=== PATIENT | female | born 1960 | race Caucasian/White ===

== ENCOUNTER 2025-05-21 13:05 | Inpatient (IN) ==
--- NOTE | 2025-05-21 13:15 | ED Physician Documentation ---
History of Present Illness Stated complaint Stated Complaint: N/V/ABDO PX Chief complaint Chief Complaint: Abd Pain History obtained from History obtained from: Patient and EMS Additonal information Additional information: 64-year-old woman with history of atrial fibrillation on Xarelto, Remote open cholecystectomy and hysterectomy without oophorectomy, lupus, CHF has been sick for about 5 days with vomiting and abdominal pain. She was seen here [address] Patrick. At the time she had a hemoglobin of 16.4 with normal white count she had kidney disease with BUN of 38 and creatinine of 1.8. We did not have prior labs on her so it was unclear if this was acute or chronic. She was administered IV fluids and Zofran and then subsequently droperidol with improvement. She still feels ill with vomiting and abdominal pain and states that her vomit is black. She is not taking Pepto-Bismol. She is actually not taking any of her routine meds because of the illness. She is feeling somewhat better after 4 mg of IV Zofran en route here. She did not fill her prescription for Zofran the other day but sounds like a family member had some and she tried that without relief. Meds/Allgy Home Medications Ambulatory Orders Medication Instructions Recorded Confirmed ondansetron HCl 4 mg tablet 4 mg PO Q8H PRN nausea and 05/19/25 vomiting #20 tabs Allergies Allergies Allergy/AdvReac Type Severity Reaction Status Date / Time Penicillins Allergy Mild Anaphylaxis Verified 05/19/25 00:00 [id number]-[id number] Reductase Allergy Mild Anaphylaxis Verified 05/19/25 00:00 Inhibitor codeine Allergy Unknown rash Verified 05/21/25 13:46 PFSH Active Problems All Active Problems (Updated 05/21/25 @ 15:44 by Tomasz Douglass MD) Atrial fibrillation (Chronic) Small bowel obstruction (Acute) Gastroenteritis (Acute) Vomiting (Acute) Dehydration (Acute) Social History Social History Do you feel safe in your home environment?: Yes History of physical, verbal, emotional, or financial abuse?: No Exam Exam Vital Signs: Vital Signs x48h Temp Pulse Resp BP Pulse Ox 05/21/25 15:23 94 115/84 96 05/21/25 14:53 106 H 16 113/83 93 05/21/25 14:48 98 115/91 H 96 05/21/25 14:43 105 H 127/86 96 05/21/25 14:38 142 H 16 120/95 H 93 05/21/25 14:07 144 H 12 146/85 H 93 05/21/25 14:01 150 H 14 117/81 94 05/21/25 13:43 135 H 10 L 135/95 H 94 05/21/25 13:14 36.3 C L 142 H 18 129/96 H 97 Constitutional normal general appearance and no apparent distress Respiratory breath sounds equal bilaterally, normal respiratory effort and clear to auscultation bilaterally Cardiovascular Rapid and irregular Gastrointestinal abdomen soft to palpation and nontender to palpation Results Vitals Vitals: Vital Signs - 24 hr 05/21/25 13:14 05/21/25 13:43 05/21/25 14:01 Temperature 36.3 C L Temperature Source Temporal Artery Scan Pulse Rate 142 H 135 H 150 H Respiratory Rate 18 10 L 14 Blood Pressure 129/96 H 135/95 H 117/81 O2 Saturation 97 94 94 O2 Source Room air Room air Pain Intensity 7 05/21/25 14:07 05/21/25 14:38 05/21/25 14:43 Temperature Temperature Source Pulse Rate 144 H 142 H 105 H Respiratory Rate 12 16 Blood Pressure 146/85 H 120/95 H 127/86 O2 Saturation 93 93 96 O2 Source Room air Room air Pain Intensity 05/21/25 14:48 05/21/25 14:53 05/21/25 15:23 Temperature Temperature Source Pulse Rate 98 106 H 94 Respiratory Rate 16 Blood Pressure 115/91 H 113/83 115/84 O2 Saturation 96 93 96 O2 Source Room air Room air Pain Intensity Oxygen O2 Source Room air Labs Labs: Laboratory Tests 05/21/25 13:22 WBC 12.4 H RBC 6.15 H Hgb 18.1 H Hct 54.3 H MCV 88.3 MCH 29.4 MCHC 33.3 RDW 13.2 Plt Count 511 H MPV 10.8 Neut # (Auto) 8.2 H Lymph # (Auto) 2.6 [place] # (Auto) 1.1 H Eos # (Auto) 0.0 Baso # (Auto) 0.1 Absolute Nucleated RBC 0.00 Nucleated RBC % 0.0 Sodium 129 L Potassium 4.0 Chloride 89 L Carbon Dioxide 26 Anion Gap 14.0 H BUN 24 H Creatinine 1.7 H Estimated GFR (MDRD) 30 L Glucose 162 H Calcium 9.7 Magnesium 2.0 Total Bilirubin 1.2 H AST 19 ALT 27 Alkaline Phosphatase 119 Troponin I High Sens 37.2 H* B-Natriuretic Peptide 71 Total Protein 6.4 Albumin 3.9 Globulin 2.5 Albumin/Globulin Ratio 1.6 Lipase 34 Rads (name of study) CT A/P: Relevant Findings:: Final report received and EMP independent interpretation of test Interpretation: IMPRESSION: High-grade small bowel obstruction. Left nephrolithiasis. Remote cholecystectomy and hysterectomy PD Medical Decision Making ED course ED course: She presents with abdominal symptoms predominantly but is noted to be in A-fib with RVR. She takes metoprolol at home, but has not been taking any of her meds in the last few days. She was given 2 doses of diltiazem which improved her heart rate from about 150 down to about 120, followed by metoprolol getting her heart rate down to about 100 or so. Workup demonstrates hemoconcentration with hemoglobin of 18, so despite the black vomitus, doubt this represents GI bleed. She does have a leukocytosis and mild thrombocytosis. CMP shows about the same renal function as the other day. She does have an elevated troponin which I suspect is likely due to to her tachycardia as opposed to a primary cardiac insult. On my independent review of her CT looks like she has a bowel obstruction and spoke with Dr. Fishman for admission at 3:45 PM and also left a voicemail for the on-call surgeon, Dr. Alcocer. Spoke with Dr. Alcocer as well at approximately 3:50 PM. She request NG tube decompression. Discharge Plan Discharge Patient Disposition: 65 [facility] DC/Xfer Condition: Serious Clinical Impression: Small bowel obstruction, Atrial fibrillation Prescriptions: No Action ondansetron HCl 4 mg tablet 4 mg PO Q8H PRN (Reason: nausea and vomiting) Qty: 20 0RF Print Language: Irish
[2025-05-21] MEDS: diltiaZEM INJ 5 MG/ML VIAL IVP STA ×2 (13:25→13:58)
[2025-05-21 13:36] LABS: HCT - HEMATOCRIT 54.3 % (37.0-47.0); HGB - HEMOGLOBIN 18.1 g/dL (12.0-16.0); MEAN PLATELET VOLUME 10.8 fL (7.9-10.8); NRBC ABSOLUTE COUNT (AUTO) 0.00 x10^3/uL; NUCLEATED RED BLOOD CELLS AUTO 0.0 /100WBC; PLT - PLATELET COUNT 511 10^3/uL (130-450); RED CELL DISTRIBUTION WIDTH 13.2 % (12.0-15.0)
[2025-05-21 13:49] LABS: ALT ALANINE AMINOTRANSFERASE 27.0 IU/L (10-60); AST ASPARTATE AMINOTRANSFERASE 19.0 IU/L (10-42); BUN - BLOOD UREA NITROGEN 24.0 mg/dL (6-20); CARBON DIOXIDE - CO2 26.0 mmol/L (21-32); CREATININE 1.7 mg/dL (0.6-1.3); GFR - MDRD 30.0 (>89)
[2025-05-21] MEDS: SODIUM CHLORIDE 0.9% 1,000 ML IV STA ×2 (14:41→14:54)
[2025-05-21] MEDS: METOPROLOL 5 MG/5 ML VIAL IVP STA (14:42)
--- NOTE | 2025-05-21 15:58 | CT Report ---
PROCEDURE: CT Abdomen/Pelvis WO INDICATIONS: IV only, abd pain, vomit TECHNIQUE: A CT scan of the abdomen and pelvis was performed without the use of intravenous contrast. Images were recorded and evaluated at appropriate window settings. Reformats: coronal and sagittal. For radiation dose reduction, the following was used: automated exposure control, adjustment of mA and/or kV according to patient size. COMPARISON: None. FINDINGS: Image quality: Diagnostic. Lower chest: Unremarkable. Liver: No contour-deforming mass. Gallbladder: Absent Biliary tree: No intrahepatic or extrahepatic dilation, accounting for age. Spleen: No splenomegaly. Pancreas: No pancreatic ductal dilation. Adrenals: No adrenal nodule. Kidneys and ureters: No hydronephrosis. No contour-deforming mass. Nonobstructing large left renal stone measuring 1.5 cm. Focal left renal cortical volume loss consistent with remote insult. Stomach, bowel and peritoneum: High-grade small bowel obstruction. No free air or free fluid. Lymph nodes: No central or retroperitoneal adenopathy. Vessels: No infrarenal aortic aneurysm. Reproductive organs: Uterus is surgically absent. No adnexal masses. Bladder: No abnormal bladder wall thickening. No calcified bladder stones. Pelvic lymph nodes: No adenopathy by size criteria. Bones: No aggressive osseous abnormality. Remote lower lumbar posterior decompression and posterior lateral fusion.. Other: No significant ventral or inguinal hernia. IMPRESSION: High-grade small bowel obstruction. Left nephrolithiasis. Remote cholecystectomy and hysterectomy Reviewed by: Wayne Anton MD on 05/21/2025 3:54 PM PDT Approved by: Wayne Anton MD on 05/21/2025 3:54 PM PDT Station ID: [id number]
--- NOTE | 2025-05-21 16:15 | HISTORY & PHYSICAL EXAMINATION ---
Chief Complaint Chief Complaint Chief Complaint: N/V History of Present Illness Admitted From Admitted From:: home History Obtained From Records Reviewed: none available History obtained from: patient History of Present Illness HPI Comment/Other: 64-year-old female who presents to the emergency department with nausea and vomiting inability to tolerate any p.o. since 05/16/2025. She was seen in the ED on May 16 diagnosed with a gastroenteritis and sent home. She has not had a bowel movement nor passed flatus since 05/16. She has been having mild abdominal pain and abdominal distention. She says she just generally fears feels terrible. Is difficult for her to get out of bed such as she has been keeping a bucket by her bed vomiting. She has not been running any fevers she has not had any extremity swelling she is not having any difficulty passing her urine she states that she still is urinating several times a day. Recently moved here from [place] to live with her daughter and son-in-law. She was in [place] caring for her aging parents and they have since . She has a history of CHF and diabetes her diabetes diagnosis is rather recent. She has been waiting for months for a primary care appointment and unfortunately is scheduled for tomorrow and thus she will miss it. She is worried about running out of medications. Her daughter Dea is her surrogate medical decision maker. She does not have a POLST, but wants full code status. She says that maybe she will think about changing her code status in 10 years. Meds/Allgy Home Medications Ambulatory Orders Medication Instructions Recorded Confirmed ondansetron HCl 4 mg tablet 4 mg PO Q8H PRN nausea and 05/19/25 vomiting #20 tabs Allergies Allergies Allergy/AdvReac Type Severity Reaction Status Date / Time Penicillins Allergy Mild Anaphylaxis Verified 05/19/25 00:00 [id number] Reductase Allergy Mild Anaphylaxis Verified 05/19/25 00:00 Inhibitor codeine Allergy Unknown rash Verified 05/21/25 13:46 PFSH Active Problems All Active Problems (Updated 05/21/25 @ 16:27 by RACHELE Rivera) CHF (congestive heart failure) (Acute) Diabetes (Chronic) Atrial fibrillation with RVR (Chronic) Acute kidney injury (Acute) Hyponatremia (Acute) Atrial fibrillation (Chronic) Small bowel obstruction (Acute) Gastroenteritis (Acute) Vomiting (Acute) Dehydration (Acute) Surgical History Surgical History (Updated 05/21/25 @ 17:35 by Parul Alcocer DO) History of abdominal hysterectomy History of cholecystectomy open Social History Social History (Updated 05/21/25 @ 17:42 by Parul Alcocer DO) Smoking Status: Unknown if ever smoked Do you feel safe in your home environment?: Yes History of physical, verbal, emotional, or financial abuse?: No POLST Patient has POLST: No POLST on file?: No Review of Systems Status of ROS: 10 or more systems reviewed and unremarkable except as noted in history and below Prior Level of Functionality: Independent Exam Exam Vital Signs: Vital Signs x48h Temp Pulse Pulse Resp BP BP Pulse Ox 05/21/25 18:00 36.5 C 131 H 18 119/83 95 05/21/25 17:20 118 H 123/86 93 05/21/25 17:05 110 H 115/82 92 05/21/25 16:46 117 H 135/84 H 92 05/21/25 16:40 127 H 105/79 96 05/21/25 15:23 94 115/84 96 05/21/25 14:53 106 H 16 113/83 93 05/21/25 14:48 98 115/91 H 96 05/21/25 14:43 105 H 127/86 96 05/21/25 14:38 142 H 16 120/95 H 93 05/21/25 14:07 144 H 12 146/85 H 93 05/21/25 14:01 150 H 14 117/81 94 05/21/25 13:43 135 H 10 L 135/95 H 94 05/21/25 13:14 36.3 C L 142 H 18 129/96 H 97 Constitutional normal general appearance and no apparent distress Obese edentulous female [facility] normocephalic Eyes PERRL and conjunctivae normal Neck/C-Spine visual inspection normal Chest inspection of chest normal Respiratory breath sounds equal bilaterally, normal respiratory effort, clear to auscultation bilaterally and no use of accessory muscles Cardiovascular normal heart rate noted HR normal in the ED, becoming tachycardic on the floor. Gastrointestinal nontender to palpation no bowel sounds. distended, mild ttp. improved post NG insertion. subcostal incision on the right. Extremities normal to inspection and normal to palpation no edema Neurology no focal motor deficit noted and GCS 15 Psychiatry mental status grossly normal, oriented x3 and thought process normal Skin skin is dry Conclusion/Plan Problem List (1) Small bowel obstruction: Plan: 64F who presents with inability to tolerate po for 5 days. No flatus or BM for 5 days. She appears dehydrated. She is tachycardic, she states she is still making urine, she has been vomting at home for 5 days and feeling more weak today. Description of her vomitus is black. She denies hx of GIB. has not been taking NSAIDS. her hgb is not low, appears hemoconcentrated. I have ordered repeat CBC for the AM. remote surgical hx of open cholecystectomy and hysterectomy. She denies hx of SBO. discussed w Dr Douglass, will admit to inpatient status for observation and supportive care. Discussed with Dr Alcocer of Gen surgery. I will place NG for decompression overnight and consider gastrografin challenge in the AM. Pt was educated on NGT, GGC and possible operative treatment if these 2 measures were to fail. I will order zofran and compazine IV PRN N/V, but expect that she will feel better with NG placement. LR at 100cc/hr. May give another bolus dependent on heart rate. Elevated WBC may be due to vomiting, may also be due to hemoconcentration. This patient meets sepsis criteria with leukocystosis,tachycardia- however I think it more likely that she has dehydration. (2) Atrial fibrillation with RVR: Plan: heart rate as high as 150 in the ED. She has been given 2 doses of diltiazem in the ED and heart rate down under 100, also received metoprolol 5mg IV. She tells me that she is on Paradaxa at home, but has not taken it since 05/16. She is almost out of [facility], due to lack of primary care. I think that her tachycardia may be related to her dehydration. She has been given 2L NS in the ED. I will monitor on telemetry and give metoprolol 5mg IV q6h PRN sustained HR >120. (3) Acute kidney injury: Plan: Unclear what baseline Cr is. She denies a hx of renal insuffiency. She has DM and heart failure as well. so possible that she has CRI. Will hydrate patient and recheck Cr in the AM with BMP. (4) Hyponatremia: Plan: NA 129, likely due to GI losses, this is most likely hypovolemic hyponatremia. I will hydrate the patient and recheck Na in the AM. Her sodium was 135 two days ago, on the day she started to vomit. likely will correct with correction of her hypovolemia and resumption of oral intake. (5) Diabetes: Plan: unknown meds. Glucose is 163 on BMP at admit. I will order A1C with AM labs, and place on low dose SSI overnight with POC glucose checks every 6 hours. (6) CHF (congestive heart failure): Plan: Patient does not know her meds or her EF. She has not been having any PND, lower extremity swelling or CHISHOLM. Will continue to follow and pursue accurate med rec. I will use fluids judiciously. Trop is 37.2 at the time of initial labs. This is likely strain. I will recheck Trop again this evening. Plan I have spent 85 minutes in the care of this patient today. This includes time [id number], review and ordering of diagnostic imaging and laboratory studies and consultation with other providers. Monitoring the patient's signs symptoms, evaluation of medication effectiveness and patient's response to treatment. Lab Results Lab results reviewed: Yes 05/21/25 13:22 05/21/25 13:22 EKG Results EKG Interpreted Independently: Yes EKG Findings: Atrial fibrillation with a rate of 153.
[2025-05-21] MEDS: PROCHLORPERAZINE 10 MG/2 ML VIAL IVP STA (16:35)
--- NOTE | 2025-05-21 16:48 | CONSULTATION NOTE ---
History of Present Illness History of Present Illness HPI Comment/Other: 64-year-old female presents to the ER with a week of vomiting. She began vomiting on Wednesday 05/16. She reports her last bowel movement or flatus was the day prior on . She was seen in the ER 2 days ago and diagnosed with gastroenteritis. She returns today and evaluation including CT imaging is more consistent with small bowel obstruction. She has a history of open cholecystectomy as well as hysterectomy. She has no history of prior small bowel obstructions. She was also found to be in A-fib with RVR in the emergency room, which has now been corrected. In association with that she has an elevated troponin and elevated creatinine, her baseline labs are unknown as she recently relocated to [facility]. An NG tube was placed in the emergency room with immediate output of 700 cc of feculent fluid. She reports improvement in her abdominal pain since NG tube placement. Lives at home with daughter and son-in-law. PFSH Active Problems All Active Problems (Updated 05/21/25 @ 16:27 by RACHELE Rivera) CHF (congestive heart failure) (Acute) Diabetes (Chronic) Atrial fibrillation with RVR (Chronic) Acute kidney injury (Acute) Hyponatremia (Acute) Atrial fibrillation (Chronic) Small bowel obstruction (Acute) Gastroenteritis (Acute) Vomiting (Acute) Dehydration (Acute) Surgical History Surgical History (Updated 05/21/25 @ 17:35 by Parul Alcocer DO) History of abdominal hysterectomy History of cholecystectomy open Social History Social History Smoking Status: Unknown if ever smoked Do you feel safe in your home environment?: Yes History of physical, verbal, emotional, or financial abuse?: No POLST Patient has POLST: No POLST on file?: No Meds/Allgy Home Medications Ambulatory Orders Medication Instructions Recorded Confirmed ondansetron HCl 4 mg tablet 4 mg PO Q8H PRN nausea and 05/19/25 vomiting #20 tabs Allergies Allergies Allergy/AdvReac Type Severity Reaction Status Date / Time Penicillins Allergy Mild Anaphylaxis Verified 05/19/25 00:00 Iigdlag-[id number] Reductase Allergy Mild Anaphylaxis Verified 05/19/25 00:00 Inhibitor codeine Allergy Unknown rash Verified 05/21/25 13:46 Results Lab Results 05/21/25 13:22 05/21/25 13:22 Other Lab Results: Lab Results x24hrs 05/21/25 Range/Units 13:22 WBC 12.4 H (4.8-10.8) x10^3/uL RBC 6.15 H (4.20-5.40) 10^6/uL Hgb 18.1 H (12.0-16.0) g/dL Hct 54.3 H (37.0-47.0) % MCV 88.3 (81.0-99.0) fL MCH 29.4 (27.0-31.0) pg MCHC 33.3 (32.0-36.0) g/dL RDW 13.2 (12.0-15.0) % Plt Count 511 H (130-450) 10^3/uL MPV 10.8 (7.9-10.8) fL Neut # (Auto) 8.2 H (1.5-6.6) 10^3/uL Lymph # (Auto) 2.6 (1.5-3.5) 10^3/uL [place] # (Auto) 1.1 H (0.0-1.0) 10^3/uL Eos # (Auto) 0.0 (0.0-0.7) 10^3/uL Baso # (Auto) 0.1 (0.0-0.1) 10^3/uL Absolute Nucleated RBC 0.00 x10^3/uL Nucleated RBC % 0.0 /100WBC Sodium 129 L (135-145) mmol/L Potassium 4.0 (3.5-4.5) mmol/L Chloride 89 L (101-111) mmol/L Carbon Dioxide 26 (21-32) mmol/L Anion Gap 14.0 H (6-13) BUN 24 H (6-20) mg/dL Creatinine 1.7 H (0.6-1.3) mg/dL Estimated GFR (MDRD) 30 L (>89) Glucose 162 H (74-104) mg/dL Calcium 9.7 (8.5-10.3) mg/dL Magnesium 2.0 (1.7-2.3) mg/dL Total Bilirubin 1.2 H (0.2-1.0) mg/dL AST 19 (10-42) IU/L ALT 27 (10-60) IU/L Alkaline Phosphatase 119 (42-121) IU/L Troponin I High Sens 37.2 H* (2.3-14.8) ng/L B-Natriuretic Peptide 71 (5-100) pg/mL Total Protein 6.4 (6.4-8.9) g/dL Albumin 3.9 (3.2-5.5) g/dL Globulin 2.5 (2.1-4.2) g/dL Albumin/Globulin Ratio 1.6 (1.0-2.2) Lipase 34 (11-82) U/L Diagnostic Imaging Results Diagnostic Imaging Results: positive Read contemporaneously Diagnostic Imaging Results Comments: EXAM: [id number] CT/ABPEWO ([id number]) PROCEDURE: CT Abdomen/Pelvis WO INDICATIONS: IV only, abd pain, vomit TECHNIQUE: A CT scan of the abdomen and pelvis was performed without the use of intravenous contrast. Images were recorded and evaluated at appropriate window settings. Reformats: coronal and sagittal. For radiation dose reduction, the following was used: automated exposure control, adjustment of mA and/or kV according to patient size. COMPARISON: None. FINDINGS: Image quality: Diagnostic. Lower chest: Unremarkable. Liver: No contour-deforming mass. Gallbladder: Absent Biliary tree: No intrahepatic or extrahepatic dilation, accounting for age. Spleen: No splenomegaly. Pancreas: No pancreatic ductal dilation. Adrenals: No adrenal nodule. Kidneys and ureters: No hydronephrosis. No contour-deforming mass. Nonobstructing large left renal stone measuring 1.5 cm. Focal left renal cortical volume loss consistent with remote insult. Stomach, bowel and peritoneum: High-grade small bowel obstruction. No free air or free fluid. Lymph nodes: No central or retroperitoneal adenopathy. Vessels: No infrarenal aortic aneurysm. Reproductive organs: Uterus is surgically absent. No adnexal masses. Bladder: No abnormal bladder wall thickening. No calcified bladder stones. Pelvic lymph nodes: No adenopathy by size criteria. Bones: No aggressive osseous abnormality. Remote lower lumbar posterior decompression and posterior lateral fusion.. Other: No significant ventral or inguinal hernia. IMPRESSION: High-grade small bowel obstruction. Left nephrolithiasis. Remote cholecystectomy and hysterectomy Reviewed by: Wayne Anton MD on 05/21/2025 3:54 PM PDT Approved by: Wayne Anton MD on 05/21/2025 3:54 PM PDT Review of Systems Status of ROS: 10 or more systems reviewed and unremarkable except as noted in history and below Exam Exam Vital Signs: Vital Signs x48h Temp Pulse Resp BP Pulse Ox 05/21/25 15:23 94 115/84 96 05/21/25 14:53 106 H 16 113/83 93 05/21/25 14:48 98 115/91 H 96 05/21/25 14:43 105 H 127/86 96 05/21/25 14:38 142 H 16 120/95 H 93 05/21/25 14:07 144 H 12 146/85 H 93 05/21/25 14:01 150 H 14 117/81 94 05/21/25 13:43 135 H 10 L 135/95 H 94 05/21/25 13:14 36.3 C L 142 H 18 129/96 H 97 Constitutional normal general appearance, no apparent distress and abnormal body habitus (obese) HENID normocephalic Neck/C-Spine visual inspection normal Respiratory breath sounds equal bilaterally and normal respiratory effort Cardiovascular normal heart rate noted Gastrointestinal distended, mild ttp (after NGT placement), soft/no guarding. RUQ subcostal and pfannenstiel scars. Extremities no deformity Neurology no movement abnormality noted and GCS 15 Psychiatry mental status grossly normal and oriented x3 Skin skin color normal Conclusion/Plan Problem List (1) Small bowel obstruction: Plan: 64-year-old female presenting with first small bowel obstruction; Presumed adhesive etiology given prior open cholecystectomy and hysterectomy. 5 days of p.o. intolerance and no bowel function. Labs consistent with mild leukocytosis to [address] shows transition point in the distal ileum. Admitted to hospitalist service. - NG tube placed in the emergency room. - Recommend advancing 5 to 10 cm. - N.p.o. with IV fluids. - NG to LIWS - Plan for Gastrografin trial after a period of decompression. Surgery will .follow Parul Alcocer DO, FACS General Surgeon, [place] (2) Atrial fibrillation with RVR: (3) Acute kidney injury: (4) Hyponatremia: (5) Diabetes: (6) CHF (congestive heart failure): Lab Results 05/21/25 13:22 05/21/25 13:22 Diagnostic Imaging Results Diagnostic Imaging Results: positive Read contemporaneously
--- NOTE | 2025-05-21 17:25 | XRAY Report ---
PROCEDURE: XR Chest for Line Placement INDICATIONS: NGT TECHNIQUE: One view of the chest was acquired. COMPARISON: None FINDINGS: Surgical changes and devices: NG tube is present. The tip terminates below the level of the diaphragm. The end of the NG tube is not well seen due to technique. There are surgical clips in the right upper quadrant of the abdomen and a calcification projects over the left upper quadrant. Lungs and pleura: Visible lung bernard are clear. No significant effusion Mediastinum: Mediastinal contours appear normal. Heart size is normal. Bones and chest wall: No suspicious bony lesions. Overlying soft tissues appear unremarkable. IMPRESSION: NG tube in place as described. The distal end is not well seen due to technique, but terminates below the level of the diaphragm. Consider KUB if there is continued concern for placement.. Reviewed by: Judy Witt MD on 05/21/2025 5:22 PM PDT Approved by: Judy Witt MD on 05/21/2025 5:22 PM PDT Station ID: [id number]
[2025-05-21] MEDS: HYDROmorphone 0.5 MG/0.5 ML SYRINGE IVP PRN (18:20)
[2025-05-21] MEDS: LACTATED RINGERS 1,000 ML IV SCH (18:21)
[2025-05-21] MEDS: SODIUM CHLORIDE FLUSH 0.9% 10 ML SYRINGE IVP SCH (19:13)
[2025-05-21] MEDS: PHENOL THROAT SPRAY 177 ML MM PRN (19:32)
[2025-05-22] MEDS: INSULIN REGULAR, HUMAN 300 UNIT/3 ML PEN SUBQ SCH
[2025-05-22] MEDS ORDERED: INSULIN REGULAR, HUMAN 300 UNIT/3 ML PEN SUBQ SCH
[2025-05-22 06:09] LABS: HCT - HEMATOCRIT 48.5 % (37.0-47.0); HGB - HEMOGLOBIN 16.3 g/dL (12.0-16.0); MEAN PLATELET VOLUME 10.7 fL (7.9-10.8); NRBC ABSOLUTE COUNT (AUTO) 0.00 x10^3/uL; NUCLEATED RED BLOOD CELLS AUTO 0.0 /100WBC; PLT - PLATELET COUNT 368 10^3/uL (130-450); RED CELL DISTRIBUTION WIDTH 13.5 % (12.0-15.0)
[2025-05-22 06:26] LABS: BUN - BLOOD UREA NITROGEN 23.0 mg/dL (6-20); CARBON DIOXIDE - CO2 26.0 mmol/L (21-32); CREATININE 1.4 mg/dL (0.6-1.3); GFR - MDRD 38.0 (>89)
[2025-05-22] MEDS: ENOXAPARIN 40 MG/0.4 ML SYRINGE SUBQ SCH (09:55)
[2025-05-22 10:20] LABS: ESTIMATED AVERAGE GLUCOSE 114 mg/dL (70-100); HEMOGLOBIN A1c% 5.6 % (4.27-6.07)
[2025-05-22] MEDS ORDERED: DIATR MEGLU/DIATRIZOATE SODIUM 120 ML BOTTLE ONE (10:29)
--- NOTE | 2025-05-22 12:18 | XRAY Report ---
PROCEDURE: XR No-Charge 1V Abdomen INDICATIONS: NG advancement TECHNIQUE: 1 view of the abdomen were acquired. COMPARISON: None. FINDINGS: Nasogastric tube extends into the left upper abdomen, crosses the midline towards the right with the distal tip at the expected location of the gastric antrum or pylorus. Surgical clips right upper quadrant cholecystectomy. 1.6 cm calcification in the left upper abdomen corresponds to a nonobstructing renal calcification. Mild to moderately distended gas-filled bowel in the upper abdomen measuring up to 4 cm suggestive of bowel obstruction versus ileus. No gross free intraperitoneal gas. IMPRESSION: Nasogastric tube as discussed above. Distended bowel as discussed above. If symptoms persist or worsen, CT could be performed. Reviewed by: Faraz Ventura MD on 05/22/2025 12:15 PM PDT Approved by: Faraz Ventura MD on 05/22/2025 12:15 PM PDT Station ID: [id number]
[2025-05-22] MEDS: POTASSIUM CHLOR 10 MEQ/100 ML 10 MEQ/100 ML BAG IV SCH (12:24)
[2025-05-22] MEDS: PROCHLORPERAZINE 10 MG/2 ML VIAL IVP PRN (14:19)
[2025-05-22] MEDS: ONDANSETRON 4 MG/2 ML VIAL IVP PRN (16:19)
--- NOTE | 2025-05-22 16:47 | PHARMACY PROGRESS NOTE ---
Best Possible Medication History Admit Date and Time: 05/21/25 1605 Home Medications Medication Instructions Recorded Confirmed Type amiodarone 200 mg tablet 200 mg PO DAILY 05/22/25 History cariprazine 4.5 mg capsule 4.5 mg PO DAILY 05/22/25 History (Vraylar) docusate sodium 100 mg capsule 100 mg PO DAILY PRN con stipation 05/22/25 05/22/25 History (Col-Rite) duloxetine 60 mg capsule,delayed 60 mg PO DAILY 05/22/25 History release (Cymbalta) empagliflozin 10 mg tablet 10 mg PO DAILY 05/22/25 History (Jardiance) famotidine 40 mg tablet (Pepcid) 40 mg PO DAILY 05/22/25 History fluticasone fur. 200 mcg-umeclid 1 inh inhalation KERA Y 05/22/25 05/22/25 History 62.5 mcg-vilant 25 mcg inhalat.powder (Trelegy Ellipta) levothyroxine 137 mcg tablet 137 mcg PO DAILY 05/22/25 05/22/25 History (Euthyrox) metoprolol succinate 100 mg 100 mg PO DAILY 05/22/25 1 History tablet,extended release 24 hr montelukast 10 mg tablet 10 mg PO DAILY 05/22/2505/07 History (Singulair) rivaroxaban 20 mg tablet (Xarelto) 20 mg PO DAILY 05/0705/22/25 History semaglutide 1 mg/dose (4 mg/3 mL) 1 mg subcut QWEEK 05/22/25 History subcutaneous pen injector (Ozempic) spironolactone 25 mg tablet 25 mg PO DAILY 05/22/25 History (Aldactone) tolterodine 4 mg capsule,extended 4 mg PO DAILY 05/22/25 History release 24 hr (Detrol LA) Processed by: Pharmacy Medications reviewed in ED?: Yes Medication History completed: Yes Patient Interview: Completed Secondary Source(s): Written medication list [facility] Statement: As the person ultimately responsible for medication therapy, providers are able to order a medication from an existing home medication list in [facility] via the "Reconcile Routine" prior to Confirmation of that medication by application support administrator. Such practice is discouraged except when the physician, in their clinical judgment, deems that a medical need exists for a medication without regard to previous use.
--- NOTE | 2025-05-22 16:59 | PROVIDER PROGRESS NOTE ---
Subjective General Admit Date: 05/21/25 Other Other Information/Narrative: HD2 SBO. 1.4L feculant fluid out from NGT. No flatus or BM this AM, but abdominal pain dramatically improved. Denies nausea. HDN/AF. Review of Systems Status of ROS: 10 or more systems reviewed and unremarkable except as noted in history and below Exam Exam Vital Signs: Vital Signs x48h Temp Pulse Pulse Resp BP Pulse Ox 05/22/25 16:16 36.4 C L 50 L 16 135/78 H 93 05/22/25 13:00 36.5 C 60 16 111/81 94 05/22/25 09:00 36.5 C 96 16 117/60 92 Constitutional normal general appearance, no apparent distress and abnormal body habitus (obese) [facility] normocephalic Neck/C-Spine visual inspection normal Respiratory breath sounds equal bilaterally and normal respiratory effort Cardiovascular normal heart rate noted Gastrointestinal distended but softer, non ttp, NGT in place. RUQ subcostal and pfannenstiel scars. Extremities no deformity Neurology no movement abnormality noted and GCS 15 Psychiatry mental status grossly normal and oriented x3 Skin skin color normal Impression/Plan Problem List (1) Small bowel obstruction: Plan: 64-year-old female admitted 05/21 with first small bowel obstruction; presumed adhesive etiology given prior open cholecystectomy and hysterectomy. 5 days of p.o. intolerance and no bowel function at time of admission. CT shows transition point in the distal ileum. Leukocytosis normalized. - Gastrograffin study started this AM - follow up results this afternoon. - N.p.o. with IV fluids. - NG to [facility] Surgery will .follow Parul Alcocer DO, FACS General Surgeon, [facility] (2) Atrial fibrillation with RVR: (3) Acute kidney injury: (4) Hyponatremia: (5) Diabetes: (6) CHF (congestive heart failure):
--- NOTE | 2025-05-22 18:57 | PROVIDER PROGRESS NOTE ---
Subjective Prog Note Date Prog Note Date: 05/22/25 Subjective Subjective: NG helpful for her overnight. She has had ice chips while NG to suction. gastrografin given this AM. Patient denies the need to pass flatus, nor has she had a BM. 4 hours after gastrografin she is nauseated. Current Medications Current Medications Current Medications: Current Medications Generic Name Dose Route Start Last Admin Trade Name Freq PRN Reason Stop Dose Admin Enoxaparin Sodium 40 mg 05/22/25 09:00 05/22/25 09:55 Enoxaparin 40 Mg/0.4 Ml Syringe SUBQ 40 mg DAILY MARCO Administration Hydromorphone HCl 0.5 mg 05/21/25 17:57 05/22/25 14:19 Hydromorphone 0.5 Mg/0.5 Ml Syringe IVP 0.5 mg Q2H PRN Administration Pain 8 to 10 Lactated Ringer's 1,000 mls @ 100 mls/hr 05/21/25 17:57 05/22/25 14:19 Lr IV 100 mls/hr .Q10H MARCO Administration Insulin Human Regular 1 - 5 unit 05/22/25 00:00 05/22/25 18:43 Insulin Regular, Human 300 Unit/3 Ml Pen SUBQ Not Given Q6HR MARCO Protocol Metoprolol Tartrate 5 mg 05/21/25 17:57 Metoprolol 5 Mg/5 Ml Vial IVP Q6H PRN Tachycardia Ondansetron HCl 4 mg 05/21/25 17:57 05/22/25 16:19 Ondansetron 4 Mg/2 Ml Vial IVP 4 mg Q6HR PRN Administration Nausea / Vomiting Phenol/Menthol 2 sprays 05/21/25 18:57 05/21/25 19:32 Phenol Throat [place] 177 Ml MM 2 sprays Q2HR PRN Administration Throat Pain Prochlorperazine Edisylate 10 mg 05/21/25 17:57 05/22/25 14:19 Prochlorperazine 10 Mg/2 Ml Vial IVP 10 mg Q6HR PRN Administration Nausea / Vomiting Sodium Chloride 10 ml 05/21/25 17:57 Sodium Chloride Flush 0.9% 10 Ml Syringe IVP PRN PRN NEEDED PER PROVIDER ORDERS Sodium Chloride 10 ml 05/21/25 17:57 05/22/25 16:14 Sodium Chloride Flush 0.9% 10 Ml Syringe IVP 10 ml 0100,0900,1700 MARCO Administration Objective Vital Signs/Intake & Output Vital Signs: Vital Signs x48h Temp Pulse Resp BP Pulse Ox 05/22/25 16:16 36.4 C L 50 L 16 135/78 H 93 05/22/25 13:00 36.5 C 60 16 111/81 94 Intake & Output: Intake & Output 05/19/25 05/20/25 05/21/25 05/22/25 23:59 23:59 23:59 23:59 Intake Total 2009 2440 / 2440 Output Total 600 / 600 575 / 575 Balance 1410 / 1410 1865 / 1865 Weight (kg) 102.5 kg Objective General Appearance: positive No acute distress and Alert Eyes Bilateral: positive Normal inspection ENT: positive ENT inspection nml Neck: positive Nml inspection Respiratory: positive No respiratory distress and Breath sounds nml Cardiovascular: positive Regular rate & rhythm Abdomen: positive Other (obese abdomen. there are bowel tones present. ) Skin: positive Color nml Extremities: positive Non-tender and No pedal edema Neurologic/Psychiatric: positive Oriented x3 Lab Results 05/22/25 05:51 05/22/25 05:51 Other Labs: Lab Results x24hrs 05/22/25 05/22/25 05/22/25 Range/Units 18:17 11:58 06:33 WBC (4.8-10.8) x10^3/uL RBC (4.20-5.40) 10^6/uL Hgb (12.0-16.0) g/dL Hct (37.0-47.0) % MCV (81.0-99.0) fL MCH (27.0-31.0) pg MCHC (32.0-36.0) g/dL RDW (12.0-15.0) % Plt Count (130-450) 10^3/uL MPV (7.9-10.8) fL Neut # (Auto) (1.5-6.6) 10^3/uL Lymph # (Auto) (1.5-3.5) 10^3/uL Nye # (Auto) (0.0-1.0) 10^3/uL Eos # (Auto) (0.0-0.7) 10^3/uL Baso # (Auto) (0.0-0.1) 10^3/uL Absolute Nucleated RBC x10^3/uL Nucleated RBC % /100WBC Sodium (135-145) mmol/L Potassium (3.5-4.5) mmol/L Chloride (101-111) mmol/L Carbon Dioxide (21-32) mmol/L Anion Gap (6-13) BUN (6-20) mg/dL Creatinine (0.6-1.3) mg/dL Estimated GFR (MDRD) (>89) Glucose (74-104) mg/dL POC Whole Bld Glucose 98 104 100 (70-100) mg/dL Estimat Average Glucose (70-100) mg/dL Hemoglobin A1c % (4.27-6.07) % Calcium (8.5-10.3) mg/dL 05/22/25 05/22/25 Range/Units 05:51 00:17 WBC 10.8 (4.8-10.8) x10^3/uL RBC 5.43 H (4.20-5.40) 10^6/uL Hgb 16.3 H (12.0-16.0) g/dL Hct 48.5 H (37.0-47.0) % MCV 89.3 (81.0-99.0) fL MCH 30.0 (27.0-31.0) pg MCHC 33.6 (32.0-36.0) g/dL RDW 13.5 (12.0-15.0) % Plt Count 368 (130-450) 10^3/uL MPV 10.7 (7.9-10.8) fL Neut # (Auto) 6.7 H (1.5-6.6) 10^3/uL Lymph # (Auto) 2.7 (1.5-3.5) 10^3/uL Nye # (Auto) 1.0 (0.0-1.0) 10^3/uL Eos # (Auto) 0.1 (0.0-0.7) 10^3/uL Baso # (Auto) 0.1 (0.0-0.1) 10^3/uL Absolute Nucleated RBC 0.00 x10^3/uL Nucleated RBC % 0.0 /100WBC Sodium 133 L (135-145) mmol/L Potassium 3.4 L (3.5-4.5) mmol/L Chloride 94 L (101-111) mmol/L Carbon Dioxide 26 (21-32) mmol/L Anion Gap 13.0 (6-13) BUN 23 H (6-20) mg/dL Creatinine 1.4 H (0.6-1.3) mg/dL Estimated GFR (MDRD) 38 L (>89) Glucose 92 (74-104) mg/dL POC Whole Bld Glucose 95 (70-100) mg/dL Estimat Average Glucose 114 H (70-100) mg/dL Hemoglobin A1c % 5.6 (4.27-6.07) % Calcium 8.8 (8.5-10.3) mg/dL Assessment/Plan Problem List (1) Small bowel obstruction: Impression: 64F who presents with inability to tolerate po for 5 days. No flatus or BM for 5 days. remote surgical hx of open cholecystectomy and hysterectomy. She denies hx of SBO. Discussed with Dr Alcocer of Gen surgery. LR at 100cc/hr. She remains with minimal po intake so will continue this. WBC and hemoglobin normalized today, indicating dehydration on admission. GGC today without flatus or BM. by my read, the XR shows contrast in the small bowel at 6 hours, but not in the colon. She does have bowel tones present. I will check KUB XR in the AM. . (2) Atrial fibrillation with RVR: Impression: I think her elevated HR was more related to dehydration. She now has a HR which is bradycardic at times. she feels weak generally, with no nutrition for about 5 days, but not dizzy. She is able to ambulate short distances in the hallway. Given that she is now having some bradycardia, I will continue telemetry. (3) Acute kidney injury: Impression: I do not have a baseline renal function on this patient. I see improvement in her Cr with hydration, will continue. Laboratory Tests 05/19/25 05/21/25 05/22/25 00:55 13:22 05:51 Creatinine 1.8 H 1.7 H 1.4 H (4) Hyponatremia: Impression: She is improving w IV hydration and I expect her to continue to improve as we are able to resume po intake in the near future, if her SBO resolves. Laboratory Tests 05/21/25 05/22/25 13:22 05:51 Sodium 129 L 133 L (5) Diabetes: Impression: Home meds for DM look like only ozempic, last taken on 05/18. We will hold this and continue SSI. her A1C is 5.6% indicating good control. Laboratory Tests 05/22/25 05/22/25 05/22/25 00:17 06:33 11:58 POC Whole Bld Glucose 95 100 104 05/22/25 18:17 POC Whole Bld Glucose 98 (6) CHF (congestive heart failure): Impression: Echocardiogram updated today, done but not read. Patient on GDMT, but I am unsure of the status of her heart failure. Lungs are CTA, no increasing edema or PND. Home meds can be resumed when she is able to take po. These are metoprolol, xarelto, jardiance, amiodarone. I will maintain her on telemetry. (7) Hypokalemia: Impression: I expect more GI losses, therefore am being slightly aggressive in my IV repletion today with 40mEq today. K 3.4 this AM. This patient's diagnosis and treatment plan was discussed this AM with attending physician as a part of multi disciplinary rounding meeting. I have spent 51 minutes in the care of this patient today. This includes time [id number], review and ordering of diagnostic imaging and laboratory studies and consultation with other providers. Monitoring the patient's signs symptoms, evaluation of medication effectiveness and patient's response to treatment.
--- NOTE | 2025-05-22 21:07 | XRAY Report ---
PROCEDURE: XR SBFT Challenge Panel INDICATIONS: SBO TECHNIQUE: Gastrografin challenge. After administration of iodinated contrast via the gastrostomy tube serial images were obtained of the abdomen. COMPARISON: None FINDINGS: Multiple abnormally dilated loops of small bowel throughout the abdomen. Contrast opacifies the small bowel and stomach, but never reaches the colon at 8 hours. Enteric tube tip projects over the gastric body. Lumbar spinal fusion hardware and cholecystectomy clips. IMPRESSION: Failed Gastrografin challenge. Small bowel obstruction. Reviewed by: Kenan Koch MD on 05/22/2025 9:04 PM PDT Approved by: Kenan Koch MD on 05/22/2025 9:04 PM PDT Station ID: [id number]
[2025-05-23 06:05] LABS: HCT - HEMATOCRIT 49.8 % (37.0-47.0); HGB - HEMOGLOBIN 15.9 g/dL (12.0-16.0); MEAN PLATELET VOLUME 10.5 fL (7.9-10.8); NRBC ABSOLUTE COUNT (AUTO) 0.00 x10^3/uL; NUCLEATED RED BLOOD CELLS AUTO 0.0 /100WBC; PLT - PLATELET COUNT 334 10^3/uL (130-450); RED CELL DISTRIBUTION WIDTH 13.4 % (12.0-15.0)
[2025-05-23 06:31] LABS: BUN - BLOOD UREA NITROGEN 20.0 mg/dL (6-20); CARBON DIOXIDE - CO2 30.0 mmol/L (21-32); CREATININE 1.3 mg/dL (0.6-1.3); GFR - MDRD 41.0 (>89)
--- NOTE | 2025-05-23 07:22 | PROVIDER PROGRESS NOTE ---
Subjective General Admit Date: 05/21/25 Other Other Information/Narrative: Gastrograffin trial yesterday. This AM AXR with small bowel loops still dilated with gastrograffin, no definitive contrast within the colon. 24hr NGT output 1600. Not passing gas, feeling nauseus. HG flushed and dark thick bilious contents still returning. Review of Systems Status of ROS: 10 or more systems reviewed and unremarkable except as noted in history and below Exam Exam Vital Signs: Vital Signs x48h Temp Pulse Resp BP Pulse Ox 05/23/25 05:00 36.3 C L 73 18 125/72 93 Constitutional normal general appearance, no apparent distress and abnormal body habitus (obese) HENMT normocephalic Neck/C-Spine visual inspection normal Respiratory breath sounds equal bilaterally and normal respiratory effort Cardiovascular normal heart rate noted Gastrointestinal distended, softer, non ttp, NGT in place. RUQ subcostal and pfannenstiel scars. Extremities no deformity Neurology no movement abnormality noted and GCS 15 Psychiatry mental status grossly normal and oriented x3 Skin skin color normal Impression/Plan Problem List (1) Small bowel obstruction: Plan: 64-year-old female admitted 05/21 with first small bowel obstruction; presumed adhesive etiology given prior open cholecystectomy and hysterectomy. 5 days of p.o. intolerance and no bowel function at time of admission. CT shows transition point in the distal ileum. Leukocytosis normalized. Thus far not passing gastrograffin challenge. - Repeat AXR this afternoon, if not progressing, likely surgery. - N.p.o. with IV fluids. - NG to [facility] Surgery will .follow, discussed with Dr. Plunkett this AM. Parul Alcocer DO, FACS General Surgeon, [facility] (2) Atrial fibrillation with RVR: (3) Acute kidney injury: (4) Hyponatremia: (5) Diabetes: (6) CHF (congestive heart failure): (7) Hypokalemia:
--- NOTE | 2025-05-23 08:27 | ECHO Report ---
Version: 1 Study ID: [id number] [address] Adult Echocardiogram Report Name: EDE VILLAREAL Study Date: 05/22/2025, 10: 12 AM BP: 117 / 60 mmHg Patient Location: ^2308^01 HR: 110 bpm : 1960 (MM/DD/YYYY) Gender: Female Height: 67 in Age: 64 Years Weight: 225.974 lb BSA: 2.13 m² Reason For Study: h/o CHF, no current echo History: h/o CHF - small bowel obstruction, a fib with RVR on arrival Interpretation Summary Hyperdynamic left ventricular systolic function is present. The visual left ventricular ejection fraction is estimated at 65 to 70%. No concerning cardiac valve disease is noted. Left Ventricle: The left ventricular cavity is small. Hyperdynamic left ventricular systolic function is present. The visual left ventricular ejection fraction is estimated at 65 to 70%. No regional wall motion abnormalities are present. Diastolic function could not be accurately assessed due to atrial fibrillation. Right Ventricle: The right ventricle is grossly normal size. The right ventricle systolic function is borderline normal. Aortic Valve: The aortic valve was not evaluated on this study. No hemodynamically significant valvular aortic stenosis. No aortic regurgitation is present. Mitral Valve: The mitral valve leaflets appear thickened, but with normal motion. Mild mitral annular calcification is present. No evidence of mitral stenosis is seen. There is trace mitral regurgitation. Tricuspid Valve: The tricuspid valve is normal in structure and function. Trace tricuspid regurgitation present. Pulmonic Valve: The pulmonic valve is not well seen. Left Atrium: The left atrium is mildly dilated. The left atrial volume indexed to body surface area is 37 ml/m2. This refers to the maximal volume measured prior to mitral valve opening. Right Atrium: Right atrium not well visualized. The inferior vena cava is normal in diameter (<2.1cm) and there is complete collapse with inspiration (estimated right atrial pressure 0-5mmHg). Atrial Septum: The interatrial septum is not well seen. Interatrial shunt cannot be excluded. Aorta: The ascending aorta is not well seen. The aortic root is not well visualized. Pulmonary Artery: Pulmonary artery systolic pressure could not be estimated due to an insufficient tricuspid regurgitant jet. Pericardium/Pleural Space: There is no pericardial effusion. Left Ventricle ESV(sp4-el): 76.8 ml Atria LA dimension: 5.2 cm LAV(MOD-sp4): 75.0 ml LAV(MOD-sp2): 72.3 ml Aortic Valve LV V1 max: 91.9 cm/sec LV V1 max P.5 mmHg Ao max P.0 mmHg Ao V2 max: 110.5 cm/sec MMode/2D Measurements & Calculations BMI: 35.4 kilograms/m² BSA([facility]): 2.24 m² ESV(sp4-el): 76.8 ml LA A4C-A/L: 21.4 cm² LA dimension: 5.2 cm LA ESV-A/L: 73.5 ml LAV(MOD-sp2): 72.3 ml LAV(MOD-sp4): 75.0 ml Doppler Measurements & Calculations Ao max P.0 mmHg Ao V2 max: 110.5 cm/sec LV V1 max: 91.9 cm/sec LV V1 max P.5 mmHg Procedure Notes: A complete two-dimensional transthoracic echocardiogram was performed (2D, M- mode, Doppler and color flow Doppler). Indication: Evaluate cardiac and valve function. This study was focused secondary to limited cardiac windows. Very technically difficult and limited due to poor acoustic windows - body habitus and lung interference. The study was done with the patient in the supine position, due to inability to lie on the left side. The underlying rhythm was atrial fibrillation. The underlying rhythm was atrial flutter. CPT Codes: 63535/[id number]: Transthoracic Echo with Spectral and Color Doppler. MD Amna Osorio 05/23/2025, 8: 27 AM Ordering Physician: Clotilde Thakkar Referring Physician: TAIWO, EMS M Performed By: Pratima Cam RDCS
[2025-05-23] MEDS: POTASSIUM CHLOR 10 MEQ/100 ML 10 MEQ/100 ML BAG IV SCH (10:35)
--- NOTE | 2025-05-23 11:27 | PROVIDER PROGRESS NOTE ---
Subjective Prog Note Date Prog Note Date: 05/23/25 Subjective Subjective: no change. NG has been to suction overnight, and she vomited last night despite this. Denies flatus or BM. Daughter at bedside today, she was updated on plan of care. Current Medications Current Medications Current Medications: Current Medications Generic Name Dose Route Start Last Admin Trade Name Freq PRN Reason Stop Dose Admin Enoxaparin Sodium 40 mg 05/22/25 09:00 05/23/25 10:04 Enoxaparin 40 Mg/0.4 Ml Syringe SUBQ 40 mg DAILY MARCO Administration Hydromorphone HCl 0.5 mg 05/21/25 17:57 05/22/25 14:19 Hydromorphone 0.5 Mg/0.5 Ml Syringe IVP 0.5 mg Q2H PRN Administration Pain 8 to 10 Lactated Ringer's 1,000 mls @ 100 mls/hr 05/21/25 17:57 05/23/25 10:04 Lr IV 100 mls/hr .Q10H MARCO Administration Potassium Chloride 10 meq in 100 mls @ 100 mls/hr 05/23/25 11:00 05/23/25 10:35 Potassium Chloride IV 05/23/25 14:59 100 mls/hr Q1H MARCO Administration Insulin Human Regular 1 - 5 unit 05/22/25 00:00 05/23/25 06:45 Insulin Regular, Human 300 Unit/3 Ml Pen SUBQ Not Given Q6HR MARCO Protocol Metoprolol Tartrate 5 mg 05/21/25 17:57 Metoprolol 5 Mg/5 Ml Vial IVP Q6H PRN Tachycardia Ondansetron HCl 4 mg 05/21/25 17:57 05/23/25 04:33 Ondansetron 4 Mg/2 Ml Vial IVP 4 mg Q6HR PRN Administration Nausea / Vomiting Phenol/Menthol 2 sprays 05/21/25 18:57 05/21/25 19:32 Phenol Throat [place] 177 Ml MM 2 sprays Q2HR PRN Administration Throat Pain Prochlorperazine Edisylate 10 mg 05/21/25 17:57 05/23/25 02:04 Prochlorperazine 10 Mg/2 Ml Vial IVP 10 mg Q6HR PRN Administration Nausea / Vomiting Sodium Chloride 10 ml 05/21/25 17:57 Sodium Chloride Flush 0.9% 10 Ml Syringe IVP PRN PRN NEEDED PER PROVIDER ORDERS Sodium Chloride 10 ml 05/21/25 17:57 05/23/25 10:04 Sodium Chloride Flush 0.9% 10 Ml Syringe IVP 10 ml 0100,0900,1700 [facility] Administration Objective Vital Signs/Intake & Output Vital Signs: Vital Signs x48h Temp Pulse Resp BP Pulse Ox 05/23/25 09:00 36.5 C 66 18 142/82 H 92 05/23/25 05:00 36.3 C L 73 18 125/72 93 Intake & Output: Intake & Output 05/20/25 05/21/25 05/22/25 05/23/25 23:59 23:59 23:59 23:59 Intake Total 2009 2460 / 2460 2014 Output Total 600 / 600 2475 / 2475 1949 / 1950 Balance 1410 / 1410 - 65 / 65 Weight (kg) 102.5 kg Objective General Appearance: positive No acute distress and Alert Eyes Bilateral: positive Normal inspection ENT: positive ENT inspection nml Neck: positive Nml inspection Respiratory: positive No respiratory distress and Breath sounds nml Cardiovascular: positive Regular rate & rhythm Abdomen: positive Other (NG to suction. mild tenderness, diffuse) Skin: positive Color nml Extremities: positive Non-tender and No pedal edema Neurologic/Psychiatric: positive Oriented x3 Lab Results 05/23/25 05:58 05/23/25 05:58 Other Labs: Lab Results x24hrs 05/23/25 05/23/25 05/23/25 Range/Units 06:17 05:58 00:01 WBC 11.5 H (4.8-10.8) x10^3/uL RBC 5.50 H (4.20-5.40) 10^6/uL Hgb 15.9 (12.0-16.0) g/dL Hct 49.8 H (37.0-47.0) % MCV 90.5 (81.0-99.0) fL MCH 28.9 (27.0-31.0) pg MCHC 31.9 L (32.0-36.0) g/dL RDW 13.4 (12.0-15.0) % Plt Count 334 (130-450) 10^3/uL MPV 10.5 (7.9-10.8) fL Neut # (Auto) 8.6 H (1.5-6.6) 10^3/uL Lymph # (Auto) 1.5 (1.5-3.5) 10^3/uL [place] # (Auto) 0.9 (0.0-1.0) 10^3/uL Eos # (Auto) 0.0 (0.0-0.7) 10^3/uL Baso # (Auto) 0.1 (0.0-0.1) 10^3/uL Absolute Nucleated RBC 0.00 x10^3/uL Nucleated RBC % 0.0 /100WBC Sodium 134 L (135-145) mmol/L Potassium 3.4 L (3.5-4.5) mmol/L Chloride 88 L (101-111) mmol/L Carbon Dioxide 30 (21-32) mmol/L Anion Gap 16.0 H (6-13) BUN 20 (6-20) mg/dL Creatinine 1.3 (0.6-1.3) mg/dL Estimated GFR (MDRD) 41 L (>89) Glucose 96 (74-104) mg/dL POC Whole Bld Glucose 86 87 (70-100) mg/dL Calcium 9.4 (8.5-10.3) mg/dL 05/22/25 05/22/25 Range/Units 18:17 11:58 WBC (4.8-10.8) x10^3/uL RBC (4.20-5.40) 10^6/uL Hgb (12.0-16.0) g/dL Hct (37.0-47.0) % MCV (81.0-99.0) fL MCH (27.0-31.0) pg MCHC (32.0-36.0) g/dL RDW (12.0-15.0) % Plt Count (130-450) 10^3/uL MPV (7.9-10.8) fL Neut # (Auto) (1.5-6.6) 10^3/uL Lymph # (Auto) (1.5-3.5) 10^3/uL [place] # (Auto) (0.0-1.0) 10^3/uL Eos # (Auto) (0.0-0.7) 10^3/uL Baso # (Auto) (0.0-0.1) 10^3/uL Absolute Nucleated RBC x10^3/uL Nucleated RBC % /100WBC Sodium (135-145) mmol/L Potassium (3.5-4.5) mmol/L Chloride (101-111) mmol/L Carbon Dioxide (21-32) mmol/L Anion Gap (6-13) BUN (6-20) mg/dL Creatinine (0.6-1.3) mg/dL Estimated GFR (MDRD) (>89) Glucose (74-104) mg/dL POC Whole Bld Glucose 98 104 (70-100) mg/dL Calcium (8.5-10.3) mg/dL Assessment/Plan Problem List (1) Small bowel obstruction: Impression: 64F who presents with inability to tolerate po for 5 days. No flatus or BM for 5 days. remote surgical hx of open cholecystectomy and hysterectomy. She denies hx of SBO. Discussed with Dr Alcocer of Gen surgery. She is following along with imaging and likely will take the patient for exploratory laparoscopy, possible laparotomy. Patient's daughter Dea at the bedside today. We discussed the likely clinical course. Patient and her daughter are aware that she may require fci for rehab dependent on her postoperative course. LR at 100cc/hr. She remains with minimal po intake so will continue this. WBC slightly up today @ 11.5. GGC without flatus or BM, passing 24 hours post contrast, no contrast in the colon, repeat XR this afternoon at 1600, appears the same. (2) Atrial fibrillation with RVR: Impression: I think her elevated HR was more related to dehydration. HR normal. she feels weak generally, with no nutrition for about 5 days, but not dizzy. She is able to ambulate short distances in the hallway yesterday. continue telemetry (3) Acute kidney injury: Impression: I do not have a baseline renal function on this patient. I see improvement in her Cr with hydration, will continue. 05/23/25 05:58 Creatinine 1.3 05/19/25 05/21/25 05/22/25 00:55 13:22 05:51 Creatinine 1.8 H 1.7 H 1.4 H (4) Hyponatremia: Impression: She is improving w IV hydration and I expect her to continue to improve as we are able to resume po intake in the near future, if her SBO resolves. Na 134 today 05/21/25 05/22/25 13:22 05:51 Sodium 129 L 133 L (5) Diabetes: Impression: Home meds for DM look like only ozempic, last taken on 05/18. her A1C is 5.6% indicating good control. I have stopped insulin and glucose monitoring (6) CHF (congestive heart failure): Impression: Echo complete. LVEF 65 to 70% no concerning valvular disease. This study shows a hyperdynamic left ventricle. I believe this is likely due to patient state of hydration.. Lungs are CTA, no increasing edema or PND. Home meds can be resumed when she is able to take po. These are metoprolol, xarelto, jardiance, amiodarone. I will maintain her on telemetry. (7) Hypokalemia: Impression: Potassium was repleted yesterday with 40 mill equivalents IV. Her potassium on recheck this morning remains at 3.4. Will replete with an additional 40 mill equivalents today if she remains n.p.o. with NG to suction. This patient's diagnosis and treatment plan was discussed this AM with attending physician as a part of multi disciplinary rounding meeting. I have spent 55 minutes in the care of this patient today. This includes time [id number], review and ordering of diagnostic imaging and laboratory studies and consultation with other providers. Monitoring the patient's signs symptoms, evaluation of medication effectiveness and patient's response to treatment.
--- NOTE | 2025-05-23 16:22 | XRAY Report ---
PROCEDURE: XR Abdomen 1 V INDICATIONS: SBO, followup gastrografin TECHNIQUE: 3 view of the abdomen were acquired. COMPARISON: May 22, 2025 FINDINGS: Surgical changes and devices: Enteric catheter terminates within the gastric lumen. Right upper quadrant surgical clips. Bowel: Residual oral contrast within multiple segments of bowel within the abdomen and pelvis. Moderately dilated gas-filled small bowel segments measure up to approximately 5.3 cm in diameter. Soft tissues: No masses; visualized solid organ contours appear normal in size. No suspicious abdominal calcifications. Bones: No suspicious bony abnormalities. IMPRESSION: Dilated gas-filled small bowel segments measuring up to 5.3 cm consistent with small bowel obstruction. Reviewed by: Milan Serrano MD on 05/23/2025 4:18 PM PDT Approved by: Milan Serrano MD on 05/23/2025 4:18 PM PDT Station ID: [id number]
[2025-05-23] MEDS ORDERED: PROPOFOL 200 MG/20 ML VIAL IVP ONE (19:18)
[2025-05-23] MEDS ORDERED: ONDANSETRON 4 MG/2 ML VIAL ONE (19:19)
[2025-05-23] MEDS ORDERED: ROCURONIUM 50 MG/5 ML VIAL ONE (19:19)
[2025-05-23] MEDS ORDERED: LIDOCAINE-PF 2% 10 ML AMP SUBQ ONE (19:19)
[2025-05-23] MEDS ORDERED: KETOROLAC 30 MG/ML VIAL ONE (19:19)
[2025-05-23] MEDS ORDERED: MIDAZOLAM 2 MG/2 ML VIAL ONE (19:20)
[2025-05-23] MEDS ORDERED: fentaNYL 100 MCG/2 ML VIAL ONE ×3 (19:20→23:28)
[2025-05-23] MEDS ORDERED: BUPIVACAINE 0.25% PF 10 ML VIAL ONE (19:30)
[2025-05-23] MEDS ORDERED: LIDOCAINE 1%-EPI 1:100000 20 ML MDV ONE (19:30)
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
[2025-05-23] MEDS ORDERED: NALOXONE 0.4 MG/ML VIAL IVP PRN (19:49)
[2025-05-23] MEDS ORDERED: ATROPINE ABBOJECT 1 MG/10 ML SYRINGE IVP PRN (19:49)
[2025-05-23] MEDS ORDERED: ePHEDrine 50 MG/ML VIAL IVP PRN (19:49)
[2025-05-23] MEDS ORDERED: ONDANSETRON 4 MG/2 ML VIAL IVP PRN (19:49)
[2025-05-23] MEDS ORDERED: fentaNYL 100 MCG/2 ML VIAL IVP PRN (19:49)
[2025-05-23] MEDS ORDERED: LACTATED RINGERS 1,000 ML IV PRN (19:55)
[2025-05-23] MEDS ORDERED: CLINDAMYCIN 900 MG/50 ML 900 MG/50 ML BAG IV ONE (19:57)
[2025-05-23] MEDS ORDERED: LACTATED RINGERS 1,000 ML IV SCH (20:00)
[2025-05-23] MEDS ORDERED: CLINDAMYCIN 900 MG/50 ML 900 MG/50 ML BAG IV SCH ×2 (20:00→21:00)
[2025-05-23] MEDS ORDERED: VASOPRESSIN 20 UNIT/ML VIAL ONE (20:24)
--- NOTE | 2025-05-23 20:30 | XRAY Report ---
PROCEDURE: XR Abdomen 1 V INDICATIONS: SBO TECHNIQUE: 1 view of the abdomen were acquired. COMPARISON: Same day radiograph FINDINGS AND IMPRESSION: Enteric tube terminates in the proximal stomach. Similar moderate overall dilation of the visualized small bowel loops. The ingested contrast is seen mostly in the right lower quadrant. Cholecystectomy clips. Lumbosacral posterior fusion hardware. Degenerative osseous changes. Reviewed by: Alpesh Zuñiga MD on 05/23/2025 8:26 PM PDT Approved by: Alpesh Zuñiga MD on 05/23/2025 8:26 PM PDT Station ID: [id number]
[2025-05-23] MEDS ORDERED: DEXTROSE 50% ABBOJECT 25 GM/50 ML SYRINGE ONE (20:40)
[2025-05-23] MEDS ORDERED: PHENYLEPHRINE HCL 0.5 MG/5 ML AMPULE ONE (23:01)
[2025-05-23] MEDS ORDERED: SUGAMMADEX 200 MG/2 ML VIAL IVP ONE (23:12)
--- NOTE | 2025-05-23 23:42 | OPERATIVE REPORT ---
Operative Report General Admit Date: 05/21/25 Procedure Data: Operation Date: 05/23/25 19:45 Proposed Procedures p Diagnostic Laparoscopy(Not Applicable) - Parul Alcocer DO Actual Procedures s Diagnostic Laparoscopy(Not Applicable) - Parul Alcocer DO p Exploratory Laparotomy, Lysis of Adhesions, Small Bowel Resection(Not Applicable) - Parul Alcocer DO Anesthesia Type General Case Staff Anesthesia Provider: Elise Holguin Case Times Into Recovery: 05/23/25 23:32 Procedure Start: 05/23/25 20:42 Procedure End: 05/23/25 23:16 Time out: 05/23/25 20:40 wound class IV Pre-Op Diagnosis: small bowel obstruction Post Op Diagnosis: adhesive small bowel obstruction, meckels diverticulum Procedure Note Intake, IV Amount (ml): 3,000 Estimated Blood Loss (ml): 75 Output, Urine Amount (ml): 45 Drain/Tube Type: Junior Mccann round drain Pathology: 1) peritoneal nodules 2) 75cm small bowel (including meckels and perforations x2) Indications: 64F with SBO that failed NGT decompression and gastrograffin challenge x48hrs Findings: Meckel's diverticulum 20cm proximal to IC valve, adhesed to the root of the mesentery creating the point around which the small bowel was twisted and thus the transition point. As bowel run distal to proximal laparoscopically, and obstruction was relieved, two small bowel perforations proximal to the meckels were exposed and >1L of succus was spilled into the abdomen. Proximal jejunum also had adhesions to the root of the mesentery that could not be safely visualized and lysed laparoscopically in the midst of ongoing spillage of succus. Transitioned to open midline incision with wound protector, cleared remainder of proximal adhesions. Removed 75cm of small bowel, from meckels distally and proximally extent to include both perforations. S-S funtional E-E stapled enteroenterostomy made with 75mm blue DUSTY and stapled TA common channel closure. Irrigated abdomen with 12L NS. 19F MIRNA placed in pelvis. Fascia closed with 0 looped PDS. SubQ irrigated with 2L NS (abdominal wall ~14cm thick). Skin loosely stapled over juan a drain. Do left in place. NGT advanced and manually confirmed position. No RVR during case. Transient hypotension during open portion with succus spillage. Extubated at end of case. Complications: none Other Other Information/Narrative: pending .
[2025-05-24] MEDS ORDERED: HYDROmorphone 0.5 MG/0.5 ML SYRINGE ONE (00:03)
--- NOTE | 2025-05-24 01:12 | ANESTHESIA POST OP EVALUATION ---
Anesthesia Post Eval Post Anesthesia Eval Vitals: Last Vital Signs Temp 36.5 C 05/24/25 00:10 Pulse 79 05/24/25 00:15 Resp 12 05/24/25 00:15 BP 118/64 05/24/25 00:15 Pulse Ox 93 05/24/25 00:15 CV Function Including HR & BP: Stable Pain Control: Satisfactory Nausea & Vomiting: Negative Mental Status: Baseline Respiratory Status: Airway Patent Hydration Status: Satisfactory Anesthesia Complications: None
--- NOTE | 2025-05-24 02:02 | XRAY Report ---
PROCEDURE: XR No-Charge 1V Abdomen INDICATIONS: NGT Placement TECHNIQUE: 1 view of the abdomen were acquired. COMPARISON: 05/23/2025 FINDINGS: Surgical changes and devices: Surgical close reduction of the pelvis. Possible pelvic drain. Lumbar spine fixation hardware. Bowel: The bowel gas pattern is normal. Stool load within normal limits. Soft tissues: No masses; visualized solid organ contours appear normal in size. No suspicious abdominal calcifications. Bones: No suspicious bony abnormalities. IMPRESSION: Provided history of NG tube placement. No NG tube is seen. Reviewed by: Paul Castellanos MD on 05/24/2025 1:59 AM PDT Approved by: Paul Castellanos MD on 05/24/2025 1:59 AM PDT Station ID: [id number]
[2025-05-24] MEDS: CIPROFLOXACIN 400 MG/200 ML 400 MG/200 ML BAG IV SCH (02:27)
[2025-05-24 04:48] LABS: HCT - HEMATOCRIT 48.1 % (37.0-47.0); HGB - HEMOGLOBIN 15.2 g/dL (12.0-16.0); MEAN PLATELET VOLUME 10.6 fL (7.9-10.8); NRBC ABSOLUTE COUNT (AUTO) 0.00 x10^3/uL; NUCLEATED RED BLOOD CELLS AUTO 0.0 /100WBC; PLT - PLATELET COUNT 265 10^3/uL (130-450); RED CELL DISTRIBUTION WIDTH 13.6 % (12.0-15.0)
[2025-05-24 05:02] LABS: BUN - BLOOD UREA NITROGEN 18.0 mg/dL (6-20); CARBON DIOXIDE - CO2 31.0 mmol/L (21-32); CREATININE 1.6 mg/dL (0.6-1.3); GFR - MDRD 32.0 (>89)
[2025-05-24] MEDS: POTASSIUM CHLOR 10 MEQ/100 ML 10 MEQ/100 ML BAG IV SCH (08:08)
--- NOTE | 2025-05-24 10:37 | XRAY Report ---
PROCEDURE: XR No-Charge 1V Abdomen INDICATIONS: NGT Placement confirmation TECHNIQUE: 1 view of the abdomen was acquired. COMPARISON: None. FINDINGS: Surgical changes and devices: Nasogastric tube tip in the gastric fundus and sideport above the GE junction. Lower lumbar spine instrumentation and skin amrit. Surgical clips right upper quadrant. Incidental note is made of possible left lower lobe infiltrate or atelectasis Bowel: No pneumoperitoneum. The bowel gas pattern is normal. Stool load within normal limits. Soft tissues: No masses; visualized solid organ contours appear normal in size. No suspicious abdominal calcifications. Bones: No suspicious bony abnormalities. IMPRESSION: Nasogastric tube sideport at the GE junction. Consider 3 to 5 cm advancement. Left basilar atelectasis and or infiltrate Note: This final report is concordant with the preliminary after-hours interpretation provided by Bills Khakis Reviewed by: Lamont Gonsalez MD on 05/24/2025 9:33 AM YIFAN Approved by: Lamont Gonsalez MD on 05/24/2025 9:33 AM AKDT Station ID: [id number]
--- NOTE | 2025-05-24 11:49 | XRAY Report ---
PROCEDURE: XR Chest for Line Placement INDICATIONS: Check [place] tube placement TECHNIQUE: Single frontal view of the chest was obtained COMPARISON: None FINDINGS: Nasogastric tube in the stomach IMPRESSION: Nasogastric tube and sideport in the stomach. Reviewed by: Lamont Gonsalez MD on 05/24/2025 10:46 AM YIFAN Approved by: Lamont Gonsalez MD on 05/24/2025 10:46 AM YIFAN Station ID: [id number]
--- NOTE | 2025-05-24 14:05 | PROVIDER PROGRESS NOTE ---
Subjective General Admit Date: 05/21/25 Procedure Date: 05/23/25 Post Op Days: 1 Procedure Performed: ExLap, small bowel resection Other Other Information/Narrative: POD1. No acute HD events overnight following surgery. Feels overall tired/weak this AM after surgery last night. Generalized abdominal discomfort, denies nausea. NGT with low volume light gastric fluid out since surgery. Did get partially pulled and readvanced - seems to be in OK position now on f/u XR. Labored breathing on O2. Do removed this AM by Hospitalist service. Review of Systems Status of ROS: 10 or more systems reviewed and unremarkable except as noted in history and below Exam Exam Vital Signs: Vital Signs x48h Temp Pulse Resp BP Pulse Ox O2 Flow Rate 05/24/25 13:00 76 17 114/87 97 4 05/24/25 12:00 36.8 C 70 10 L 125/80 93 4 05/24/25 11:00 71 18 127/75 96 4 05/24/25 10:00 73 16 116/75 95 4 05/24/25 09:00 76 11 L 104/60 91 L 4 05/24/25 08:00 36.4 C L 82 16 157/108 H 94 05/24/25 07:00 77 19 121/82 92 4 Constitutional normal general appearance, no apparent distress and abnormal body habitus (obese) [facility] normocephalic Neck/C-Spine visual inspection normal Respiratory breath sounds equal bilaterally and abnormal respiratory effort (labored) Cardiovascular normal heart rate noted Gastrointestinal NGT with light gastric fluid out, patent on flushing MIRNA drain with few hundred ssf - appropriate Midline wound (stapled over juan a) with small vol ssf on ABD. Distended/soft/diffuse mild ttp. Extremities no deformity Neurology GCS 15 Psychiatry mental status grossly normal and oriented x3 Skin skin color normal Impression/Plan Problem List (1) Small bowel obstruction: Plan: 64-year-old female admitted 05/21 with first small bowel obstruction; failed NGT decompression and gastrograffin trial, thus underwent operative management. 05/23: DxLap --> Ex Lap, lysis of adhesions, 75cm small bowel resection. Etiology of SBO Adhesions + Meckels'diverticulum. Intraoperative findings of small bowel twisted around adhesion between meckels diverticulum and root of mesentery, two small bowel perforations upon release of obstruction. Large volume small bowel content contamination of peritoneal cavity. POD1. Pain: scheduled IV tylenol, prn narcotic Card/Pulm: H/o CHF, Afib with RVR, COPD - mgmt per IM. GI/Fen: NGT decompression until resolution of ileus - NGT to LIWS - N.p.o. with IV fluids. - Start PPN tonight as already was 5d without PO intake upon admission, and now HD3 - TAPAN now in postop setting - Do removed, f/u DTV - MIRNA drain to bulb suction ( in pelvis) - Midline wound closed over [place] drain in subQ, change ABD/cover dressing PRN. Hem/ID: - 4d Cipro/Flagyl given intraoperative contamination - no bleeding, start heparin dvt ppx Discharge planning: - PT consult Appreciate Hospitalist service assistance with comorbidities during acute hospitalization Surgery following, discussed with Dr. Plunkett this AM. Parul Alcocer DO, FACS [facility] Sur[facility] (2) Acute kidney injury: (3) Diabetes: (4) CHF (congestive heart failure): (5) Atrial fibrillation: (6) COPD (chronic obstructive pulmonary disease):
--- NOTE | 2025-05-24 14:29 | PROVIDER PROGRESS NOTE ---
Subjective Prog Note Date Prog Note Date: 05/24/25 Subjective Subjective: She is awake and alert. She is insistent on having ice chips. She is not nauseated and her pain is fairly well controlled. Do in overnight, patient wanted it out this AM. Discussion with her daughter this AM. Alcides states that since her mom came from [place] about 4 months ago, she has been depressed. spends most of every day in bed. Then had been very sick for about a week. She had not taken her ozempic for several weeks due to feeling poorly. She has gotten up to the commode today. She is determined to get up and move. Current Medications Current Medications Current Medications: Current Medications Generic Name Dose Route Start Last Admin Trade Name Freq PRN Reason Stop Dose Admin Hydromorphone HCl 0.5 mg 05/21/25 17:57 05/24/25 13:46 Hydromorphone 0.5 Mg/0.5 Ml Syringe IVP 0.5 mg Q2H PRN Administration Pain 8 to 10 Lactated Ringer's 1,000 mls @ 100 mls/hr 05/21/25 17:57 05/24/25 13:46 Lr IV Infused .Q10H [facility] Infusion Ciprofloxacin 400 mg in 200 mls @ 200 mls/hr 05/23/25 23:45 05/24/25 13:10 Cipro 400 Mg/200 Ml IV 05/27/25 23:44 Infused Q12H [facility] Infusion Metronidazole 500 mg in 100 mls @ 100 mls/hr 05/23/25 23:45 05/24/25 09:38 Flagyl 500 Mg/100 Ml IV 05/27/25 23:44 Infused Q8H [facility] Infusion Multivitamins 10 ml/ Zinc/ 2,011 mls @ 83 mls/hr 05/24/25 19:00 Copper/Manganese/Selenium 1 ml IV / Amino Acids/Electrolytes/ 1900 [facility]CO Dextrose Protocol Fat Emulsion Intravenous 250 mls @ 21 mls/hr 05/24/25 19:00 Intralipid 20% IV 1900 [facility]CO Acetaminophen 1,000 mg in 100 mls @ 400 mls/hr 05/24/25 15:00 Acetaminophen IV Q8HR MARCO Metoprolol Tartrate 5 mg 05/21/25 17:57 Metoprolol 5 Mg/5 Ml Vial IVP Q6H PRN Tachycardia Ondansetron HCl 4 mg 05/21/25 17:57 05/23/25 04:33 Ondansetron 4 Mg/2 Ml Vial IVP 4 mg Q6HR PRN Administration Nausea / Vomiting Phenol/Menthol 2 sprays 05/21/25 18:57 05/21/25 19:32 Phenol Throat [place] 177 Ml MM 2 sprays Q2HR PRN Administration Throat Pain Prochlorperazine Edisylate 10 mg 05/21/25 17:57 05/23/25 02:04 Prochlorperazine 10 Mg/2 Ml Vial IVP 10 mg Q6HR PRN Administration Nausea / Vomiting Sodium Chloride 10 ml 05/21/25 17:57 Sodium Chloride Flush 0.9% 10 Ml Syringe IVP PRN PRN NEEDED PER PROVIDER ORDERS Sodium Chloride 10 ml 05/21/25 17:57 05/24/25 08:08 Sodium Chloride Flush 0.9% 10 Ml Syringe IVP 10 ml 0100,0900,1700 MARCO Administration Objective Vital Signs/Intake & Output Reviewed Vital Signs: Yes Vital Signs: Vital Signs x48h Temp Pulse Resp BP Pulse Ox O2 Flow Rate 05/24/25 13:00 76 17 114/87 97 4 05/24/25 12:00 36.8 C 70 10 L 125/80 93 4 05/24/25 11:00 71 18 127/75 96 4 05/24/25 10:00 73 16 116/75 95 4 05/24/25 09:00 76 11 L 104/60 91 L 4 05/24/25 08:00 36.4 C L 82 16 157/108 H 94 05/24/25 07:00 77 19 121/82 92 4 Intake & Output: Intake & Output 05/21/25 05/22/25 05/23/25 05/24/25 23:59 23:59 23:59 23:59 Intake Total 2009 2460 / 2460 9445 / 9445 1962 Output Total 600 / 600 2475 / 2475 4190 / 4190 224 / 224 Balance 1410 / 1410 -15 / 15 0455 / 2092 1739 / 1739 Weight (kg) 102.5 kg Objective General Appearance: positive No acute distress and Alert Eyes Bilateral: positive Conjunctivae nml ENT: positive ENT inspection nml Neck: positive Nml inspection Respiratory: positive No respiratory distress and Breath sounds nml Cardiovascular: positive Regular rate & rhythm Abdomen: positive Other (incisional dressing intact. approp tender. MIRNA drain with sero sang output. ) Skin: positive Color nml Extremities: positive Non-tender Neurologic/Psychiatric: positive Oriented x3 Lab Results 05/24/25 04:36 05/24/25 04:36 Other Labs: Lab Results x24hrs 05/24/25 05/24/25 05/24/25 Range/Units 12:03 04:36 00:55 WBC 5.2 (4.8-10.8) x10^3/uL RBC 5.24 (4.20-5.40) 10^6/uL Hgb 15.2 (12.0-16.0) g/dL Hct 48.1 H (37.0-47.0) % MCV 91.8 (81.0-99.0) fL MCH 29.0 (27.0-31.0) pg MCHC 31.6 L (32.0-36.0) g/dL RDW 13.6 (12.0-15.0) % Plt Count 265 (130-450) 10^3/uL MPV 10.6 (7.9-10.8) fL Neut # (Auto) 4.4 (1.5-6.6) 10^3/uL Lymph # (Auto) 0.3 L (1.5-3.5) 10^3/uL [place] # (Auto) 0.4 (0.0-1.0) 10^3/uL Eos # (Auto) 0.0 (0.0-0.7) 10^3/uL Baso # (Auto) 0.0 (0.0-0.1) 10^3/uL Absolute Nucleated RBC 0.00 x10^3/uL Nucleated RBC % 0.0 /100WBC Sodium 135 (135-145) mmol/L Potassium 3.2 L (3.5-4.5) mmol/L Chloride 94 L (101-111) mmol/L Carbon Dioxide 31 (21-32) mmol/L Anion Gap 10.0 (6-13) BUN 18 (6-20) mg/dL Creatinine 1.6 H (0.6-1.3) mg/dL Estimated GFR (MDRD) 32 L (>89) Glucose 136 H (74-104) mg/dL POC Whole Bld Glucose 149 (70-100) mg/dL Calcium 8.0 L (8.5-10.3) mg/dL Nasal Screen MRSA (PCR) NEGATIVE (NEGATIVE) 05/23/25 05/23/25 05/23/25 Range/Units 23:41 23:06 21:28 WBC (4.8-10.8) x10^3/uL RBC (4.20-5.40) 10^6/uL Hgb (12.0-16.0) g/dL Hct (37.0-47.0) % MCV (81.0-99.0) fL MCH (27.0-31.0) pg MCHC (32.0-36.0) g/dL RDW (12.0-15.0) % Plt Count (130-450) 10^3/uL MPV (7.9-10.8) fL Neut # (Auto) (1.5-6.6) 10^3/uL Lymph # (Auto) (1.5-3.5) 10^3/uL [place] # (Auto) (0.0-1.0) 10^3/uL Eos # (Auto) (0.0-0.7) 10^3/uL Baso # (Auto) (0.0-0.1) 10^3/uL Absolute Nucleated RBC x10^3/uL Nucleated RBC % /100WBC Sodium (135-145) mmol/L Potassium (3.5-4.5) mmol/L Chloride (101-111) mmol/L Carbon Dioxide (21-32) mmol/L Anion Gap (6-13) BUN (6-20) mg/dL Creatinine (0.6-1.3) mg/dL Estimated GFR (MDRD) (>89) Glucose (74-104) mg/dL POC Whole Bld Glucose 141 154 161 (70-100) mg/dL Calcium (8.5-10.3) mg/dL Nasal Screen MRSA (PCR) (NEGATIVE) 05/23/25 05/23/25 Range/Units 20:38 17:59 WBC (4.8-10.8) x10^3/uL RBC (4.20-5.40) 10^6/uL Hgb (12.0-16.0) g/dL Hct (37.0-47.0) % MCV (81.0-99.0) fL MCH (27.0-31.0) pg MCHC (32.0-36.0) g/dL RDW (12.0-15.0) % Plt Count (130-450) 10^3/uL MPV (7.9-10.8) fL Neut # (Auto) (1.5-6.6) 10^3/uL Lymph # (Auto) (1.5-3.5) 10^3/uL [place] # (Auto) (0.0-1.0) 10^3/uL Eos # (Auto) (0.0-0.7) 10^3/uL Baso # (Auto) (0.0-0.1) 10^3/uL Absolute Nucleated RBC x10^3/uL Nucleated RBC % /100WBC Sodium (135-145) mmol/L Potassium (3.5-4.5) mmol/L Chloride (101-111) mmol/L Carbon Dioxide (21-32) mmol/L Anion Gap (6-13) BUN (6-20) mg/dL Creatinine (0.6-1.3) mg/dL Estimated GFR (MDRD) (>89) Glucose (74-104) mg/dL POC Whole Bld Glucose 68 67 (70-100) mg/dL Calcium (8.5-10.3) mg/dL Nasal Screen MRSA (PCR) (NEGATIVE) Assessment/Plan Problem List (1) Small bowel obstruction: Impression: 64F who presents with inability to tolerate po for 5 days. No flatus or BM for 5 days. remote surgical hx of open cholecystectomy and hysterectomy. She denies hx of SBO. Taken to the OR last night for dx laparoscopy. Ulitmately required laparotomy with small bowel resection for Mekels/small bowel torsion/perforation. NG in place. MIRNA drain in the pelvis draining serosang fluid. Abdominal closure dressed, not taken down today. She has been about a week without nutrition today. I am starting PPN this evening. I am anticipating short duration of this, as I am hopeful bowel function will return in next 2-3 days. Patient's daughter Dea at the bedside today. Reviewed operative findings with her daughter, and likely clinical course. Patient and her daughter are aware that she may require correction for rehab dependent on her progress. Will consider PT eval tomorrow if she is stable. LR at 100cc/hr. I will stop this when we start TPN Leukocytosis resolved today. repeat CBC in the AM. Planning 4 days of abx in the post operative period. Starting Lovenox for DVT prophylaxis tomorrow AM. (2) Atrial fibrillation with RVR: Impression: I think her elevated HR was more related to dehydration. HR normal. Sinus rhythm. She is not hypotensive. Intraoperatively, she did require several pushes of neosynephrine, but post op has been off pressors. At home, she is on Amiodarone, and metoprolol, Xarelto. (3) Acute kidney injury: Impression: I do not have a baseline renal function on this patient. not surprised to see slight worsening of her TAPAN post operatively. Her UOP is minimal, but I believe that she is experiencing some systemic inflammatory response. I will expect that with time, this will improve. I have ordered repeat BMP for the AM 05/19/25 05/21/25 05/22/25 00:55 13:22 05:51 Creatinine 1.8 H 1.7 H 1.4 H 05/23/25 05/24/25 05:58 04:36 Creatinine 1.3 1.6 H (4) Hyponatremia: Impression: resolved. due to acute illness. continue supportive care. check BMP in the AM. Laboratory Tests 05/21/25 05/22/25 05/23/25 13:22 05:51 05:58 Sodium 129 L 133 L 134 L 05/24/25 04:36 Sodium 135 (5) Diabetes: Impression: Home meds for DM look like only ozempic, last taken several weeks ago. her A1C is 5.6% indicating good control. I had stopped insulin and glucose monitoring. I will start again given starting patient on PPN. I will continue to monitor blood glucose and start insulin as needed with a goal towards blood sugar less than 180 for optimal surgical outcome. (6) CHF (congestive heart failure): Impression: Echo complete. LVEF 65 to 70% no concerning valvular disease. This study shows a hyperdynamic left ventricle. I believe this is likely due to patient state of hydration.. Lungs are CTA, no increasing edema or PND. Home meds can be resumed when she is able to take po. These are metoprolol, xarelto, jardiance, amiodarone. I will maintain her on telemetry. (7) Hypokalemia: Impression: Potassium was repleted yesterday with 40 mill equivalents IV. Her potassium on recheck this morning remains at 3.4. Will replete with an additional 40 mill equivalents today if she remains n.p.o. with NG to suction. . (8) Depression: Impression: in speaking with her daughter Dea this AM, it has been poorly controlled. As soon as she can take PO, will restart her meds, but will need primary care followup. (9) Hypothyroid: Impression: I will restart synthroid in the AM with a sip of water and clamp NGT for 30 minutes. This patient's diagnosis and treatment plan was discussed this AM with attending physician as a part of multi disciplinary rounding meeting. I have spent 58 minutes in the care of this patient today. This includes time [id number], review and ordering of diagnostic imaging and laboratory studies and consultation with other providers. Monitoring the patient's signs symptoms, evaluation of medication effectiveness and patient's response to treatment.
[2025-05-24] MEDS: ACETAMINOPHEN 1,000 MG/100 ML 1,000 MG/100 ML BAG IV SCH (15:30)
[2025-05-24] MEDS: FUROSEMIDE 40 MG/4 ML VIAL IVP ONE (17:36)
[2025-05-24] MEDS: ALBUMIN 25% 12.5 GM/50 ML VIAL IV STA (17:36)
[2025-05-24] MEDS: PPN (CLINIMIX E 4.25/5) 2,000 ML with MULTIVITAMIN 10 ML, TRACE ELEMENTS 1 ML IV SCH (18:17)
[2025-05-24] MEDS: FAT EMULSION 20% 250 ML IV SCH (18:17)
--- NOTE | 2025-05-24 21:13 | XRAY Report ---
PROCEDURE: XR Chest for Line Placement INDICATIONS: advanced NJ tube; check placement TECHNIQUE: One view of the chest was acquired. COMPARISON: Same-day radiograph FINDINGS AND IMPRESSION: The enteric tube terminates in the gastric fundus. Moderate gastric distention. Unremarkable partially visualized lower lungs. Cholecystectomy clips. Reviewed by: Alpesh Zuñiga MD on 05/24/2025 9:10 PM PDT Approved by: Alpesh Zuñiga MD on 05/24/2025 9:10 PM PDT Station ID: [id number]
[2025-05-24] MEDS: METOPROLOL 5 MG/5 ML VIAL IVP PRN (23:13)
[2025-05-25] MEDS: SODIUM CHLORIDE 0.9% 1,000 ML IV ONE ×2 (02:41→05:25)
[2025-05-25 03:41] LABS: HCT - HEMATOCRIT 38.5 % (37.0-47.0); HGB - HEMOGLOBIN 12.4 g/dL (12.0-16.0); MEAN PLATELET VOLUME 11.3 fL (7.9-10.8); PLT - PLATELET COUNT 204 10^3/uL (130-450); RED CELL DISTRIBUTION WIDTH 14.0 % (12.0-15.0)
[2025-05-25 03:49] LABS: ABNORMAL LYMPHS % (MANUAL) 0 %; BASOPHILS # (MANUAL) 0.0 10^3/uL (0-0.1); MONOCYTES # (MANUAL) 0.0 10^3/uL (0.0-1.0)
[2025-05-25 03:59] LABS: ALT ALANINE AMINOTRANSFERASE 21.0 IU/L (10-60); AST ASPARTATE AMINOTRANSFERASE 25.0 IU/L (10-42); BUN - BLOOD UREA NITROGEN 30.0 mg/dL (6-20); CARBON DIOXIDE - CO2 27.0 mmol/L (21-32); CREATININE 2.6 mg/dL (0.6-1.3); GFR - MDRD 18.0 (>89); PHOSPHORUS 4.1 mg/dL (2.5-5.0)
[2025-05-25 04:08] LABS: BAND NEUTROPHILS % (MANUAL) 68 %; EOSINOPHILS # (MANUAL) 0.2 10^3/uL (0-0.7); LYMPHOCYTES # (MANUAL) 1.0 10^3/uL (1.5-3.5); LYMPHOCYTES % (MANUAL) 6 %; METAMYELOCYTES % (MANUAL) 2 %; NEUTROPHILS # (MANUAL) 15.0 10^3/uL (1.5-6.6)
[2025-05-25 04:09] LABS: CRP - C-REACTIVE PROTEIN 33.1 mg/dL (<0.5)
[2025-05-25 05:44] LABS: GLUCOSE, URINE (UA) NEGATIVE (NEGATIVE); KETONES,URINE (UA) NEGATIVE (NEGATIVE); OCCULT BLOOD,URINE MODERATE (NEGATIVE)
[2025-05-25 05:45] LABS: SQUAMOUS EPITHELIAL CELL,UR MANY Squamous (<= Few)
[2025-05-25 05:46] LABS: CRYSTALS,URINE 0-2 Calcium Oxalate /LPF
[2025-05-25 06:17] LABS: TOTAL PROTEIN,URINE RANDOM 81.0 mg/dL
[2025-05-25] MEDS: NOREPINEPHRINE/0.9 % NS 8 MG/250 ML BAG IV SCH (06:35)
[2025-05-25] MEDS: ENOXAPARIN 40 MG/0.4 ML SYRINGE SUBQ SCH (08:13)
[2025-05-25] MEDS ORDERED: PIPERACILLIN/TAZOBACTAM 3.375 GM in SODIUM CHLORIDE 0.9% MINIBAG 100 ML IV SCH (10:00)
[2025-05-25 10:13] LABS: BUN - BLOOD UREA NITROGEN 34.0 mg/dL (6-20); CARBON DIOXIDE - CO2 32.0 mmol/L (21-32); CREATININE 2.6 mg/dL (0.6-1.3); GFR - MDRD 18.0 (>89)
[2025-05-25] MEDS: ALBUMIN 25% 12.5 GM/50 ML VIAL IV STA (10:44)
[2025-05-25] MEDS: CEFEPIME 1 GM in SODIUM CHLORIDE 0.9% MINIBAG 100 ML IV SCH (11:15)
[2025-05-25] MEDS: VANCOMYCIN INJ 2 GM in SODIUM CHLORIDE 0.9% 500 ML IV ONE (11:23)
--- NOTE | 2025-05-25 12:05 | PROVIDER PROGRESS NOTE ---
<Statement entered by Trino Fishman, DO - 05/25/25 17:03> I saw and examined the patient along with Clotilde Thakkar today. I had multiple conversations with her family. Patient very sick this morning. On multiple pressors. Her clinical picture is overall consistent with hypovolemia - Including her urine studies suggestive of prerenal injury - though discordant with the fact that she has gotten lots of fluid pushes over the last 24 hours including 2 L overnight yet still had to start on pressors. Given her elevated leukocytosis this morning, I am treating her for septic shock as well. Can consider early discontinuation of antibiotics if blood cultures remain negative at 48 hours and her condition otherwise improves. Continue Do for strict monitoring of I/O Long conversation with the family today about her need for possible eminent dialysis. Her renal function has picked up after her third liter of fluids and starting on vasopressin and Levophed. At this time it is not imminent to transfer for dialysis, but if she were to become anuric or have worsened renal failure, she may still require that even for a temporary period. Discussed her case with surgery today. No urgent needs for operative intervention. Intra-abdominal drain is nonconcerning at this time. - Started broad-spectrum IV antibiotics, accounting for patient's penicillin allergy - Pressor support with Levophed and vasopressin, wean Levophed first - Continue maintenance fluids - No enteral feeding well on pressors, - Still with ileus following surgery, on PPN - Central line placed today, appreciate anesthesia - Consideration for transition to TPN - Ongoing goals of care conversations with family, patient has had poor quality of life for several months. Subjective Prog Note Date Prog Note Date: 05/25/25 Subjective Subjective: Did not have a restful night, but the patient remains optimistic. She is oriented and her pain is controlled at this time. Current Medications Current Medications Current Medications: Current Medications Generic Name Dose Route Start Last Admin Trade Name Freq PRN Reason Stop Dose Admin Diphenhydramine HCl 25 mg 05/25/25 09:45 Diphenhydramine Inj 50 Mg/Ml Vial IVP Q6H PRN Anaphylaxis Enoxaparin Sodium 40 mg 05/25/25 09:00 05/25/25 08:13 Enoxaparin 40 Mg/0.4 Ml Syringe SUBQ 40 mg DAILY MARCO Administration Hydromorphone HCl 0.5 mg 05/21/25 17:57 05/25/25 11:12 Hydromorphone 0.5 Mg/0.5 Ml Syringe IVP 0.5 mg Q2H PRN Administration Pain 8 to 10 Multivitamins 10 ml/ Zinc/ 2,011 mls @ 83 mls/hr 05/24/25 19:00 05/24/25 18:17 Copper/Manganese/Selenium 1 ml IV 83 mls/hr / Amino Acids/Electrolytes/ 1900 MARCO Administration Dextrose Protocol Fat Emulsion Intravenous 250 mls @ 21 mls/hr 05/24/25 19:00 05/25/25 06:10 Intralipid 20% IV Infused 1900 MARCO Infusion Acetaminophen 1,000 mg in 100 mls @ 400 mls/hr 05/24/25 15:00 05/25/25 05:45 Acetaminophen IV Infused Q8HR MARCO Infusion Norepinephrine/Sodium Chloride 8 mg in 250 mls @ 15 mls/hr 05/25/25 07:00 05/25/25 10:30 Levophed 8 Mg/250-0.9% Nacl IV 8 mcg/min .[id number] MARCO 15 mls/hr Protocol Titration 8 MCG/MIN Vasopressin 20 unit/ Dextrose 100 mls @ 9 mls/hr 05/25/25 10:00 IV .[id number] MARCO 0.03 UNIT/MIN Cefepime HCl 1 gm/ Sodium 100 mls @ 200 mls/hr 05/25/25 11:00 05/25/25 11:51 Chloride IV Infused Q24H MARCO Infusion Metronidazole 500 mg in 100 mls @ 100 mls/hr 05/25/25 10:00 05/25/25 11:52 Flagyl 500 Mg/100 Ml IV Infused Q8H MARCO Infusion Vancomycin HCl 2 gm/ Sodium 500 mls @ 250 mls/hr 05/25/25 11:00 05/25/25 11:53 Chloride IV 05/25/25 12:59 250 mls/hr ONCE ONE Infusion Metoprolol Tartrate 5 mg 05/21/25 17:57 05/24/25 23:13 Metoprolol 5 Mg/5 Ml Vial IVP 5 mg Q6H PRN Administration Tachycardia Ondansetron HCl 4 mg 05/21/25 17:57 05/23/25 04:33 Ondansetron 4 Mg/2 Ml Vial IVP 4 mg Q6HR PRN Administration Nausea / Vomiting Phenol/Menthol 2 sprays 05/21/25 18:57 05/21/25 19:32 Phenol Throat [place] 177 Ml MM 2 sprays Q2HR PRN Administration Throat Pain Prochlorperazine Edisylate 10 mg 05/21/25 17:57 05/23/25 02:04 Prochlorperazine 10 Mg/2 Ml Vial IVP 10 mg Q6HR PRN Administration Nausea / Vomiting Sodium Chloride 10 ml 05/21/25 17:57 Sodium Chloride Flush 0.9% 10 Ml Syringe IVP PRN PRN NEEDED PER PROVIDER ORDERS Sodium Chloride 10 ml 05/21/25 17:57 05/25/25 08:13 Sodium Chloride Flush 0.9% 10 Ml Syringe IVP 10 ml 0100,0900,1700 MARCO Administration Vancomycin HCl 1 each 05/25/25 09:43 Vancomycin: Pharmacy To Dose [facility] .ONCE PRN PER PHARMACY Objective Vital Signs/Intake & Output Reviewed Vital Signs: Yes Vital Signs: Vital Signs x48h Temp Pulse Pulse Resp BP BP BP 05/25/25 11:30 36.9 C 110 H 17 81/59 L 05/25/25 11:15 37.1 C 117 H 16 82/59 L 05/25/25 11:02 37.1 C 103 H 12 106/76 05/25/25 11:00 37 C 117 H 14 106/76 05/25/25 10:49 37.0 C 122 H 12 93/66 05/25/25 10:33 115 H 15 98/75 05/25/25 10:33 36.2 C L 129 H 13 98/75 05/25/25 10:33 35.9 C L 111 H 12 05/25/25 10:32 36.0 C L 126 H 18 05/25/25 10:17 36.0 C L 126 H 17 102/71 05/25/25 10:00 120 H 18 93/59 L 05/25/25 10:00 36.5 C 124 H 22 93/59 L 05/25/25 09:45 103 H 8 L 79/63 L 05/25/25 09:45 109 H 15 79/63 L 05/25/25 09:30 125 H 15 99/64 05/25/25 09:16 112 H 10 L 114/50 L 05/25/25 09:09 114 H 20 89/72 L 05/25/25 09:05 123 H 13 05/25/25 09:02 116 H 26 H 76/54 L 05/25/25 09:00 123 H 12 50/41 L 05/25/25 09:00 36.6 C 122 H 15 76/54 L 05/25/25 08:50 114 H 12 105/72 05/25/25 08:40 112 H 12 102/69 05/25/25 08:30 117 H 106/75 05/25/25 08:20 107 H 102/72 05/25/25 08:10 108 H 87/52 L 05/25/25 08:02 113 H 140/102 H 05/25/25 08:00 98 130/96 H 05/25/25 08:00 36.6 C 94 14 130/96 H 05/25/25 07:50 104 H 13 106/76 05/25/25 07:40 117 H 14 107/86 05/25/25 07:30 110 H 14 117/69 05/25/25 07:00 116 H 18 101/58 L 05/25/25 06:50 94/56 L 05/25/25 06:35 80/50 L 05/25/25 06:14 111 H 74/53 L 05/25/25 06:00 112 H 14 76/44 L 05/25/25 05:00 111 H 14 90/75 05/25/25 04:00 36.3 C L 118 H 12 80/62 L Pulse Ox O2 Flow Rate 05/25/25 11:30 95 2 05/25/25 11:15 97 2 05/25/25 11:02 97 2 05/25/25 11:00 96 2 05/25/25 10:49 97 2 05/25/25 10:33 96 2 05/25/25 10:33 96 2 05/25/25 10:33 95 2 05/25/25 10:32 95 2 05/25/25 10:17 96 2 05/25/25 10:00 95 2 05/25/25 10:00 97 2 05/25/25 09:45 96 2 05/25/25 09:45 96 05/25/25 09:30 94 05/25/25 09:16 95 05/25/25 09:09 94 05/25/25 09:05 96 05/25/25 09:02 95 05/25/25 09:00 95 05/25/25 09:00 95 2 05/25/25 08:50 95 05/25/25 08:40 97 05/25/25 08:30 96 05/25/25 08:20 96 05/25/25 08:10 96 05/25/25 08:02 95 05/25/25 08:00 97 05/25/25 08:00 96 4 05/25/25 07:50 96 05/25/25 07:40 97 05/25/25 07:30 99 05/25/25 07:00 98 4 05/25/25 06:50 05/25/25 06:35 05/25/25 06:14 05/25/25 06:00 97 4 05/25/25 05:00 97 4 05/25/25 04:00 97 4 Intake & Output: Intake & Output 05/22/25 05/23/25 05/24/25 05/25/25 23:59 23:59 23:59 23:59 Intake Total 2460 / 2460 9445 / 9445 3216 / 3216 2993 / 2993 Output Total 2475 / 2475 4190 / 4190 1314 / 1314 1160 / 1160 Balance -15 / -15 5255 / 5255 1902 / 1902 1833 / 1833 Objective General Appearance: positive No acute distress and Alert Eyes Bilateral: positive Conjunctivae nml ENT: positive ENT inspection nml Neck: positive Nml inspection Respiratory: positive No respiratory distress and Breath sounds nml Cardiovascular: positive Regular rate & rhythm Abdomen: positive Other (incisional dressing intact. approp tender. MIRNA drain with sero sang output. ) Skin: positive Color nml Extremities: positive Non-tender Neurologic/Psychiatric: positive Oriented x3 Lab Results 05/25/25 17:00 05/25/25 17:00 Other Labs: Lab Results x24hrs 05/25/25 05/25/25 05/25/25 Range/Units 11:46 09:48 05:53 WBC (4.8-10.8) x10^3/uL RBC (4.20-5.40) 10^6/uL Hgb (12.0-16.0) g/dL Hct (37.0-47.0) % MCV (81.0-99.0) fL MCH (27.0-31.0) pg MCHC (32.0-36.0) g/dL RDW (12.0-15.0) % Plt Count (130-450) 10^3/uL MPV (7.9-10.8) fL Neut # (Auto) Lymph # (Auto) [place] # (Auto) Eos # (Auto) Baso # (Auto) Absolute Nucleated RBC Total Counted Band Neuts % (Manual) (0 - 10) % Abnorm Lymph % (Manual) % Metamyelocytes % ( - 0) % Nucleated RBC % Neutrophils # (Manual) (1.5-6.6) 10^3/uL Lymphocytes # (Manual) (1.5-3.5) 10^3/uL Monocytes # (Manual) (0.0-1.0) 10^3/uL Eosinophils # (Manual) (0-0.7) 10^3/uL Basophils # (Manual) (0-0.1) 10^3/uL Differential Comment WBC Morphology (NORMAL) Sodium 129 L (135-145) mmol/L Potassium 4.2 (3.5-4.5) mmol/L Chloride 91 L (101-111) mmol/L Carbon Dioxide 32 (21-32) mmol/L Anion Gap 6.0 (6-13) BUN 34 H (6-20) mg/dL Creatinine 2.6 H (0.6-1.3) mg/dL Estimated GFR (MDRD) 18 L (>89) Glucose 104 (74-104) mg/dL POC Whole Bld Glucose 84 94 (70-100) mg/dL Lactic Acid 1.7 (0.5-2.2) mmol/L Calcium 7.5 L (8.5-10.3) mg/dL Phosphorus (2.5-5.0) mg/dL Magnesium (1.7-2.3) mg/dL Total Bilirubin (0.2-1.0) mg/dL AST (10-42) IU/L ALT (10-60) IU/L Alkaline Phosphatase (42-121) IU/L C-Reactive Protein (<0.5) mg/dL Total Protein (6.4-8.9) g/dL Albumin (3.2-5.5) g/dL Globulin (2.1-4.2) g/dL Albumin/Globulin Ratio (1.0-2.2) Prealbumin (17-34) mg/dL Urine Color Urine Clarity (CLEAR) Urine pH (5.0-7.5) PH Ur Specific [place] (1.002-1.030) Urine Protein (NEGATIVE) mg/dL Urine Glucose (UA) (NEGATIVE) mg/dL Urine Ketones (NEGATIVE) mg/dL Urine Occult Blood (NEGATIVE) Urine Nitrite (NEGATIVE) Urine Bilirubin (NEGATIVE) Urine Urobilinogen (NORMAL) E.U./dL Ur Leukocyte Esterase (NEGATIVE) Urine RBC (0-5) /HPF Urine WBC (0-5) /HPF Ur Squamous Epith Cells (<= Few) Urine Crystals /LPF Urine Bacteria (None Seen) /HPF Urine Casts /LPF U Random Total Protein mg/dL Urine Creatinine mg/dL Urine Sodium mmol/L 05/25/25 05/25/25 05/25/25 Range/Units 05:05 05:05 03:35 WBC (4.8-10.8) x10^3/uL RBC (4.20-5.40) 10^6/uL Hgb (12.0-16.0) g/dL Hct (37.0-47.0) % MCV (81.0-99.0) fL MCH (27.0-31.0) pg MCHC (32.0-36.0) g/dL RDW (12.0-15.0) % Plt Count (130-450) 10^3/uL MPV (7.9-10.8) fL Neut # (Auto) Lymph # (Auto) [place] # (Auto) Eos # (Auto) Baso # (Auto) Absolute Nucleated RBC Total Counted Band Neuts % (Manual) (0 - 10) % Abnorm Lymph % (Manual) % Metamyelocytes % ( - 0) % Nucleated RBC % Neutrophils # (Manual) (1.5-6.6) 10^3/uL Lymphocytes # (Manual) (1.5-3.5) 10^3/uL Monocytes # (Manual) (0.0-1.0) 10^3/uL Eosinophils # (Manual) (0-0.7) 10^3/uL Basophils # (Manual) (0-0.1) 10^3/uL Differential Comment WBC Morphology 3+ VACUOLATION (NORMAL) Sodium 128 L (135-145) mmol/L Potassium 4.4 (3.5-4.5) mmol/L Chloride 93 L (101-111) mmol/L Carbon Dioxide 27 (21-32) mmol/L Anion Gap 8.0 (6-13) BUN 30 H (6-20) mg/dL Creatinine 2.6 H (0.6-1.3) mg/dL Estimated GFR (MDRD) 18 L (>89) Glucose 105 H (74-104) mg/dL POC Whole Bld Glucose (70-100) mg/dL Lactic Acid (0.5-2.2) mmol/L Calcium 7.1 L (8.5-10.3) mg/dL Phosphorus 4.1 (2.5-5.0) mg/dL Magnesium 1.2 L (1.7-2.3) mg/dL Total Bilirubin 0.7 (0.2-1.0) mg/dL AST 25 (10-42) IU/L ALT 21 (10-60) IU/L Alkaline Phosphatase 55 (42-121) IU/L C-Reactive Protein 33.1 H (<0.5) mg/dL Total Protein 4.1 L (6.4-8.9) g/dL Albumin 2.4 L (3.2-5.5) g/dL Globulin 1.7 L (2.1-4.2) g/dL Albumin/Globulin Ratio 1.4 (1.0-2.2) Prealbumin 9 L (17-34) mg/dL Urine Color DARK YELLOW Urine Clarity CLEAR (CLEAR) Urine pH 6.0 (5.0-7.5) PH Ur Specific [place] 1.025 (1.002-1.030) Urine Protein 30 H (NEGATIVE) mg/dL Urine Glucose (UA) NEGATIVE (NEGATIVE) mg/dL Urine Ketones NEGATIVE (NEGATIVE) mg/dL Urine Occult Blood MODERATE H (NEGATIVE) Urine Nitrite NEGATIVE (NEGATIVE) Urine Bilirubin NEGATIVE (NEGATIVE) Urine Urobilinogen 0.2 (NORMAL) (NORMAL) E.U./dL Ur Leukocyte Esterase TRACE H (NEGATIVE) Urine RBC 6-10 H (0-5) /HPF Urine WBC 6-10 H (0-5) /HPF Ur Squamous Epith Cells MANY Squamous H (<= Few) Urine Crystals 0-2 Calcium Oxalate /LPF Urine Bacteria Many H (None Seen) /HPF Urine Casts 0-2 Granular Casts 3-5 Hyaline Casts /LPF U Random Total Protein 81 mg/dL Urine Creatinine 91.5 mg/dL Urine Sodium 19.3 mmol/L 05/25/25 05/24/25 05/24/25 Range/Units 03:35 23:57 17:49 WBC 16.5 H (4.8-10.8) x10^3/uL RBC 4.18 L (4.20-5.40) 10^6/uL Hgb 12.4 (12.0-16.0) g/dL Hct 38.5 (37.0-47.0) % MCV 92.1 (81.0-99.0) fL MCH 29.7 (27.0-31.0) pg MCHC 32.2 (32.0-36.0) g/dL RDW 14.0 (12.0-15.0) % Plt Count 204 (130-450) 10^3/uL MPV 11.3 H (7.9-10.8) fL Neut # (Auto) Not Reportable Lymph # (Auto) Not Reportable [place] # (Auto) Not Reportable Eos # (Auto) Not Reportable Baso # (Auto) Not Reportable Absolute Nucleated RBC Not Reportable Total Counted 100 Band Neuts % (Manual) 68 H (0 - 10) % Abnorm Lymph % (Manual) 0 % Metamyelocytes % 2 H ( - 0) % Nucleated RBC % Not Reportable Neutrophils # (Manual) 15.0 H (1.5-6.6) 10^3/uL Lymphocytes # (Manual) 1.0 L (1.5-3.5) 10^3/uL Monocytes # (Manual) 0.0 (0.0-1.0) 10^3/uL Eosinophils # (Manual) 0.2 (0-0.7) 10^3/uL Basophils # (Manual) 0.0 (0-0.1) 10^3/uL Differential Comment MANUAL DIFFERENTIAL WBC Morphology 1+ TOXIC GRANULATION (NORMAL) Sodium (135-145) mmol/L Potassium (3.5-4.5) mmol/L Chloride (101-111) mmol/L Carbon Dioxide (21-32) mmol/L Anion Gap (6-13) BUN (6-20) mg/dL Creatinine (0.6-1.3) mg/dL Estimated GFR (MDRD) (>89) Glucose (74-104) mg/dL POC Whole Bld Glucose 131 119 (70-100) mg/dL Lactic Acid (0.5-2.2) mmol/L Calcium (8.5-10.3) mg/dL Phosphorus (2.5-5.0) mg/dL Magnesium (1.7-2.3) mg/dL Total Bilirubin (0.2-1.0) mg/dL AST (10-42) IU/L ALT (10-60) IU/L Alkaline Phosphatase (42-121) IU/L C-Reactive Protein (<0.5) mg/dL Total Protein (6.4-8.9) g/dL Albumin (3.2-5.5) g/dL Globulin (2.1-4.2) g/dL Albumin/Globulin Ratio (1.0-2.2) Prealbumin (17-34) mg/dL Urine Color Urine Clarity (CLEAR) Urine pH (5.0-7.5) PH Ur Specific [place] (1.002-1.030) Urine Protein (NEGATIVE) mg/dL Urine Glucose (UA) (NEGATIVE) mg/dL Urine Ketones (NEGATIVE) mg/dL Urine Occult Blood (NEGATIVE) Urine Nitrite (NEGATIVE) Urine Bilirubin (NEGATIVE) Urine Urobilinogen (NORMAL) E.U./dL Ur Leukocyte Esterase (NEGATIVE) Urine RBC (0-5) /HPF Urine WBC (0-5) /HPF Ur Squamous Epith Cells (<= Few) Urine Crystals /LPF Urine Bacteria (None Seen) /HPF Urine Casts /LPF U Random Total Protein mg/dL Urine Creatinine mg/dL Urine Sodium mmol/L 05/24/25 05/24/25 Range/Units 17:11 12:03 WBC (4.8-10.8) x10^3/uL RBC (4.20-5.40) 10^6/uL Hgb (12.0-16.0) g/dL Hct (37.0-47.0) % MCV (81.0-99.0) fL MCH (27.0-31.0) pg MCHC (32.0-36.0) g/dL RDW (12.0-15.0) % Plt Count (130-450) 10^3/uL MPV (7.9-10.8) fL Neut # (Auto) Lymph # (Auto) [place] # (Auto) Eos # (Auto) Baso # (Auto) Absolute Nucleated RBC Total Counted Band Neuts % (Manual) (0 - 10) % Abnorm Lymph % (Manual) % Metamyelocytes % ( - 0) % Nucleated RBC % Neutrophils # (Manual) (1.5-6.6) 10^3/uL Lymphocytes # (Manual) (1.5-3.5) 10^3/uL Monocytes # (Manual) (0.0-1.0) 10^3/uL Eosinophils # (Manual) (0-0.7) 10^3/uL Basophils # (Manual) (0-0.1) 10^3/uL Differential Comment WBC Morphology (NORMAL) Sodium (135-145) mmol/L Potassium 4.7 H (3.5-4.5) mmol/L Chloride (101-111) mmol/L Carbon Dioxide (21-32) mmol/L Anion Gap (6-13) BUN (6-20) mg/dL Creatinine (0.6-1.3) mg/dL Estimated GFR (MDRD) (>89) Glucose (74-104) mg/dL POC Whole Bld Glucose 149 (70-100) mg/dL Lactic Acid (0.5-2.2) mmol/L Calcium (8.5-10.3) mg/dL Phosphorus (2.5-5.0) mg/dL Magnesium (1.7-2.3) mg/dL Total Bilirubin (0.2-1.0) mg/dL AST (10-42) IU/L ALT (10-60) IU/L Alkaline Phosphatase (42-121) IU/L C-Reactive Protein (<0.5) mg/dL Total Protein (6.4-8.9) g/dL Albumin (3.2-5.5) g/dL Globulin (2.1-4.2) g/dL Albumin/Globulin Ratio (1.0-2.2) Prealbumin (17-34) mg/dL Urine Color Urine Clarity (CLEAR) Urine pH (5.0-7.5) PH Ur Specific [place] (1.002-1.030) Urine Protein (NEGATIVE) mg/dL Urine Glucose (UA) (NEGATIVE) mg/dL Urine Ketones (NEGATIVE) mg/dL Urine Occult Blood (NEGATIVE) Urine Nitrite (NEGATIVE) Urine Bilirubin (NEGATIVE) Urine Urobilinogen (NORMAL) E.U./dL Ur Leukocyte Esterase (NEGATIVE) Urine RBC (0-5) /HPF Urine WBC (0-5) /HPF Ur Squamous Epith Cells (<= Few) Urine Crystals /LPF Urine Bacteria (None Seen) /HPF Urine Casts /LPF U Random Total Protein mg/dL Urine Creatinine mg/dL Urine Sodium mmol/L Assessment/Plan Problem List (1) Small bowel obstruction: Impression: 64F who presents with inability to tolerate po for 5 days. No flatus or BM for 5 days. remote surgical hx of open cholecystectomy and hysterectomy. She denies hx of SBO. Taken to the OR for dx laparoscopy. Ulitmately required laparotomy with small bowel resection for Meckels/small bowel torsion/perforation. NG in place. MIRNA drain in the pelvis draining serosang fluid. Abdominal closure dressed, not taken down today. She is now POD #2. PPN was started on the evening of POD #1, given the amount of time she had been without nutrition. She had an acute change last night She became more tachycardic and had hypotension. Levophed was started about 0700. She has made about 500cc of urine over the last 24 hours. Do was replaced early this AM (patient had requested to get it out yesterday). LR was stopped at about 1900 when PPN was started she is getting the same amount of volume She received 2L of fluid boluses overnight. I have given her an additional liter today. MIRNA drainage remains sero sanguineous. Her WBC count has been labile. New onset of leukocytosis today. Abx coverage was broadened from Cipro/Fl agyl to Vanc/cefepime. 05/21/25 05/22/25 05/23/25 13:22 05:51 05:58 WBC 12.4 H 10.8 11.5 H 05/24/25 05/25/25 04:36 03:35 WBC 5.2 16.5 H repeat CBC in the AM. Antibiotics broadened today to Vancomycin and cefepime due to picture of shock. We do believe this to be hypovolemic shock although this is difficult to except given that the fact that this patient is 10 L positive for this admission. Starting Lovenox for DVT prophylaxis today , Changing to heparin given her acute kidney injury (2) Acute kidney injury: Impression: I do not have a baseline renal function on this patient. not surprised to see worsening of her TAPAN post operatively. More concerning as we go into POD #2 without significant improvement. She was started on pressors early this AM. She has gotten 3L of IVF boluses over the last 18 hours or so. Her kidney function is worsening. Discussed the possibility of acute HD with patient and her daughter. Patient would not want to be on HD retirement, but agrees that maybe in the short term it would be worth it. She has gotten 3 doses of albumin in the last 24 hours as well. FENa measurement would indicate that her renal failure is pre renal. I do not think this is sepsis. Lactic acid is 1.7 this AM. Abx coverage was broadened from Cipro/Flagyl to Vanc/cefepime. Most likely source for sepsis would be abdominal. She does require small amt O2 when sleeping, but has been on RA when awake and O2 requirements not going up. no cough or fevers. She could be volume depleted secondary to systemic inflammatory response. We are being aggressive with fluid resusitation, as above. This seems to be working, with fluids and pressors (levophed 8-12 mcg/hr and vasopressin .03) she is making about 50cc urine an hour this afternoon. she does not have significant Peripheral edema despite the large amount of fluid she has been given. Laboratory Tests 05/19/25 05/21/25 05/22/25 00:55 13:22 05:51 Creatinine 1.8 H 1.7 H 1.4 H 05/23/25 05/24/25 05/25/25 05:58 04:36 03:35 Creatinine 1.3 1.6 H 2.6 H 05/25/25 09:48 Creatinine 2.6 H Recheck creatinine this evening shows that it is not worse at 2.3. (3) Atrial fibrillation with RVR: Impression: She had this at the time of admission, then not again till overnight. We are treating her with metoprolol pushes at this time. One given last night. Metoprolol scheduled, 5 mg IV every 6 hours Could consider amiodarone IV, as she is not able to take PO at this time. At home, she is on Amiodarone, and metoprolol, Xarelto. (4) Hyponatremia: Impression: due to acute illness. continue supportive care. check BMP in the AM. Laboratory Tests 05/21/25 05/22/25 05/23/25 13:22 05:51 05:58 Sodium 129 L 133 L 134 L 05/24/25 04:36 Sodium 135 Laboratory Tests 05/25/25 05/25/25 03:35 09:48 Sodium 128 L 129 L (5) Diabetes: Impression: Home meds for DM look like only ozempic, last taken several weeks ago. her A1C is 5.6% indicating good control. I had stopped insulin and glucose monitoring. I will start again given starting patient on PPN. I will continue to monitor blood glucose and start insulin as needed with a goal towards blood sugar less than 180 for optimal surgical outcome. on her first full day of PPN this is going well without the need for Laboratory Tests 05/24/25 05/24/25 05/24/25 12:03 17:49 23:57 POC Whole Bld Glucose 149 119 131 05/25/25 05/25/25 05:53 11:46 POC Whole Bld Glucose 94 84 (6) Hypokalemia: Impression: resolved with repletion. in light of acute kidney failure, will be cautious with repletion. 05/22/25 05/23/25 05/24/25 05:51 05:58 04:36 Potassium 3.4 L 3.4 L 3.2 L 05/24/25 05/25/25 05/25/25 17:11 03:35 09:48 Potassium 4.7 H 4.4 4.2 (7) Depression: Impression: in speaking with her daughter Dea, it has been poorly controlled. As soon as she can take PO, will restart her meds, but will need primary care followup. I have spent 55 minutes in the care of this patient today. This includes time [id number], review and ordering of diagnostic imaging and laboratory studies and consultation with other providers. Monitoring the patient's signs symptoms, evaluation of medication effectiveness and patient's response to treatment.
--- NOTE | 2025-05-25 12:17 | Ultrasound Report ---
PROCEDURE: US Renal (Retroperitoneal) INDICATIONS: Renal failure, anuria TECHNIQUE: Ultrasound of the kidneys and bladder was obtained. COMPARISON: None FINDINGS: Right kidney: 10.1 cm length. 1.1 cm cortical thickness. Normal renal echotexture present. No hydronephrosis or shadowing calculi. No solid mass lesion. Left kidney: Obscured Bladder: Nonvisualized Miscellaneous: No free pelvic fluid. IMPRESSION: Unremarkable right renal ultrasound. No hydronephrosis. Reviewed by: Lamont Gonsalez MD on 05/25/2025 11:13 AM YIFAN Approved by: Lamont Gonsalez MD on 05/25/2025 11:13 AM YIFAN Station ID: [id number]
[2025-05-25] MEDS: SODIUM CHLORIDE 0.9% 500 ML IV ONE (12:45)
--- NOTE | 2025-05-25 12:57 | XRAY Report ---
PROCEDURE: XR Chest for Line Placement INDICATIONS: post line placement TECHNIQUE: Single frontal view of the chest was obtained COMPARISON: None FINDINGS: Instrumentation: Right IJ central venous line tip at the cavoatrial junction. Nasogastric tube in the stomach. No pneumothorax Heart size, mediastinum and pulmonary vasculature: Unremarkable. Lungs and pleural spaces: Clear. No pneumothorax or pleural effusion. Osseous structures: Unremarkable IMPRESSION: Right IJ central venous line tip at the cavoatrial junction Reviewed by: Lamont Gonsalez MD on 05/25/2025 11:53 AM YIFAN Approved by: Lamont Gonsalez MD on 05/25/2025 11:53 AM AKDT Station ID: [id number]
--- NOTE | 2025-05-25 13:17 | ANESTHESIA PROCEDURE NOTE ---
Anesth Central Line Template Central Line Procedure Date: 05/25/25 Central Line Preparation: Consent Obtained Central line location: Right IJ Central line type: Triple lumen Central line catheter tip site resides: cavoatrial Central line aftercare: Chlorhexidine disc placed, Secured, Placement confirmed, No pneumothorax, No complications and Pt tolerated well
[2025-05-25] MEDS: VASOPRESSIN 20 UNIT in DEXTROSE 5% 99 ML IV SCH (13:23)
[2025-05-25] MEDS ORDERED: TERBUTALINE 1 MG/ML VIAL SUBQ PRN (13:42)
[2025-05-25] MEDS: NITROGLYCERIN 2% PASTE TOP ONE (14:35)
--- NOTE | 2025-05-25 15:09 | PROVIDER PROGRESS NOTE ---
Subjective General Admit Date: 05/21/25 Procedure Date: 05/23/25 Post Op Days: 2 Procedure Performed: ExLap, small bowel resection Other Other Information/Narrative: POD2. Most notably has been essentially anuric since surgery late sharyn night. Do was removed yesterday but repeated bladder scans showing <10cc in the bladder. Overall has gotten 6L IVF volume in last 24hrs, with no impact on urine production. Cr up 1.3 to 1.6 yesterday and now 2.6 today. Overnight ~2am required pressors. NGT with bilious output/functioning, abdomen soft/distended/appropriately tender with ssf from MIRNA drain - overall exam is as expected for POD2. Denies nausea. No flatus or BM yet. Labored breathing on O2. Review of Systems Status of ROS: 10 or more systems reviewed and unremarkable except as noted in history and below Exam Exam Vital Signs: Vital Signs x48h Temp Pulse Pulse Resp BP BP Pulse Ox 05/25/25 14:31 37.4 C 115 H 10 L 128/77 96 05/25/25 14:17 37.4 C 110 H 17 117/51 L 96 05/25/25 14:02 37.4 C 107 H 14 114/54 L 97 05/25/25 14:00 37.4 C 117 H 16 114/54 L 98 05/25/25 13:45 37.3 C 116 H 10 L 120/85 98 05/25/25 13:32 37.2 C 108 H 21 106/81 98 05/25/25 13:32 37.2 C 96 16 98 05/25/25 13:31 37.2 C 100 20 98 05/25/25 13:15 37.2 C 107 H 16 127/84 98 05/25/25 13:00 32.2 C L 127 H 14 118/60 98 05/25/25 13:00 34.9 C L 118 H 14 118/60 96 05/25/25 13:00 112 H 14 127/84 96 05/25/25 12:45 0 C L 104 H 9 L 103/74 96 05/25/25 12:30 35.2 C L 122 H 11 L 96/77 97 05/25/25 12:17 37.1 C 124 H 19 110/65 99 05/25/25 12:16 37.1 C 112 H 14 97 05/25/25 12:01 37.1 C 111 H 15 97/70 97 05/25/25 12:00 37.1 C 71 18 125/75 98 05/25/25 11:59 37.0 C 104 H 18 70/57 L 96 05/25/25 11:30 37.0 C 107 H 12 81/59 L 96 05/25/25 11:30 36.9 C 110 H 17 81/59 L 95 05/25/25 11:15 37.1 C 117 H 16 82/59 L 97 05/25/25 11:02 37.1 C 103 H 12 106/76 97 05/25/25 11:00 37 C 117 H 14 106/76 96 05/25/25 10:49 37.0 C 122 H 12 93/66 97 05/25/25 10:33 115 H 15 98/75 96 05/25/25 10:33 36.2 C L 129 H 13 98/75 96 05/25/25 10:33 35.9 C L 111 H 12 95 05/25/25 10:32 36.0 C L 126 H 18 95 05/25/25 10:17 36.0 C L 126 H 17 102/71 96 05/25/25 10:00 120 H 18 93/59 L 95 05/25/25 10:00 36.5 C 124 H 22 93/59 L 97 05/25/25 09:45 103 H 8 L 79/63 L 96 05/25/25 09:45 109 H 15 79/63 L 96 05/25/25 09:30 125 H 15 99/64 94 05/25/25 09:16 112 H 10 L 114/50 L 95 05/25/25 09:09 114 H 20 89/72 L 94 05/25/25 09:05 123 H 13 96 05/25/25 09:02 116 H 26 H 76/54 L 95 05/25/25 09:00 123 H 12 50/41 L 95 05/25/25 09:00 36.6 C 122 H 15 76/54 L 95 05/25/25 08:50 114 H 12 105/72 95 05/25/25 08:40 112 H 12 102/69 97 05/25/25 08:30 117 H 106/75 96 05/25/25 08:20 107 H 102/72 96 05/25/25 08:10 108 H 87/52 L 96 05/25/25 08:02 113 H 140/102 H 95 05/25/25 08:00 98 130/96 H 97 05/25/25 08:00 36.6 C 94 14 130/96 H 96 05/25/25 07:50 104 H 13 106/76 96 05/25/25 07:40 05/25/25 07:40 117 H 14 107/86 97 05/25/25 07:30 110 H 14 117/69 99 05/25/25 07:00 116 H 18 101/58 L 98 O2 Flow Rate 05/25/25 14:31 05/25/25 14:17 05/25/25 14:02 05/25/25 14:00 2 05/25/25 13:45 05/25/25 13:32 05/25/25 13:32 05/25/25 13:31 05/25/25 13:15 05/25/25 13:00 05/25/25 13:00 2 05/25/25 13:00 2 05/25/25 12:45 05/25/25 12:30 05/25/25 12:17 05/25/25 12:16 05/25/25 12:01 05/25/25 12:00 2 05/25/25 11:59 05/25/25 11:30 2 05/25/25 11:30 2 05/25/25 11:15 2 05/25/25 11:02 2 05/25/25 11:00 2 05/25/25 10:49 2 05/25/25 10:33 2 05/25/25 10:33 2 05/25/25 10:33 2 05/25/25 10:32 2 05/25/25 10:17 2 05/25/25 10:00 2 05/25/25 10:00 2 05/25/25 09:45 2 05/25/25 09:45 05/25/25 09:30 05/25/25 09:16 05/25/25 09:09 05/25/25 09:05 05/25/25 09:02 05/25/25 09:00 05/25/25 09:00 2 05/25/25 08:50 05/25/25 08:40 05/25/25 08:30 05/25/25 08:20 05/25/25 08:10 05/25/25 08:02 05/25/25 08:00 05/25/25 08:00 4 05/25/25 07:50 05/25/25 07:40 2 05/25/25 07:40 05/25/25 07:30 05/25/25 07:00 4 Constitutional abnormal general appearance, no apparent distress and abnormal body habitus (obese) critically ill, A&Ox3/GCS15 Respiratory breath sounds equal bilaterally and abnormal respiratory effort (labored) Cardiovascular heart rate abnormal (tachycardic) Gastrointestinal NGT with bilious fluid out, patent on flushing MIRNA drain with ssf - appropriate Midline wound (stapled over juan a) with small vol ssf on ABD. Distended/soft/diffuse mild ttp. Extremities no deformity Neurology no movement abnormality noted and GCS 15 Psychiatry mental status grossly normal and oriented x3 Skin skin color normal Impression/Plan Problem List (1) Small bowel obstruction: Plan: 64-year-old female admitted 05/21 with first small bowel obstruction; failed NGT decompression and gastrograffin trial, thus underwent operative management. 05/23: DxLap --> Ex Lap, lysis of adhesions, 75cm small bowel resection. Etiology of SBO Adhesions + Meckels'diverticulum. Intraoperative findings of small bowel twisted around adhesion between meckels diverticulum and root of mesentery, two small bowel perforations upon release of obstruction. Large volume small bowel content contamination of peritoneal cavity. POD2. ARF with anuria and Cr 2.6. Etiology unclear - not volume responsive and l actate 1.6. Had only transient intraoperative peritoneal contamination with succus spillage, and postop abdominal exam/MIRNA drain is not concerning for leak, thus do not suspect abdominal sepsis currently. UA today was dirty catch, no infiltrates to suggest pna or aspiration on CXR, afebrile - not obviously septic. Pain: scheduled IV tylenol, prn narcotic (no NSAIDS given ARF) Card/Pulm: H/o CHF, Afib with RVR, COPD - mgmt per IM. - requiring presssors, place central line GI/Fen: NGT decompression until resolution of ileus - NGT to LIWS - N.p.o./PPN - ARF - Agree with rental US - Replace Do - MIRNA drain to bulb suction ( in pelvis) - Midline wound closed over [place] drain in subQ, change ABD/cover dressing PRN. Hem/ID: - Broaden abx to cover potential sepsis of unknown etiology - no bleeding, continue dvt ppx Discharge planning: - PT consult Discuss need for potential acute +/- chronic hemodialysis with family, consider transfer if no e/o in improved renal function today Appreciate Hospitalist service assistance with comorbidities during acute hospitalization Surgery following, discussed with Dr. Plunkett this AM. Parul Alcocer DO, FACS General Surgeon, [facility] (2) Acute kidney injury: (3) Atrial fibrillation with RVR: (4) Hyponatremia: (5) Diabetes: (6) CHF (congestive heart failure): (7) Hypokalemia: (8) Depression: (9) Hypothyroid:
[2025-05-25 17:23] LABS: HCT - HEMATOCRIT 37.6 % (37.0-47.0); HGB - HEMOGLOBIN 12.0 g/dL (12.0-16.0); MEAN PLATELET VOLUME 11.4 fL (7.9-10.8); PLT - PLATELET COUNT 211 10^3/uL (130-450); RED CELL DISTRIBUTION WIDTH 14.0 % (12.0-15.0)
[2025-05-25 17:24] LABS: ABNORMAL LYMPHS % (MANUAL) 0 %; BASOPHILS # (MANUAL) 0.0 10^3/uL (0-0.1); EOSINOPHILS # (MANUAL) 0.0 10^3/uL (0-0.7)
[2025-05-25 17:37] LABS: BUN - BLOOD UREA NITROGEN 33.0 mg/dL (6-20); CARBON DIOXIDE - CO2 31.0 mmol/L (21-32); CREATININE 2.3 mg/dL (0.6-1.3); GFR - MDRD 21.0 (>89)
[2025-05-25 17:52] LABS: BAND NEUTROPHILS % (MANUAL) 12 %; LYMPHOCYTES # (MANUAL) 1.6 10^3/uL (1.5-3.5); LYMPHOCYTES % (MANUAL) 10 %; MONOCYTES # (MANUAL) 0.2 10^3/uL (0.0-1.0); NEUTROPHILS # (MANUAL) 14.5 10^3/uL (1.5-6.6); PLATELET ESTIMATE, MANUAL NORMAL (130-450,000) (NORMAL); PLATELET MORPHOLOGY NORMAL APPEARANCE (NORMAL); RBC MORPHOLOGY (MULTIPLE) NORMAL APPEARANCE (NORMAL); WBC MORPHOLOGY (MULTIPLE) NORMAL APPEARANCE (NORMAL)
[2025-05-25] MEDS: METOPROLOL 5 MG/5 ML VIAL IVP SCH (18:16)
[2025-05-26 04:51] LABS: HCT - HEMATOCRIT 35.6 % (37.0-47.0); HGB - HEMOGLOBIN 11.7 g/dL (12.0-16.0); MEAN PLATELET VOLUME 11.8 fL (7.9-10.8); PLT - PLATELET COUNT 199 10^3/uL (130-450); RED CELL DISTRIBUTION WIDTH 14.0 % (12.0-15.0)
[2025-05-26 04:59] LABS: VBG PH 7.402 (7.31-7.41)
[2025-05-26 05:03] LABS: ABNORMAL LYMPHS % (MANUAL) 0 %; BAND NEUTROPHILS % (MANUAL) 0 %; BASOPHILS # (MANUAL) 0.0 10^3/uL (0-0.1)
[2025-05-26 05:21] LABS: BUN - BLOOD UREA NITROGEN 33.0 mg/dL (6-20); CARBON DIOXIDE - CO2 29.0 mmol/L (21-32); CREATININE 2.0 mg/dL (0.6-1.3); GFR - MDRD 25.0 (>89)
[2025-05-26 05:40] LABS: EOSINOPHILS # (MANUAL) 0.1 10^3/uL (0-0.7); LYMPHOCYTES # (MANUAL) 2.7 10^3/uL (1.5-3.5); LYMPHOCYTES % (MANUAL) 19 %; MONOCYTES # (MANUAL) 0.1 10^3/uL (0.0-1.0); NEUTROPHILS # (MANUAL) 11.1 10^3/uL (1.5-6.6)
[2025-05-26 05:41] LABS: PLATELET ESTIMATE, MANUAL NORMAL (130-450,000) (NORMAL); PLATELET MORPHOLOGY NORMAL APPEARANCE (NORMAL); RBC MORPHOLOGY (MULTIPLE) NORMAL APPEARANCE (NORMAL); WBC MORPHOLOGY (MULTIPLE) 2+ VACUOLATION (NORMAL)
--- NOTE | 2025-05-26 07:46 | PROVIDER PROGRESS NOTE ---
Subjective General Admit Date: 05/21/25 Procedure Date: 05/23/25 Post Op Days: 3 Procedure Performed: ExLap, small bowel resection Other Other Information/Narrative: Pain controlled. NG in place, denies n/v. No f/c. Patient denies flatus, BM. No acute events overnight. Review of Systems Status of ROS: 10 or more systems reviewed and unremarkable except as noted in history and below Exam Exam Vital Signs: Vital Signs x48h Temp Pulse Pulse Resp BP BP BP 05/26/25 11:15 98.2 F 62 14 91/52 L 05/26/25 11:00 98.2 F 55 L 15 91/51 L 05/26/25 11:00 98.2 F 55 L 12 91/51 L 05/26/25 10:46 98.2 F 55 L 11 L 110/67 05/26/25 10:30 98.2 F 56 L 13 92/60 05/26/25 10:16 98.4 F 54 L 19 87/59 L 05/26/25 10:16 98.4 F 57 L 21 87/59 L 05/26/25 10:01 98.4 F 59 L 22 104/65 05/26/25 10:00 98.4 F 56 L 13 104/65 05/26/25 09:46 98.4 F 80 19 107/56 L 05/26/25 09:31 98.6 F 98 17 90/67 05/26/25 09:00 98.8 F 98 14 105/70 05/26/25 08:30 98.8 F 91 17 94/78 05/26/25 08:20 05/26/25 08:00 98.8 F 99 14 96/69 05/26/25 07:30 98.8 F 89 15 96/61 05/26/25 07:00 98.8 F 92 13 117/64 05/26/25 07:00 78 15 117/64 05/26/25 06:34 86 101/68 05/26/25 06:00 98.8 F 91 13 99/61 05/26/25 05:04 99 109/62 05/26/25 05:00 96 15 109/62 05/26/25 04:00 94 13 99/76 Pulse Ox O2 Flow Rate 05/26/25 11:15 95 05/26/25 11:00 95 05/26/25 11:00 95 2 05/26/25 10:46 96 05/26/25 10:30 95 05/26/25 10:16 95 05/26/25 10:16 95 05/26/25 10:01 96 05/26/25 10:00 96 2 05/26/25 09:46 93 05/26/25 09:31 93 05/26/25 09:00 94 2 05/26/25 08:30 94 05/26/25 08:20 2 05/26/25 08:00 94 2 05/26/25 07:30 94 05/26/25 07:00 95 05/26/25 07:00 95 2 05/26/25 06:34 05/26/25 06:00 94 2 05/26/25 05:04 05/26/25 05:00 95 2 05/26/25 04:00 96 2 Gen: NAD, alert and oriented, still on levophed and vasopressin pressure support HEENT: NG in place with 1050mL out in last 24 hours CV: RRR Pulm: non labored, on 2L O2 Abd: obese, soft, ND, appropriate incisional ttp, no r/g. Dressing in place. MIRNA with 200mL serosang output in last 24 hours. Do with 2230mL out in last 24 hours. Ext: no c/c/e Impression/Plan Problem List (1) Small bowel obstruction: (2) Acute kidney injury: (3) Atrial fibrillation with RVR: (4) Hyponatremia: (5) Diabetes: (6) Hypokalemia: (7) Depression: Plan 64 y/o F admitted 05/21 with first small bowel obstruction; failed NGT decompression and gastrograffin trial, thus underwent operative management. POD#3, s/p DxLap --> Ex Lap, lysis of adhesions, 75cm small bowel resection (05/23, Dr. Alcocer). Etiology of SBO Adhesions + Meckel's diverticulum. Intraoperative findings of small bowel twisted around adhesion between meckel's diverticulum and root of mesentery, two small bowel perforations identified upon release of obstruction at locations of twisting. Large volume succus contamination of peritoneal cavity, extensive irrigation done at time of surgery. ID: [email or web address] broadened when patient started on pressors, plan to continue for 48 hours total Pain: scheduled IV tylenol, prn narcotic (no NSAIDS given ARF) Card/Pulm: H/o CHF, Afib with RVR, COPD - mgmt per IM. Echo during this admission (05/22) with normal EF. - requiring pressors, weaning this AM - CVL in place, recommend adding arterial line for more accurate BP if unable to wean pressors this AM. GI/Fen: NGT decompression until resolution of ileus - NGT to LIWS, ice chips for comfort ok - NPO/PPN; consider transition to TPN with CVL in place. Anticipate patient may have delayed return of bowel function with extensive manipulation of bowel required at time of surgery. Continue NG until off pressors, then ok to trial clamping and check residual, may d/c NG if residual <300mL in 6 hours. - MIRNA drain to bulb suction (in pelvis), serosang output, decreasing - Midline wound closed over [place] drain in subQ, change ABD/cover dressing PRN. - replete electrolytes per protocol - start PPI for GI ppx in this critically ill patient : - ARF, improving. Cr and UOP both improved in last 24 hours. Continue to monitor. - Do in place Heme: - Hgb stable, continue dvt ppx Discharge planning: - PT consult Patient admitted to hospitalist service due to comorbidities. Surgery will continue to follow closely. Plan of care discussed with primary medicine team (Dr. Marcelino Fishman) this AM.
[2025-05-26] MEDS: POTASSIUM CHLOR 10 MEQ/100 ML 10 MEQ/100 ML BAG IV SCH (08:35)
[2025-05-26] MEDS: HEPARIN 5,000 UNIT/ML VIAL SUBQ SCH (09:01)
[2025-05-26] MEDS: LACTATED RINGERS 1,000 ML IV ONE ×2 (10:12→21:23)
[2025-05-26] MEDS: CEFEPIME 1 GM in SODIUM CHLORIDE 0.9% MINIBAG 100 ML IV SCH (10:56)
--- NOTE | 2025-05-26 12:29 | PROVIDER PROGRESS NOTE ---
Subjective Prog Note Date Prog Note Date: 05/26/25 Subjective Subjective: no complaints. she denies feeling like she is about to pass flatus. she is not hungry. remains with a positive outlook. still wants to get out of bed. Current Medications Current Medications Current Medications: Current Medications Generic Name Dose Route Start Last Admin Trade Name Freq PRN Reason Stop Dose Admin Diphenhydramine HCl 25 mg 05/25/25 09:45 Diphenhydramine Inj 50 Mg/Ml Vial IVP Q6H PRN Anaphylaxis Heparin Sodium (Porcine) 5,000 unit 05/26/25 09:00 05/26/25 09:01 Heparin 5,000 Unit/Ml Vial SUBQ 5,000 unit BID MARCO Administration Hydromorphone HCl 0.5 mg 05/21/25 17:57 05/26/25 08:34 Hydromorphone 0.5 Mg/0.5 Ml Syringe IVP 0.5 mg Q2H PRN Administration Pain 8 to 10 Multivitamins 10 ml/ Zinc/ 2,011 mls @ 83 mls/hr 05/24/25 19:00 05/25/25 18:40 Copper/Manganese/Selenium 1 ml IV 83 mls/hr / Amino Acids/Electrolytes/ 1900 MARCO Administration Dextrose Protocol Fat Emulsion Intravenous 250 mls @ 21 mls/hr 05/24/25 19:00 05/26/25 06:41 Intralipid 20% IV Infused 1900 MARCO Infusion Acetaminophen 1,000 mg in 100 mls @ 400 mls/hr 05/24/25 15:00 05/26/25 05:45 Acetaminophen IV Infused Q8HR MARCO Infusion Norepinephrine/Sodium Chloride 8 mg in 250 mls @ 15 mls/hr 05/25/25 07:00 05/26/25 08:45 Levophed 8 Mg/250-0.9% Nacl IV 3 mcg/min .[id number] MARCO 5.63 mls/hr Protocol Titration 8 MCG/MIN Vasopressin 20 unit/ Dextrose 100 mls @ 9 mls/hr 05/25/25 10:00 05/26/25 10:13 IV 0.03 unit/min .[id number] MARCO 9 mls/hr 0.03 UNIT/MIN Administration Metronidazole 500 mg in 100 mls @ 100 mls/hr 05/25/25 10:00 05/26/25 10:08 Flagyl 500 Mg/100 Ml IV Infused Q8H MARCO Infusion Vancomycin HCl 1 gm/ Sodium 250 mls @ 167 mls/hr 05/26/25 12:00 Chloride IV Q24H MARCO Cefepime HCl 1 gm/ Sodium 100 mls @ 200 mls/hr 05/26/25 10:32 05/26/25 10:56 Chloride IV 200 mls/hr Q12H MARCO Administration Levothyroxine Sodium 240 mcg 05/26/25 15:00 Levothyroxine 100 Mcg Vial IVP MoTh MARCO Metoprolol Tartrate 5 mg 05/25/25 18:00 05/26/25 05:04 Metoprolol 5 Mg/5 Ml Vial IVP 5 mg Q6H MARCO Administration Ondansetron HCl 4 mg 05/21/25 17:57 05/23/25 04:33 Ondansetron 4 Mg/2 Ml Vial IVP 4 mg Q6HR PRN Administration Nausea / Vomiting Pantoprazole Sodium 20 mg 05/26/25 11:00 Pantoprazole 40 Mg Vial IVP QDAC MARCO Phenol/Menthol 2 sprays 05/21/25 18:57 05/21/25 19:32 Phenol Throat [place] 177 Ml MM 2 sprays Q2HR PRN Administration Throat Pain Prochlorperazine Edisylate 10 mg 05/21/25 17:57 05/23/25 02:04 Prochlorperazine 10 Mg/2 Ml Vial IVP 10 mg Q6HR PRN Administration Nausea / Vomiting Sodium Chloride 10 ml 05/21/25 17:57 Sodium Chloride Flush 0.9% 10 Ml Syringe IVP PRN PRN NEEDED PER PROVIDER ORDERS Sodium Chloride 10 ml 05/21/25 17:57 05/26/25 09:01 Sodium Chloride Flush 0.9% 10 Ml Syringe IVP 10 ml 0100,0900,1700 MARCO Administration Terbutaline Sulfate 0.5 mg 05/25/25 13:42 Terbutaline 1 Mg/Ml Vial SUBQ 05/26/25 13:41 ONCE PRN Extravasation Objective Vital Signs/Intake & Output Reviewed Vital Signs: Yes Vital Signs: Vital Signs x48h Temp Pulse Pulse Resp BP BP BP 05/26/25 12:00 36.8 C 53 L 13 97/65 05/26/25 11:15 36.8 C 62 14 91/52 L 05/26/25 11:00 36.8 C 55 L 15 91/51 L 05/26/25 11:00 36.8 C 55 L 12 91/51 L 05/26/25 10:46 36.8 C 55 L 11 L 110/67 05/26/25 10:30 36.8 C 56 L 13 92/60 05/26/25 10:16 36.9 C 54 L 19 87/59 L 05/26/25 10:16 36.9 C 57 L 21 87/59 L 05/26/25 10:01 36.9 C 59 L 22 104/65 05/26/25 10:00 36.9 C 56 L 13 104/65 05/26/25 09:46 36.9 C 80 19 107/56 L 05/26/25 09:31 37.0 C 98 17 90/67 05/26/25 09:00 37.1 C 98 14 105/70 05/26/25 08:30 37.1 C 91 17 94/78 05/26/25 08:20 05/26/25 08:00 37.1 C 99 14 96/69 05/26/25 07:30 37.1 C 89 15 96/61 05/26/25 07:00 37.1 C 92 13 117/64 05/26/25 07:00 78 15 117/64 05/26/25 06:34 86 101/68 05/26/25 06:00 37.1 C 91 13 99/61 05/26/25 05:04 99 109/62 05/26/25 05:00 96 15 109/62 Pulse Ox O2 Flow Rate 05/26/25 12:00 95 2 05/26/25 11:15 95 05/26/25 11:00 95 05/26/25 11:00 95 2 05/26/25 10:46 96 05/26/25 10:30 95 05/26/25 10:16 95 05/26/25 10:16 95 05/26/25 10:01 96 05/26/25 10:00 96 2 05/26/25 09:46 93 05/26/25 09:31 93 05/26/25 09:00 94 2 05/26/25 08:30 94 05/26/25 08:20 2 05/26/25 08:00 94 2 05/26/25 07:30 94 05/26/25 07:00 95 05/26/25 07:00 95 2 05/26/25 06:34 05/26/25 06:00 94 2 05/26/25 05:04 05/26/25 05:00 95 2 Intake & Output: Intake & Output 05/23/25 05/24/25 05/25/25 05/26/25 23:59 23:59 23:59 23:59 Intake Total 9445 / 9445 3216 / 3216 6614 / 6614 2113 / 2113 Output Total 4190 / 4190 1314 / 1314 3020 / 3020 1116 / 1116 Balance 5255 / 5255 1902 / 1902 3594 / 3594 997 / 997 Weight (kg) 110.5 kg 110 kg Objective General Appearance: positive No acute distress and Alert Eyes Bilateral: positive Conjunctivae nml ENT: positive ENT inspection nml Neck: positive Nml inspection Respiratory: positive No respiratory distress and Breath sounds nml Cardiovascular: positive Regular rate & rhythm Abdomen: positive Other (took down dressing, there is minimal drainage leaking out of the juan a drain. MIRNA w serosang drainage. ) Skin: positive Color nml Extremities: positive Non-tender and No pedal edema Neurologic/Psychiatric: positive Oriented x3 Lab Results 05/26/25 04:30 05/26/25 04:30 Other Labs: Lab Results x24hrs 05/26/25 05/26/25 05/26/25 Range/Units 11:47 04:30 00:11 WBC 14.1 H (4.8-10.8) x10^3/uL RBC 3.87 L (4.20-5.40) 10^6/uL Hgb 11.7 L (12.0-16.0) g/dL Hct 35.6 L (37.0-47.0) % MCV 92.0 (81.0-99.0) fL MCH 30.2 (27.0-31.0) pg MCHC 32.9 (32.0-36.0) g/dL RDW 14.0 (12.0-15.0) % Plt Count 199 (130-450) 10^3/uL MPV 11.8 H (7.9-10.8) fL Neut # (Auto) Not Reportable Lymph # (Auto) Not Reportable Taylor # (Auto) Not Reportable Eos # (Auto) Not Reportable Baso # (Auto) Not Reportable Absolute Nucleated RBC Not Reportable Total Counted 100 Band Neuts % (Manual) 0 (0 - 10) % Abnorm Lymph % (Manual) 0 % Nucleated RBC % Not Reportable Neutrophils # (Manual) 11.1 H (1.5-6.6) 10^3/uL Lymphocytes # (Manual) 2.7 (1.5-3.5) 10^3/uL Monocytes # (Manual) 0.1 (0.0-1.0) 10^3/uL Eosinophils # (Manual) 0.1 (0-0.7) 10^3/uL Basophils # (Manual) 0.0 (0-0.1) 10^3/uL Differential Comment MANUAL DIFFERENTIAL WBC Morphology 2+ VACUOLATION (NORMAL) Platelet Estimate NORMAL (130-450,000) (NORMAL) Platelet Morphology NORMAL APPEARANCE (NORMAL) RBC Morph Micro Appear NORMAL APPEARANCE (NORMAL) VBG pH 7.402 (7.31-7.41) Ionized Calcium 1.05 L (1.09-1.30) mmol/L Sodium 128 L (135-145) mmol/L Potassium 3.5 (3.5-4.5) mmol/L Chloride 93 L (101-111) mmol/L Carbon Dioxide 29 (21-32) mmol/L Anion Gap 6.0 (6-13) BUN 33 H (6-20) mg/dL Creatinine 2.0 H (0.6-1.3) mg/dL Estimated GFR (MDRD) 25 L (>89) Glucose 134 H (74-104) mg/dL POC Whole Bld Glucose 130 112 (70-100) mg/dL Calcium 7.4 L (8.5-10.3) mg/dL Magnesium 1.3 L (1.7-2.3) mg/dL 05/25/25 Range/Units 17:00 WBC 16.3 H (4.8-10.8) x10^3/uL RBC 4.08 L (4.20-5.40) 10^6/uL Hgb 12.0 (12.0-16.0) g/dL Hct 37.6 (37.0-47.0) % MCV 92.2 (81.0-99.0) fL MCH 29.4 (27.0-31.0) pg MCHC 31.9 L (32.0-36.0) g/dL RDW 14.0 (12.0-15.0) % Plt Count 211 (130-450) 10^3/uL MPV 11.4 H (7.9-10.8) fL Neut # (Auto) Not Reportable Lymph # (Auto) Not Reportable Taylor # (Auto) Not Reportable Eos # (Auto) Not Reportable Baso # (Auto) Not Reportable Absolute Nucleated RBC Not Reportable Total Counted 100 Band Neuts % (Manual) 12 H (0 - 10) % Abnorm Lymph % (Manual) 0 % Nucleated RBC % Not Reportable Neutrophils # (Manual) 14.5 H (1.5-6.6) 10^3/uL Lymphocytes # (Manual) 1.6 (1.5-3.5) 10^3/uL Monocytes # (Manual) 0.2 (0.0-1.0) 10^3/uL Eosinophils # (Manual) 0.0 (0-0.7) 10^3/uL Basophils # (Manual) 0.0 (0-0.1) 10^3/uL Differential Comment MANUAL DIFFERENTIAL WBC Morphology NORMAL APPEARANCE (NORMAL) Platelet Estimate NORMAL (130-450,000) (NORMAL) Platelet Morphology NORMAL APPEARANCE (NORMAL) RBC Morph Micro Appear NORMAL APPEARANCE (NORMAL) VBG pH (7.31-7.41) Ionized Calcium (1.09-1.30) mmol/L Sodium 130 L (135-145) mmol/L Potassium 3.8 (3.5-4.5) mmol/L Chloride 93 L (101-111) mmol/L Carbon Dioxide 31 (21-32) mmol/L Anion Gap 6.0 (6-13) BUN 33 H (6-20) mg/dL Creatinine 2.3 H (0.6-1.3) mg/dL Estimated GFR (MDRD) 21 L (>89) Glucose 109 H (74-104) mg/dL POC Whole Bld Glucose (70-100) mg/dL Calcium 7.2 L (8.5-10.3) mg/dL Magnesium (1.7-2.3) mg/dL Assessment/Plan Problem List (1) Small bowel obstruction: Impression: 64F who presents with inability to tolerate po for 5 days. No flatus or BM for 5 days. remote surgical hx of open cholecystectomy and hysterectomy. She denies hx of SBO. Taken to the OR 05/23 for dx laparoscopy. Ulitmately required laparotomy with small bowel resection for Meckels/small bowel torsion/perforation. NG in place. MIRNA drain in the pelvis draining serosang fluid. Abdominal closure dressed, not taken down today. She is now POD #3. PPN was started on the evening of POD #1, given the amount of time she had been without nutrition. Incidence of levophed infiltration left upper arm prior to central line placement- arm looks fine, no evidence of skin necrosis. no increasing pain here. She had an acute change and became more tachycardic and had hypotension on POD #2. Levophed was started about 0700, then vasopressin. Since that time, she has had multiple fluid boluses, to which she is responsive in terms of her urine output, but we are not able to completely wean pressors. This evening she is able to get off levophed and vasopressin is at 0.3 with a MAP of 62 and UOP in excess of 30ml per hour. She is fluid responsive and I think that when and if her UOP drops, she needs a liter of fluid over an hour (alternating NS w LR). MIRNA drainage remains sero sanguineous. Her WBC count has been labile. New onset of leukocytosis improving Abx coverage was broadened from Cipro/Flagyl to Vanc/cefepime. 05/21/25 05/22/25 05/23/25 13:22 05:51 05:58 WBC 12.4 H 10.8 11.5 H 05/24/25 05/25/25 04:36 03:35 WBC 5.2 16.5 H 05/26/25 04:30 WBC 14.1 H . repeat CBC in the AM. Antibiotics broadened today to Vancomycin and cefepime due to picture of shock. We do believe this to be hypovolemic shock although this is difficult to accept given that the fact that this patient is 10 L positive for this admission at the time the decision was made. Her shock, while requiring pressors still is fluid responsive. Heparin DVT ppx given TAPAN, (2) Acute kidney injury: Impression: I do not have a baseline renal function on this patient. not surprised to see worsening of her TAPAN post operatively. More concerning as we go into POD #2 without significant improvement. With significant interventions of pressors and multiple liters of crystalloid, this patient is improving. Discussed the possibility of acute HD with patient and her daughter. 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 FENa measurement would indicate that her renal failure is pre renal. I do not think this is sepsis. Lactic acid was normal. Abx coverage was broadened from Cipro/Flagyl to Vanc/cefepime. Most likely source for sepsis would be abdominal. She does require small amt O2 when sleeping, but has been on RA when awake and O2 requirements not going up. no cough or fevers. She could be volume depleted secondary to systemic inflammatory response. We are being aggressive with fluid resusitation, as above. This seems to be working, with fluids and pressors declining. She has been making adequate urine, and when her UOP starts to decline, it comes back up with fluid administration. she does not have significant Peripheral edema despite the large amount of fluid she has been given. Laboratory Tests 05/19/25 05/21/25 05/22/25 00:55 13:22 05:51 Creatinine 1.8 H 1.7 H 1.4 H 05/23/25 05/24/25 05/25/25 05:58 04:36 03:35 Creatinine 1.3 1.6 H 2.6 H 05/25/25 09:48 Creatinine 2.6 H 05/26/25 04:30 Creatinine 2.0 H . (3) Atrial fibrillation with RVR: Impression: She had this at the time of admission, then not again till overnight. We are treating her with metoprolol pushes at this time. One given last night. Metoprolol scheduled, 5 mg IV every 6 hours Could consider amiodarone IV, as she is not able to take PO at this time. At home, she is on Amiodarone, and metoprolol, Xarelto. Since starting the metoprolol on a scheduled basis, she has been bradycardia or had a normal heart rate, holding toprol for HR <65, most recent 2 doses held (4) Hyponatremia: Impression: due to acute illness. continue supportive care. check BMP in the AM. Laboratory Tests 05/21/25 05/22/25 05/23/25 13:22 05:51 05:58 Sodium 129 L 133 L 134 L 05/24/25 04:36 Sodium 135 Laboratory Tests 05/25/25 05/25/25 03:35 09:48 Sodium 128 L 129 L Laboratory Tests 05/26/25 04:30 Sodium 128 L (5) Diabetes: Impression: Home meds for DM look like only ozempic, last taken several weeks ago. her A1C is 5.6% indicating good control. I had stopped insulin and glucose monitoring. I will start again given starting patient on PPN. I will continue to monitor blood glucose and start insulin as needed with a goal towards blood sugar less than 180 for optimal surgical outcome. on her first full day of PPN this is going well without the need for insulin, but low dose scale in place. Laboratory Tests 05/25/25 05/25/25 05/26/25 05:53 11:46 00:11 POC Whole Bld Glucose 94 84 112 05/26/25 05/26/25 11:47 17:39 POC Whole Bld Glucose 130 121 (6) Hypokalemia: Impression: resolved with repletion. in light of acute kidney failure, will be cautious with repletion. 05/25/25 05/25/25 05/25/25 03:35 09:48 17:00 Potassium 4.4 4.2 3.8 05/26/25 04:30 Potassium 3.5 (7) Depression: Impression: It has been poorly controlled. As soon as she can take PO, will restart her meds, but will need primary care followup. (8) Hypothyroid: Impression: She has been NPO for some time and is expected to be so. I will add IV synthroid per pharmacy dosage recommendations. She is getting 240mcg IV q Monday and . I have spent 58 minutes in the care of this patient today. This includes time [id number], review and ordering of diagnostic imaging and laboratory studies and consultation with other providers. Monitoring the patient's signs symptoms, evaluation of medication effectiveness and patient's response to treatment.
[2025-05-26] MEDS: VANCOMYCIN INJ 1 GM in SODIUM CHLORIDE 0.9% 250 ML IV SCH (12:41)
[2025-05-26] MEDS: MAGNESIUM SULFATE 2 GRAM 2 GM/50 ML BAG IV ONE (13:09)
[2025-05-26] MEDS: PANTOPRAZOLE 40 MG VIAL IVP SCH (13:27)
[2025-05-26] MEDS: SODIUM CHLORIDE 0.9% 1,000 ML IV ONE (13:27)
--- NOTE | 2025-05-26 15:05 | PHARMACY PROGRESS NOTE ---
Vancomycin Therapy Monitoring Patient Information Vancomycin Pt Height (inches): 67 Vancomycin Patient Weight (kg): 110 Vanco Rx Serum Creatinine (mg/dL): 2.0 Vancomycin Therapy BUN (mg/dL): 33 Vancomycin Therapy Calculated Creatinine Cl (ml/min): 49 Concurrent Antibiotics: CEFEPIME Vancomycin Therapy Goals Treatment Indication: SEPSIS Vancomycin Target Range: Vancomycin AUC Target Range 400-600 mcg*h/ml Assessment of Current Therapy Vancomycin Loading Dose (GM, if applicable): 2G Current Vancomycin Maintenance Regimen (if applicable): 1G Q24H Vancomycin Current Regimen: Subtherapeutic Levels Estimated Cmax (Peak, mcg/ml): 24.2 Estimated Cmin (Trough, mcg/ml): 15.3 Estimated AUC (mcg*hr/ml): 466 Plan: Pharmacy recommendation: Continue current regimen Vancomycin Level Recommendation: Level not necessary at this time
[2025-05-26] MEDS: LEVOTHYROXINE 100 MCG VIAL IVP SCH (15:08)
[2025-05-26] MEDS: TPN (CLINIMIX E 5/15) 2,000 ML with MULTIVITAMIN 10 ML, TRACE ELEMENTS 1 ML IV SCH (18:19)
[2025-05-26] MEDS: INSULIN REGULAR, HUMAN 300 UNIT/3 ML PEN SUBQ SCH (23:51)
[2025-05-27 05:11] LABS: HCT - HEMATOCRIT 31.1 % (37.0-47.0); HGB - HEMOGLOBIN 9.8 g/dL (12.0-16.0); MEAN PLATELET VOLUME 12.0 fL (7.9-10.8); PLT - PLATELET COUNT 153 10^3/uL (130-450); RED CELL DISTRIBUTION WIDTH 14.3 % (12.0-15.0)
[2025-05-27 05:12] LABS: VBG PH 7.424 (7.31-7.41)
[2025-05-27 05:22] LABS: ABNORMAL LYMPHS % (MANUAL) 0 %; BAND NEUTROPHILS % (MANUAL) 0 %; BASOPHILS # (MANUAL) 0.0 10^3/uL (0-0.1)
[2025-05-27 05:42] LABS: EOSINOPHILS # (MANUAL) 0.2 10^3/uL (0-0.7); LYMPHOCYTES # (MANUAL) 1.1 10^3/uL (1.5-3.5); LYMPHOCYTES % (MANUAL) 14 %; MONOCYTES # (MANUAL) 0.1 10^3/uL (0.0-1.0); NEUTROPHILS # (MANUAL) 6.4 10^3/uL (1.5-6.6)
[2025-05-27 05:43] LABS: ALT ALANINE AMINOTRANSFERASE 14.0 IU/L (10-60); AST ASPARTATE AMINOTRANSFERASE 14.0 IU/L (10-42); BUN - BLOOD UREA NITROGEN 27.0 mg/dL (6-20); CARBON DIOXIDE - CO2 29.0 mmol/L (21-32); CREATININE 1.2 mg/dL (0.6-1.3); GFR - MDRD 45.0 (>89); PHOSPHORUS 2.2 mg/dL (2.5-5.0)
[2025-05-27 05:44] LABS: PLATELET ESTIMATE, MANUAL NORMAL (130-450,000) (NORMAL); PLATELET MORPHOLOGY NORMAL APPEARANCE (NORMAL); RBC MORPHOLOGY (MULTIPLE) NORMAL APPEARANCE (NORMAL); WBC MORPHOLOGY (MULTIPLE) NORMAL APPEARANCE (NORMAL)
[2025-05-27] MEDS: MAGNESIUM SULFATE 2 GRAM 2 GM/50 ML BAG IV ONE (06:09)
[2025-05-27] MEDS: CALCIUM GLUC 1,000MG/50ML-NACL 1,000 MG/50 ML BAG IV ONE (08:38)
[2025-05-27] MEDS: POTASSIUM PHOSPHATE 15 MMOL in SODIUM CHLORIDE 0.9% 250 ML IV ONE (08:55)
--- NOTE | 2025-05-27 11:43 | PROVIDER PROGRESS NOTE ---
Assessment/Plan Problem List (1) Small bowel obstruction: Assessment/Plan: 64 y/o F admitted 05/21 with first small bowel obstruction; failed NGT decompression and gastrograffin trial, thus underwent operative management. POD#4, s/p DxLap --> Ex Lap, lysis of adhesions, 75cm small bowel resection (05/23, Dr. Alcocer). Etiology of SBO Adhesions + Meckel's diverticulum. Intraoperative findings of small bowel twisted around adhesion between meckel's diverticulum and root of mesentery, two small bowel perforations identified upon release of obstruction at locations of twisting. Large volume succus contamination of peritoneal cavity, extensive irrigation done at time of surgery. ID: Patient is currently off pressors and white blood cell count is normal. Wound is open and appears not to be infected. Wound is certainly colonized. Will increase dressing changes to accommodate the open wound to at least twice daily. MIRNA drain to bulb suction with serosanguineous output. Pain: Controlled with scheduled IV tylenol, prn narcotic (no NSAIDS given ARF) Card/Pulm: H/O CHF, Afib with RVR, COPD - mgmt per IM. Echo during this admission (05/22) with normal EF. Again off pressors. Management deferred to internal medicine. Hypotension appears to have been related to more hypovolemia versus sepsis. GI/FEN: Continue NGT decompression until resolution of ileus. Ice chips for comfort. Agree with PPI in this critically ill patient. : ARF, improving. Cr and UOP both improved in last 24 hours. Continue to monitor with Do in place. Heme: Hgb stable, continue DVT prophylaxis Activity: Aggressive physical therapy and Occupational Therapy is warranted and needed. Start discharge planning as rehab will likely be required. Patient admitted to hospitalist service due to comorbidities and we certainly appreciate working with them. Surgery will continue to follow closely. Plan of care discussed with primary medicine team (Dr. Gutierrez) this AM. CPT 84951 (2) Acute kidney injury: (3) Atrial fibrillation with RVR: (4) Hyponatremia: (5) Diabetes: (6) Hypokalemia: (7) Depression: (8) Hypothyroid: Current Meds Current Meds: Current Medications Generic Name Dose Route Start Last Admin Trade Name Freq PRN Reason Stop Dose Admin Diphenhydramine HCl 25 mg 05/25/25 09:45 Diphenhydramine Inj 50 Mg/Ml Vial IVP Q6H PRN Anaphylaxis Heparin Sodium (Porcine) 5,000 unit 05/26/25 09:00 05/27/25 08:43 Heparin 5,000 Unit/Ml Vial SUBQ 5,000 unit BID MARCO Administration Hydromorphone HCl 0.5 mg 05/21/25 17:57 05/27/25 10:10 Hydromorphone 0.5 Mg/0.5 Ml Syringe IVP 0.5 mg Q2H PRN Administration Pain 8 to 10 Fat Emulsion Intravenous 250 mls @ 21 mls/hr 05/24/25 19:00 05/27/25 06:18 Intralipid 20% IV Infused 1900 MARCO Infusion Acetaminophen 1,000 mg in 100 mls @ 400 mls/hr 05/24/25 15:00 05/27/25 05:33 Acetaminophen IV Infused Q8HR MARCO Infusion Norepinephrine/Sodium Chloride 8 mg in 250 mls @ 15 mls/hr 05/25/25 07:00 05/27/25 08:58 Levophed 8 Mg/250-0.9% Nacl IV Not Given .[id number] MARCO Protocol 8 MCG/MIN Vasopressin 20 unit/ Dextrose 100 mls @ 9 mls/hr 05/25/25 10:00 05/27/25 04:32 IV 0 unit/min .[id number] MARCO 0 mls/hr 0.03 UNIT/MIN Titration Metronidazole 500 mg in 100 mls @ 100 mls/hr 05/25/25 10:00 05/27/25 09:54 Flagyl 500 Mg/100 Ml IV 100 mls/hr Q8H MARCO Administration Cefepime HCl 1 gm/ Sodium 100 mls @ 200 mls/hr 05/26/25 10:32 05/27/25 10:58 Chloride IV 200 mls/hr Q12H MARCO Administration Multivitamins 10 ml/ Zinc/ 2,011 mls @ 83 mls/hr 05/26/25 19:00 05/26/25 18:19 Copper/Manganese/Selenium 1 ml IV 83 mls/hr / Amino Ac/Electrol/Dextrose/ 1900 MARCO Administration Calcium Protocol Potassium Phosphate 15 mmol/ 255 mls @ 63 mls/hr 05/27/25 08:00 05/27/25 08:55 Sodium Chloride IV 05/27/25 12:02 63 mls/hr ONCE ONE Administration Protocol Insulin Human Regular 1 - 5 unit 05/27/25 00:00 05/27/25 05:09 Insulin Regular, Human 300 Unit/3 Ml Pen SUBQ 1 unit Q6HR MARCO Administration Protocol Levothyroxine Sodium 240 mcg 05/26/25 15:00 05/26/25 15:08 Levothyroxine 100 Mcg Vial IVP 240 mcg MoTh MARCO Administration Metoprolol Tartrate 5 mg 05/25/25 18:00 05/27/25 05:52 Metoprolol 5 Mg/5 Ml Vial IVP 5 mg Q6H MARCO Administration Ondansetron HCl 4 mg 05/21/25 17:57 05/23/25 04:33 Ondansetron 4 Mg/2 Ml Vial IVP 4 mg Q6HR PRN Administration Nausea / Vomiting Pantoprazole Sodium 20 mg 05/26/25 11:00 05/27/25 06:07 Pantoprazole 40 Mg Vial IVP 20 mg QDAC MARCO Administration Phenol/Menthol 2 sprays 05/21/25 18:57 05/21/25 19:32 Phenol Throat Bapchule 177 Ml MM 2 sprays Q2HR PRN Administration Throat Pain Prochlorperazine Edisylate 10 mg 05/21/25 17:57 05/23/25 02:04 Prochlorperazine 10 Mg/2 Ml Vial IVP 10 mg Q6HR PRN Administration Nausea / Vomiting Sodium Chloride 10 ml 05/21/25 17:57 Sodium Chloride Flush 0.9% 10 Ml Syringe IVP PRN PRN NEEDED PER PROVIDER ORDERS Sodium Chloride 10 ml 05/21/25 17:57 05/27/25 08:46 Sodium Chloride Flush 0.9% 10 Ml Syringe IVP 10 ml 0100,[id number],1700 MARCO Administration Lab Result 05/27/25 05:00 05/27/25 05:00 Subjective Subjective Patient Reports: Feeling Better, Resting Comfortably and No Complaints Objective Vital Signs: Vital Signs - 24 hr 05/26/25 11:45 05/26/25 12:00 05/26/25 12:00 Temperature 36.8 C 36.8 C Temperature Source Core Pulse Rate 54 L Pulse Rate [Monitoring electrodes] 53 L Respiratory Rate 13 13 Blood Pressure 97/55 L Blood Pressure [Right Brachial artery] Blood Pressure [Right Radial artery] 97/65 O2 Saturation 95 95 O2 Source Nasal cannula If not protocol: Oxygen Flow, liters/minute 2 Sedation scale 0-Fully awake Pain Intensity Pain Intensity [Abdomen] 5 05/26/25 12:00 05/26/25 12:16 05/26/25 12:31 Temperature 36.8 C 36.8 C 36.9 C Temperature Source Pulse Rate 55 L 56 L 55 L Pulse Rate [Monitoring electrodes] Respiratory Rate 16 10 L 13 Blood Pressure 97/65 102/54 L 85/46 L Blood Pressure [Right Brachial artery] Blood Pressure [Right Radial artery] O2 Saturation 94 97 95 O2 Source If not protocol: Oxygen Flow, liters/minute Sedation scale Pain Intensity 5 Pain Intensity [Abdomen] 05/26/25 12:41 05/26/25 12:44 05/26/25 12:46 Temperature 36.9 C Temperature Source Pulse Rate 54 L 54 L Pulse Rate [Monitoring electrodes] Respiratory Rate 18 Blood Pressure 92/59 L Blood Pressure [Right Brachial artery] Blood Pressure [Right Radial artery] O2 Saturation 91 L O2 Source If not protocol: Oxygen Flow, liters/minute Sedation scale Pain Intensity 5 Pain Intensity [Abdomen] 05/26/25 13:00 05/26/25 13:00 05/26/25 13:13 Temperature 37 C 37.0 C Temperature Source Core Pulse Rate 57 L Pulse Rate [Monitoring electrodes] 56 L Respiratory Rate 21 16 Blood Pressure 94/60 Blood Pressure [Right Brachial artery] 94/60 Blood Pressure [Right Radial artery] O2 Saturation 94 93 O2 Source Nasal cannula If not protocol: Oxygen Flow, liters/minute 2 Sedation scale Pain Intensity 0 Pain Intensity [Abdomen] 05/26/25 13:45 05/26/25 14:00 05/26/25 14:00 Temperature 37.0 C 37.0 C 37.0 C Temperature Source Pulse Rate 56 L 58 L 57 L Pulse Rate [Monitoring electrodes] Respiratory Rate 16 15 15 Blood Pressure 114/70 104/59 L 104/59 L Blood Pressure [Right Brachial artery] Blood Pressure [Right Radial artery] O2 Saturation 95 95 95 O2 Source Nasal cannula Nasal cannula If not protocol: Oxygen Flow, liters/minute 2 2 Sedation scale Pain Intensity Pain Intensity [Abdomen] 05/26/25 14:16 05/26/25 14:30 05/26/25 14:45 Temperature 36.9 C 36.8 C 36.9 C Temperature Source Pulse Rate 56 L 57 L 55 L Pulse Rate [Monitoring electrodes] Respiratory Rate 20 19 16 Blood Pressure 119/69 101/61 105/69 Blood Pressure [Right Brachial artery] Blood Pressure [Right Radial artery] O2 Saturation 94 94 95 O2 Source If not protocol: Oxygen Flow, liters/minute Sedation scale Pain Intensity Pain Intensity [Abdomen] 05/26/25 15:00 05/26/25 15:00 05/26/25 15:15 Temperature 36.9 C 36.9 C 36.9 C Temperature Source Core Pulse Rate 54 L 54 L Pulse Rate [Monitoring electrodes] 54 L Respiratory Rate 15 14 14 Blood Pressure 92/52 L 92/63 Blood Pressure [Right Brachial artery] Blood Pressure [Right Radial artery] 92/52 L O2 Saturation 95 96 96 O2 Source Room air If not protocol: Oxygen Flow, liters/minute Sedation scale 0-Fully awake Pain Intensity Pain Intensity [Abdomen] 05/26/25 15:15 05/26/25 15:30 05/26/25 15:45 Temperature 36.9 C 36.9 C 36.9 C Temperature Source Pulse Rate 54 L 59 L 56 L Pulse Rate [Monitoring electrodes] Respiratory Rate 17 13 18 Blood Pressure 92/63 104/70 116/61 Blood Pressure [Right Brachial artery] Blood Pressure [Right Radial artery] O2 Saturation 95 95 94 O2 Source If not protocol: Oxygen Flow, liters/minute Sedation scale Pain Intensity Pain Intensity [Abdomen] 05/26/25 15:51 05/26/25 16:00 05/26/25 16:00 Temperature 36.9 C 36.9 C Temperature Source Core Pulse Rate 56 L Pulse Rate [Monitoring electrodes] 56 L Respiratory Rate 14 17 Blood Pressure 95/55 L Blood Pressure [Right Brachial artery] Blood Pressure [Right Radial artery] 95/55 L O2 Saturation 95 93 O2 Source Nasal cannula If not protocol: Oxygen Flow, liters/minute 1 Sedation scale 1-Arouses easily Pain Intensity Pain Intensity [Abdomen] 3 05/26/25 16:00 05/26/25 16:15 05/26/25 16:30 Temperature 36.9 C 36.9 C 36.9 C Temperature Source Pulse Rate 58 L 56 L 56 L Pulse Rate [Monitoring electrodes] Respiratory Rate 18 19 18 Blood Pressure 95/55 L 94/53 L 88/52 L Blood Pressure [Right Brachial artery] Blood Pressure [Right Radial artery] O2 Saturation 93 94 94 O2 Source Nasal cannula If not protocol: Oxygen Flow, liters/minute 1 Sedation scale Pain Intensity Pain Intensity [Abdomen] 05/26/25 16:45 05/26/25 17:00 05/26/25 17:00 Temperature 36.9 C 37.0 C 37.0 C Temperature Source Core Pulse Rate 60 56 L Pulse Rate [Monitoring electrodes] 60 Respiratory Rate 16 17 14 Blood Pressure 83/54 L 102/61 Blood Pressure [Right Brachial artery] Blood Pressure [Right Radial artery] 102/61 O2 Saturation 91 L 92 94 O2 Source Nasal cannula If not protocol: Oxygen Flow, liters/minute 1 Sedation scale 0-Fully awake Pain Intensity 0 Pain Intensity [Abdomen] 05/26/25 17:15 05/26/25 17:18 05/26/25 17:30 Temperature 37.0 C 37.0 C 37.0 C Temperature Source Pulse Rate 56 L 55 L 55 L Pulse Rate [Monitoring electrodes] Respiratory Rate 17 22 21 Blood Pressure 90/58 L 90/58 L 81/51 L Blood Pressure [Right Brachial artery] Blood Pressure [Right Radial artery] O2 Saturation 95 95 95 O2 Source If not protocol: Oxygen Flow, liters/minute Sedation scale Pain Intensity Pain Intensity [Abdomen] 05/26/25 17:38 05/26/25 17:46 05/26/25 18:00 Temperature 37.0 C 36.9 C 37.0 C Temperature Source Core Pulse Rate 61 56 L Pulse Rate [Monitoring electrodes] 56 L Respiratory Rate 15 10 L 12 Blood Pressure 89/52 L 123/75 Blood Pressure [Right Brachial artery] 109/63 Blood Pressure [Right Radial artery] O2 Saturation 96 100 O2 Source Nasal cannula If not protocol: Oxygen Flow, liters/minute 1 Sedation scale 0-Fully awake Pain Intensity 0 Pain Intensity [Abdomen] 05/26/25 18:02 05/26/25 18:15 05/26/25 18:15 Temperature 37.0 C 37.1 C Temperature Source Pulse Rate 56 L 53 L 56 L Pulse Rate [Monitoring electrodes] Respiratory Rate 19 16 Blood Pressure 109/63 120/70 Blood Pressure [Right Brachial artery] Blood Pressure [Right Radial artery] O2 Saturation 94 95 O2 Source If not protocol: Oxygen Flow, liters/minute Sedation scale Pain Intensity Pain Intensity [Abdomen] 05/26/25 18:30 05/26/25 19:00 10/20/25 19:41 Temperature 37.1 C 37.0 C Temperature Source Core Pulse Rate 55 L Pulse Rate [Monitoring electrodes] 58 L Respiratory Rate 12 21 Blood Pressure 103/57 L Blood Pressure [Right Brachial artery] Blood Pressure [Right Radial artery] 108/63 O2 Saturation 96 95 O2 Source Nasal cannula If not protocol: Oxygen Flow, liters/minute 1 Sedation scale 0-Fully awake Pain Intensity 0 6 Pain Intensity [Abdomen] 05/26/25 19:57 05/26/25 20:00 05/26/25 20:00 Temperature 37.2 C Temperature Source Core Pulse Rate Pulse Rate [Monitoring electrodes] 57 L Respiratory Rate 20 Blood Pressure Blood Pressure [Right Brachial artery] 111/54 L Blood Pressure [Right Radial artery] O2 Saturation 94 O2 Source Nasal cannula If not protocol: Oxygen Flow, liters/minute 1 Sedation scale 0-Fully awake Pain Intensity Pain Intensity [Abdomen] 5 7 05/26/25 20:14 05/26/25 20:27 05/26/25 21:00 Temperature 37.2 C Temperature Source Core Pulse Rate Pulse Rate [Monitoring electrodes] 60 Respiratory Rate 19 Blood Pressure Blood Pressure [Right Brachial artery] 94/51 L Blood Pressure [Right Radial artery] O2 Saturation 94 O2 Source Nasal cannula If not protocol: Oxygen Flow, liters/minute 1 1 Sedation scale 1-Arouses easily Pain Intensity 7 Pain Intensity [Abdomen] 05/26/25 21:32 05/26/25 22:00 05/26/25 23:00 Temperature 37.2 C 37.2 C Temperature Source Core Core Pulse Rate Pulse Rate [Monitoring electrodes] 58 L 59 L Respiratory Rate 15 19 Blood Pressure Blood Pressure [Right Brachial artery] 108/65 112/63 120/61 Blood Pressure [Right Radial artery] O2 Saturation 92 92 O2 Source Nasal cannula Nasal cannula If not protocol: Oxygen Flow, liters/minute 1 1 Sedation scale 0-Fully awake 0-Fully awake Pain Intensity Pain Intensity [Abdomen] 05/26/25 23:51 05/27/25 00:00 05/27/25 00:00 Temperature 37.1 C Temperature Source Core Pulse Rate Pulse Rate [Monitoring electrodes] 58 L Respiratory Rate 13 Blood Pressure Blood Pressure [Right Brachial artery] 128/73 Blood Pressure [Right Radial artery] O2 Saturation 92 O2 Source Nasal cannula If not protocol: Oxygen Flow, liters/minute 1 Sedation scale 0-Fully awake Pain Intensity 8 Pain Intensity [Abdomen] 8 05/27/25 00:00 05/27/25 00:19 05/27/25 00:27 Temperature Temperature Source Pulse Rate 58 L Pulse Rate [Monitoring electrodes] Respiratory Rate Blood Pressure 128/73 Blood Pressure [Right Brachial artery] Blood Pressure [Right Radial artery] O2 Saturation O2 Source If not protocol: Oxygen Flow, liters/minute Sedation scale Pain Intensity 3 Pain Intensity [Abdomen] 7 05/27/25 00:31 05/27/25 01:00 05/27/25 02:00 Temperature Temperature Source Pulse Rate Pulse Rate [Monitoring electrodes] 62 61 Respiratory Rate 19 16 Blood Pressure Blood Pressure [Right Brachial artery] 100/64 113/70 115/68 Blood Pressure [Right Radial artery] O2 Saturation 92 93 O2 Source Nasal cannula Nasal cannula If not protocol: Oxygen Flow, liters/minute 2 2 Sedation scale 1-Arouses easily 1-Arouses easily Pain Intensity Pain Intensity [Abdomen] 05/27/25 03:00 05/27/25 03:12 05/27/25 03:12 Temperature 37.0 C Temperature Source Core Pulse Rate Pulse Rate [Monitoring electrodes] 62 Respiratory Rate 18 Blood Pressure Blood Pressure [Right Brachial artery] 138/65 H Blood Pressure [Right Radial artery] O2 Saturation 92 O2 Source Nasal cannula If not protocol: Oxygen Flow, liters/minute 2 Sedation scale 0-Fully awake Pain Intensity Pain Intensity [Abdomen] 5 4 05/27/25 04:00 05/27/25 04:11 05/27/25 04:20 Temperature 36.7 C Temperature Source Core Pulse Rate Pulse Rate [Monitoring electrodes] 63 Respiratory Rate 23 Blood Pressure Blood Pressure [Right Brachial artery] 133/65 H 113/66 114/66 Blood Pressure [Right Radial artery] O2 Saturation 92 O2 Source Nasal cannula If not protocol: Oxygen Flow, liters/minute 3 Sedation scale 0-Fully awake Pain Intensity Pain Intensity [Abdomen] 05/27/25 04:31 05/27/25 04:35 05/27/25 04:41 Temperature Temperature Source Pulse Rate Pulse Rate [Monitoring electrodes] Respiratory Rate Blood Pressure Blood Pressure [Right Brachial artery] 127/69 109/69 107/62 Blood Pressure [Right Radial artery] O2 Saturation O2 Source If not protocol: Oxygen Flow, liters/minute Sedation scale Pain Intensity Pain Intensity [Abdomen] 05/27/25 04:45 05/27/25 05:00 05/27/25 05:17 Temperature Temperature Source Pulse Rate Pulse Rate [Monitoring electrodes] 65 Respiratory Rate 14 Blood Pressure Blood Pressure [Right Brachial artery] 108/61 121/75 119/69 Blood Pressure [Right Radial artery] O2 Saturation 93 O2 Source Nasal cannula If not protocol: Oxygen Flow, liters/minute 2 Sedation scale 0-Fully awake Pain Intensity Pain Intensity [Abdomen] 05/27/25 05:30 05/27/25 05:49 05/27/25 05:52 Temperature Temperature Source Pulse Rate 65 Pulse Rate [Monitoring electrodes] 65 Respiratory Rate Blood Pressure 131/70 H Blood Pressure [Right Brachial artery] 112/59 L Blood Pressure [Right Radial artery] O2 Saturation O2 Source If not protocol: Oxygen Flow, liters/minute Sedation scale 0-Fully awake Pain Intensity 8 Pain Intensity [Abdomen] 05/27/25 06:00 05/27/25 06:17 05/27/25 07:00 Temperature 37.0 C 36.8 C Temperature Source Core Core Pulse Rate Pulse Rate [Monitoring electrodes] 62 61 Respiratory Rate 17 18 Blood Pressure Blood Pressure [Right Brachial artery] 107/53 L 105/60 Blood Pressure [Right Radial artery] O2 Saturation 93 92 O2 Source Nasal cannula Nasal cannula If not protocol: Oxygen Flow, liters/minute 2 2 Sedation scale 0-Fully awake 1-Arouses easily Pain Intensity 4 Pain Intensity [Abdomen] 05/27/25 08:00 05/27/25 08:00 05/27/25 09:00 Temperature 36.7 C 36.5 C Temperature Source Core Core Pulse Rate Pulse Rate [Monitoring electrodes] 63 56 L Respiratory Rate 18 14 Blood Pressure Blood Pressure [Right Brachial artery] 122/58 L 103/63 Blood Pressure [Right Radial artery] O2 Saturation 94 93 O2 Source Nasal cannula Nasal cannula If not protocol: Oxygen Flow, liters/minute 2 1 Sedation scale 0-Fully awake 0-Fully awake Pain Intensity 4 Pain Intensity [Abdomen] 4 05/27/25 10:00 05/27/25 10:10 05/27/25 10:21 Temperature 36.5 C Temperature Source Core Pulse Rate Pulse Rate [Monitoring electrodes] 60 Respiratory Rate 16 Blood Pressure Blood Pressure [Right Brachial artery] 130/78 Blood Pressure [Right Radial artery] O2 Saturation 94 O2 Source Nasal cannula If not protocol: Oxygen Flow, liters/minute 2 2 Sedation scale 0-Fully awake Pain Intensity 6 Pain Intensity [Abdomen] 05/27/25 10:40 05/27/25 11:00 Temperature 36.5 C Temperature Source Core Pulse Rate Pulse Rate [Monitoring electrodes] 61 Respiratory Rate 18 Blood Pressure Blood Pressure [Right Brachial artery] 101/57 L Blood Pressure [Right Radial artery] O2 Saturation 93 O2 Source Nasal cannula If not protocol: Oxygen Flow, liters/minute 2 Sedation scale 1-Arouses easily Pain Intensity 0 Pain Intensity [Abdomen] Oxygen O2 Source Nasal cannula I&O (Last 24 Hrs): Intake and Output Totals x24h 05/25/25 05/26/25 05/27/25 23:59 23:59 23:59 Intake Total 6614 / 6614 5973 / 5973 1929 / 1929 Output Total 3020 / 3020 2421 / 2421 2770 / 2770 Balance 3594 / 3594 3552 / 3552 -841 / -841 Comments/Notes: General: 64-year old obese female, appears stated age, well developed, well nourished, evaluated "sitting up" in bed in ICU room 2302 at [facility]'s intensive care unit HEENT: Normocephalic, atraumatic, extraocular movement intact, mucous membranes pink and moist, sclera anicteric and not injected, NG tube in place with green- brown drainage Neck: I did not examine Cardiac: Regular rate and rhythm without rub, gallop, or murmur Chest: Clear to auscultation bilaterally Abdomen: Soft, nontender, normoactive bowel sounds, in this position I could not evaluate for hepatosplenomegaly, the dressings were taken down and the skin is loosely approximated with skin amrit, a Deven drain has been placed at the superior aspect of the wound exiting at the inferior aspect of the wound and is held in place with amrit, I replaced the dressing with a Mepilex dressing Genitourinary: Deferred Rectal: Deferred Extremities: No gross neurovascular problem, no clubbing, or cyanosis, positive edema, but much less than I expected Gait: I did not evaluate as I did not get the patient out of bed but clearly there is a significant amount of deconditioning Psychiatric: Alert and oriented to person place and time, asks and answers questions appropriately, mood and affect appropriate Results Results: Laboratory Results WBC 7.7 x10^3/uL (4.8-10.8) 05/27/25 05:00 RBC 3.35 10^6/uL (4.20-5.40) L 05/27/25 05:00 Hgb 9.8 g/dL (12.0-16.0) L 05/27/25 05:00 Hct 31.1 % (37.0-47.0) L 05/27/25 05:00 MCV 92.8 fL (81.0-99.0) 05/27/25 05:00 MCH 29.3 pg (27.0-31.0) 05/27/25 05:00 MCHC 31.5 g/dL (32.0-36.0) L 05/27/25 05:00 RDW 14.3 % (12.0-15.0) 05/27/25 05:00 Plt Count 153 10^3/uL (130-450) 05/27/25 05:00 MPV 12.0 fL (7.9-10.8) H 05/27/25 05:00 Neut # (Auto) Not Reportable 05/27/25 05:00 Lymph # (Auto) Not Reportable 05/27/25 05:00 Mckenzie # (Auto) Not Reportable 05/27/25 05:00 Eos # (Auto) Not Reportable 05/27/25 05:00 Baso # (Auto) Not Reportable 05/27/25 05:00 Absolute Nucleated RBC Not Reportable 05/27/25 05:00 Total Counted 100 05/27/25 05:00 Band Neuts % (Manual) 0 % (0-10) 05/27/25 05:00 Abnorm Lymph % (Manual) 0 % 05/27/25 05:00 Metamyelocytes % 2 % (-0) H 05/25/25 03:35 Nucleated RBC % Not Reportable 05/27/25 05:00 Neutrophils # (Manual) 6.4 10^3/uL (1.5-6.6) 05/27/25 05:00 Lymphocytes # (Manual) 1.1 10^3/uL (1.5-3.5) L 05/27/25 05:00 Monocytes # (Manual) 0.1 10^3/uL (0.0-1.0) 05/27/25 05:00 Eosinophils # (Manual) 0.2 10^3/uL (0-0.7) 05/27/25 05:00 Basophils # (Manual) 0.0 10^3/uL (0-0.1) 05/27/25 05:00 Differential Comment MANUAL DIFFERENTIAL 05/27/25 05:00 WBC Morphology NORMAL APPEARANCE (NORMAL) 05/27/25 05:00 Platelet Estimate NORMAL (130-450,000) (NORMAL) 05/27/25 05:00 Platelet Morphology NORMAL APPEARANCE (NORMAL) 05/27/25 05:00 RBC Morph Micro Appear NORMAL APPEARANCE (NORMAL) 05/27/25 05:00 VBG pH 7.424 (7.31-7.41) H 05/27/25 05:00 Ionized Calcium 1.10 mmol/L (1.09-1.30) 05/27/25 05:00 Sodium 129 mmol/L (135-145) L 05/27/25 05:00 Potassium 3.5 mmol/L (3.5-4.5) 05/27/25 05:00 Chloride 97 mmol/L (101-111) L 05/27/25 05:00 Carbon Dioxide 29 mmol/L (21-32) 05/27/25 05:00 Anion Gap 3.0 (6-13) L 05/27/25 05:00 BUN 27 mg/dL (6-20) H 05/27/25 05:00 Creatinine 1.2 mg/dL (0.6-1.3) 05/27/25 05:00 Estimated GFR (MDRD) 45 (>89) L 05/27/25 05:00 Glucose 139 mg/dL (74-104) H 05/27/25 05:00 POC Whole Bld Glucose 142 mg/dL (70-100) 05/27/25 05:01 Estimat Average Glucose 114 mg/dL (70-100) H 05/22/25 05:51 Hemoglobin A1c % 5.6 % (4.27-6.07) 05/22/25 05:51 Lactic Acid 1.7 mmol/L (0.5-2.2) 05/25/25 09:48 Calcium 7.4 mg/dL (8.5-10.3) L 05/27/25 05:00 Phosphorus 2.2 mg/dL (2.5-5.0) L 05/27/25 05:00 Magnesium 1.5 mg/dL (1.7-2.3) L 05/27/25 05:00 Total Bilirubin 0.4 mg/dL (0.2-1.0) 05/27/25 05:00 AST 14 IU/L (10-42) 05/27/25 05:00 ALT 14 IU/L (10-60) 05/27/25 05:00 Alkaline Phosphatase 61 IU/L (42-121) 05/27/25 05:00 Troponin I High Sens 38.4 ng/L (2.3-14.8) H* 05/21/25 18:09 C-Reactive Protein 33.1 mg/dL (<0.5) H 05/25/25 03:35 B-Natriuretic Peptide 71 pg/mL (5-100) 05/21/25 13:22 Total Protein 4.2 g/dL (6.4-8.9) L 05/27/25 05:00 Albumin 2.2 g/dL (3.2-5.5) L 05/27/25 05:00 Globulin 2.0 g/dL (2.1-4.2) L 05/27/25 05:00 Albumin/Globulin Ratio 1.1 (1.0-2.2) 05/27/25 05:00 Prealbumin 6 mg/dL (17-34) L 05/27/25 05:00 Triglycerides 173 mg/dL 05/27/25 05:00 Lipase 34 U/L (11-82) 05/21/25 13:22 Urine Color DARK YELLOW 05/25/25 05:05 Urine Clarity CLEAR (CLEAR) 05/25/25 05:05 Urine pH 6.0 PH (5.0-7.5) 05/25/25 05:05 Ur Specific [place] 1.025 (1.002-1.030) 05/25/25 05:05 Urine Protein 30 mg/dL (NEGATIVE) H 05/25/25 05:05 Urine Glucose (UA) NEGATIVE mg/dL (NEGATIVE) 05/25/25 05:05 Urine Ketones NEGATIVE mg/dL (NEGATIVE) 05/25/25 05:05 Urine Occult Blood MODERATE (NEGATIVE) H 05/25/25 05:05 Urine Nitrite NEGATIVE (NEGATIVE) 05/25/25 05:05 Urine Bilirubin NEGATIVE (NEGATIVE) 05/25/25 05:05 Urine Urobilinogen 0.2 (NORMAL) E.U./dL (NORMAL) 05/25/25 05:05 Ur Leukocyte Esterase TRACE (NEGATIVE) H 05/25/25 05:05 Urine RBC 6-10 /HPF (0-5) H 05/25/25 05:05 Urine WBC 6-10 /HPF (0-5) H 05/25/25 05:05 Ur Squamous Epith Cells MANY Squamous (<= Few) H 05/25/25 05:05 Urine Crystals 0-2 Calcium Oxalate /LPF 05/25/25 05:05 Urine Bacteria Many /HPF (None Seen) H 05/25/25 05:05 Urine Casts 3-5 Hyaline Casts /LPF0-2 Granular Casts /LPF 05/25/25 05:05 Urine Casts 3-5 Hyaline Casts /LPF0-2 Granular Casts /LPF 05/25/25 05:05 U Random Total Protein 81 mg/dL 05/25/25 05:05 Urine Creatinine 91.5 mg/dL 05/25/25 05:05 Urine Sodium 19.3 mmol/L 05/25/25 05:05 Nasal Screen MRSA (PCR) NEGATIVE (NEGATIVE) 05/24/25 00:55 ABX Reporting Has patient been on IV antibiotics over the past 48 hours?: Yes Current Medications Current Medications Current Medications: Current Medications Generic Name Dose Route Start Last Admin Trade Name Freq PRN Reason Stop Dose Admin Diphenhydramine HCl 25 mg 05/25/25 09:45 Diphenhydramine Inj 50 Mg/Ml Vial IVP Q6H PRN Anaphylaxis Heparin Sodium (Porcine) 5,000 unit 05/26/25 09:00 05/27/25 08:43 Heparin 5,000 Unit/Ml Vial SUBQ 5,000 unit BID MARCO Administration Hydromorphone HCl 0.5 mg 05/21/25 17:57 05/27/25 10:10 Hydromorphone 0.5 Mg/0.5 Ml Syringe IVP 0.5 mg Q2H PRN Administration Pain 8 to 10 Fat Emulsion Intravenous 250 mls @ 21 mls/hr 05/24/25 19:00 05/27/25 06:18 Intralipid 20% IV Infused 1900 MARCO Infusion Acetaminophen 1,000 mg in 100 mls @ 400 mls/hr 05/24/25 15:00 05/27/25 05:33 Acetaminophen IV Infused Q8HR MARCO Infusion Norepinephrine/Sodium Chloride 8 mg in 250 mls @ 15 mls/hr 05/25/25 07:00 05/27/25 08:58 Levophed 8 Mg/250-0.9% Nacl IV Not Given .[id number] MARCO Protocol 8 MCG/MIN Vasopressin 20 unit/ Dextrose 100 mls @ 9 mls/hr 05/25/25 10:00 05/27/25 04:32 IV 0 unit/min .Q11H7M MARCO 0 mls/hr 0.03 UNIT/MIN Titration Metronidazole 500 mg in 100 mls @ 100 mls/hr 05/25/25 10:00 05/27/25 09:54 Flagyl 500 Mg/100 Ml IV 100 mls/hr Q8H MARCO Administration Cefepime HCl 1 gm/ Sodium 100 mls @ 200 mls/hr 05/26/25 10:32 05/27/25 10:58 Chloride IV 200 mls/hr Q12H MARCO Administration Multivitamins 10 ml/ Zinc/ 2,011 mls @ 83 mls/hr 05/26/25 19:00 05/26/25 18:19 Copper/Manganese/Selenium 1 ml IV 83 mls/hr / Amino Ac/Electrol/Dextrose/ 1900 MARCO Administration Calcium Protocol Potassium Phosphate 15 mmol/ 255 mls @ 63 mls/hr 05/27/25 08:00 05/27/25 08:55 Sodium Chloride IV 05/27/25 12:02 63 mls/hr ONCE ONE Administration Protocol Insulin Human Regular 1 - 5 unit 05/27/25 00:00 05/27/25 05:09 Insulin Regular, Human 300 Unit/3 Ml Pen SUBQ 1 unit Q6HR MARCO Administration Protocol Levothyroxine Sodium 240 mcg 05/26/25 15:00 05/26/25 15:08 Levothyroxine 100 Mcg Vial IVP 240 mcg MoTh MARCO Administration Metoprolol Tartrate 5 mg 05/25/25 18:00 05/27/25 05:52 Metoprolol 5 Mg/5 Ml Vial IVP 5 mg Q6H MARCO Administration Ondansetron HCl 4 mg 05/21/25 17:57 05/23/25 04:33 Ondansetron 4 Mg/2 Ml Vial IVP 4 mg Q6HR PRN Administration Nausea / Vomiting Pantoprazole Sodium 20 mg 05/26/25 11:00 05/27/25 06:07 Pantoprazole 40 Mg Vial IVP 20 mg QDAC MARCO Administration Phenol/Menthol 2 sprays 05/21/25 18:57 05/21/25 19:32 Phenol Throat [place] 177 Ml MM 2 sprays Q2HR PRN Administration Throat Pain Prochlorperazine Edisylate 10 mg 05/21/25 17:57 05/23/25 02:04 Prochlorperazine 10 Mg/2 Ml Vial IVP 10 mg Q6HR PRN Administration Nausea / Vomiting Sodium Chloride 10 ml 05/21/25 17:57 Sodium Chloride Flush 0.9% 10 Ml Syringe IVP PRN PRN NEEDED PER PROVIDER ORDERS Sodium Chloride 10 ml 05/21/25 17:57 05/27/25 08:46 Sodium Chloride Flush 0.9% 10 Ml Syringe IVP 10 ml 0100,0900,1700 MARCO Administration
[2025-05-27 15:20] LABS: VBG PH 7.411 (7.31-7.41)
--- NOTE | 2025-05-27 15:22 | PT Plan of Care ---
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 DOS 05/23/25, POD4 and cleared for eval by surgeon and hospitalist. Please see medical record for PMH. Reportedly Missy for ADLs and in home ambulation with walker. Lives with family in split level home. Upon PT eval, A&Ox4, reports min pain at rest, moderate with mobility. Agreeable to participate. Supine to sit, STS and SPT with FWW and modAx1 overall. Pt will benefit from skilled PT in acute setting to progress functional mobility and upright tolerance. When medically clear, PT rec dc to SNF as she is far below baseline of Missy mobility. Goals Improve bed mobility to: Modified Independent Improve supine to sit to: Contact Guard Improve sit to stand to: Minimal Assist Improve pivot transfer ability Minimal Assist to: Improve sit to supine to: Minimal Assist Improve gait ability to: Min A Assistive Device Used: Front Wheeled Walker Improve Standing Balance to: Good PT Plan of Care Frequency 1-2x/day Duration Until discharge Discharge Recommendations Discharge Location [facility] Other tbd Transport Needs at Discharge B.L.S Other BLS d/t abdominal incision, pain with upright sitting
[2025-05-27 15:28] LABS: PHOSPHORUS 2.8 mg/dL (2.5-5.0)
--- NOTE | 2025-05-27 16:22 | PROVIDER PROGRESS NOTE ---
Subjective Prog Note Date Prog Note Date: 05/27/25 Subjective Subjective: Spirits are good, and she feels optimistic today. She is not passing flatus. she is not hungry. Current Medications Current Medications Current Medications: Current Medications Generic Name Dose Route Start Last Admin Trade Name Freq PRN Reason Stop Dose Admin Diphenhydramine HCl 25 mg 05/25/25 09:45 Diphenhydramine Inj 50 Mg/Ml Vial IVP Q6H PRN Anaphylaxis Heparin Sodium (Porcine) 5,000 unit 05/26/25 09:00 05/27/25 08:43 Heparin 5,000 Unit/Ml Vial SUBQ 5,000 unit BID MARCO Administration Hydromorphone HCl 0.5 mg 05/21/25 17:57 05/27/25 15:17 Hydromorphone 0.5 Mg/0.5 Ml Syringe IVP 0.5 mg Q2H PRN Administration Pain 8 to 10 Fat Emulsion Intravenous 250 mls @ 21 mls/hr 05/24/25 19:00 05/27/25 06:18 Intralipid 20% IV Infused 1900 MARCO Infusion Acetaminophen 1,000 mg in 100 mls @ 400 mls/hr 05/24/25 15:00 05/27/25 14:44 Acetaminophen IV Infused Q8HR MARCO Infusion Norepinephrine/Sodium Chloride 8 mg in 250 mls @ 15 mls/hr 05/25/25 07:00 05/27/25 08:58 Levophed 8 Mg/250-0.9% Nacl IV Not Given .[id number] MARCO Protocol 8 MCG/MIN Vasopressin 20 unit/ Dextrose 100 mls @ 9 mls/hr 05/25/25 10:00 05/27/25 04:32 IV 0 unit/min .Q11H7M MARCO 0 mls/hr 0.03 UNIT/MIN Titration Metronidazole 500 mg in 100 mls @ 100 mls/hr 05/25/25 10:00 05/27/25 10:54 Flagyl 500 Mg/100 Ml IV Infused Q8H MARCO Infusion Cefepime HCl 1 gm/ Sodium 100 mls @ 200 mls/hr 05/26/25 10:32 05/27/25 11:28 Chloride IV Infused Q12H MARCO Infusion Multivitamins 10 ml/ Zinc/ 2,011 mls @ 83 mls/hr 05/26/25 19:00 05/26/25 18:19 Copper/Manganese/Selenium 1 ml IV 83 mls/hr / Amino Ac/Electrol/Dextrose/ 1900 MARCO Administration Calcium Protocol Potassium Chloride 20 meq in 100 mls @ 100 mls/hr 05/27/25 15:52 Potassium Chloride IV 05/27/25 16:51 ONCE ONE Protocol Insulin Human Regular 1 - 5 unit 05/27/25 00:00 05/27/25 12:23 Insulin Regular, Human 300 Unit/3 Ml Pen SUBQ 1 unit Q6HR MARCO Administration Protocol Levothyroxine Sodium 240 mcg 05/26/25 15:00 05/26/25 15:08 Levothyroxine 100 Mcg Vial IVP 240 mcg MoTh MARCO Administration Metoprolol Tartrate 2.5 mg 05/27/25 16:10 Metoprolol 5 Mg/5 Ml Vial IVP Q6H MARCO Ondansetron HCl 4 mg 05/21/25 17:57 05/23/25 04:33 Ondansetron 4 Mg/2 Ml Vial IVP 4 mg Q6HR PRN Administration Nausea / Vomiting Pantoprazole Sodium 20 mg 05/26/25 11:00 05/27/25 06:07 Pantoprazole 40 Mg Vial IVP 20 mg QDAC MARCO Administration Phenol/Menthol 2 sprays 05/21/25 18:57 05/21/25 19:32 Phenol Throat [place] 177 Ml MM 2 sprays Q2HR PRN Administration Throat Pain Prochlorperazine Edisylate 10 mg 05/21/25 17:57 05/23/25 02:04 Prochlorperazine 10 Mg/2 Ml Vial IVP 10 mg Q6HR PRN Administration Nausea / Vomiting Sodium Chloride 10 ml 05/21/25 17:57 Sodium Chloride Flush 0.9% 10 Ml Syringe IVP PRN PRN NEEDED PER PROVIDER ORDERS Sodium Chloride 10 ml 05/21/25 17:57 05/27/25 08:46 Sodium Chloride Flush 0.9% 10 Ml Syringe IVP 10 ml 0100,0900,1700 MARCO Administration Objective Vital Signs/Intake & Output Reviewed Vital Signs: Yes Vital Signs: Vital Signs x48h Temp Pulse Pulse Resp BP BP Pulse Ox 05/27/25 15:00 37.5 C 58 L 18 128/69 94 05/27/25 14:00 57 L 11 L 126/54 L 94 05/27/25 13:00 36.5 C 55 L 18 86/72 L 94 05/27/25 12:23 64 148/74 H 05/27/25 12:00 36.7 C 62 20 148/74 H 90 L 05/27/25 11:00 36.5 C 61 18 101/57 L 93 05/27/25 10:21 05/27/25 10:00 36.5 C 60 16 130/78 94 05/27/25 09:00 36.5 C 56 L 14 103/63 93 O2 Flow Rate 05/27/25 15:00 05/27/25 14:00 2 05/27/25 13:00 05/27/25 12:23 05/27/25 12:00 2 05/27/25 11:00 2 05/27/25 10:21 2 05/27/25 10:00 2 05/27/25 09:00 1 Intake & Output: Intake & Output 05/24/25 05/25/25 05/26/25 05/27/25 23:59 23:59 23:59 23:59 Intake Total 3216 / 3216 6614 / 6614 5973 / 5973 2514 / 2514 Output Total 1314 / 1314 3020 / 3020 2421 / 2421 3850 / 3850 Balance 1902 / 1902 3594 / 3594 3552 / 3552 -1336 / -1336 Weight (kg) 110.5 kg 110 kg 113 kg Objective General Appearance: positive No acute distress and Alert Eyes Bilateral: positive Conjunctivae nml ENT: positive ENT inspection nml Neck: positive Nml inspection Respiratory: positive No respiratory distress and Breath sounds nml Cardiovascular: positive Regular rate & rhythm Abdomen: positive Other (abdominal dressing intact. appropriate amount of drainage. MIRNA in pelvis with serosang draiange. not copious) Skin: positive Color nml Extremities: positive Non-tender and No pedal edema Neurologic/Psychiatric: positive Oriented x3 Lab Results 05/27/25 05:00 05/27/25 15:00 Other Labs: Lab Results x24hrs 05/27/25 05/27/25 05/27/25 Range/Units 15:00 11:41 05:01 WBC (4.8-10.8) x10^3/uL RBC (4.20-5.40) 10^6/uL Hgb (12.0-16.0) g/dL Hct (37.0-47.0) % MCV (81.0-99.0) fL MCH (27.0-31.0) pg MCHC (32.0-36.0) g/dL RDW (12.0-15.0) % Plt Count (130-450) 10^3/uL MPV (7.9-10.8) fL Neut # (Auto) Lymph # (Auto) Nicholas # (Auto) Eos # (Auto) Baso # (Auto) Absolute Nucleated RBC Total Counted Band Neuts % (Manual) (0 - 10) % Abnorm Lymph % (Manual) % Nucleated RBC % Neutrophils # (Manual) (1.5-6.6) 10^3/uL Lymphocytes # (Manual) (1.5-3.5) 10^3/uL Monocytes # (Manual) (0.0-1.0) 10^3/uL Eosinophils # (Manual) (0-0.7) 10^3/uL Basophils # (Manual) (0-0.1) 10^3/uL Differential Comment WBC Morphology (NORMAL) Platelet Estimate (NORMAL) Platelet Morphology (NORMAL) RBC Morph Micro Appear (NORMAL) VBG pH 7.411 H (7.31-7.41) Ionized Calcium 1.16 (1.09-1.30) mmol/L Sodium (135-145) mmol/L Potassium 3.9 (3.5-4.5) mmol/L Chloride (101-111) mmol/L Carbon Dioxide (21-32) mmol/L Anion Gap (6-13) BUN (6-20) mg/dL Creatinine (0.6-1.3) mg/dL Estimated GFR (MDRD) (>89) Glucose (74-104) mg/dL POC Whole Bld Glucose 141 142 (70-100) mg/dL Calcium (8.5-10.3) mg/dL Phosphorus 2.8 (2.5-5.0) mg/dL Magnesium 2.2 (1.7-2.3) mg/dL Total Bilirubin (0.2-1.0) mg/dL AST (10-42) IU/L ALT (10-60) IU/L Alkaline Phosphatase (42-121) IU/L Total Protein (6.4-8.9) g/dL Albumin (3.2-5.5) g/dL Globulin (2.1-4.2) g/dL Albumin/Globulin Ratio (1.0-2.2) Prealbumin (17-34) mg/dL Triglycerides mg/dL 05/27/25 05/26/25 05/26/25 Range/Units 05:00 23:46 17:39 WBC 7.7 (4.8-10.8) x10^3/uL RBC 3.35 L (4.20-5.40) 10^6/uL Hgb 9.8 L (12.0-16.0) g/dL Hct 31.1 L (37.0-47.0) % MCV 92.8 (81.0-99.0) fL MCH 29.3 (27.0-31.0) pg MCHC 31.5 L (32.0-36.0) g/dL RDW 14.3 (12.0-15.0) % Plt Count 153 (130-450) 10^3/uL MPV 12.0 H (7.9-10.8) fL Neut # (Auto) Not Reportable Lymph # (Auto) Not Reportable Nicholas # (Auto) Not Reportable Eos # (Auto) Not Reportable Baso # (Auto) Not Reportable Absolute Nucleated RBC Not Reportable Total Counted 100 Band Neuts % (Manual) 0 (0 - 10) % Abnorm Lymph % (Manual) 0 % Nucleated RBC % Not Reportable Neutrophils # (Manual) 6.4 (1.5-6.6) 10^3/uL Lymphocytes # (Manual) 1.1 L (1.5-3.5) 10^3/uL Monocytes # (Manual) 0.1 (0.0-1.0) 10^3/uL Eosinophils # (Manual) 0.2 (0-0.7) 10^3/uL Basophils # (Manual) 0.0 (0-0.1) 10^3/uL Differential Comment MANUAL DIFFERENTIAL WBC Morphology NORMAL APPEARANCE (NORMAL) Platelet Estimate NORMAL (130-450,000) (NORMAL) Platelet Morphology NORMAL APPEARANCE (NORMAL) RBC Morph Micro Appear NORMAL APPEARANCE (NORMAL) VBG pH 7.424 H (7.31-7.41) Ionized Calcium 1.10 (1.09-1.30) mmol/L Sodium 129 L (135-145) mmol/L Potassium 3.5 (3.5-4.5) mmol/L Chloride 97 L (101-111) mmol/L Carbon Dioxide 29 (21-32) mmol/L Anion Gap 3.0 L (6-13) BUN 27 H (6-20) mg/dL Creatinine 1.2 (0.6-1.3) mg/dL Estimated GFR (MDRD) 45 L (>89) Glucose 139 H (74-104) mg/dL POC Whole Bld Glucose 148 121 (70-100) mg/dL Calcium 7.4 L (8.5-10.3) mg/dL Phosphorus 2.2 L (2.5-5.0) mg/dL Magnesium 1.5 L (1.7-2.3) mg/dL Total Bilirubin 0.4 (0.2-1.0) mg/dL AST 14 (10-42) IU/L ALT 14 (10-60) IU/L Alkaline Phosphatase 61 (42-121) IU/L Total Protein 4.2 L (6.4-8.9) g/dL Albumin 2.2 L (3.2-5.5) g/dL Globulin 2.0 L (2.1-4.2) g/dL Albumin/Globulin Ratio 1.1 (1.0-2.2) Prealbumin 6 L (17-34) mg/dL Triglycerides 173 mg/dL 10/20/25 Range/Units 04:30 WBC (4.8-10.8) x10^3/uL RBC (4.20-5.40) 10^6/uL Hgb (12.0-16.0) g/dL Hct (37.0-47.0) % MCV (81.0-99.0) fL MCH (27.0-31.0) pg MCHC (32.0-36.0) g/dL RDW (12.0-15.0) % Plt Count (130-450) 10^3/uL MPV (7.9-10.8) fL Neut # (Auto) Lymph # (Auto) Nicholas # (Auto) Eos # (Auto) Baso # (Auto) Absolute Nucleated RBC Total Counted Band Neuts % (Manual) (0 - 10) % Abnorm Lymph % (Manual) % Nucleated RBC % Neutrophils # (Manual) (1.5-6.6) 10^3/uL Lymphocytes # (Manual) (1.5-3.5) 10^3/uL Monocytes # (Manual) (0.0-1.0) 10^3/uL Eosinophils # (Manual) (0-0.7) 10^3/uL Basophils # (Manual) (0-0.1) 10^3/uL Differential Comment WBC Morphology (NORMAL) Platelet Estimate (NORMAL) Platelet Morphology (NORMAL) RBC Morph Micro Appear (NORMAL) VBG pH (7.31-7.41) Ionized Calcium (1.09-1.30) mmol/L Sodium (135-145) mmol/L Potassium (3.5-4.5) mmol/L Chloride (101-111) mmol/L Carbon Dioxide (21-32) mmol/L Anion Gap (6-13) BUN (6-20) mg/dL Creatinine (0.6-1.3) mg/dL Estimated GFR (MDRD) (>89) Glucose (74-104) mg/dL POC Whole Bld Glucose (70-100) mg/dL Calcium (8.5-10.3) mg/dL Phosphorus 3.4 (2.5-5.0) mg/dL Magnesium (1.7-2.3) mg/dL Total Bilirubin (0.2-1.0) mg/dL AST (10-42) IU/L ALT (10-60) IU/L Alkaline Phosphatase (42-121) IU/L Total Protein (6.4-8.9) g/dL Albumin (3.2-5.5) g/dL Globulin (2.1-4.2) g/dL Albumin/Globulin Ratio (1.0-2.2) Prealbumin (17-34) mg/dL Triglycerides mg/dL Assessment/Plan Problem List (1) Small bowel obstruction: Impression: 64F who presents with inability to tolerate po for 5 days. No flatus or BM for 5 days. remote surgical hx of open cholecystectomy and hysterectomy. She denies hx of SBO. Taken to the OR 05/23 for dx laparoscopy. Ulitmately required laparotomy with small bowel resection for Meckels/small bowel torsion/perforation. NG in place. MIRNA drain in the pelvis draining serosang fluid. Abdominal closure dressed, not taken down today. She is now POD #4 PPN was started on the evening of POD #1, given the amount of time she had been without nutrition. Incidence of levophed infiltration left upper arm prior to central line placement- arm looks fine, no evidence of skin necrosis. no increasing pain here. She had an acute change and became more tachycardic and had hypotension on POD #2. Levophed was started about 0700, then vasopressin. She has weaned off of those as of this AM, and is maintaining a normal blood pressure on her own. she is not getting supplemental fluids aside from TPN at about 100cc/hr at this time. If her pressure drops, the first thing I would try is a fluid bolus. MIRNA drainage remains sero sanguineous. Her WBC count has been labile. New onset of leukocytosis improving Abx coverage was broadened from Cipro/Flagyl to Vanc/cefepime. today, taking her off Vanc. today is day 4 of abx after surgical source control. Consider stopping abx tomorrow. blood cultures show NGTD Laboratory Tests 05/24/ 1005/25/25 04:36 03:35 17:00 WBC 5.2 16.5 H 16.3 H 05/26/05/27/25 04:30 05:00 WBC 14.1 H 7.7 . repeat CBC in the AM. Heparin DVT ppx given TAPAN, which has resolved. Will change to Lovenox in the AM. (2) Acute kidney injury: Impression: RESOLVED. I do not have a baseline renal function on this patient. not surprised to see worsening of her TAPAN post operatively. More concerning as we went into POD #2 without significant improvement. With significant interventions of pressors and multiple liters of crystalloid, this patient is improved. Discussed the possibility of acute HD with patient and her daughter. 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 FENa measurement indicated that her renal failure is pre renal. I do not think this is sepsis. Lactic acid was normal. Abx coverage was broadened from Cipro/Flagyl to Vanc/cefepime. Most likely source for sepsis would be abdominal. She does require small amt O2 when sleeping, but has been on RA when awake and O2 requirements not going up. no cough or fevers. 05/21/25 05/22/25 05/23/25 13:22 05:51 05:58 Creatinine 1.7 H 1.4 H 1.3 05/24/25 05/25/25 05/25/25 04:36 03:35 09:48 Creatinine 1.6 H 2.6 H 2.6 H 05/25/25 05/26/25 05/27/25 17:00 04:30 05:00 Creatinine 2.3 H 2.0 H 1.2 . (3) Atrial fibrillation with RVR: Impression: She had this at the time of admission, then not again till overnight. Metoprolol scheduled, 5 mg IV every 6 hours She has been mildly bradycardic, I am decreasing her scheduled metoprolol to 2.5mg q6h. Could consider amiodarone IV, as she is not able to take PO at this time. At home, she is on Amiodarone, and metoprolol, Xarelto. Since starting the metoprolol on a scheduled basis, she has been bradycardia or had a normal heart rate, holding toprol for HR <65, most recent 2 doses held (4) Hyponatremia: Impression: due to acute illness. continue supportive care. check BMP in the AM. Laboratory Tests 05/21/25 05/22/25 05/23/25 13:22 05:51 05:58 Sodium 129 L 133 L 134 L 05/24/25 04:36 Sodium 135 Laboratory Tests 05/25/25 05/25/25 03:35 09:48 Sodium 128 L 129 L Laboratory Tests 05/26/25 04:30 Sodium 128 L (5) Diabetes: Impression: Home meds for DM look like only ozempic, last taken several weeks ago. her A1C is 5.6% indicating good control. I had stopped insulin and glucose monitoring. I will start again given starting patient on PPN. I will continue to monitor blood glucose and start insulin as needed with a goal towards blood sugar less than 180 for optimal surgical outcome. on TPN with SSI coverage Laboratory Tests 05/26/25 05/26/25 05/27/25 17:39 23:46 05:01 POC Whole Bld Glucose 121 148 142 05/27/25 05/27/25 11:41 18:11 POC Whole Bld Glucose 141 112 (6) Hypokalemia: Impression: resolved with repletion. Laboratory Tests 05/26/25 05/27/25 05/27/25 04:30 05:00 15:00 Potassium 3.5 3.5 3.9 (7) Depression: Impression: It has been poorly controlled. As soon as she can take PO, will restart her meds, but will need primary care followup. (8) Hypothyroid: Impression: She has been NPO for some time and is expected to be so. I will add IV synthroid per pharmacy dosage recommendations. She is getting 240mcg IV q Monday and . This patient's diagnosis and treatment plan was discussed this AM with attending physician as a part of multi disciplinary rounding meeting. I have spent 55 minutes in the care of this patient today. This includes time [id number], review and ordering of diagnostic imaging and laboratory studies and consultation with other providers. Monitoring the patient's signs symptoms, evaluation of medication effectiveness and patient's response to treatment.
[2025-05-27] MEDS: POTASSIUM CHLOR 20 MEQ/100 ML 20 MEQ/100 ML BAG IV ONE (16:49)
[2025-05-27] MEDS: METOPROLOL 5 MG/5 ML VIAL IVP SCH (16:49)
[2025-05-28] MEDS: LACTATED RINGERS 1,000 ML IV ONE (00:06)
[2025-05-28 05:25] LABS: HCT - HEMATOCRIT 33.9 % (37.0-47.0); HGB - HEMOGLOBIN 10.6 g/dL (12.0-16.0); MEAN PLATELET VOLUME 11.7 fL (7.9-10.8); NRBC ABSOLUTE COUNT (AUTO) 0.02 x10^3/uL; NUCLEATED RED BLOOD CELLS AUTO 0.3 /100WBC; PLT - PLATELET COUNT 161 10^3/uL (130-450); RED CELL DISTRIBUTION WIDTH 14.6 % (12.0-15.0)
[2025-05-28 05:44] LABS: BUN - BLOOD UREA NITROGEN 18.0 mg/dL (6-20); CARBON DIOXIDE - CO2 29.0 mmol/L (21-32); CREATININE 0.9 mg/dL (0.6-1.3); GFR - MDRD 63.0 (>89)
[2025-05-28] MEDS: ENOXAPARIN 40 MG/0.4 ML SYRINGE SUBQ SCH (09:54)
--- NOTE | 2025-05-28 09:56 | PROVIDER PROGRESS NOTE ---
Subjective General Admit Date: 05/21/25 Procedure Date: 05/23/25 Post Op Days: 5 Procedure Performed: ExLap, small bowel resection Other Other Information/Narrative: Reports overall feeling improved this morning, not yet passing flatus, has been up OOB with PT/OT, pain well controlled, making adequate UOP, denies any nausea, vomiting, chest pain, SOB, fevers or chills. Wound Assessment Wound/Incisions: positive Drainage Drain Type: MIRNA Drain to LLQ Drain Output Description: Serosanguineous Approximate mls Output: 145 Review of Systems Status of ROS: 10 or more systems reviewed and unremarkable except as noted in history and below Exam Exam Vital Signs: Vital Signs x48h Temp Pulse Pulse Resp BP BP Pulse Ox 05/28/25 09:00 36.7 C 67 18 137/68 H 93 05/28/25 04:57 67 133/57 H 05/28/25 04:42 36.5 C 67 20 133/57 H 95 O2 Flow Rate 05/28/25 09:00 2 05/28/25 04:57 05/28/25 04:42 2 Gen: NAD, alert and oriented, still on levophed and vasopressin pressure support HEENT: NG in place with 1050mL out in last 24 hours CV: RRR Pulm: non labored, on 2L O2 Abd: obese, soft, ND, appropriate incisional ttp, no r/g. Dressing in place. MIRNA with 200mL serosang output in last 24 hours. Do with 2230mL out in last 24 hours. Ext: no c/c/e Constitutional normal general appearance, no apparent distress and abnormal body habitus (obese) [facility] normocephalic NGT in situ with gastric appearing drainage Eyes conjunctivae normal and no scleral icterus Neck/C-Spine visual inspection normal Respiratory normal respiratory effort Cardiovascular normal heart rate noted and regular rhythm noted Gastrointestinal MIRNA to LLQ with serosanguineous in the bulb, midline incision with amrit in situ and a juan a traveling through the wound and externalized at the inferior and superior poles, small amount of serosanguineous output from juan a, soft, appropriately TTP, L sided port sites with dressing in place. Extremities no deformity Neurology GCS 15 Psychiatry mental status grossly normal and oriented x3 Skin skin color normal Impression/Plan Problem List (1) Small bowel obstruction: Plan: 64 y/o F admitted 05/21 with first small bowel obstruction; failed NGT decompression and gastrograffin trial, thus underwent operative management. POD#5, s/p DxLap --> Ex Lap, lysis of adhesions, 75cm small bowel resection (05/23, Dr. Alcocer). Etiology of SBO Adhesions + Meckel's diverticulum. Intraoperative findings of small bowel twisted around adhesion between meckel's diverticulum and root of mesentery, two small bowel perforations identified upon release of obstruction at locations of twisting. Large volume succus contamination of peritoneal cavity, extensive irrigation done at time of surgery. Overall reports feeling improved this AM, WBC normalized, off pressors out of ICU, NGT in situ with gastric drainage, no bowel function as of yet. - Continue NGT decompression with IVF - Pain control as needed - Encourage OOB/ambulation, PT/OT - BID dressing changes, AM provider, PM RN - Awaiting ROBF, then can remove NG and ADAT - Good UOP and Cr normalized, D/c Do - Rest of care per primary Start discharge planning as rehab will likely be required. Patient admitted to hospitalist service due to comorbidities and we certainly appreciate working with them. Surgery will continue to follow closely. Plan of care discussed with primary medicine team (Dr. Gutierrez) this AM. (2) Acute kidney injury: (3) Atrial fibrillation with RVR: (4) Hyponatremia: (5) Diabetes: (6) Hypokalemia: (7) Depression: (8) Hypothyroid:
--- NOTE | 2025-05-28 13:40 | PROVIDER PROGRESS NOTE ---
Subjective Prog Note Date Prog Note Date: 05/28/25 Subjective Pt reports feeling: No change Current Medications Current Medications Current Medications: Current Medications Generic Name Dose Route Start Last Admin Trade Name Freq PRN Reason Stop Dose Admin Diphenhydramine HCl 25 mg 05/25/25 09:45 Diphenhydramine Inj 50 Mg/Ml Vial IVP Q6H PRN Anaphylaxis Enoxaparin Sodium 40 mg 05/28/25 09:00 05/28/25 09:54 Enoxaparin 40 Mg/0.4 Ml Syringe SUBQ 40 mg DAILY MARCO Administration Hydromorphone HCl 0.5 mg 05/21/25 17:57 05/28/25 11:33 Hydromorphone 0.5 Mg/0.5 Ml Syringe IVP 0.5 mg Q2H PRN Administration Pain 8 to 10 Fat Emulsion Intravenous 250 mls @ 21 mls/hr 05/24/25 19:00 05/28/25 06:34 Intralipid 20% IV Infused 1900 MARCO Infusion Acetaminophen 1,000 mg in 100 mls @ 400 mls/hr 05/24/25 15:00 05/28/25 06:46 Acetaminophen IV Infused Q8HR MARCO Infusion Metronidazole 500 mg in 100 mls @ 100 mls/hr 05/25/25 10:00 05/28/25 11:00 Flagyl 500 Mg/100 Ml IV Infused Q8H MARCO Infusion Multivitamins 10 ml/ Zinc/ 2,011 mls @ 83 mls/hr 05/26/25 19:00 05/27/25 18:34 Copper/Manganese/Selenium 1 ml IV 83 mls/hr / Amino Ac/Electrol/Dextrose/ 1900 MARCO Administration Calcium Protocol Cefepime HCl 1 gm/ Sodium 100 mls @ 200 mls/hr 05/28/25 18:00 Chloride IV Q8H MARCO Insulin Human Regular 1 - 5 unit 05/27/25 00:00 05/28/25 11:55 Insulin Regular, Human 300 Unit/3 Ml Pen SUBQ Not Given Q6HR MARCO Protocol Levothyroxine Sodium 240 mcg 05/26/25 15:00 05/26/25 15:08 Levothyroxine 100 Mcg Vial IVP 240 mcg MoTh MARCO Administration Metoprolol Tartrate 2.5 mg 05/27/25 16:10 05/28/25 09:59 Metoprolol 5 Mg/5 Ml Vial IVP 2.5 mg Q6H MARCO Administration Ondansetron HCl 4 mg 05/21/25 17:57 05/23/25 04:33 Ondansetron 4 Mg/2 Ml Vial IVP 4 mg Q6HR PRN Administration Nausea / Vomiting Pantoprazole Sodium 20 mg 05/26/25 11:00 05/28/25 06:31 Pantoprazole 40 Mg Vial IVP 20 mg QDAC MARCO Administration Phenol/Menthol 2 sprays 05/21/25 18:57 05/21/25 19:32 Phenol Throat [place] 177 Ml MM 2 sprays Q2HR PRN Administration Throat Pain Prochlorperazine Edisylate 10 mg 05/21/25 17:57 05/23/25 02:04 Prochlorperazine 10 Mg/2 Ml Vial IVP 10 mg Q6HR PRN Administration Nausea / Vomiting Sodium Chloride 10 ml 05/21/25 17:57 Sodium Chloride Flush 0.9% 10 Ml Syringe IVP PRN PRN NEEDED PER PROVIDER ORDERS Sodium Chloride 10 ml 05/21/25 17:57 05/28/25 09:54 Sodium Chloride Flush 0.9% 10 Ml Syringe IVP 10 ml 0100,0900,1700 MARCO Administration Objective Vital Signs/Intake & Output Reviewed Vital Signs: Yes Vital Signs: Vital Signs x48h Temp Pulse Pulse Pulse Resp BP BP 05/28/25 10:15 66 139/70 H 05/28/25 10:10 63 18 128/69 05/28/25 10:05 62 140/67 H 05/28/25 09:59 65 130/65 05/28/25 09:00 36.7 C 67 18 137/68 H Pulse Ox O2 Flow Rate 05/28/25 10:15 05/28/25 10:10 05/28/25 10:05 05/28/25 09:59 05/28/25 09:00 93 2 Intake & Output: Intake & Output 05/25/25 05/26/25 05/27/25 05/28/25 23:59 23:59 23:59 23:59 Intake Total 6614 / 6614 5973 / 5973 5105 / 5105 1680 / 1680 Output Total 3020 / 3020 2421 / 2421 6330 / 6330 3915 / 3915 Balance 3594 / 3594 3552 / 3552 -1225 / -1225 -2235 / -2235 Weight (kg) 110.5 kg 110 kg 113 kg 112 kg Objective General Appearance: positive No acute distress and Alert Eyes Bilateral: positive Conjunctivae nml ENT: positive ENT inspection nml Neck: positive Nml inspection Respiratory: positive No respiratory distress and Breath sounds nml Cardiovascular: positive Regular rate & rhythm Abdomen: positive Other (abdominal dressing intact. appropriate amount of drainage. MIRNA in pelvis with serosang draiange. not copious) Skin: positive Color nml Extremities: positive Non-tender and No pedal edema Neurologic/Psychiatric: positive Oriented x3 Lab Results 05/28/25 05:00 05/28/25 05:00 Other Labs: Lab Results x24hrs 05/28/25 05/28/25 05/28/25 Range/Units 11:53 06:10 05:00 WBC 6.4 (4.8-10.8) x10^3/uL RBC 3.66 L (4.20-5.40) 10^6/uL Hgb 10.6 L (12.0-16.0) g/dL Hct 33.9 L (37.0-47.0) % MCV 92.6 (81.0-99.0) fL MCH 29.0 (27.0-31.0) pg MCHC 31.3 L (32.0-36.0) g/dL RDW 14.6 (12.0-15.0) % Plt Count 161 (130-450) 10^3/uL MPV 11.7 H (7.9-10.8) fL Neut # (Auto) 4.4 (1.5-6.6) 10^3/uL Lymph # (Auto) 1.3 L (1.5-3.5) 10^3/uL [place] # (Auto) 0.2 (0.0-1.0) 10^3/uL Eos # (Auto) 0.2 (0.0-0.7) 10^3/uL Baso # (Auto) 0.0 (0.0-0.1) 10^3/uL Absolute Nucleated RBC 0.02 x10^3/uL Nucleated RBC % 0.3 /100WBC VBG pH (7.31-7.41) Ionized Calcium (1.09-1.30) mmol/L Sodium 139 (135-145) mmol/L Potassium 3.8 (3.5-4.5) mmol/L Chloride 106 (101-111) mmol/L Carbon Dioxide 29 (21-32) mmol/L Anion Gap 4.0 L (6-13) BUN 18 (6-20) mg/dL Creatinine 0.9 (0.6-1.3) mg/dL Estimated GFR (MDRD) 63 L (>89) Glucose 134 H (74-104) mg/dL POC Whole Bld Glucose 136 139 (70-100) mg/dL Calcium 7.9 L (8.5-10.3) mg/dL Phosphorus (2.5-5.0) mg/dL Magnesium (1.7-2.3) mg/dL 05/27/25 05/27/25 05/27/25 Range/Units 23:54 18:11 15:00 WBC (4.8-10.8) x10^3/uL RBC (4.20-5.40) 10^6/uL Hgb (12.0-16.0) g/dL Hct (37.0-47.0) % MCV (81.0-99.0) fL MCH (27.0-31.0) pg MCHC (32.0-36.0) g/dL RDW (12.0-15.0) % Plt Count (130-450) 10^3/uL MPV (7.9-10.8) fL Neut # (Auto) (1.5-6.6) 10^3/uL Lymph # (Auto) (1.5-3.5) 10^3/uL [place] # (Auto) (0.0-1.0) 10^3/uL Eos # (Auto) (0.0-0.7) 10^3/uL Baso # (Auto) (0.0-0.1) 10^3/uL Absolute Nucleated RBC x10^3/uL Nucleated RBC % /100WBC VBG pH 7.411 H (7.31-7.41) Ionized Calcium 1.16 (1.09-1.30) mmol/L Sodium (135-145) mmol/L Potassium 3.9 (3.5-4.5) mmol/L Chloride (101-111) mmol/L Carbon Dioxide (21-32) mmol/L Anion Gap (6-13) BUN (6-20) mg/dL Creatinine (0.6-1.3) mg/dL Estimated GFR (MDRD) (>89) Glucose (74-104) mg/dL POC Whole Bld Glucose 154 112 (70-100) mg/dL Calcium (8.5-10.3) mg/dL Phosphorus 2.8 (2.5-5.0) mg/dL Magnesium 2.2 (1.7-2.3) mg/dL 05/25/25 Range/Units 17:56 WBC (4.8-10.8) x10^3/uL RBC (4.20-5.40) 10^6/uL Hgb (12.0-16.0) g/dL Hct (37.0-47.0) % MCV (81.0-99.0) fL MCH (27.0-31.0) pg MCHC (32.0-36.0) g/dL RDW (12.0-15.0) % Plt Count (130-450) 10^3/uL MPV (7.9-10.8) fL Neut # (Auto) (1.5-6.6) 10^3/uL Lymph # (Auto) (1.5-3.5) 10^3/uL [place] # (Auto) (0.0-1.0) 10^3/uL Eos # (Auto) (0.0-0.7) 10^3/uL Baso # (Auto) (0.0-0.1) 10^3/uL Absolute Nucleated RBC x10^3/uL Nucleated RBC % /100WBC VBG pH (7.31-7.41) Ionized Calcium (1.09-1.30) mmol/L Sodium (135-145) mmol/L Potassium (3.5-4.5) mmol/L Chloride (101-111) mmol/L Carbon Dioxide (21-32) mmol/L Anion Gap (6-13) BUN (6-20) mg/dL Creatinine (0.6-1.3) mg/dL Estimated GFR (MDRD) (>89) Glucose (74-104) mg/dL POC Whole Bld Glucose 115 (70-100) mg/dL Calcium (8.5-10.3) mg/dL Phosphorus (2.5-5.0) mg/dL Magnesium (1.7-2.3) mg/dL Assessment/Plan Problem List (1) Small bowel obstruction: Impression: 64F who presents with inability to tolerate po for 5 days. No flatus or BM for 5 days. remote surgical hx of open cholecystectomy and hysterectomy. She denies hx of SBO. Taken to the OR 05/23 for dx laparoscopy. Ulitmately required laparotomy with small bowel resection for Meckels/small bowel torsion/perforation. NG in place. MIRNA drain in the pelvis draining serosang fluid. Abdominal closure dressed, not taken down today. She is now POD #5 PPN was started on the evening of POD #1, given the amount of time she had been without nutrition. Required ICU in the immediate postop setting for Levophed. These have been discontinued and she is now out of ICU Incidence of levophed infiltration left upper arm prior to central line placement- arm looks fine, no evidence of skin necrosis. no increasing pain here. Antibiotics will be discontinued tomorrow after 5 days total coverage. BC NGTD 2 Abx coverage was broadened from Cipro/Flagyl to Vanc/cefepime. today, taking her off Vanc. today is day 4 of abx after surgical source control. Consider stopping abx tomorrow. blood cultures show NGTD (2) Acute kidney injury: Impression: Unsure what her baseline creatinine is, but she had postoperative TAPAN with creatinine as high as 2.6. It has corrected to 0.9 as of this morning. Continue daily BMP (3) Atrial fibrillation with RVR: Impression: She had this at the time of admission, then not again till overnight. Metoprolol scheduled, 5 mg IV every 6 hours She has been mildly bradycardic, I am decreasing her scheduled metoprolol to 2.5mg q6h. Could consider amiodarone IV, as she is not able to take PO at this time. At home, she is on Amiodarone, and metoprolol, Xarelto. Since starting the metoprolol on a scheduled basis, she has been bradycardia or had a normal heart rate, holding toprol for HR <65 05/28: Heart rate stable, continue metoprolol for now with holding parameters (4) Hyponatremia: Impression: Resolved (5) Diabetes: Impression: A1c 5.6 Holding home dose Ozempic while in the hospital SSI coverage, especially given on TPN (6) Hypokalemia: Impression: Repleted and resolved. BMP daily (7) Depression: Impression: It has been poorly controlled. As soon as she can take PO, will restart her meds, but will need primary care followup. (8) Hypothyroid: Impression: She has been NPO for some time and is expected to be so. IV synthroid per pharmacy dosage recommendations. She is getting 240mcg IV q Monday and .
[2025-05-28] MEDS: CEFEPIME 1 GM in SODIUM CHLORIDE 0.9% MINIBAG 100 ML IV SCH (17:50)
[2025-05-29 05:52] LABS: HCT - HEMATOCRIT 37.3 % (37.0-47.0); HGB - HEMOGLOBIN 11.4 g/dL (12.0-16.0); MEAN PLATELET VOLUME 11.6 fL (7.9-10.8); PLT - PLATELET COUNT 183 10^3/uL (130-450); RED CELL DISTRIBUTION WIDTH 14.9 % (12.0-15.0)
[2025-05-29 06:08] LABS: ABNORMAL LYMPHS % (MANUAL) 0 %; BASOPHILS # (MANUAL) 0.0 10^3/uL (0-0.1)
[2025-05-29 06:32] LABS: BAND NEUTROPHILS % (MANUAL) 1 %; EOSINOPHILS # (MANUAL) 0.2 10^3/uL (0-0.7); LYMPHOCYTES # (MANUAL) 1.5 10^3/uL (1.5-3.5); LYMPHOCYTES % (MANUAL) 18 %; METAMYELOCYTES % (MANUAL) 1 %; MONOCYTES # (MANUAL) 0.2 10^3/uL (0.0-1.0); MYELOCYTES % (MANUAL) 1 %; NEUTROPHILS # (MANUAL) 6.4 10^3/uL (1.5-6.6)
[2025-05-29 06:33] LABS: PLATELET ESTIMATE, MANUAL NORMAL (130-450,000) (NORMAL); PLATELET MORPHOLOGY NORMAL APPEARANCE (NORMAL); RBC MORPHOLOGY (MULTIPLE) NORMAL APPEARANCE (NORMAL); WBC MORPHOLOGY (MULTIPLE) 1+ TOXIC GRANULATION (NORMAL)
[2025-05-29 06:46] LABS: ALT ALANINE AMINOTRANSFERASE 12.0 IU/L (10-60); AST ASPARTATE AMINOTRANSFERASE 19.0 IU/L (10-42); BUN - BLOOD UREA NITROGEN 17.0 mg/dL (6-20); CARBON DIOXIDE - CO2 29.0 mmol/L (21-32); CREATININE 0.7 mg/dL (0.6-1.3); GFR - MDRD 84.0 (>89); PHOSPHORUS 2.5 mg/dL (2.5-5.0)
--- NOTE | 2025-05-29 14:40 | PROVIDER PROGRESS NOTE ---
Subjective Prog Note Date Prog Note Date: 05/29/25 Subjective Pt reports feeling: No change Current Medications Current Medications Current Medications: Current Medications Generic Name Dose Route Start Last Admin Trade Name Freq PRN Reason Stop Dose Admin Diphenhydramine HCl 25 mg 05/25/25 09:45 Diphenhydramine Inj 50 Mg/Ml Vial IVP Q6H PRN Anaphylaxis Enoxaparin Sodium 40 mg 05/28/25 09:00 05/29/25 09:40 Enoxaparin 40 Mg/0.4 Ml Syringe SUBQ 40 mg DAILY MARCO Administration Hydromorphone HCl 0.5 mg 05/21/25 17:57 05/29/25 12:30 Hydromorphone 0.5 Mg/0.5 Ml Syringe IVP 0.5 mg Q2H PRN Administration Pain 8 to 10 Fat Emulsion Intravenous 250 mls @ 21 mls/hr 05/24/25 19:00 05/29/25 07:00 Intralipid 20% IV Infused 1900 MARCO Infusion Acetaminophen 1,000 mg in 100 mls @ 400 mls/hr 05/24/25 15:00 05/29/25 14:23 Acetaminophen IV 400 mls/hr Q8HR MARCO Administration Metronidazole 500 mg in 100 mls @ 100 mls/hr 05/25/25 10:00 05/29/25 11:30 Flagyl 500 Mg/100 Ml IV Infused Q8H MARCO Infusion Multivitamins 10 ml/ Zinc/ 2,011 mls @ 83 mls/hr 05/26/25 19:00 05/28/25 19:04 Copper/Manganese/Selenium 1 ml IV 83 mls/hr / Amino Ac/Electrol/Dextrose/ 1900 MARCO Administration Calcium Protocol Cefepime HCl 1 gm/ Sodium 100 mls @ 200 mls/hr 05/28/25 18:00 05/29/25 10:10 Chloride IV Infused Q8H MARCO Infusion Insulin Human Regular 1 - 5 unit 05/27/25 00:00 05/29/25 11:21 Insulin Regular, Human 300 Unit/3 Ml Pen SUBQ 1 unit Q6HR MARCO Administration Protocol Levothyroxine Sodium 240 mcg 05/26/25 15:00 05/26/25 15:08 Levothyroxine 100 Mcg Vial IVP 240 mcg MoTh MARCO Administration Metoprolol Tartrate 2.5 mg 05/27/25 16:10 05/29/25 10:50 Metoprolol 5 Mg/5 Ml Vial IVP 2.5 mg Q6H MARCO Administration Ondansetron HCl 4 mg 05/21/25 17:57 05/23/25 04:33 Ondansetron 4 Mg/2 Ml Vial IVP 4 mg Q6HR PRN Administration Nausea / Vomiting Pantoprazole Sodium 20 mg 05/26/25 11:00 05/29/25 06:02 Pantoprazole 40 Mg Vial IVP 20 mg QDAC MARCO Administration Phenol/Menthol 2 sprays 05/21/25 18:57 05/21/25 19:32 Phenol Throat [place] 177 Ml MM 2 sprays Q2HR PRN Administration Throat Pain Prochlorperazine Edisylate 10 mg 05/21/25 17:57 05/23/25 02:04 Prochlorperazine 10 Mg/2 Ml Vial IVP 10 mg Q6HR PRN Administration Nausea / Vomiting Sodium Chloride 10 ml 05/21/25 17:57 Sodium Chloride Flush 0.9% 10 Ml Syringe IVP PRN PRN NEEDED PER PROVIDER ORDERS Sodium Chloride 10 ml 05/21/25 17:57 05/29/25 09:40 Sodium Chloride Flush 0.9% 10 Ml Syringe IVP 10 ml 0100,0900,1700 MARCO Administration Objective Vital Signs/Intake & Output Reviewed Vital Signs: Yes Vital Signs: Vital Signs x48h Temp Pulse Pulse Pulse Resp BP BP 05/29/25 12:26 36.3 C L 101 H 20 138/104 H 05/29/25 10:50 125 H 154/97 H 05/29/25 07:37 36.3 C L 113 H 18 BP Pulse Ox 05/29/25 12:26 93 05/29/25 10:50 05/29/25 07:37 143/85 H 91 L Intake & Output: Intake & Output 05/26/25 05/27/25 05/28/25 05/29/25 23:59 23:59 23:59 23:59 Intake Total 5973 / 5973 5105 / 5105 4101 / 4101 780 / 780 Output Total 2421 / 2421 6330 / 6330 5265 / 5265 2730 / 2730 Balance 3552 / 3552 -1225 / -1225 -1164 / -1164 -1950 / -1950 Weight (kg) 110 kg 113 kg 112 kg 119 kg Objective General Appearance: positive No acute distress and Alert Eyes Bilateral: positive Conjunctivae nml ENT: positive ENT inspection nml Neck: positive Nml inspection Respiratory: positive No respiratory distress and Breath sounds nml Cardiovascular: positive Regular rate & rhythm Abdomen: positive Other (abdominal dressing intact. appropriate amount of drainage. MIRNA in pelvis with serosang draiange. not copious) Skin: positive Color nml Extremities: positive Non-tender and No pedal edema Neurologic/Psychiatric: positive Oriented x3 Lab Results 05/29/25 05:00 05/29/25 05:00 Other Labs: Lab Results x24hrs 05/29/25 05/29/25 05/29/25 Range/Units 11:09 05:46 05:00 WBC 8.4 (4.8-10.8) x10^3/uL RBC 3.99 L (4.20-5.40) 10^6/uL Hgb 11.4 L (12.0-16.0) g/dL Hct 37.3 (37.0-47.0) % MCV 93.5 (81.0-99.0) fL MCH 28.6 (27.0-31.0) pg MCHC 30.6 L (32.0-36.0) g/dL RDW 14.9 (12.0-15.0) % Plt Count 183 (130-450) 10^3/uL MPV 11.6 H (7.9-10.8) fL Neut # (Auto) Not Reportable Lymph # (Auto) Not Reportable [place] # (Auto) Not Reportable Eos # (Auto) Not Reportable Baso # (Auto) Not Reportable Absolute Nucleated RBC Not Reportable Total Counted 100 Band Neuts % (Manual) 1 (0 - 10) % Abnorm Lymph % (Manual) 0 % Metamyelocytes % 1 H ( - 0) % Myelocytes % 1 H ( - 0) % Nucleated RBC % Not Reportable Neutrophils # (Manual) 6.4 (1.5-6.6) 10^3/uL Lymphocytes # (Manual) 1.5 (1.5-3.5) 10^3/uL Monocytes # (Manual) 0.2 (0.0-1.0) 10^3/uL Eosinophils # (Manual) 0.2 (0-0.7) 10^3/uL Basophils # (Manual) 0.0 (0-0.1) 10^3/uL Differential Comment MANUAL DIFFERENTIAL WBC Morphology 1+ TOXIC GRANULATION (NORMAL) Platelet Estimate NORMAL (130-450,000) (NORMAL) Platelet Morphology NORMAL APPEARANCE (NORMAL) RBC Morph Micro Appear NORMAL APPEARANCE (NORMAL) Sodium 138 (135-145) mmol/L Potassium 3.6 (3.5-4.5) mmol/L Chloride 106 (101-111) mmol/L Carbon Dioxide 29 (21-32) mmol/L Anion Gap 3.0 L (6-13) BUN 17 (6-20) mg/dL Creatinine 0.7 (0.6-1.3) mg/dL Estimated GFR (MDRD) 84 L (>89) Glucose 156 H (74-104) mg/dL POC Whole Bld Glucose 158 154 (70-100) mg/dL Calcium 7.9 L (8.5-10.3) mg/dL Phosphorus 2.5 (2.5-5.0) mg/dL Magnesium 1.7 (1.7-2.3) mg/dL Total Bilirubin 0.4 (0.2-1.0) mg/dL AST 19 (10-42) IU/L ALT 12 (10-60) IU/L Alkaline Phosphatase 75 (42-121) IU/L Total Protein 4.6 L (6.4-8.9) g/dL Albumin 2.3 L (3.2-5.5) g/dL Globulin 2.3 (2.1-4.2) g/dL Albumin/Globulin Ratio 1.0 (1.0-2.2) Prealbumin 8 L (17-34) mg/dL 05/28/25 05/28/25 Range/Units 23:38 17:55 WBC (4.8-10.8) x10^3/uL RBC (4.20-5.40) 10^6/uL Hgb (12.0-16.0) g/dL Hct (37.0-47.0) % MCV (81.0-99.0) fL MCH (27.0-31.0) pg MCHC (32.0-36.0) g/dL RDW (12.0-15.0) % Plt Count (130-450) 10^3/uL MPV (7.9-10.8) fL Neut # (Auto) Lymph # (Auto) [place] # (Auto) Eos # (Auto) Baso # (Auto) Absolute Nucleated RBC Total Counted Band Neuts % (Manual) (0 - 10) % Abnorm Lymph % (Manual) % Metamyelocytes % ( - 0) % Myelocytes % ( - 0) % Nucleated RBC % Neutrophils # (Manual) (1.5-6.6) 10^3/uL Lymphocytes # (Manual) (1.5-3.5) 10^3/uL Monocytes # (Manual) (0.0-1.0) 10^3/uL Eosinophils # (Manual) (0-0.7) 10^3/uL Basophils # (Manual) (0-0.1) 10^3/uL Differential Comment WBC Morphology (NORMAL) Platelet Estimate (NORMAL) Platelet Morphology (NORMAL) RBC Morph Micro Appear (NORMAL) Sodium (135-145) mmol/L Potassium (3.5-4.5) mmol/L Chloride (101-111) mmol/L Carbon Dioxide (21-32) mmol/L Anion Gap (6-13) BUN (6-20) mg/dL Creatinine (0.6-1.3) mg/dL Estimated GFR (MDRD) (>89) Glucose (74-104) mg/dL POC Whole Bld Glucose 143 142 (70-100) mg/dL Calcium (8.5-10.3) mg/dL Phosphorus (2.5-5.0) mg/dL Magnesium (1.7-2.3) mg/dL Total Bilirubin (0.2-1.0) mg/dL AST (10-42) IU/L ALT (10-60) IU/L Alkaline Phosphatase (42-121) IU/L Total Protein (6.4-8.9) g/dL Albumin (3.2-5.5) g/dL Globulin (2.1-4.2) g/dL Albumin/Globulin Ratio (1.0-2.2) Prealbumin (17-34) mg/dL Assessment/Plan Problem List (1) Small bowel obstruction: Impression: 64F who presents with inability to tolerate po for 5 days. No flatus or BM for 5 days. remote surgical hx of open cholecystectomy and hysterectomy. She denies hx of SBO. Taken to the OR 05/23 for dx laparoscopy. Ulitmately required laparotomy with small bowel resection for Meckels/small bowel torsion/perforation. NG in place. MIRNA drain in the pelvis draining serosang fluid. Abdominal closure dressed, not taken down today. She is now POD #5 PPN was started on the evening of POD #1, given the amount of time she had been without nutrition. Required ICU in the immediate postop setting for Levophed. These have been discontinued and she is now out of ICU Incidence of levophed infiltration left upper arm prior to central line placement- arm looks fine, no evidence of skin necrosis. no increasing pain here. 05/29: Discontinued antibiotics as she has received 5 days since source control. Remains afebrile, WBC not elevated (2) Acute kidney injury: Impression: Resolved. Continue daily BMP (3) Atrial fibrillation with RVR: Impression: She had this at the time of admission, then not again till overnight. Metoprolol scheduled, 5 mg IV every 6 hours She has been mildly bradycardic, I am decreasing her scheduled metoprolol to 2.5mg q6h. Could consider amiodarone IV, as she is not able to take PO at this time. At home, she is on Amiodarone, and metoprolol, Xarelto. Since starting the metoprolol on a scheduled basis, she has been bradycardia or had a normal heart rate, holding toprol for HR <65 05/28: Heart rate stable, continue metoprolol for now with holding parameters (4) Hyponatremia: Impression: Resolved (5) Diabetes: Impression: A1c 5.6 Holding home dose Ozempic while in the hospital SSI coverage, especially given on TPN Suggest that she not continue Ozempic in the outpatient setting given her recent small bowel obstruction (6) Hypokalemia: Impression: Repleted and resolved. BMP daily (7) Depression: Impression: It has been poorly controlled. As soon as she can take PO, will restart her meds, but will need primary care followup. (8) Hypothyroid: Impression: She has been NPO for some time and is expected to be so. IV synthroid per pharmacy dosage recommendations. She is getting 240mcg IV q Monday and .
--- NOTE | 2025-05-29 15:06 | PROVIDER PROGRESS NOTE ---
Subjective General Admit Date: 05/21/25 Procedure Date: 05/23/25 Post Op Days: 6 Procedure Performed: ExLap, small bowel resection Other Other Information/Narrative: Doing well today, continues to have no bowel function, otherwise states that her pain is well controlled, NPO w/ NGT in situ with bilious drainage, midline wound with dressing in place. MIRNA in situ to the LLQ with serous drainage. Wound Assessment Wound/Incisions: positive Dressing dry and intact Drain Type: MIRNA Drain to LLQ Drain Output Description: Serosanguineous Approximate mls Output: 60 Review of Systems Status of ROS: 10 or more systems reviewed and unremarkable except as noted in history and below Exam Exam Vital Signs: Vital Signs x48h Temp Pulse Pulse Pulse Resp BP BP 05/29/25 12:26 36.3 C L 101 H 20 138/104 H 05/29/25 10:50 125 H 154/97 H 05/29/25 07:37 36.3 C L 113 H 18 BP Pulse Ox 05/29/25 12:26 93 05/29/25 10:50 05/29/25 07:37 143/85 H 91 L Constitutional normal general appearance, no apparent distress and abnormal body habitus (obese) HENMT normocephalic and head/scalp atraumatic NGT in situ with bilious appearing drainage Eyes conjunctivae normal and no scleral icterus Neck/C-Spine visual inspection normal Respiratory normal respiratory effort Cardiovascular normal heart rate noted and regular rhythm noted Gastrointestinal MIRNA to LLQ with serous in the bulb, midline incision with amrit in situ and a juan a traveling through the wound and externalized at the inferior and superior poles, small amount of serosanguineous output from juan a, soft, appropriately TTP, L sided port sites healing appropriately. Extremities normal to inspection Neurology GCS 15 Psychiatry mental status grossly normal Skin skin color normal Impression/Plan Problem List (1) Small bowel obstruction: Plan: 64 y/o F admitted 05/21 with first small bowel obstruction; failed NGT decompression and gastrograffin trial, thus underwent operative management. POD#6, s/p DxLap --> Ex Lap, lysis of adhesions, 75cm small bowel resection (05/23, Dr. Alcocer). Etiology of SBO Adhesions + Meckel's diverticulum. Intraoperative findings of small bowel twisted around adhesion between meckel's diverticulum and root of mesentery, two small bowel perforations identified upon release of obstruction at locations of twisting. Large volume succus contamination of peritoneal cavity, extensive irrigation done at time of surgery . Overall reports feeling improved this AM, WBC normalized, off pressors out of ICU, NGT in situ with gastric drainage, no bowel function as of yet. - Continue NGT decompression with IVF - Pain control as needed - Encourage OOB/ambulation, PT/OT - BID dressing changes, AM provider, PM RN - Awaiting ROBF, then can remove NG and ADAT - Rest of care per primary Start discharge planning as rehab will likely be required. Patient admitted to hospitalist service due to comorbidities and we certainly appreciate working with them. Surgery will continue to follow closely. Plan of care discussed with primary medicine team (Dr. Gutierrez) this AM. (2) Acute kidney injury: (3) Atrial fibrillation with RVR: (4) Hyponatremia: (5) Diabetes: (6) Hypokalemia: (7) Depression: (8) Hypothyroid:
[2025-05-30] MEDS: SODIUM CHLORIDE FLUSH 0.9% 10 ML SYRINGE IVP PRN (05:25)
[2025-05-30 05:36] LABS: HCT - HEMATOCRIT 36.8 % (37.0-47.0); MEAN PLATELET VOLUME 11.0 fL (7.9-10.8); RED CELL DISTRIBUTION WIDTH 14.6 % (12.0-15.0)
[2025-05-30 05:39] LABS: HGB - HEMOGLOBIN 11.8 g/dL (12.0-16.0); PLT - PLATELET COUNT 233 10^3/uL (130-450)
[2025-05-30 05:43] LABS: ABNORMAL LYMPHS % (MANUAL) 0 %; BASOPHILS # (MANUAL) 0.0 10^3/uL (0-0.1); EOSINOPHILS # (MANUAL) 0.0 10^3/uL (0-0.7)
[2025-05-30 05:53] LABS: BUN - BLOOD UREA NITROGEN 17.0 mg/dL (6-20); CARBON DIOXIDE - CO2 27.0 mmol/L (21-32); CREATININE 0.7 mg/dL (0.6-1.3); GFR - MDRD 84.0 (>89)
[2025-05-30 06:13] LABS: BAND NEUTROPHILS % (MANUAL) 1 %; LYMPHOCYTES # (MANUAL) 2.4 10^3/uL (1.5-3.5); LYMPHOCYTES % (MANUAL) 24 %; METAMYELOCYTES % (MANUAL) 2 %; MONOCYTES # (MANUAL) 0.2 10^3/uL (0.0-1.0); MYELOCYTES % (MANUAL) 3 %; NEUTROPHILS # (MANUAL) 6.9 10^3/uL (1.5-6.6)
[2025-05-30 06:14] LABS: PLATELET ESTIMATE, MANUAL NORMAL (130-450,000) (NORMAL); PLATELET MORPHOLOGY NORMAL APPEARANCE (NORMAL); RBC MORPHOLOGY (MULTIPLE) NORMAL APPEARANCE (NORMAL); WBC MORPHOLOGY (MULTIPLE) NORMAL APPEARANCE (NORMAL)
--- NOTE | 2025-05-30 10:40 | PROVIDER PROGRESS NOTE ---
Subjective General Admit Date: 05/21/25 Procedure Date: 05/23/25 Post Op Days: 8 Procedure Performed: ExLap, small bowel resection Wound Assessment Wound/Incisions: positive Dressing dry and intact Drain Type: MIRNA Drain to LLQ Drain Output Description: Serosanguineous Approximate mls Output: 60 Review of Systems I did not complete a review of systems today. Exam Exam Vital Signs: Vital Signs x48h Temp Pulse Pulse Resp BP BP Pulse Ox 05/31/25 07:04 05/31/25 07:04 112 H 22 05/31/25 04:16 36.6 C 82 18 106/73 93 05/31/25 04:01 95 124/69 O2 Flow Rate 05/31/25 07:04 2 05/31/25 07:04 05/31/25 04:16 2 05/31/25 04:01 General: 64-year old female, appears deconditioned, evaluated in room 2201 at [facility] Med[facility] HEENT: Normocephalic, atraumatic, extraocular movement intact, mucous membranes pink and moist, sclera anicteric and not injected Neck: Trachea midline Cardiac: Regular rate and rhythm without rub, gallop, or murmur Chest: Clear to auscultation bilaterally Abdomen: Soft, nontender, normoactive bowel sounds, no hepatomegaly, no splenom egaly Genitourinary: Deferred Rectal: Deferred Extremities: No gross neurovascular problem, no clubbing, cyanosis or edema, 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 Gait: Not evaluated as I did not have the patient get out of bed Psychiatric: Alert and oriented to person place and time, asks and answers questions appropriately, mood and affect appropriate ABX Reporting Has patient been on IV antibiotics over the past 48 hours?: No Impression/Plan Problem List (1) Small bowel obstruction: (2) Acute kidney injury: (3) Atrial fibrillation with RVR: (4) Hyponatremia: (5) Diabetes: (6) Hypokalemia: (7) Depression: (8) Hypothyroid: Plan 64 y/o F admitted 05/21 with first small bowel obstruction; failed NGT decompression and gastrograffin trial, thus underwent operative management. POD#7, s/p DxLap --> Ex Lap, lysis of adhesions, 75cm small bowel resection (05/23, Dr. Alcocer). Etiology of SBO Adhesions + Meckel's diverticulum. Intraoperative findings of small bowel twisted around adhesion between meckel's diverticulum and root of mesentery, two small bowel perforations identified upon release of obstruction at locations of twisting. Large volume succus contamination of peritoneal cavity, extensive irrigation done at time of kymberly paul. Patient being helped out of bed when I was evaluating patient by physical therapy. Patient requiring a large amount of help in order to move. She is certainly not at her preop activity baseline. Nasogastric output is significant but this may be due to the large amount of ice chips that the patient is consuming. I was informed that there is no OT at this hospital has not been for several months. Awaiting bowel function to return and once this does obviously the NG tube will be discontinued and the patient will be started on a diet. As this patient is significantly deconditioned the patient will need rehabilitation following her hospitalization and as such to my understanding plans are already underway for this. 1) FEN Continue current regimen as we await return of bowel function. 2) Pain Controlled with current regimen. 3) Wound Open and being allowed to heal by secondary intention. I believe that a wound VAC will be beneficial in this instance and will plan on placing it I believe on Monday as I do not think that there is a wound care nurse available on the weekend. I will check. 4) Activity Physical therapy is working with the patient and is doing is much as they can. Aggressive physical therapy is what is necessary at this point in time but I do not think even with their best work this will obviate the need for rehab on her discharge. 5) ID White count normal and my concern for ongoing infection is low. We will continue to follow until bowel function returns and wound care issues are adequately addressed. Certainly appreciate working with our internal medicine colleagues.
--- NOTE | 2025-05-30 11:26 | PROVIDER PROGRESS NOTE ---
Subjective Prog Note Date Prog Note Date: 05/30/25 Subjective Pt reports feeling: No change Current Medications Current Medications Current Medications: Current Medications Generic Name Dose Route Start Last Admin Trade Name Freq PRN Reason Stop Dose Admin Diphenhydramine HCl 25 mg 05/25/25 09:45 Diphenhydramine Inj 50 Mg/Ml Vial IVP Q6H PRN Anaphylaxis Enoxaparin Sodium 40 mg 05/28/25 09:00 05/30/25 09:04 Enoxaparin 40 Mg/0.4 Ml Syringe SUBQ 40 mg DAILY MARCO Administration Hydromorphone HCl 0.5 mg 05/21/25 17:57 05/30/25 11:16 Hydromorphone 0.5 Mg/0.5 Ml Syringe IVP 0.5 mg Q2H PRN Administration Pain 8 to 10 Fat Emulsion Intravenous 250 mls @ 21 mls/hr 05/24/25 19:00 05/30/25 07:30 Intralipid 20% IV Infused 1900 MARCO Infusion Acetaminophen 1,000 mg in 100 mls @ 400 mls/hr 05/24/25 15:00 05/30/25 05:46 Acetaminophen IV Infused Q8HR MARCO Infusion Multivitamins 10 ml/ Zinc/ 2,011 mls @ 83 mls/hr 05/26/25 19:00 05/29/25 19:29 Copper/Manganese/Selenium 1 ml IV 83 mls/hr / Amino Ac/Electrol/Dextrose/ 1900 MARCO Administration Calcium Protocol Insulin Human Regular 1 - 5 unit 05/27/25 00:00 05/30/25 07:01 Insulin Regular, Human 300 Unit/3 Ml Pen SUBQ Not Given Q6HR MARCO Protocol Levothyroxine Sodium 240 mcg 05/26/25 15:00 05/29/25 14:52 Levothyroxine 100 Mcg Vial IVP 240 mcg MoTh MARCO Administration Metoprolol Tartrate 2.5 mg 05/27/25 16:10 05/30/25 10:53 Metoprolol 5 Mg/5 Ml Vial IVP 2.5 mg Q6H MARCO Administration Ondansetron HCl 4 mg 05/21/25 17:57 05/30/25 00:04 Ondansetron 4 Mg/2 Ml Vial IVP 4 mg Q6HR PRN Administration Nausea / Vomiting Pantoprazole Sodium 20 mg 05/26/25 11:00 05/30/25 04:52 Pantoprazole 40 Mg Vial IVP 20 mg QDAC MARCO Administration Phenol/Menthol 2 sprays 05/21/25 18:57 05/21/25 19:32 Phenol Throat Martin 177 Ml MM 2 sprays Q2HR PRN Administration Throat Pain Prochlorperazine Edisylate 10 mg 05/21/25 17:57 05/23/25 02:04 Prochlorperazine 10 Mg/2 Ml Vial IVP 10 mg Q6HR PRN Administration Nausea / Vomiting Sodium Chloride 10 ml 05/21/25 17:57 05/30/25 05:25 Sodium Chloride Flush 0.9% 10 Ml Syringe IVP 10 ml PRN PRN Administration NEEDED PER PROVIDER ORDERS Sodium Chloride 10 ml 05/21/25 17:57 05/30/25 09:04 Sodium Chloride Flush 0.9% 10 Ml Syringe IVP 10 ml 0100,0900,1700 MARCO Administration Objective Vital Signs/Intake & Output Reviewed Vital Signs: Yes Vital Signs: Vital Signs x48h Temp Pulse Pulse Pulse Resp BP BP 05/30/25 10:53 109 H 127/75 05/30/25 08:22 36.0 C L 114 H 20 141/89 H 05/30/25 05:00 36.4 C L 116 H 18 05/30/25 04:05 125 H 113/67 BP Pulse Ox O2 Flow Rate 05/30/25 10:53 05/30/25 08:22 96 05/30/25 05:00 115/63 94 2 05/30/25 04:05 Intake & Output: Intake & Output 05/27/25 05/28/25 05/29/25 05/30/25 23:59 23:59 23:59 23:59 Intake Total 5105 / 5105 4101 / 4101 3001 / 3001 420 / 420 Output Total 6330 / 6330 5265 / 5265 4225 / 4225 2345 / 2345 Balance -1225 / -1225 -1164 / -1164 -1224 / -1224 -1925 / -1925 Weight (kg) 113 kg 112 kg 119 kg 116 kg Objective General Appearance: positive No acute distress and Alert Eyes Bilateral: positive Conjunctivae nml ENT: positive ENT inspection nml Neck: positive Nml inspection Respiratory: positive No respiratory distress and Breath sounds nml Cardiovascular: positive Regular rate & rhythm Abdomen: positive Other (abdominal dressing intact. appropriate amount of drainage. MIRNA in pelvis with serosang draiange. not copious) Skin: positive Color nml Extremities: positive Non-tender and No pedal edema Neurologic/Psychiatric: positive Oriented x3 Lab Results 05/30/25 05:23 05/30/25 05:23 Other Labs: Lab Results x24hrs 05/30/25 05/30/25 05/30/25 Range/Units 11:14 05:41 05:23 WBC 10.0 (4.8-10.8) x10^3/uL RBC 4.01 L (4.20-5.40) 10^6/uL Hgb 11.8 L (12.0-16.0) g/dL Hct 36.8 L (37.0-47.0) % MCV 91.8 (81.0-99.0) fL MCH 29.4 (27.0-31.0) pg MCHC 32.1 (32.0-36.0) g/dL RDW 14.6 (12.0-15.0) % Plt Count 233 (130-450) 10^3/uL MPV 11.0 H (7.9-10.8) fL Neut # (Auto) Not Reportable Lymph # (Auto) Not Reportable Atlantic # (Auto) Not Reportable Eos # (Auto) Not Reportable Baso # (Auto) Not Reportable Absolute Nucleated RBC Not Reportable Total Counted 100 Band Neuts % (Manual) 1 (0 - 10) % Abnorm Lymph % (Manual) 0 % Metamyelocytes % 2 H ( - 0) % Myelocytes % 3 H ( - 0) % Nucleated RBC % Not Reportable Neutrophils # (Manual) 6.9 H (1.5-6.6) 10^3/uL Lymphocytes # (Manual) 2.4 (1.5-3.5) 10^3/uL Monocytes # (Manual) 0.2 (0.0-1.0) 10^3/uL Eosinophils # (Manual) 0.0 (0-0.7) 10^3/uL Basophils # (Manual) 0.0 (0-0.1) 10^3/uL Differential Comment MANUAL DIFFERENTIAL WBC Morphology NORMAL APPEARANCE (NORMAL) Platelet Estimate NORMAL (130-450,000) (NORMAL) Platelet Morphology NORMAL APPEARANCE (NORMAL) RBC Morph Micro Appear NORMAL APPEARANCE (NORMAL) Sodium 134 L (135-145) mmol/L Potassium 3.8 (3.5-4.5) mmol/L Chloride 104 (101-111) mmol/L Carbon Dioxide 27 (21-32) mmol/L Anion Gap 3.0 L (6-13) BUN 17 (6-20) mg/dL Creatinine 0.7 (0.6-1.3) mg/dL Estimated GFR (MDRD) 84 L (>89) Glucose 161 H (74-104) mg/dL POC Whole Bld Glucose 175 162 (70-100) mg/dL Calcium 8.0 L (8.5-10.3) mg/dL 05/29/25 05/29/25 Range/Units 23:59 17:55 WBC (4.8-10.8) x10^3/uL RBC (4.20-5.40) 10^6/uL Hgb (12.0-16.0) g/dL Hct (37.0-47.0) % MCV (81.0-99.0) fL MCH (27.0-31.0) pg MCHC (32.0-36.0) g/dL RDW (12.0-15.0) % Plt Count (130-450) 10^3/uL MPV (7.9-10.8) fL Neut # (Auto) Lymph # (Auto) Atlantic # (Auto) Eos # (Auto) Baso # (Auto) Absolute Nucleated RBC Total Counted Band Neuts % (Manual) (0 - 10) % Abnorm Lymph % (Manual) % Metamyelocytes % ( - 0) % Myelocytes % ( - 0) % Nucleated RBC % Neutrophils # (Manual) (1.5-6.6) 10^3/uL Lymphocytes # (Manual) (1.5-3.5) 10^3/uL Monocytes # (Manual) (0.0-1.0) 10^3/uL Eosinophils # (Manual) (0-0.7) 10^3/uL Basophils # (Manual) (0-0.1) 10^3/uL Differential Comment WBC Morphology (NORMAL) Platelet Estimate (NORMAL) Platelet Morphology (NORMAL) RBC Morph Micro Appear (NORMAL) Sodium (135-145) mmol/L Potassium (3.5-4.5) mmol/L Chloride (101-111) mmol/L Carbon Dioxide (21-32) mmol/L Anion Gap (6-13) BUN (6-20) mg/dL Creatinine (0.6-1.3) mg/dL Estimated GFR (MDRD) (>89) Glucose (74-104) mg/dL POC Whole Bld Glucose 161 150 (70-100) mg/dL Calcium (8.5-10.3) mg/dL Assessment/Plan Problem List (1) Small bowel obstruction: Impression: 64F who presents with inability to tolerate po for 5 days. No flatus or BM for 5 days. remote surgical hx of open cholecystectomy and hysterectomy. She denies hx of SBO. Taken to the OR 05/23 for dx laparoscopy. Ulitmately required laparotomy with small bowel resection for Meckels/small bowel torsion/perforation. NG in place. MIRNA drain in the pelvis draining serosang fluid. Abdominal closure dressed, not taken down today. She is now POD #5 PPN was started on the evening of POD #1, given the amount of time she had been without nutrition. Required ICU in the immediate postop setting for Levophed. These have been discontinued and she is now out of ICU Incidence of levophed infiltration left upper arm prior to central line placement- arm looks fine, no evidence of skin necrosis. no increasing pain here. 05/29: Discontinued antibiotics as she has received 5 days since source control. Remains afebrile, WBC not elevated 05/30: Continues to have no flatus or BM. Continuing NGT, sips/chips. Encouraging out of bed, chewing gum (2) Acute kidney injury: Impression: Resolved. Continue daily BMP (3) Atrial fibrillation with RVR: Impression: She had this at the time of admission, then not again till overnight. Metoprolol scheduled, 5 mg IV every 6 hours She has been mildly bradycardic, I am decreasing her scheduled metoprolol to 2.5mg q6h. Could consider amiodarone IV, as she is not able to take PO at this time. At home, she is on Amiodarone, and metoprolol, Xarelto. Since starting the metoprolol on a scheduled basis, she has been bradycardia or had a normal heart rate, holding toprol for HR <65 05/28: Heart rate stable, continue IV metoprolol for now with holding parameters. Plan to restart home dose metoprolol succinate/amiodarone when bowel function returns (4) Hyponatremia: Impression: Resolved (5) Diabetes: Impression: A1c 5.6 Holding home dose Ozempic while in the hospital SSI coverage, especially given on TPN Suggest that she not continue Ozempic in the outpatient setting given her recent small bowel obstruction 05/30: Sugars have been well-controlled even on TPN, discontinuing glucose checks (6) Hypokalemia: Impression: Repleted and resolved. BMP daily (7) Depression: Impression: It has been poorly controlled. As soon as she can take PO, will restart her meds, but will need primary care followup. (8) Hypothyroid: Impression: She has been NPO for some time and is expected to be so. IV synthroid per pharmacy dosage recommendations. She is getting 240mcg IV q Monday and .
[2025-05-30] MEDS ORDERED: AMIODARONE 200 MG TABLET PO SCH (12:00)
[2025-05-30] MEDS: FUROSEMIDE 20 MG/2 ML VIAL IVP STA (19:06)
--- NOTE | 2025-05-30 20:03 | XRAY Report ---
PROCEDURE: XR Chest 1V INDICATIONS: Wheezing/sob TECHNIQUE: One view of the chest was acquired. COMPARISON: 05/25/2025 FINDINGS: Surgical changes and devices: Right central venous catheter with tip projecting over the superior vena cava. Enteric tube with tip below the diaphragm and out of the [id number]. Lungs and pleura: No pleural effusions or pneumothorax. Prominent interstitial markings. No consolidation. Mediastinum: Mediastinal contours appear normal. Heart size is enlarged. Bones and chest wall: No suspicious bony lesions. Overlying soft tissues appear unremarkable. IMPRESSION: Cardiomegaly with prominent interstitial markings, correlate for volume overload. Reviewed by: Paul Castellanos MD on 05/30/2025 7:59 PM PDT Approved by: Paul Castellanos MD on 05/30/2025 7:59 PM PDT Station ID: [id number]
[2025-05-30] MEDS: BUDESONIDE 0.5 MG/2 ML NEB INH SCH (20:15)
[2025-05-30] MEDS: IPRATROPIUM/ALBUTEROL 3 ML NEB INH PRN (20:15)
[2025-05-31] MEDS: ALTEPLASE 2 MG VIAL IR ONE (08:08)
--- NOTE | 2025-05-31 08:13 | PROVIDER PROGRESS NOTE ---
Subjective General Admit Date: 05/21/25 Procedure Date: 05/23/25 Post Op Days: 8 Procedure Performed: ExLap, small bowel resection Other Other Information/Narrative: Patient feels a little bit better but still no bowel movement or flatus. Sitting up in chair. Do in place. Wound Assessment Wound/Incisions: positive Dressing dry and intact Review of Systems I did not complete a review of systems today. Still no bowel movement or flatus. Exam Exam Vital Signs: Vital Signs x48h Temp Pulse Pulse Resp BP BP Pulse Ox 05/31/25 10:17 71 110/68 05/31/25 08:14 36.1 C L 102 H 20 112/62 91 L O2 Flow Rate 05/31/25 10:17 05/31/25 08:14 0 General: 64-year old female, appears deconditioned, evaluated in room 2201 at [facility] MedS[facility], sitting up in a chair HEENT: Normocephalic, atraumatic, extraocular movement intact, mucous membranes pink and moist, sclera anicteric and not injected Neck: Trachea midline Cardiac: Regular rate and rhythm without rub, gallop, or murmur Chest: Clear to auscultation bilaterally Abdomen: Soft, nontender, decreased bowel sounds, no hepatomegaly, no splenomegaly Genitourinary: Deferred Rectal: Deferred Extremities: No gross neurovascular problem, no clubbing, cyanosis or edema, 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 Gait: Not evaluated as I did not have the patient get out of chair Psychiatric: Alert and oriented to person place and time, asks and answers questions appropriately, mood and affect appropriate ABX Reporting Has patient been on IV antibiotics over the past 48 hours?: No Impression/Plan Problem List (1) Small bowel obstruction: (2) Acute kidney injury: (3) Atrial fibrillation with RVR: (4) Hyponatremia: (5) Diabetes: (6) Hypokalemia: (7) Depression: (8) Hypothyroid: Plan 64 y/o F admitted 05/21 with first small bowel obstruction; failed NGT decompression and gastrograffin trial, thus underwent operative management. POD#8, s/p DxLap --> Ex Lap, lysis of adhesions, 75cm small bowel resection (05/23, Dr. Alcocer). Etiology of SBO Adhesions + Meckel's diverticulum. Intraoperative findings of small bowel twisted around adhesion between meckel's diverticulum and root of mesentery, two small bowel perforations identified upon release of obstruction at locations of twisting. Large volume succus contamination of peritoneal cavity, extensive irrigation done at time of surgery. Patient in chair when I evaluated her today. Patient requiring a large amount of help in order to move. She is certainly not at her preop activity baseline. Nasogastric output is significant but this may be due to the large amount of ice chips that the patient is consuming. I was informed that there is no OT at this hospital has not been for several months. Awaiting bowel function to return and once this does obviously the NG tube will be discontinued and the patient will be started on a diet. I prescribed a suppository to see if I can help bowel function along. As this patient is significantly deconditioned the patient will need rehabilitation following her hospitalization and as such to my understanding plans are already underway for this. 1) FEN Continue current regimen as we await return of bowel function. 2) Pain Controlled with current regimen. 3) Wound Open and being allowed to heal by secondary intention. I believe th at a wound VAC will be beneficial in this instance and will plan on placing it I believe on Monday as I do not think that there is a wound care nurse available on the weekend. I will check. I did not change the dressing today as the patient was in the chair and I wanted her to stay in the chair rather than get back into bed. 4) Activity Physical therapy is working with the patient and is doing is much as they can. Aggressive physical therapy is what is necessary at this point in time but I do not think even with their best work this will obviate the need for rehab on her discharge. 5) ID White count normal and my concern for ongoing infection is low. We will continue to follow until bowel function returns and wound care issues are adequately addressed. Certainly appreciate working with our internal medicine colleagues. CPT 19297
[2025-05-31 10:49] LABS: HCT - HEMATOCRIT 35.9 % (37.0-47.0); HGB - HEMOGLOBIN 11.1 g/dL (12.0-16.0); MEAN PLATELET VOLUME 10.8 fL (7.9-10.8); PLT - PLATELET COUNT 330 10^3/uL (130-450); RED CELL DISTRIBUTION WIDTH 14.6 % (12.0-15.0)
[2025-05-31 10:57] LABS: SLIDE REVIEW? Indicated
[2025-05-31 10:58] LABS: ABNORMAL LYMPHS % (MANUAL) 0 %; BASOPHILS # (MANUAL) 0.0 10^3/uL (0-0.1)
[2025-05-31 11:00] LABS: BUN - BLOOD UREA NITROGEN 18.0 mg/dL (6-20); CARBON DIOXIDE - CO2 24.0 mmol/L (21-32); CREATININE 0.5 mg/dL (0.6-1.3); GFR - MDRD 124.0 (>89)
[2025-05-31 11:33] LABS: BAND NEUTROPHILS % (MANUAL) 3 %; EOSINOPHILS # (MANUAL) 0.1 10^3/uL (0-0.7); LYMPHOCYTES # (MANUAL) 1.4 10^3/uL (1.5-3.5); LYMPHOCYTES % (MANUAL) 13 %; METAMYELOCYTES % (MANUAL) 4 %; MONOCYTES # (MANUAL) 0.9 10^3/uL (0.0-1.0); NEUTROPHILS # (MANUAL) 7.9 10^3/uL (1.5-6.6)
[2025-05-31 11:35] LABS: PLATELET ESTIMATE, MANUAL NORMAL (130-450,000) (NORMAL); PLATELET MORPHOLOGY NORMAL APPEARANCE (NORMAL); RBC MORPHOLOGY (MULTIPLE) NORMAL APPEARANCE (NORMAL)
--- NOTE | 2025-05-31 11:59 | PROVIDER PROGRESS NOTE ---
Subjective Prog Note Date Prog Note Date: 05/31/25 Subjective Pt reports feeling: No change Current Medications Current Medications Current Medications: Current Medications Generic Name Dose Route Start Last Admin Trade Name Freq PRN Reason Stop Dose Admin Albuterol/Ipratropium 3 ml 05/30/25 18:44 05/31/25 07:04 Ipratropium/Albuterol 3 Ml Neb INH 3 ml RTQID PRN Administration Shortness of Air/Wheezing Budesonide 0.5 mg 05/30/25 19:00 05/31/25 07:04 Budesonide 0.5 Mg/2 Ml Neb INH 0.5 mg RTBID MARCO Administration Diphenhydramine HCl 25 mg 05/25/25 09:45 Diphenhydramine Inj 50 Mg/Ml Vial IVP Q6H PRN Anaphylaxis Enoxaparin Sodium 40 mg 05/28/25 09:00 05/31/25 08:08 Enoxaparin 40 Mg/0.4 Ml Syringe SUBQ 40 mg DAILY MARCO Administration Furosemide 20 mg 05/31/25 12:00 Furosemide 20 Mg/2 Ml Vial IVP 06/05/25 11:59 DAILY MARCO Hydromorphone HCl 0.5 mg 05/21/25 17:57 05/31/25 02:32 Hydromorphone 0.5 Mg/0.5 Ml Syringe IVP 0.5 mg Q2H PRN Administration Pain 8 to 10 Fat Emulsion Intravenous 250 mls @ 21 mls/hr 05/24/25 19:00 05/31/25 07:33 Intralipid 20% IV Infused 1900 MARCO Infusion Acetaminophen 1,000 mg in 100 mls @ 400 mls/hr 05/24/25 15:00 05/31/25 07:33 Acetaminophen IV Infused Q8HR MARCO Infusion Multivitamins 10 ml/ Zinc/ 2,011 mls @ 83 mls/hr 05/26/25 19:00 05/30/25 19:27 Copper/Manganese/Selenium 1 ml IV 83 mls/hr / Amino Ac/Electrol/Dextrose/ 1900 MARCO Administration Calcium Protocol Potassium Chloride 10 meq in 100 mls @ 100 mls/hr 05/31/25 12:00 Potassium Chloride IV 05/31/25 15:59 Q1H MARCO Insulin Human Regular 1 - 5 unit 05/27/25 00:00 05/31/25 06:49 Insulin Regular, Human 300 Unit/3 Ml Pen SUBQ 2 unit Q6HR MARCO Administration Protocol Levothyroxine Sodium 240 mcg 05/26/25 15:00 05/29/25 14:52 Levothyroxine 100 Mcg Vial IVP 240 mcg MoTh MARCO Administration Metoprolol Tartrate 2.5 mg 05/27/25 16:10 05/31/25 10:17 Metoprolol 5 Mg/5 Ml Vial IVP 2.5 mg Q6H MARCO Administration Ondansetron HCl 4 mg 05/21/25 17:57 05/30/25 00:04 Ondansetron 4 Mg/2 Ml Vial IVP 4 mg Q6HR PRN Administration Nausea / Vomiting Pantoprazole Sodium 20 mg 05/26/25 11:00 05/31/25 06:50 Pantoprazole 40 Mg Vial IVP 20 mg QDAC MARCO Administration Phenol/Menthol 2 sprays 05/21/25 18:57 05/21/25 19:32 Phenol Throat [place] 177 Ml MM 2 sprays Q2HR PRN Administration Throat Pain Prochlorperazine Edisylate 10 mg 05/21/25 17:57 05/23/25 02:04 Prochlorperazine 10 Mg/2 Ml Vial IVP 10 mg Q6HR PRN Administration Nausea / Vomiting Sodium Chloride 10 ml 05/21/25 17:57 05/31/25 02:32 Sodium Chloride Flush 0.9% 10 Ml Syringe IVP 10 ml PRN PRN Administration NEEDED PER PROVIDER ORDERS Sodium Chloride 10 ml 05/21/25 17:57 05/31/25 08:08 Sodium Chloride Flush 0.9% 10 Ml Syringe IVP 10 ml 0100,0900,1700 MARCO Administration Objective Vital Signs/Intake & Output Reviewed Vital Signs: Yes Vital Signs: Vital Signs x48h Temp Pulse Pulse Resp BP BP BP 05/31/25 10:17 71 110/68 05/31/25 08:14 36.1 C L 102 H 20 112/62 05/31/25 07:04 05/31/25 07:04 112 H 22 05/31/25 04:16 36.6 C 82 18 106/73 05/31/25 04:01 95 124/69 Pulse Ox O2 Flow Rate 05/31/25 10:17 05/31/25 08:14 91 L 0 05/31/25 07:04 2 05/31/25 07:04 05/31/25 04:16 93 2 05/31/25 04:01 Intake & Output: Intake & Output 05/28/25 05/29/25 05/30/25 05/31/25 23:59 23:59 23:59 23:59 Intake Total 4101 / 4101 3001 / 3001 2619 / 2619 410 / 410 Output Total 5265 / 5265 4225 / 4225 6000 / 6000 550 / 550 Balance -1164 / -1164 -1224 / -1224 -3381 / -3381 -140 / -140 Weight (kg) 112 kg 119 kg 116 kg Objective General Appearance: positive No acute distress and Alert Eyes Bilateral: positive Conjunctivae nml ENT: positive ENT inspection nml Neck: positive Nml inspection Respiratory: positive No respiratory distress and Other (Cardiac wheeze, slight) Cardiovascular: positive Regular rate & rhythm Abdomen: positive Other (abdominal dressing intact. appropriate amount of drainage. MIRNA in pelvis with serosang draiange. not copious) Skin: positive Color nml Extremities: positive Non-tender and No pedal edema Neurologic/Psychiatric: positive Oriented x3 Lab Results 05/31/25 10:25 05/31/25 10:25 Other Labs: Lab Results x24hrs 05/31/25 05/31/25 05/30/25 Range/Units 10: 06:08 23:53 WBC 10.7 (4.8-10.8) x10^3/uL RBC 3.84 L (4.20-5.40) 10^6/uL Hgb 11.1 L (12.0-16.0) g/dL Hct 35.9 L (37.0-47.0) % MCV 93.5 (81.0-99.0) fL MCH 28.9 (27.0-31.0) pg MCHC 30.9 L (32.0-36.0) g/dL RDW 14.6 (12.0-15.0) % Plt Count 330 (130-450) 10^3/uL MPV 10.8 (7.9-10.8) fL Neut # (Auto) Not Reportable Lymph # (Auto) Not Reportable [place] # (Auto) Not Reportable Eos # (Auto) Not Reportable Baso # (Auto) Not Reportable Absolute Nucleated RBC Not Reportable Total Counted 100 Band Neuts % (Manual) 3 (0 - 10) % Abnorm Lymph % (Manual) 0 % Metamyelocytes % 4 H ( - 0) % Nucleated RBC % Not Reportable Neutrophils # (Manual) 7.9 H (1.5-6.6) 10^3/uL Lymphocytes # (Manual) 1.4 L (1.5-3.5) 10^3/uL Monocytes # (Manual) 0.9 (0.0-1.0) 10^3/uL Eosinophils # (Manual) 0.1 (0-0.7) 10^3/uL Basophils # (Manual) 0.0 (0-0.1) 10^3/uL Differential Comment MANUAL DIFFERENTIAL Manual Slide Review Indicated Platelet Estimate NORMAL (130-450,000) (NORMAL) Platelet Morphology NORMAL APPEARANCE (NORMAL) RBC Morph Micro Appear NORMAL APPEARANCE (NORMAL) Sodium 135 (135-145) mmol/L Potassium 3.4 L (3.5-4.5) mmol/L Chloride 108 (101-111) mmol/L Carbon Dioxide 24 (21-32) mmol/L Anion Gap 3.0 L (6-13) BUN 18 (6-20) mg/dL Creatinine 0.5 L (0.6-1.3) mg/dL Estimated GFR (MDRD) 124 (>89) Glucose 192 H (74-104) mg/dL POC Whole Bld Glucose 196 181 (70-100) mg/dL Calcium 6.7 L (8.5-10.3) mg/dL 10/24/25 Range/Units 16:34 WBC (4.8-10.8) x10^3/uL RBC (4.20-5.40) 10^6/uL Hgb (12.0-16.0) g/dL Hct (37.0-47.0) % MCV (81.0-99.0) fL MCH (27.0-31.0) pg MCHC (32.0-36.0) g/dL RDW (12.0-15.0) % Plt Count (130-450) 10^3/uL MPV (7.9-10.8) fL Neut # (Auto) Lymph # (Auto) [place] # (Auto) Eos # (Auto) Baso # (Auto) Absolute Nucleated RBC Total Counted Band Neuts % (Manual) (0 - 10) % Abnorm Lymph % (Manual) % Metamyelocytes % ( - 0) % Nucleated RBC % Neutrophils # (Manual) (1.5-6.6) 10^3/uL Lymphocytes # (Manual) (1.5-3.5) 10^3/uL Monocytes # (Manual) (0.0-1.0) 10^3/uL Eosinophils # (Manual) (0-0.7) 10^3/uL Basophils # (Manual) (0-0.1) 10^3/uL Differential Comment Manual Slide Review Platelet Estimate (NORMAL) Platelet Morphology (NORMAL) RBC Morph Micro Appear (NORMAL) Sodium (135-145) mmol/L Potassium (3.5-4.5) mmol/L Chloride (101-111) mmol/L Carbon Dioxide (21-32) mmol/L Anion Gap (6-13) BUN (6-20) mg/dL Creatinine (0.6-1.3) mg/dL Estimated GFR (MDRD) (>89) Glucose (74-104) mg/dL POC Whole Bld Glucose 170 (70-100) mg/dL Calcium (8.5-10.3) mg/dL Assessment/Plan Problem List (1) Small bowel obstruction: Impression: 64F who presents with inability to tolerate po for 5 days. No flatus or BM for 5 days. remote surgical hx of open cholecystectomy and hysterectomy. She denies hx of SBO. Taken to the OR 05/23 for dx laparoscopy. Ulitmately required laparotomy with small bowel resection for Meckels/small bowel torsion/perforation. NG in place. MIRNA drain in the pelvis draining serosang fluid. Abdominal closure dressed, not taken down today. She is now POD #5 PPN was started on the evening of POD #1, given the amount of time she had been without nutrition. Required ICU in the immediate postop setting for Levophed. These have been discontinued and she is now out of ICU Incidence of levophed infiltration left upper arm prior to central line placement- arm looks fine, no evidence of skin necrosis. no increasing pain here. 05/29: Discontinued antibiotics as she has received 5 days since source control. Remains afebrile, WBC not elevated 05/30: Continues to have no flatus or BM. Continuing NGT, sips/chips. Encouraging out of bed, chewing gum (2) CHF (congestive heart failure): Impression: Reported history of CHF Echo 05/22 shows EF 65 to 70%. Could not assess diastolic dysfunction due to atrial fibrillation She is started to report some dyspnea. Chest x-ray shows concern for fluid overload Furosemide 20 mg IV daily She is not on IV fluids, but is on TPN (3) Acute kidney injury: Impression: Resolved. Continue daily BMP (4) Atrial fibrillation with RVR: Impression: She had this at the time of admission, then not again till overnight. Metoprolol scheduled, 5 mg IV every 6 hours She has been mildly bradycardic, I am decreasing her scheduled metoprolol to 2.5mg q6h. Could consider amiodarone IV, as she is not able to take PO at this time. At home, she is on Amiodarone, and metoprolol, Xarelto. Since starting the metoprolol on a scheduled basis, she has been bradycardia or had a normal heart rate, holding toprol for HR <65 05/28: Heart rate stable, continue IV metoprolol for now with holding parameters. Plan to restart home dose metoprolol succinate/amiodarone when bowel function returns (5) Hyponatremia: Impression: Resolved (6) Diabetes: Impression: A1c 5.6 Holding home dose Ozempic while in the hospital SSI coverage, especially given on TPN Suggest that she not continue Ozempic in the outpatient setting given her recent small bowel obstruction 05/30: Sugars have been well-controlled even on TPN, discontinuing glucose checks (7) Hypokalemia: Impression: Repleted and resolved. BMP daily (8) Depression: Impression: It has been poorly controlled. As soon as she can take PO, will restart her meds, but will need primary care followup. (9) Hypothyroid: Impression: She has been NPO for some time and is expected to be so. IV synthroid per pharmacy dosage recommendations. She is getting 240mcg IV q Monday and .
[2025-05-31] MEDS: FUROSEMIDE 20 MG/2 ML VIAL IVP SCH (12:02)
[2025-05-31] MEDS: POTASSIUM CHLOR 10 MEQ/100 ML 10 MEQ/100 ML BAG IV SCH (12:03)
--- NOTE | 2025-05-31 19:43 | XRAY Report ---
PROCEDURE: XR Chest for Line Placement INDICATIONS: Line placement TECHNIQUE: One view of the chest was acquired. COMPARISON: 05/30/2025 FINDINGS: Surgical changes and devices: A right-sided central line is seen, which is similar to the prior examination. The proximal portion is coiled, which is presumed to be outside of the patient. A gastric tube is seen, with the tip extending at least to the mid stomach. Lungs and pleura: An incomplete inspiratory result is noted, with low lung volumes and crowding of the vascular markings. No focal infiltrates are seen. No large pneumothorax or large pleural effusion can be seen. Mediastinum: Mediastinal contours appear normal. Heart size is normal. Calcification is seen of the aortic arch. Bones and chest wall: No suspicious bony lesions. Age-appropriate degenerative changes are seen. Overlying soft tissues appear unremarkable. IMPRESSION: A right-sided central line is seen, which appears similar to the prior chest radiograph. The proximal portion coiled, which is presumed to be outside of the patient. However, please correlate with history and physical examination findings. A gastric tube is seen, with the tip extending at least to the mid stomach. Reviewed by: Jese Sanchez MD on 05/31/2025 6:40 PM YIFAN Approved by: Jese Sanchez MD on 05/31/2025 6:40 PM OHMICHAEL Station ID: [id number]
[2025-05-31] MEDS: BISACODYL 10 MG SUPP PR STA (22:11)
[2025-06-01 04:56] LABS: INR 1.1 (0.8-1.2); PT - PROTHROMBIN TIME 12.5 secs (9.9-12.6)
[2025-06-01 05:08] LABS: HCT - HEMATOCRIT 34.6 % (37.0-47.0); HGB - HEMOGLOBIN 11.2 g/dL (12.0-16.0); MEAN PLATELET VOLUME 10.7 fL (7.9-10.8); PLT - PLATELET COUNT 381 10^3/uL (130-450); RED CELL DISTRIBUTION WIDTH 14.6 % (12.0-15.0)
[2025-06-01 05:11] LABS: ALT ALANINE AMINOTRANSFERASE 8.0 IU/L (10-60); AST ASPARTATE AMINOTRANSFERASE 13.0 IU/L (10-42); BUN - BLOOD UREA NITROGEN 20.0 mg/dL (6-20); CARBON DIOXIDE - CO2 28.0 mmol/L (21-32); CREATININE 0.6 mg/dL (0.6-1.3); GFR - MDRD 100.0 (>89); PHOSPHORUS 2.9 mg/dL (2.5-5.0)
[2025-06-01 05:17] LABS: SLIDE REVIEW? Indicated
[2025-06-01 05:19] LABS: ABNORMAL LYMPHS % (MANUAL) 0 %; BASOPHILS # (MANUAL) 0.0 10^3/uL (0-0.1)
[2025-06-01 06:06] LABS: BAND NEUTROPHILS % (MANUAL) 2 %; EOSINOPHILS # (MANUAL) 0.2 10^3/uL (0-0.7); LYMPHOCYTES # (MANUAL) 2.8 10^3/uL (1.5-3.5); LYMPHOCYTES % (MANUAL) 24 %; METAMYELOCYTES % (MANUAL) 8 %; MONOCYTES # (MANUAL) 0.6 10^3/uL (0.0-1.0); MYELOCYTES % (MANUAL) 2 %; NEUTROPHILS # (MANUAL) 6.8 10^3/uL (1.5-6.6)
[2025-06-01 06:07] LABS: PLATELET ESTIMATE, MANUAL NORMAL (130-450,000) (NORMAL)
[2025-06-01 06:10] LABS: PLATELET MORPHOLOGY NORMAL APP (NORMAL); RBC MORPHOLOGY (MULTIPLE) 1+ ANISOCYTOSIS (NORMAL)
--- NOTE | 2025-06-01 11:04 | PROVIDER PROGRESS NOTE ---
Subjective General Admit Date: 05/21/25 Procedure Date: 05/23/25 Post Op Days: 9 Procedure Performed: ExLap, small bowel resection Other Other Information/Narrative: Patient states that she has had a slight increase in her abdominal discomfort without significant bowel function, she states she had a small ever so small fart with the suppository Wound Assessment Wound/Incisions: positive Drainage (Serosanguineous) Review of Systems I did not complete a review of systems today. Still no significant bowel movement or flatus. Exam Exam Vital Signs: Vital Signs x48h Temp Pulse Pulse Resp BP BP Pulse Ox 06/01/25 11:04 84 110/59 L 06/01/25 08:49 36.5 C 84 18 110/59 L 93 06/01/25 07:14 100 22 General: 64-year old female, appears deconditioned, evaluated in room 2201 at [facility], today in bed HEENT: Normocephalic, atraumatic, extraocular movement intact, mucous membranes pink and moist, sclera anicteric and not injected Neck: Trachea midline Cardiac: Regular rate and rhythm without rub, gallop, or murmur Chest: Clear to auscultation bilaterally Abdomen: Soft, nontender, decreased bowel sounds, no hepatomegaly, no splenomegaly, no peritoneal findings, wound peaked at not completely changed and clean with [place] in place Genitourinary: Deferred Rectal: Deferred Extremities: No gross neurovascular problem, no clubbing, cyanosis or edema, good bilaterally 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 POD#9, s/p DxLap --> Ex Lap, lysis of adhesions, 75cm small bowel resection (05/23, Dr. Alcocer). Etiology of SBO Adhesions + Meckel's diverticulum. Intraoperative findings of small bowel twisted around adhesion between meckel's diverticulum and root of mesentery, two small bowel perforations identified upon release of obstruction at locations of twisting. Large volume succus contamination of peritoneal cavity, extensive irrigation done at time of surgery. Patient in bed when I evaluated her today. Patient requiring a large amount of help in order to move. She is certainly not at her preop activity baseline. Nasogastric output is significant but this may be due to the large amount of ice chips that the patient is consuming. I was informed that there is no OT at this hospital has not been for several months. Awaiting bowel function to return and once this does obviously the NG tube will be discontinued and the patient will be started on a diet. The rectal suppository had no effect. As this patient is significantly deconditioned the patient will need rehabilitation following her hospitalization and as such to my understanding plans are already underway for this. 1) FEN Continue current regimen as we await return of bowel function. 2) Pain Controlled with current regimen. 3) Wound Open and being allowed to heal by secondary intention. I believe that a wound VAC will be beneficial in this instance and will plan on placing it I believe on Monday as I do not think that there is a wound care nurse available on the weekend. I will check. I did not change the dressing today - wound is clean work on wound vac tomorrow. 4) Activity Physical therapy is working with the patient and is doing is much as they can. Aggressive physical therapy is what is necessary at this point in time but I do not think even with their best work this will obviate the need for rehab on her discharge. 5) ID Unfortunately with elevated sugars and elevated WBC will order CT scan of abdomen and pelvis today. Patient is at risk of infection with the nature of her surgery and deconditioning. If no concerning features will try clamping NG tube to hopefully elicit bowel function. We will continue to follow until bowel function returns and wound care issues are adequately addressed. Certainly appreciate working with our internal medicine colleagues. CPT 85289
[2025-06-01] MEDS: INSULIN REGULAR, HUMAN 300 UNIT/3 ML PEN SUBQ SCH (12:52)
--- NOTE | 2025-06-01 12:52 | PROVIDER PROGRESS NOTE ---
Subjective Prog Note Date Prog Note Date: 06/01/25 Subjective Pt reports feeling: No change Current Medications Current Medications Current Medications: Current Medications Generic Name Dose Route Start Last Admin Trade Name Freq PRN Reason Stop Dose Admin Albuterol/Ipratropium 3 ml 05/30/25 18:44 06/01/25 07:12 Ipratropium/Albuterol 3 Ml Neb INH 3 ml RTQID PRN Administration Shortness of Air/Wheezing Budesonide 0.5 mg 05/30/25 19:00 06/01/25 07:12 Budesonide 0.5 Mg/2 Ml Neb INH 0.5 mg RTBID MARCO Administration Diphenhydramine HCl 25 mg 05/25/25 09:45 Diphenhydramine Inj 50 Mg/Ml Vial IVP Q6H PRN Anaphylaxis Enoxaparin Sodium 40 mg 05/28/25 09:00 06/01/25 08:35 Enoxaparin 40 Mg/0.4 Ml Syringe SUBQ 40 mg DAILY MARCO Administration Furosemide 20 mg 05/31/25 12:00 06/01/25 08:35 Furosemide 20 Mg/2 Ml Vial IVP 06/05/25 11:59 20 mg DAILY MARCO Administration Hydromorphone HCl 0.5 mg 05/21/25 17:57 06/01/25 07:41 Hydromorphone 0.5 Mg/0.5 Ml Syringe IVP 0.5 mg Q2H PRN Administration Pain 8 to 10 Fat Emulsion Intravenous 250 mls @ 21 mls/hr 05/24/25 19:00 06/01/25 09:48 Intralipid 20% IV Infused 1900 MARCO Infusion Acetaminophen 1,000 mg in 100 mls @ 400 mls/hr 05/24/25 15:00 06/01/25 07:28 Acetaminophen IV Infused Q8HR MARCO Infusion Multivitamins 10 ml/ Zinc/ 2,011 mls @ 83 mls/hr 05/26/25 19:00 05/31/25 21:41 Copper/Manganese/Selenium 1 ml IV 83 mls/hr / Amino Ac/Electrol/Dextrose/ 1900 MARCO Administration Calcium Protocol Insulin Human Regular 1 - 5 unit 06/01/25 12:00 Insulin Regular, Human 300 Unit/3 Ml Pen SUBQ Q6HR MARCO Protocol Levothyroxine Sodium 240 mcg 05/26/25 15:00 05/29/25 14:52 Levothyroxine 100 Mcg Vial IVP 240 mcg MoTh MARCO Administration Metoprolol Tartrate 2.5 mg 05/27/25 16:10 06/01/25 11:04 Metoprolol 5 Mg/5 Ml Vial IVP 2.5 mg Q6H MARCO Administration Ondansetron HCl 4 mg 05/21/25 17:57 05/30/25 00:04 Ondansetron 4 Mg/2 Ml Vial IVP 4 mg Q6HR PRN Administration Nausea / Vomiting Pantoprazole Sodium 20 mg 05/26/25 11:00 06/01/25 06:42 Pantoprazole 40 Mg Vial IVP 20 mg QDAC MARCO Administration Phenol/Menthol 2 sprays 05/21/25 18:57 05/21/25 19:32 Phenol Throat [place] 177 Ml MM 2 sprays Q2HR PRN Administration Throat Pain Prochlorperazine Edisylate 10 mg 05/21/25 17:57 05/23/25 02:04 Prochlorperazine 10 Mg/2 Ml Vial IVP 10 mg Q6HR PRN Administration Nausea / Vomiting Sodium Chloride 10 ml 05/21/25 17:57 06/01/25 06:43 Sodium Chloride Flush 0.9% 10 Ml Syringe IVP 10 ml PRN PRN Administration NEEDED PER PROVIDER ORDERS Sodium Chloride 10 ml 05/21/25 17:57 06/01/25 08:35 Sodium Chloride Flush 0.9% 10 Ml Syringe IVP 10 ml 0100,0900,1700 MARCO Administration Objective Vital Signs/Intake & Output Reviewed Vital Signs: Yes Vital Signs: Vital Signs x48h Temp Pulse Pulse Resp BP BP Pulse Ox 06/01/25 11:04 84 110/59 L 06/01/25 08:49 36.5 C 84 18 110/59 L 93 06/01/25 07:14 100 22 Intake & Output: Intake & Output 05/29/25 05/30/25 05/31/25 06/01/25 23:59 23:59 23:59 23:59 Intake Total 3001 / 3001 2619 / 2619 3061 / 3061 360 / 360 Output Total 4225 / 4225 6000 / 6000 4615 / 4615 3485 / 3485 Balance -1224 / -1224 -3381 / -3381 -1554 / -1554 -3125 / -3120 Weight (kg) 119 kg 116 kg 99 kg Objective General Appearance: positive No acute distress and Alert Eyes Bilateral: positive Conjunctivae nml ENT: positive ENT inspection nml Neck: positive Nml inspection Respiratory: positive No respiratory distress and Other (Cardiac wheeze, slight) Cardiovascular: positive Regular rate & rhythm Abdomen: positive Other (abdominal dressing intact. appropriate amount of drainage. MIRNA in pelvis with serosang draiange. not copious) Skin: positive Color nml Extremities: positive Non-tender and No pedal edema Neurologic/Psychiatric: positive Oriented x3 Lab Results 06/01/25 04:35 06/01/25 04:35 Other Labs: Lab Results x24hrs 06/01/25 06/01/25 06/01/25 Range/Units 12:15 04:35 04:35 WBC 11.5 H (4.8-10.8) x10^3/uL RBC 3.78 L (4.20-5.40) 10^6/uL Hgb 11.2 L (12.0-16.0) g/dL Hct 34.6 L (37.0-47.0) % MCV 91.5 (81.0-99.0) fL MCH 29.6 (27.0-31.0) pg MCHC 32.4 (32.0-36.0) g/dL RDW 14.6 (12.0-15.0) % Plt Count 381 (130-450) 10^3/uL MPV 10.7 (7.9-10.8) fL Neut # (Auto) Not Reportable Lymph # (Auto) Not Reportable [place] # (Auto) Not Reportable Eos # (Auto) Not Reportable Baso # (Auto) Not Reportable Absolute Nucleated RBC Not Reportable Total Counted 100 Band Neuts % (Manual) 2 (0 - 10) % Abnorm Lymph % (Manual) 0 % Metamyelocytes % 8 H ( - 0) % Myelocytes % 2 H ( - 0) % Nucleated RBC % Not Reportable Neutrophils # (Manual) 6.8 H (1.5-6.6) 10^3/uL Lymphocytes # (Manual) 2.8 (1.5-3.5) 10^3/uL Monocytes # (Manual) 0.6 (0.0-1.0) 10^3/uL Eosinophils # (Manual) 0.2 (0-0.7) 10^3/uL Basophils # (Manual) 0.0 (0-0.1) 10^3/uL Differential Comment MANUAL DIFFERENTIAL Manual Slide Review Indicated WBC Morphology 3+ TOXIC GRANULATION 3+ HYPERSEG NEUT (NORMAL) Platelet Estimate NORMAL (130-450,000) (NORMAL) Platelet Morphology NORMAL WILLIAM (NORMAL) RBC Morph Micro Appear 1+ ANISOCYTOSIS (NORMAL) PT 12.5 (9.9-12.6) secs INR 1.1 (0.8-1.2) Sodium 132 L (135-145) mmol/L Potassium 4.1 (3.5-4.5) mmol/L Chloride 100 L (101-111) mmol/L Carbon Dioxide 28 (21-32) mmol/L Anion Gap 4.0 L (6-13) BUN 20 (6-20) mg/dL Creatinine 0.6 (0.6-1.3) mg/dL Estimated GFR (MDRD) 100 (>89) Glucose 176 H (74-104) mg/dL POC Whole Bld Glucose 175 (70-100) mg/dL Calcium 8.3 L (8.5-10.3) mg/dL Phosphorus 2.9 (2.5-5.0) mg/dL Magnesium 1.8 (1.7-2.3) mg/dL Total Bilirubin 0.3 (0.2-1.0) mg/dL AST 13 (10-42) IU/L ALT 8 L (10-60) IU/L Alkaline Phosphatase 80 (42-121) IU/L C-React Prot High Sens 96.30 mg/L Total Protein 5.1 L (6.4-8.9) g/dL Albumin 2.4 L (3.2-5.5) g/dL Globulin 2.7 (2.1-4.2) g/dL Albumin/Globulin Ratio 0.9 L (1.0-2.2) Prealbumin 16 L (17-34) mg/dL Assessment/Plan Problem List (1) Small bowel obstruction: Impression: 64F who presents with inability to tolerate po for 5 days. No flatus or BM for 5 days. remote surgical hx of open cholecystectomy and hysterectomy. She denies hx of SBO. Taken to the OR 05/23 for dx laparoscopy. Ulitmately required laparotomy with small bowel resection for Meckels/small bowel torsion/perforation. NG in place. MIRNA drain in the pelvis draining serosang fluid. Abdominal closure dressed, not taken down today. She is now POD #5 PPN was started on the evening of POD #1, given the amount of time she had been without nutrition. Required ICU in the immediate postop setting for Levophed. These have been discontinued and she is now out of ICU Incidence of levophed infiltration left upper arm prior to central line placement- arm looks fine, no evidence of skin necrosis. no increasing pain here. 05/29: Discontinued antibiotics as she has received 5 days since source control. Remains afebrile, WBC not elevated 05/30: Continues to have no flatus or BM. Continuing NGT, sips/chips. Encouraging out of bed, chewing gum 05/31: No change 06/01: No change, no flatus or BM. CT abdomen ordered by surgery. She does have an increasing white blood cell count, now that she is off antibiotics. No infectious symptoms. I discussed case with surgery, and will attempt NG tube clamping trial just for a few hours at a time if there is nothing acute on the CT abdomen/pelvis. I also scoured the hospital and found various types of hard candies for her to suck on to promote return of bowel function (2) Acute kidney injury: Impression: Resolved. Continue daily BMP (3) Atrial fibrillation with RVR: Impression: She had this at the time of admission, then not again till overnight. Metoprolol scheduled, 5 mg IV every 6 hours She has been mildly bradycardic, I am decreasing her scheduled metoprolol to 2.5mg q6h. Could consider amiodarone IV, as she is not able to take PO at this time. At home, she is on Amiodarone, and metoprolol, Xarelto. Since starting the metoprolol on a scheduled basis, she has been bradycardia or had a normal heart rate, holding toprol for HR <65 05/28: Heart rate stable, continue IV metoprolol for now with holding parameters. Plan to restart home dose metoprolol succinate/amiodarone when bowel function returns (4) Hyponatremia: Impression: Resolved (5) Diabetes: Impression: A1c 5.6 Holding home dose Ozempic while in the hospital SSI coverage, especially given on TPN Suggest that she not continue Ozempic in the outpatient setting given her recent small bowel obstruction 05/30: Sugars have been well-controlled even on TPN, discontinuing glucose checks 06/01: Glucose is starting to rise. Restarting SSI (6) Hypokalemia: Impression: Repleted and resolved. BMP daily (7) Depression: Impression: It has been poorly controlled. As soon as she can take PO, will restart her meds, but will need primary care followup. (8) Hypothyroid: Impression: She has been NPO for some time and is expected to be so. IV synthroid per pharmacy dosage recommendations. She is getting 240mcg IV q Monday and . (9) CHF (congestive heart failure): Impression: Reported history of CHF Echo 05/22 shows EF 65 to 70%. Could not assess diastolic dysfunction due to atrial fibrillation She is started to report some dyspnea. Chest x-ray shows concern for fluid overload Furosemide 20 mg IV daily She is not on IV fluids, but is on TPN
--- NOTE | 2025-06-01 13:55 | CT Report ---
PROCEDURE: CT Abdomen/Pelvis WO INDICATIONS: Elevated WBC and sugars following surgery TECHNIQUE: A CT scan of the abdomen and pelvis was performed without the use of intravenous contrast. Images were recorded and evaluated at appropriate window settings. Reformats: coronal and sagittal. For radiation dose reduction, the following was used: automated exposure control, adjustment of mA and/or kV according to patient size. COMPARISON: 05/21/2025 FINDINGS: Image quality: Diagnostic. Lower chest: There is a small right-sided pleural effusion and a trace left- sided pleural effusion. Overlying atelectasis is seen. Liver: No contour-deforming mass. Gallbladder: Removed. Biliary tree: No intrahepatic or extrahepatic dilation, accounting for age. Spleen: No splenomegaly. Pancreas: No pancreatic ductal dilation. Adrenals: No adrenal nodule. Kidneys and ureters: No hydronephrosis. No contour-deforming mass. There is a nonobstructing left-sided kidney stone measuring 13 mm and 1500 Hounsfield units. Stomach, bowel and peritoneum: The tip of the gastric tube can be seen within the mid stomach. The stomach is decompressed. Postoperative change of the small bowel within the right lower quadrant can be seen. No dilated loops of small bowel are seen. No significant colonic abnormality is seen. A surgical drainage tube is seen within the pelvis. Mild intraperitoneal fluid can be seen. No abscess is seen. No free intraperitoneal air is seen. A normal appendix is seen. Lymph nodes: No central or retroperitoneal adenopathy. Vessels: No infrarenal aortic aneurysm. Atherosclerotic calcification is seen. Reproductive organs: Unremarkable. Bladder: A Do catheter seen, which decompresses the bladder. Pelvic lymph nodes: No adenopathy by size criteria. Bones: No aggressive osseous abnormality. There is an L1 bone island seen. Lumbar spine postoperative and degenerative change can be seen. Mild levoconvex scoliotic curvature is seen. Other: No significant ventral or inguinal hernia. Postoperative change of the anterior abdominal wall can be seen. IMPRESSION: No abscess is seen. Mild intraperitoneal fluid can be seen. Postoperative change of the small bowel, with a surgical drainage tube seen within the pelvis. Small right and trace left pleural effusion, with overlying atelectasis. Gastric tube and Do catheter seen. Nonobstructing left-sided kidney stone. Reviewed by: Jese Sanchez MD on 06/01/2025 12:51 PM AKDT Approved by: Jese Sanchez MD on 06/01/2025 12:51 PM [facility] Station ID: [id number]
[2025-06-02 05:53] LABS: HCT - HEMATOCRIT 35.6 % (37.0-47.0); HGB - HEMOGLOBIN 11.0 g/dL (12.0-16.0); MEAN PLATELET VOLUME 10.8 fL (7.9-10.8); PLT - PLATELET COUNT 412.0 10^3/uL (130-450); RED CELL DISTRIBUTION WIDTH 14.5 % (12.0-15.0)
[2025-06-02 06:07] LABS: BUN - BLOOD UREA NITROGEN 18.0 mg/dL (6-20); CARBON DIOXIDE - CO2 29.0 mmol/L (21-32); CREATININE 0.5 mg/dL (0.6-1.3); GFR - MDRD 124.0 (>89)
--- NOTE | 2025-06-02 07:44 | PROVIDER PROGRESS NOTE ---
Subjective General Admit Date: 05/21/25 Procedure Date: 05/23/25 Post Op Days: 10 Procedure Performed: ExLap, small bowel resection Other Other Information/Narrative: Patient was up to the chair for several hours yesterday and ambulated to the gordon once. She denies flatus, BM. She complains mostly of incisional pain in her abdomen. No acute events overnight, specifically denies f/c. She is excited to see several family members today. Wound Assessment Wound/Incisions: positive Drainage (Serosanguineous) Drain Type: MIRNA Drain to LLQ Drain Output Description: Serous Approximate mls Output: 10 Review of Systems Status of ROS: 10 or more systems reviewed and unremarkable except as noted in history and below Exam Exam Vital Signs: Vital Signs x48h Temp Pulse Pulse Pulse Resp BP BP 06/02/25 08:53 97.5 F L 117 H 20 92/72 06/02/25 07:44 84 20 06/02/25 04:50 108 H 104/73 06/02/25 04:10 97.7 F 94 18 111/69 Pulse Ox 06/02/25 08:53 94 06/02/25 07:44 06/02/25 04:50 06/02/25 04:10 95 Gen: NAD, alert and oriented HEENT: NG in place with 1325mL out in last 24 hours CV: RRR Pulm: non labored, on RA Abd: obese, soft, ND, appropriate incisional ttp, no r/g. Deven drains in deep subcu encouraging drainage of serosang fluid, dressing in place. MIRNA with 10mL serous output in last 24 hours. Lincoln with 2500mL out in last 24 hours. Ext: no c/c/e Impression/Plan Problem List (1) Small bowel obstruction: (2) Acute kidney injury: (3) Atrial fibrillation with RVR: (4) Hyponatremia: (5) Diabetes: (6) Hypokalemia: (7) Depression: (8) Hypothyroid: (9) CHF (congestive heart failure): Plan 64 y/o F admitted 05/21 with first small bowel obstruction; failed NGT decompression and gastrograffin trial, thus underwent operative management. POD#10, s/p DxLap --> Ex Lap, lysis of adhesions, 75cm small bowel resection (05/23, Dr. Alcocer). Etiology of SBO Adhesions + Meckel's diverticulum. Intraoperative findings of small bowel twisted around adhesion between meckel's diverticulum and root of mesentery, two small bowel perforations identified upon release of obstruction at locations of twisting. Large volume succus contamination of peritoneal cavity, extensive irrigation done at time of surgery. ID: post op abx complete, leukocytosis increased again today, 10-->10. 7-->11.5-->12.3 Patient denies f/c. No obvious source of infection identified on CT yesterday. If wbc continues to climb, consider infectious workup with blood cx, UA, CXR, B LE venous ultrasound. Pain: scheduled IV tylenol, prn narcotic (no NSAIDS given ARF early in admission) Card/Pulm: H/o CHF, Afib with RVR, COPD - mgmt per IM, appreciate recs. Echo during this admission (05/22) with normal EF. - required pressors for two days after surgery, but HD stable for last week - CVL in place GI/Fen: NGT decompression until return of bowel function. 1325mL bilious fluid out in last 24 hours, patient taking ice chips. - I personally interpreted the images from the CT done yesterday. No contrast used. No abscess, very small amount of free fluid, no free air. - NGT to LIWS, ice chips for comfort ok. Prolonged delay in return of bowel function can occur after extensive bowel manipulation. I again discussed the goals to minimize narcotic, increase activity, and be as patient as possible with the team and patient. Continue to encourage activity, replace electrolytes. Consider gastrograffin study this week if bowel function not improved as this can sometimes "kickstart" the bowel. - NPO/TPN running, continue TPN until bowel function returns - MIRNA drain to bulb suction (in pelvis), serosang output low, MIRNA removed this AM. - Midline wound closed over Deven drain (cut in half) in subQ, change ABD/cover dressing daily, would consider Provena wound vac placement - replete electrolytes per protocol : - ARF, resolved. - Will remove lincoln today. Heme: - Hgb stable, continue dvt ppx Discharge planning: - PT following, patient encouraged to increase activity Ppx: lovenox, PPI Patient admitted to hospitalist service due to comorbidities. Surgery will continue to follow closely. Plan of care discussed with operating surgeon (Dr. Alcocer), medicine team (Dr. Gutierrez), RN, and patient this AM.
--- NOTE | 2025-06-02 11:53 | PROVIDER PROGRESS NOTE ---
Subjective Prog Note Date Prog Note Date: 06/02/25 Subjective Pt reports feeling: No change Current Medications Current Medications Current Medications: Current Medications Generic Name Dose Route Start Last Admin Trade Name Freq PRN Reason Stop Dose Admin Albuterol/Ipratropium 3 ml 05/30/25 18:44 06/02/25 07:44 Ipratropium/Albuterol 3 Ml Neb INH 3 ml RTQID PRN Administration Shortness of Air/Wheezing Budesonide 0.5 mg 05/30/25 19:00 06/02/25 07:44 Budesonide 0.5 Mg/2 Ml Neb INH 0.5 mg RTBID MARCO Administration Diphenhydramine HCl 25 mg 05/25/25 09:45 Diphenhydramine Inj 50 Mg/Ml Vial IVP Q6H PRN Anaphylaxis Enoxaparin Sodium 40 mg 05/28/25 09:00 06/02/25 08:51 Enoxaparin 40 Mg/0.4 Ml Syringe SUBQ 40 mg DAILY MARCO Administration Furosemide 20 mg 05/31/25 12:00 06/02/25 08:51 Furosemide 20 Mg/2 Ml Vial IVP 06/05/25 11:59 20 mg DAILY MARCO Administration Hydromorphone HCl 0.5 mg 05/21/25 17:57 06/02/25 08:51 Hydromorphone 0.5 Mg/0.5 Ml Syringe IVP 0.5 mg Q2H PRN Administration Pain 8 to 10 Fat Emulsion Intravenous 250 mls @ 21 mls/hr 05/24/25 19:00 06/02/25 08:46 Intralipid 20% IV Infused 1900 MARCO Infusion Acetaminophen 1,000 mg in 100 mls @ 400 mls/hr 05/24/25 15:00 06/02/25 05:42 Acetaminophen IV Infused Q8HR MARCO Infusion Multivitamins 10 ml/ Zinc/ 2,011 mls @ 83 mls/hr 05/26/25 19:00 06/01/25 20:23 Copper/Manganese/Selenium 1 ml IV 83 mls/hr / Amino Ac/Electrol/Dextrose/ 1900 MARCO Administration Calcium Protocol Insulin Human Regular 1 - 5 unit 06/01/25 12:00 06/02/25 06:08 Insulin Regular, Human 300 Unit/3 Ml Pen SUBQ Not Given Q6HR MARCO Protocol Levothyroxine Sodium 240 mcg 05/26/25 15:00 05/29/25 14:52 Levothyroxine 100 Mcg Vial IVP 240 mcg MoTh MARCO Administration Metoprolol Tartrate 2.5 mg 05/27/25 16:10 06/02/25 10:03 Metoprolol 5 Mg/5 Ml Vial IVP Not Given Q6H MARCO Ondansetron HCl 4 mg 05/21/25 17:57 05/30/25 00:04 Ondansetron 4 Mg/2 Ml Vial IVP 4 mg Q6HR PRN Administration Nausea / Vomiting Pantoprazole Sodium 20 mg 05/26/25 11:00 06/02/25 07:05 Pantoprazole 40 Mg Vial IVP 20 mg QDAC MARCO Administration Phenol/Menthol 2 sprays 05/21/25 18:57 05/21/25 19:32 Phenol Throat [place] 177 Ml MM 2 sprays Q2HR PRN Administration Throat Pain Prochlorperazine Edisylate 10 mg 05/21/25 17:57 05/23/25 02:04 Prochlorperazine 10 Mg/2 Ml Vial IVP 10 mg Q6HR PRN Administration Nausea / Vomiting Sodium Chloride 10 ml 05/21/25 17:57 06/02/25 07:05 Sodium Chloride Flush 0.9% 10 Ml Syringe IVP 10 ml PRN PRN Administration NEEDED PER PROVIDER ORDERS Sodium Chloride 10 ml 05/21/25 17:57 06/02/25 08:51 Sodium Chloride Flush 0.9% 10 Ml Syringe IVP 10 ml 0100,0900,1700 MARCO Administration Objective Vital Signs/Intake & Output Reviewed Vital Signs: Yes Vital Signs: Vital Signs x48h Temp Pulse Pulse Pulse Resp BP BP 06/02/25 10:03 117 H 92/72 06/02/25 08:53 97.5 F L 117 H 20 92/72 06/02/25 07:44 84 20 06/02/25 04:50 108 H 104/73 06/02/25 04:10 97.7 F 94 18 111/69 Pulse Ox 06/02/25 10:03 06/02/25 08:53 94 06/02/25 07:44 06/02/25 04:50 06/02/25 04:10 95 Intake & Output: Intake & Output 05/30/25 05/31/25 06/01/25 10/27/25 23:59 23:59 23:59 23:59 Intake Total 2619 / 2619 3061 / 3061 2444 / 2444 410 / 410 Output Total 6000 / 6000 4615 / 4615 4135 / 4135 2910 / 2910 Balance -3381 / -3381 -1554 / -1554 -1691 / -1691 -2500 / -2500 Weight (kg) 255 lb 11.779 oz 218 lb 4.122 oz Objective General Appearance: positive No acute distress and Alert Eyes Bilateral: positive Conjunctivae nml ENT: positive ENT inspection nml Neck: positive Nml inspection Respiratory: positive No respiratory distress and Other (Cardiac wheeze, slight) Cardiovascular: positive Regular rate & rhythm Abdomen: positive Other (abdominal dressing intact. appropriate amount of drainage. MIRNA in pelvis with serosang draiange. not copious) Skin: positive Color nml Extremities: positive Non-tender and No pedal edema Neurologic/Psychiatric: positive Oriented x3 Lab Results 06/02/25 05:20 06/02/25 05:20 Other Labs: Lab Results x24hrs 06/02/25 06/02/25 06/02/25 Range/Units 11:10 06:03 05:20 WBC 12.3 H (4.8-10.8) x10^3/uL RBC 3.87 L (4.20-5.40) 10^6/uL Hgb 11.0 L (12.0-16.0) g/dL Hct 35.6 L (37.0-47.0) % MCV 92.0 (81.0-99.0) fL MCH 28.4 (27.0-31.0) pg MCHC 30.9 L (32.0-36.0) g/dL RDW 14.5 (12.0-15.0) % Plt Count 412 (130-450) 10^3/uL MPV 10.8 (7.9-10.8) fL Sodium 134 L (135-145) mmol/L Potassium 4.0 (3.5-4.5) mmol/L Chloride 101 (101-111) mmol/L Carbon Dioxide 29 (21-32) mmol/L Anion Gap 4.0 L (6-13) BUN 18 (6-20) mg/dL Creatinine 0.5 L (0.6-1.3) mg/dL Estimated GFR (MDRD) 124 (>89) Glucose 130 H (74-104) mg/dL POC Whole Bld Glucose 177 136 (70-100) mg/dL Calcium 8.5 (8.5-10.3) mg/dL Magnesium 1.9 (1.7-2.3) mg/dL Troponin I High Sens 7.9 (2.3-14.8) ng/L Triglycerides 232 mg/dL 06/01/25 06/01/25 06/01/25 Range/Units 23:40 18:40 12:15 WBC (4.8-10.8) x10^3/uL RBC (4.20-5.40) 10^6/uL Hgb (12.0-16.0) g/dL Hct (37.0-47.0) % MCV (81.0-99.0) fL MCH (27.0-31.0) pg MCHC (32.0-36.0) g/dL RDW (12.0-15.0) % Plt Count (130-450) 10^3/uL MPV (7.9-10.8) fL Sodium (135-145) mmol/L Potassium (3.5-4.5) mmol/L Chloride (101-111) mmol/L Carbon Dioxide (21-32) mmol/L Anion Gap (6-13) BUN (6-20) mg/dL Creatinine (0.6-1.3) mg/dL Estimated GFR (MDRD) (>89) Glucose (74-104) mg/dL POC Whole Bld Glucose 150 155 175 (70-100) mg/dL Calcium (8.5-10.3) mg/dL Magnesium (1.7-2.3) mg/dL Troponin I High Sens (2.3-14.8) ng/L Triglycerides mg/dL Assessment/Plan Problem List (1) Small bowel obstruction: Impression: 64F who presents with inability to tolerate po for 5 days. No flatus or BM for 5 days. remote surgical hx of open cholecystectomy and hysterectomy. She denies hx of SBO. Taken to the OR 05/23 for dx laparoscopy. Ulitmately required laparotomy with small bowel resection for Meckels/small bowel torsion/perforation. NG in place. MIRNA drain in the pelvis draining serosang fluid. Abdominal closure dressed, not taken down today. She is now POD #5 PPN was started on the evening of POD #1, given the amount of time she had been without nutrition. Required ICU in the immediate postop setting for Levophed. These have been discontinued and she is now out of ICU Incidence of levophed infiltration left upper arm prior to central line placement- arm looks fine, no evidence of skin necrosis. no increasing pain here. 05/29: Discontinued antibiotics as she has received 5 days since source control. Remains afebrile, WBC not elevated 05/30: Continues to have no flatus or BM. Continuing NGT, sips/chips. Encouraging out of bed, chewing gum 05/31: No change 06/01: No change, no flatus or BM. CT abdomen ordered by surgery. She does have an increasing white blood cell count, now that she is off antibiotics. No infectious symptoms. I discussed case with surgery, and will attempt NG tube clamping trial just for a few hours at a time if there is nothing acute on the CT abdomen/pelvis. I also scoured the hospital and found various types of hard candies for her to suck on to promote return of bowel function 06/02: Patient tolerated clamping trial. I am going to continue clamping for several hours at a time throughout the day and encouraging ambulation. Continue promoting chewing gum, hard candies. Further bowel regimen per surgery (2) Acute kidney injury: Impression: Resolved. Continue daily BMP (3) Atrial fibrillation with RVR: Impression: She had this at the time of admission, then not again till overnight. Metoprolol scheduled, 5 mg IV every 6 hours She has been mildly bradycardic, I am decreasing her scheduled metoprolol to 2.5mg q6h. Could consider amiodarone IV, as she is not able to take PO at this time. At home, she is on Amiodarone, and metoprolol, Xarelto. Since starting the metoprolol on a scheduled basis, she has been bradycardia or had a normal heart rate, holding toprol for HR <65 05/28: Heart rate stable, continue IV metoprolol for now with holding parameters. Plan to restart home dose metoprolol succinate/amiodarone when bowel function returns 06/02: Since she is on clamping trial anyway for NG tube, I will restart her home dose metoprolol and amiodarone (4) Hyponatremia: Impression: Resolved (5) Diabetes: Impression: A1c 5.6 Holding home dose Ozempic while in the hospital SSI coverage, especially given on TPN Suggest that she not continue Ozempic in the outpatient setting given her recent small bowel obstruction 05/30: Sugars have been well-controlled even on TPN, discontinuing glucose checks 06/01: Glucose is starting to rise. Restarting SSI 06/02: Glucose under better control with SSI (6) Hypokalemia: Impression: Repleted and resolved. BMP daily (7) Depression: Impression: It has been poorly controlled. As soon as she can take PO, will restart her meds, but will need primary care followup. (8) Hypothyroid: Impression: She has been NPO for some time and is expected to be so. IV synthroid per pharmacy dosage recommendations. She is getting 240mcg IV q Monday and . (9) CHF (congestive heart failure): Impression: Reported history of CHF Echo 05/22 shows EF 65 to 70%. Could not assess diastolic dysfunction due to atrial fibrillation She is started to report some dyspnea. Chest x-ray shows concern for fluid overload Furosemide 20 mg IV daily She is not on IV fluids, but is on TPN
[2025-06-02] MEDS: AMIODARONE 200 MG TABLET PO SCH (12:15)
[2025-06-02] MEDS: METOPROLOL SUCCINATE 50 MG TABLET PO SCH (13:53)
[2025-06-03 06:40] LABS: BUN - BLOOD UREA NITROGEN 22.0 mg/dL (6-20); CARBON DIOXIDE - CO2 28.0 mmol/L (21-32); CREATININE 0.6 mg/dL (0.6-1.3); GFR - MDRD 100.0 (>89); PHOSPHORUS 3.7 mg/dL (2.5-5.0)
[2025-06-03 07:41] LABS: HCT - HEMATOCRIT 32.8 % (37.0-47.0); HGB - HEMOGLOBIN 10.1 g/dL (12.0-16.0); MEAN PLATELET VOLUME 10.8 fL (7.9-10.8); NRBC ABSOLUTE COUNT (AUTO) 0.00 x10^3/uL; NUCLEATED RED BLOOD CELLS AUTO 0.0 /100WBC; PLT - PLATELET COUNT 482 10^3/uL (130-450); RED CELL DISTRIBUTION WIDTH 14.6 % (12.0-15.0)
--- NOTE | 2025-06-03 12:47 | PROVIDER PROGRESS NOTE ---
Subjective Prog Note Date Prog Note Date: 06/03/25 Subjective Pt reports feeling: Improved Subjective: Reports bowel movement Current Medications Current Medications Current Medications: Current Medications Generic Name Dose Route Start Last Admin Trade Name Freq PRN Reason Stop Dose Admin Albuterol/Ipratropium 3 ml 05/30/25 18:44 06/03/25 07:25 Ipratropium/Albuterol 3 Ml Neb INH 3 ml RTQID PRN Administration Shortness of Air/Wheezing Amiodarone HCl 200 mg 06/02/25 12:00 06/03/25 09:20 Amiodarone 200 Mg Tablet PO 200 mg DAILY MARCO Administration Budesonide 0.5 mg 05/30/25 19:00 06/03/25 07:24 Budesonide 0.5 Mg/2 Ml Neb INH 0.5 mg RTBID MARCO Administration Diphenhydramine HCl 25 mg 05/25/25 09:45 Diphenhydramine Inj 50 Mg/Ml Vial IVP Q6H PRN Anaphylaxis Enoxaparin Sodium 40 mg 05/28/25 09:00 06/03/25 09:20 Enoxaparin 40 Mg/0.4 Ml Syringe SUBQ 40 mg DAILY MARCO Administration Furosemide 20 mg 05/31/25 12:00 06/03/25 09:20 Furosemide 20 Mg/2 Ml Vial IVP 06/05/25 11:59 20 mg DAILY MARCO Administration Hydromorphone HCl 0.5 mg 05/21/25 17:57 06/03/25 09:22 Hydromorphone 0.5 Mg/0.5 Ml Syringe IVP 0.5 mg Q2H PRN Administration Pain 8 to 10 Acetaminophen 1,000 mg in 100 mls @ 400 mls/hr 05/24/25 15:00 06/03/25 05:41 Acetaminophen IV 400 mls/hr Q8HR MARCO Administration Multivitamins 10 ml/ Zinc/ 2,011 mls @ 83 mls/hr 05/26/25 19:00 06/02/25 19:54 Copper/Manganese/Selenium 1 ml IV 06/03/25 18:59 83 mls/hr / Amino Ac/Electrol/Dextrose/ 1900 MARCO Administration Calcium Protocol Insulin Human Regular 1 - 5 unit 06/01/25 12:00 06/03/25 11:32 Insulin Regular, Human 300 Unit/3 Ml Pen SUBQ Not Given Q6HR [facility] Protocol Levothyroxine Sodium 112 mcg 06/04/25 07:00 Levothyroxine 112 Mcg Tablet PO QDAC MARCO Levothyroxine Sodium 25 mcg 06/04/25 07:00 Levothyroxine 25 Mcg Tablet PO QDAC MARCO Metoprolol Succinate 100 mg 06/02/25 12:00 06/03/25 09:20 Metoprolol Succinate 50 Mg Tablet PO 100 mg DAILY MARCO Administration Ondansetron HCl 4 mg 05/21/25 17:57 06/03/25 00:36 Ondansetron 4 Mg/2 Ml Vial IVP 4 mg Q6HR PRN Administration Nausea / Vomiting Pantoprazole Sodium 20 mg 05/26/25 11:00 06/03/25 05:37 Pantoprazole 40 Mg Vial IVP 20 mg QDAC MARCO Administration Phenol/Menthol 2 sprays 05/21/25 18:57 05/21/25 19:32 Phenol Throat [place] 177 Ml MM 2 sprays Q2HR PRN Administration Throat Pain Prochlorperazine Edisylate 10 mg 05/21/25 17:57 05/23/25 02:04 Prochlorperazine 10 Mg/2 Ml Vial IVP 10 mg Q6HR PRN Administration Nausea / Vomiting Sodium Chloride 10 ml 05/21/25 17:57 06/02/25 07:05 Sodium Chloride Flush 0.9% 10 Ml Syringe IVP 10 ml PRN PRN Administration NEEDED PER PROVIDER ORDERS Sodium Chloride 10 ml 05/21/25 17:57 06/03/25 09:20 Sodium Chloride Flush 0.9% 10 Ml Syringe IVP 10 ml 0100,0900,1700 MARCO Administration Objective Vital Signs/Intake & Output Reviewed Vital Signs: Yes Vital Signs: Vital Signs x48h Temp Pulse Pulse Resp BP BP Pulse Ox 06/03/25 10:12 100/72 06/03/25 08:10 97.3 F L 71 18 99/59 L 96 06/03/25 07:26 78 20 06/03/25 05:29 67 108/60 06/03/25 04:46 97.2 F L 68 20 104/60 92 Intake & Output: Intake & Output 05/31/25 06/01/25 06/02/25 06/03/25 23:59 23:59 23:59 23:59 Intake Total 3061 / 3061 2444 / 2444 2572 / 2572 250 / 250 Output Total 4615 / 4615 4135 / 4135 3985 / 3985 1100 / 1100 Balance -1554 / -1554 -1691 / -1691 -1413 / -1413 -850 / -850 Weight (kg) 218 lb 4.122 oz 235 lb 14.314 oz 234 lb 12.677 oz Objective General Appearance: positive No acute distress and Alert Eyes Bilateral: positive Conjunctivae nml ENT: positive ENT inspection nml Neck: positive Nml inspection Respiratory: positive No respiratory distress Cardiovascular: positive Regular rate & rhythm Abdomen: positive Tenderness (Mild) and Other (abdominal dressing intact. ) Skin: positive Color nml Extremities: positive Non-tender and No pedal edema Neurologic/Psychiatric: positive Oriented x3 Lab Results 06/03/25 07:00 06/03/25 06:00 Other Labs: Lab Results x24hrs 06/03/25 06/03/25 06/03/25 Range/Units 07:00 06:00 05:35 WBC 11.9 H (4.8-10.8) x10^3/uL RBC 3.52 L (4.20-5.40) 10^6/uL Hgb 10.1 L (12.0-16.0) g/dL Hct 32.8 L (37.0-47.0) % MCV 93.2 (81.0-99.0) fL MCH 28.7 (27.0-31.0) pg MCHC 30.8 L (32.0-36.0) g/dL RDW 14.6 (12.0-15.0) % Plt Count 482 H (130-450) 10^3/uL MPV 10.8 (7.9-10.8) fL Neut # (Auto) 8.8 H (1.5-6.6) 10^3/uL Lymph # (Auto) 1.8 (1.5-3.5) 10^3/uL [place] # (Auto) 0.6 (0.0-1.0) 10^3/uL Eos # (Auto) 0.2 (0.0-0.7) 10^3/uL Baso # (Auto) 0.1 (0.0-0.1) 10^3/uL Absolute Nucleated RBC 0.00 x10^3/uL Nucleated RBC % 0.0 /100WBC Sodium 131 L (135-145) mmol/L Potassium 3.8 (3.5-4.5) mmol/L Chloride 98 L (101-111) mmol/L Carbon Dioxide 28 (21-32) mmol/L Anion Gap 5.0 L (6-13) BUN 22 H (6-20) mg/dL Creatinine 0.6 (0.6-1.3) mg/dL Estimated GFR (MDRD) 100 (>89) Glucose 134 H (74-104) mg/dL POC Whole Bld Glucose 145 (70-100) mg/dL Calcium 8.4 L (8.5-10.3) mg/dL Phosphorus 3.7 (2.5-5.0) mg/dL 06/03/25 06/02/25 Range/Units 00:20 18:00 WBC (4.8-10.8) x10^3/uL RBC (4.20-5.40) 10^6/uL Hgb (12.0-16.0) g/dL Hct (37.0-47.0) % MCV (81.0-99.0) fL MCH (27.0-31.0) pg MCHC (32.0-36.0) g/dL RDW (12.0-15.0) % Plt Count (130-450) 10^3/uL MPV (7.9-10.8) fL Neut # (Auto) (1.5-6.6) 10^3/uL Lymph # (Auto) (1.5-3.5) 10^3/uL [place] # (Auto) (0.0-1.0) 10^3/uL Eos # (Auto) (0.0-0.7) 10^3/uL Baso # (Auto) (0.0-0.1) 10^3/uL Absolute Nucleated RBC x10^3/uL Nucleated RBC % /100WBC Sodium (135-145) mmol/L Potassium (3.5-4.5) mmol/L Chloride (101-111) mmol/L Carbon Dioxide (21-32) mmol/L Anion Gap (6-13) BUN (6-20) mg/dL Creatinine (0.6-1.3) mg/dL Estimated GFR (MDRD) (>89) Glucose (74-104) mg/dL POC Whole Bld Glucose 145 150 (70-100) mg/dL Calcium (8.5-10.3) mg/dL Phosphorus (2.5-5.0) mg/dL Assessment/Plan Problem List (1) Small bowel obstruction: Impression: 64F who presents with inability to tolerate po for 5 days. No flatus or BM for 5 days. remote surgical hx of open cholecystectomy and hysterectomy. She denies hx of SBO. Taken to the OR 05/23 for dx laparoscopy. Ulitmately required laparotomy with small bowel resection for Meckels/small bowel torsion/perforation. NG in place. MIRNA drain in the pelvis draining serosang fluid. Abdominal closure dressed, not taken down today. She is now POD #5 PPN was started on the evening of POD #1, given the amount of time she had been without nutrition. Required ICU in the immediate postop setting for Levophed. These have been discontinued and she is now out of ICU Incidence of levophed infiltration left upper arm prior to central line placement- arm looks fine, no evidence of skin necrosis. no increasing pain here. 05/29: Discontinued antibiotics as she has received 5 days since source control. Remains afebrile, WBC not elevated 05/30: Continues to have no flatus or BM. Continuing NGT, sips/chips. Encouraging out of bed, chewing gum 05/31: No change 06/01: No change, no flatus or BM. CT abdomen ordered by surgery. She does have an increasing white blood cell count, now that she is off antibiotics. No infectious symptoms. I discussed case with surgery, and will attempt NG tube clamping trial just for a few hours at a time if there is nothing acute on the CT abdomen/pelvis. I also scoured the hospital and found various types of hard candies for her to suck on to promote return of bowel function 06/02: Patient tolerated clamping trial. I am going to continue clamping for several hours at a time throughout the day and encouraging ambulation. Continue promoting chewing gum, hard candies. Further bowel regimen per surgery 06/03: Patient had 2 bowel movements overnight. NG tube has been discontinued and she has been escalated to clear liquid diet (2) Atrial fibrillation with RVR: Impression: She had this at the time of admission, then not again till overnight. Metoprolol scheduled, 5 mg IV every 6 hours She has been mildly bradycardic, I am decreasing her scheduled metoprolol to 2.5mg q6h. Could consider amiodarone IV, as she is not able to take PO at this time. At home, she is on Amiodarone, and metoprolol, Xarelto. Since starting the metoprolol on a scheduled basis, she has been bradycardia or had a normal heart rate, holding toprol for HR <65 05/28: Heart rate stable, continue IV metoprolol for now with holding parameters. Plan to restart home dose metoprolol succinate/amiodarone when bowel function returns 06/02: Since she is on clamping trial anyway for NG tube, I will restart her home dose metoprolol and amiodarone 06/03: Continue home dose metoprolol, amiodarone. Stopping IV metoprolol (3) Diabetes: Impression: A1c 5.6 Holding home dose Ozempic while in the hospital SSI coverage, especially given on TPN Suggest that she not continue Ozempic in the outpatient setting given her recent small bowel obstruction 05/30: Sugars have been well-controlled even on TPN, discontinuing glucose checks 06/01: Glucose is starting to rise. Restarting SSI 06/02: Glucose under better control with SSI (4) Acute kidney injury: Impression: Resolved. Continue daily BMP (5) Hyponatremia: Impression: Resolved (6) Hypokalemia: Impression: Repleted and resolved. BMP daily (7) Depression: Impression: 06/03: Restarting home dose Vraylar and Cymbalta (8) Hypothyroid: Impression: Transitioning IV Synthroid to p.o. (9) CHF (congestive heart failure): Impression: Reported history of CHF Echo 05/22 shows EF 65 to 70%. Could not assess diastolic dysfunction due to atrial fibrillation She is started to report some dyspnea. Chest x-ray shows concern for fluid overload Furosemide 20 mg IV daily She is not on IV fluids, but is on TPN
--- NOTE | 2025-06-03 14:23 | PROVIDER PROGRESS NOTE ---
Subjective General Admit Date: 05/21/25 Procedure Date: 05/23/25 Post Op Days: 11 Procedure Performed: ExLap, small bowel resection Other Other Information/Narrative: Had 2 BM and passing copious flatus. MIRNA removed yesterday. Do removed and voiding fine. Review of Systems Status of ROS: 10 or more systems reviewed and unremarkable except as noted in history and below Exam Exam Vital Signs: Vital Signs x48h Temp Pulse Pulse Resp BP BP Pulse Ox 06/03/25 13:08 36.3 C L 59 L 18 102/57 L 95 06/03/25 10:12 100/72 06/03/25 08:10 36.3 C L 71 18 99/59 L 96 06/03/25 07:26 78 20 Constitutional abnormal general appearance (chronically ill), no apparent distress and abnormal body habitus (obese) A&Ox3/GCS15 HENMT normocephalic Neck/C-Spine visual inspection normal Respiratory breath sounds equal bilaterally and normal respiratory effort Cardiovascular normal heart rate noted Gastrointestinal Midline wound (stapled over juan a) with small vol ssf. soft/no ttp. Extremities no deformity Neurology no movement abnormality noted and GCS 15 Psychiatry mental status grossly normal and oriented x3 Skin skin color normal Impression/Plan Problem List (1) Small bowel obstruction: Plan: 64 y/o F admitted 05/21 with first small bowel obstruction; failed NGT decompression and gastrograffin trial, thus underwent operative management. POD#11, s/p DxLap --> Ex Lap, lysis of adhesions, 75cm small bowel resection (05/23, Dr. Alcocer). Etiology of SBO Adhesions + Meckel's diverticulum. Intraoperative findings of small bowel twisted around adhesion between meckel's diverticulum and root of mesentery, two small bowel perforations identified upon release of obstruction at locations of twisting. Large volume succus contamination of peritoneal cavity, extensive irrigation done at time of surgery. ID: post op abx complete, leukocytosis stable today @ 11.9. Patient denies f/c. No obvious source of infection identified on CT 06/01. If wbc continues to climb, consider infectious workup with blood cx, UA, CXR, B LE venous ultrasound. Pain: scheduled IV tylenol, prn narcotic (no NSAIDS given ARF early in admission) Card/Pulm: H/o CHF, Afib with RVR, COPD - mgmt per IM, appreciate recs. Echo during this admission (05/22) with normal EF. - required pressors for two days after surgery, but HD stable for last week - CVL in place GI/Fen: NGT removed on rounds this AM given + BM/flatus. Clears as tolerated. Continue goals of minimize narcotic, increase activity, - wean TPN as PO intake increases - MIRNA out 06/02 - Midline wound closed over Trenary drain (cut in half) in subQ, change ABD/cover dressing daily, would consider Provena wound vac placement - replete electrolytes per protocol : - ARF, resolved. Do out 06/02. Heme: - Hgb stable, continue dvt ppx Discharge planning: - PT following, patient encouraged to increase activity Ppx: lovenox, PPI Patient admitted to hospitalist service due to comorbidities. Surgery will continue to follow closely. Plan of care discussed with medicine team (Dr. Plunkett), RN, and patient this AM. Parul Alcocer DO, FACS General Surgeon, [facility] (2) Atrial fibrillation with RVR: (3) Diabetes: (4) Acute kidney injury: (5) Hyponatremia: (6) Hypokalemia: (7) Depression: (8) Hypothyroid: (9) CHF (congestive heart failure):
[2025-06-04] MEDS: LEVOTHYROXINE 25 MCG TABLET PO SCH (06:41)
[2025-06-04] MEDS: LEVOTHYROXINE 112 MCG TABLET PO SCH (06:41)
[2025-06-04 09:10] LABS: HCT - HEMATOCRIT 34.8 % (37.0-47.0); HGB - HEMOGLOBIN 11.3 g/dL (12.0-16.0); MEAN PLATELET VOLUME 10.2 fL (7.9-10.8); PLT - PLATELET COUNT 605.0 10^3/uL (130-450); RED CELL DISTRIBUTION WIDTH 14.5 % (12.0-15.0)
--- NOTE | 2025-06-04 10:14 | PROVIDER PROGRESS NOTE ---
Subjective Prog Note Date Prog Note Date: 06/04/25 Subjective Subjective: Vomited 500cc after drinking some juice right before lunch. Said breakfast did not sit well. last passed flatus last night. 2 BMs yesterday. TPN stopped yesterday evening. Current Medications Current Medications Current Medications: Current Medications Generic Name Dose Route Start Last Admin Trade Name Freq PRN Reason Stop Dose Admin Albuterol/Ipratropium 3 ml 05/30/25 18:44 06/04/25 09:19 Ipratropium/Albuterol 3 Ml Neb INH 3 ml RTQID PRN Administration Shortness of Air/Wheezing Amiodarone HCl 200 mg 06/02/25 12:00 06/04/25 08:38 Amiodarone 200 Mg Tablet PO 200 mg DAILY MARCO Administration Budesonide 0.5 mg 05/30/25 19:00 06/04/25 09:19 Budesonide 0.5 Mg/2 Ml Neb INH 0.5 mg RTBID MARCO Administration Diphenhydramine HCl 25 mg 05/25/25 09:45 Diphenhydramine Inj 50 Mg/Ml Vial IVP Q6H PRN Anaphylaxis Duloxetine HCl 60 mg 06/04/25 09:00 06/04/25 08:38 Duloxetine 60 Mg Capsule PO 60 mg DAILY MARCO Administration Enoxaparin Sodium 40 mg 05/28/25 09:00 06/04/25 08:55 Enoxaparin 40 Mg/0.4 Ml Syringe SUBQ 40 mg DAILY MARCO Administration Furosemide 20 mg 05/31/25 12:00 06/04/25 08:55 Furosemide 20 Mg/2 Ml Vial IVP 06/05/25 11:59 20 mg DAILY MARCO Administration Hydromorphone HCl 0.5 mg 05/21/25 17:57 06/04/25 08:37 Hydromorphone 0.5 Mg/0.5 Ml Syringe IVP 0.5 mg Q2H PRN Administration Pain 8 to 10 Acetaminophen 1,000 mg in 100 mls @ 400 mls/hr 05/24/25 15:00 06/04/25 06:33 Acetaminophen IV Infused Q8HR MARCO Infusion Levothyroxine Sodium 112 mcg 06/04/25 07:00 06/04/25 06:41 Levothyroxine 112 Mcg Tablet PO 112 mcg QDAC MARCO Administration Levothyroxine Sodium 25 mcg 06/04/25 07:00 06/04/25 06:41 Levothyroxine 25 Mcg Tablet PO 25 mcg QDAC MARCO Administration Metoprolol Succinate 100 mg 06/02/25 12:00 06/04/25 08:38 Metoprolol Succinate 50 Mg Tablet PO 100 mg DAILY MARCO Administration Ondansetron HCl 4 mg 05/21/25 17:57 06/03/25 00:36 Ondansetron 4 Mg/2 Ml Vial IVP 4 mg Q6HR PRN Administration Nausea / Vomiting Pantoprazole Sodium 20 mg 05/26/25 11:00 06/04/25 06:40 Pantoprazole 40 Mg Vial IVP 20 mg QDAC MARCO Administration Patient Own Med ( 1 each 06/04/25 09:00 06/04/25 08:55 Vraylar 4.5 Mg PO Not Given Capsule) DAILY MARCO Phenol/Menthol 2 sprays 05/21/25 18:57 05/21/25 19:32 Phenol Throat [place] 177 Ml MM 2 sprays Q2HR PRN Administration Throat Pain Prochlorperazine Edisylate 10 mg 05/21/25 17:57 05/23/25 02:04 Prochlorperazine 10 Mg/2 Ml Vial IVP 10 mg Q6HR PRN Administration Nausea / Vomiting Sodium Chloride 10 ml 05/21/25 17:57 06/04/25 04:25 Sodium Chloride Flush 0.9% 10 Ml Syringe IVP 10 ml PRN PRN Administration NEEDED PER PROVIDER ORDERS Sodium Chloride 10 ml 05/21/25 17:57 06/04/25 08:55 Sodium Chloride Flush 0.9% 10 Ml Syringe IVP 10 ml 0100,0900,1700 MARCO Administration Objective Vital Signs/Intake & Output Reviewed Vital Signs: Yes Vital Signs: Vital Signs x48h Temp Pulse Pulse Resp BP Pulse Ox 06/04/25 09:20 68 16 06/04/25 08:15 36.6 C 60 20 132/58 H 96 06/04/25 03:07 36.6 C 59 L 18 105/54 L 94 Intake & Output: Intake & Output 06/01/25 06/02/25 06/03/25 06/04/25 23:59 23:59 23:59 23:59 Intake Total 2444 / 2444 2572 / 2572 3701 / 3701 250 / 250 Output Total 4135 / 4135 3985 / 3985 1900 / 1900 Balance -1691 / -1691 -1413 / -1413 1801 / 1801 250 / 250 Weight (kg) 107 kg 106.5 kg 106.5 kg Objective General Appearance: positive No acute distress and Alert Eyes Bilateral: positive Conjunctivae nml ENT: positive ENT inspection nml Neck: positive Nml inspection Respiratory: positive No respiratory distress Cardiovascular: positive Regular rate & rhythm Abdomen: positive Tenderness (appropriate), Abnml bowel sounds (abdomen is quiet, not distended. ) and Other (dressing changed, minimal drainage, no erythema. ) Skin: positive Color nml Extremities: positive Non-tender and No pedal edema Neurologic/Psychiatric: positive Oriented x3 Lab Results 06/04/25 Unknown 06/03/25 06:00 Other Labs: Lab Results x24hrs 06/04/25 Range/Units Unknown WBC 14.3 H (4.8-10.8) x10^3/uL RBC 3.84 L (4.20-5.40) 10^6/uL Hgb 11.3 L (12.0-16.0) g/dL Hct 34.8 L (37.0-47.0) % MCV 90.6 (81.0-99.0) fL MCH 29.4 (27.0-31.0) pg MCHC 32.5 (32.0-36.0) g/dL RDW 14.5 (12.0-15.0) % Plt Count 605 H (130-450) 10^3/uL MPV 10.2 (7.9-10.8) fL Assessment/Plan Problem List (1) Small bowel obstruction: Impression: 64F who presents with inability to tolerate po for 5 days. No flatus or BM for 5 days. remote surgical hx of open cholecystectomy and hysterectomy. She denies hx of SBO. Taken to the OR 05/23 for dx laparoscopy. Ulitmately required laparotomy with small bowel resection for Meckels/small bowel torsion/perforation. NG out. MIRNA that was in the pelvis is out. incision is draining appropriately without signs of infection. Tolerated clear liquids on 06/03, but unfortunately failed a soft diet today (soft diet due to edentulous). PPN was started on the evening of POD #1, given the amount of time she had been without nutrition. Discontinued on 06/03. Off abx 05/29. WBC rising, 14.3 today. Will check again in AM. no fevers. checking CXR, UA. Will consider bilateral lower ext u/s for occult DVT I am checking a one view abdominal XR. I have encouraged the patient not to take PO if she is not hungry, and to take po slowly. I am restarting IVF. Discussed with Dr Alcocer of general surgery (2) Atrial fibrillation with RVR: Impression: At the time of admit, likely related to dehydration. She has stabilized and is back on home meds of Amiodarone 2--mg daily, metoprolol 100mg daily. Xarelto has not been resumed. Given her lack of bowel function at the present time I will hold this/ (3) Diabetes: Impression: A1c 5.6 Holding home dose Ozempic while in the hospital SSI held as well as POC Glucose for now. recommend outpatient followup. (4) Acute kidney injury: Impression: Resolved. Continue daily BMP (5) Hyponatremia: Impression: Mild, 131 today. (6) Hypokalemia: Impression: Repleted and resolved. BMP daily (7) Depression: Impression: home dose Vraylar and Cymbalta restarted (8) Hypothyroid: Impression: back on PO synthroid. (9) CHF (congestive heart failure): Impression: Reported history of CHF Echo 05/22 shows EF 65 to 70%. Could not assess diastolic dysfunction due to atrial fibrillation She is currently on furosemide 20mg IV daily. Will continue this for now. This patient's diagnosis and treatment plan was discussed this AM with attending physician as a part of multi disciplinary rounding meeting. I have spent 51 minutes in the care of this patient today. This includes time [id number], review and ordering of diagnostic imaging and laboratory studies and consultation with other providers. Monitoring the patient's signs symptoms, evaluation of medication effectiveness and patient's response to treatment.
--- NOTE | 2025-06-04 10:46 | PROVIDER PROGRESS NOTE ---
Subjective General Admit Date: 05/21/25 Procedure Date: 05/23/25 Post Op Days: 12 Procedure Performed: ExLap, small bowel resection Other Other Information/Narrative: was looking well this morning and had tolerated clear liquids yesterday. However by this afternoon she had vomited again. Wound looks unchanged from last 2 days however WBC increased to 14 today. Wound Assessment Wound/Incisions: positive Drainage (Serosanguineous) Review of Systems Status of ROS: 10 or more systems reviewed and unremarkable except as noted in history and below Exam Exam Vital Signs: Vital Signs x48h Temp Pulse Resp BP Pulse Ox 06/04/25 15:27 36.6 C 59 L 18 123/60 92 06/04/25 11:57 36.6 C 62 20 109/64 94 Constitutional abnormal general appearance (chronically ill), no apparent distress and abnormal body habitus (obese) A&Ox3/GCS15 HENMT normocephalic Neck/C-Spine visual inspection normal Respiratory breath sounds equal bilaterally and normal respiratory effort Cardiovascular normal heart rate noted Gastrointestinal Midline wound (stapled over juan a) with small vol ssf. soft/no ttp. Extremities no deformity Neurology no movement abnormality noted and GCS 15 Psychiatry mental status grossly normal and oriented x3 Skin skin color normal Impression/Plan Problem List (1) Small bowel obstruction: Plan: 64 y/o F admitted 05/21 with first small bowel obstruction; failed NGT decompression and gastrograffin trial, thus underwent operative management. POD#12, s/p DxLap --> Ex Lap, lysis of adhesions, 75cm small bowel resection (05/23, Dr. Alcocer). Etiology of SBO Adhesions + Meckel's diverticulum. Intraoperative findings of small bowel twisted around adhesion between meckel's diverticulum and root of mesentery, two small bowel perforations identified upon release of obstruction at locations of twisting. Large volume succus contamination of peritoneal cavity, extensive irrigation done at time of surgery. ID: post op abx complete, leukocytosis increased today @ 14. Patient denies f/c. No obvious source of infection identified on CT 06/01. infectious workup today with blood cx, UA, CXR. Pain: scheduled IV tylenol, prn narcotic (no NSAIDS given ARF early in admission) Card/Pulm: H/o CHF, Afib with RVR, COPD - mgmt per IM, appreciate recs. Echo du ring this admission (05/22) with normal EF. - required pressors for two days after surgery, but HD stable for last week - CVL in place GI/Fen: + BM/flatus. Diet as tolerated. Likely repeat CT scan with PO contrast in AM if PO intolerance continues/WBC up further - continue TPN - MIRNA out 06/02 - Midline wound closed over [place] drain (cut in half) in subQ, change ABD/cover dressing daily, would consider Provena wound vac placement - replete electrolytes per protocol : - ARF, resolved. Do out 06/02. Heme: - Hgb stable, continue dvt ppx Discharge planning: - PT following, patient encouraged to increase activity Ppx: lovenox, PPI Patient admitted to hospitalist service due to comorbidities. Surgery will continue to follow closely. Plan of care discussed with medicine team (Dr. Plunkett), RN, and patient this AM. Parul Alcocer DO, FACS General Surgeon, [facility] (2) Atrial fibrillation with RVR: (3) Diabetes: (4) Acute kidney injury: (5) Hyponatremia: (6) Hypokalemia: (7) Depression: (8) Hypothyroid:
[2025-06-04] MEDS: ACETAMINOPHEN 500 MG TABLET PO SCH (14:10)
[2025-06-04] MEDS: SODIUM CHLORIDE 0.9% 1,000 ML IV SCH (15:52)
--- NOTE | 2025-06-04 19:40 | XRAY Report ---
PROCEDURE: XR Abdomen 1 V INDICATIONS: recurrent ileus TECHNIQUE: 1 view of the abdomen were acquired. COMPARISON: CT abdomen pelvis 06/01/2025 FINDINGS: Surgical changes and devices: Partially evaluated lumbosacral spinal hardware. Right upper quadrant surgical clips. Bowel: A few loops of gas distended mildly dilated small bowel seen in the left lower quadrant measuring approximately 4.2 cm in caliber. Soft tissues: No masses; visualized solid organ contours appear normal in size. No suspicious abdominal calcifications. Bones: No suspicious bony abnormalities. IMPRESSION: A few loops of gas-distended and mildly dilated small bowel in the left lower quadrant. Finding may represent ileus versus partial obstruction Reviewed by: Corie eRes MD, PhD on 06/04/2025 7:36 PM PDT Approved by: Corie Rees MD, PhD on 06/04/2025 7:36 PM PDT Station ID: [id number]
--- NOTE | 2025-06-04 19:42 | XRAY Report ---
PROCEDURE: XR Chest 1V INDICATIONS: leukocytosis TECHNIQUE: One view of the chest was acquired. COMPARISON: Chest radiograph 05/31/2025 FINDINGS: Surgical changes and devices: Similar positioning of right central venous catheter with distal tip projecting over the upper SVC. Endotracheal tube tip courses below the diaphragm with distal tip not visualized. Lungs and pleura: No pleural effusions or pneumothorax. Low lung volumes with similar mildly increased interstitial prominence.. Left lower lobe patchy opacity. Mediastinum: Mediastinal contours appear normal. Heart size is normal. Bones and chest wall: No suspicious bony lesions. Overlying soft tissues appear unremarkable. IMPRESSION: Compared to prior radiograph on 05/31/2025, decreased lung volumes with increased interstitial markings may represent mild pulmonary edema versus bronchovascular crowding. Left lower lobe patchy opacity may represent atelectasis versus pneumonia. Reviewed by: Corie Rees MD, PhD on 06/04/2025 7:39 PM PDT Approved by: Corie Rees MD, PhD on 06/04/2025 7:39 PM PDT Station ID: [id number]
--- NOTE | 2025-06-04 22:52 | PROVIDER PROGRESS NOTE ---
Clerk Travel Reservations Note Clerk Travel Reservations Note Clerk Travel Reservations Note: per nurse: Patient admitted after having exploratory laparotomy, lysis of adhesions & small bowel resection on 05/23. NGT was removed 06/03, had BM and emesis this morning. Patient still c/o 8/10 abdominal pain, received Dilaudid 0.5mg x 3 this shift, and still c/o nausea. I had given Compazine 10mg IVP at 1757 and Zofran 4mg IVP at 2102 but were ineffective as patient is still with nausea. Is there anything else I could give her? Please advise. Thank you. chart reviewed. kub ordered by day physician 7pm showing ileus vs partial sbo. will give compazine and retry placement of ngt. if unable to tolerate will allow bowel rest. if not improved with conservative management, will follow up with ct with contrast to ensure that she has not sustained an anastomatic leak.
[2025-06-04] MEDS: PROCHLORPERAZINE 10 MG/2 ML VIAL IVP SCH (23:06)
--- NOTE | 2025-06-05 06:42 | PROVIDER PROGRESS NOTE ---
Learning And Development Coordinator Note Learning And Development Coordinator Note Learning And Development Coordinator Note: nurse has reported that patient has continue to have n/v despite bowel rest. will place ngt and will repeat CT with contrast. prior imaging without was unremarkable, concerning for anastomatic leak, s/p bowel resection. labs pending.
[2025-06-05] MEDS ORDERED: DIATRIZOATE MEGLU/DIATRIZO SOD 30 ML BOTTLE ONE ×2 (07:11→12:36)
[2025-06-05 07:25] LABS: HCT - HEMATOCRIT 35.0 % (37.0-47.0); HGB - HEMOGLOBIN 11.5 g/dL (12.0-16.0); MEAN PLATELET VOLUME 10.3 fL (7.9-10.8); NRBC ABSOLUTE COUNT (AUTO) 0.00 x10^3/uL; NUCLEATED RED BLOOD CELLS AUTO 0.0 /100WBC; PLT - PLATELET COUNT 661 10^3/uL (130-450); RED CELL DISTRIBUTION WIDTH 14.4 % (12.0-15.0)
[2025-06-05 07:37] LABS: ALT ALANINE AMINOTRANSFERASE 101.0 IU/L (10-60); AST ASPARTATE AMINOTRANSFERASE 140.0 IU/L (10-42); BUN - BLOOD UREA NITROGEN 22.0 mg/dL (6-20); CARBON DIOXIDE - CO2 23.0 mmol/L (21-32); CREATININE 0.7 mg/dL (0.6-1.3); GFR - MDRD 84.0 (>89)
--- NOTE | 2025-06-05 09:19 | PROVIDER PROGRESS NOTE ---
Subjective Prog Note Date Prog Note Date: 06/04/25 Prog Note Time: 09:17 Subjective Subjective: She had a rough night last night with nausea and vomiting. This morning she is still feeling nauseous, but otherwise is feeling better. She reports a 8/10 lower abdominal pain that does not change with position or palpation. She says that she doesn't want the NG tube back, but acknowledges that it relieved a lot of pain previously. She has passed some liquidy stool, but still feels bloated and constipated. ROS: Denies fever and chills Reports 8/10 lower abdominal pain bilaterally Current Medications Current Medications Current Medications: Current Medications Generic Name Dose Route Start Last Admin Trade Name Freq PRN Reason Stop Dose Admin Acetaminophen 1,000 mg 06/04/25 14:00 06/05/25 05:45 Acetaminophen 500 Mg Tablet PO Not Given Q8H MARCO Albuterol/Ipratropium 3 ml 05/30/25 18:44 06/04/25 09:19 Ipratropium/Albuterol 3 Ml Neb INH 3 ml RTQID PRN Administration Shortness of Air/Wheezing Amiodarone HCl 200 mg 06/02/25 12:00 06/04/25 08:38 Amiodarone 200 Mg Tablet PO 200 mg DAILY MARCO Administration Budesonide 0.5 mg 05/30/25 19:00 06/04/25 21:12 Budesonide 0.5 Mg/2 Ml Neb INH 0.5 mg RTBID MARCO Administration Diphenhydramine HCl 25 mg 05/25/25 09:45 06/05/25 02:34 Diphenhydramine Inj 50 Mg/Ml Vial IVP 25 mg Q6H PRN Administration Anaphylaxis Duloxetine HCl 60 mg 06/04/25 09:00 06/04/25 08:38 Duloxetine 60 Mg Capsule PO 60 mg DAILY MARCO Administration Enoxaparin Sodium 40 mg 05/28/25 09:00 06/04/25 08:55 Enoxaparin 40 Mg/0.4 Ml Syringe SUBQ 40 mg DAILY MARCO Administration Furosemide 20 mg 05/31/25 12:00 06/04/25 08:55 Furosemide 20 Mg/2 Ml Vial IVP 06/05/25 11:59 20 mg DAILY MARCO Administration Hydromorphone HCl 0.5 mg 05/21/25 17:57 06/05/25 07:11 Hydromorphone 0.5 Mg/0.5 Ml Syringe IVP 0.5 mg Q2H PRN Administration Pain 8 to 10 Sodium Chloride 1,000 mls @ 125 mls/hr 06/05/25 07:00 Normal Saline 0.9% IV .Q8H MARCO Levothyroxine Sodium 112 mcg 06/04/25 07:00 06/05/25 05:46 Levothyroxine 112 Mcg Tablet PO Not Given QDAC MARCO Levothyroxine Sodium 25 mcg 06/04/25 07:00 06/05/25 05:46 Levothyroxine 25 Mcg Tablet PO Not Given QDAC MARCO Metoprolol Succinate 100 mg 06/02/25 12:00 06/04/25 08:38 Metoprolol Succinate 50 Mg Tablet PO 100 mg DAILY MARCO Administration Ondansetron HCl 4 mg 05/21/25 17:57 06/05/25 02:34 Ondansetron 4 Mg/2 Ml Vial IVP 4 mg Q6HR PRN Administration Nausea / Vomiting Pantoprazole Sodium 20 mg 05/26/25 11:00 06/05/25 07:12 Pantoprazole 40 Mg Vial IVP 20 mg QDAC MARCO Administration Patient Own Med ( 1 each 06/04/25 09:00 06/04/25 08:55 Vraylar 4.5 Mg PO Not Given Capsule) DAILY [facility] Phenol/Menthol 2 sprays 05/21/25 18:57 05/21/25 19:32 Phenol Throat [place] 177 Ml MM 2 sprays Q2HR PRN Administration Throat Pain Prochlorperazine Edisylate 10 mg 05/21/25 17:57 06/04/25 17:57 Prochlorperazine 10 Mg/2 Ml Vial IVP 10 mg Q6HR PRN Administration Nausea / Vomiting Prochlorperazine Edisylate 10 mg 06/04/25 23:00 06/04/25 23:06 Prochlorperazine 10 Mg/2 Ml Vial IVP 06/05/25 22:59 10 mg ONCE MARCO Administration Sodium Chloride 10 ml 05/21/25 17:57 06/05/25 07:12 Sodium Chloride Flush 0.9% 10 Ml Syringe IVP 10 ml PRN PRN Administration NEEDED PER PROVIDER ORDERS Sodium Chloride 10 ml 05/21/25 17:57 06/05/25 00:18 Sodium Chloride Flush 0.9% 10 Ml Syringe IVP Not Given 0100,0900,1700 [facility] Objective Vital Signs/Intake & Output Reviewed Vital Signs: Yes Vital Signs: Vital Signs x48h Temp Pulse Resp BP Pulse Ox 06/05/25 08:12 36.5 C 68 20 127/49 L 92 06/05/25 02:46 36.6 C 63 18 129/66 96 Intake & Output: Intake & Output 06/02/25 06/03/25 06/04/25 06/05/25 23:59 23:59 23:59 23:59 Intake Total 2572 / 2572 3701 / 3701 1213 / 1213 237 / 237 Output Total 3985 / 3985 1900 / 1900 900 / 900 750 / 750 Balance -1413 / -1413 1801 / 1801 313 / 313 -513 / -513 Weight (kg) 107 kg 106.5 kg 106.5 kg 106.5 kg Objective General Appearance: positive No acute distress and Alert Eyes Bilateral: positive Conjunctivae nml and No scleral icterus Neck: positive Nml inspection Respiratory: positive No respiratory distress and Breath sounds nml; negative Wheezes, Rales or Rhonchi Cardiovascular: positive Regular rate & rhythm, No murmur and No gallop; negative Friction rub Peripheral Pulses: 1+: Radial (R), 1+: Radial (L), 1+: Dorsalis pedis (R) and 1+: Dorsalis pedis (L) Abdomen: positive Tenderness (appropriate), Abnml bowel sounds (abdomen is quiet) and Other (dressing changed, minimal drainage, no erythema. ); negative No distention (slight), Guarding or Rebound Skin: positive Color nml Extremities: positive Non-tender and No pedal edema Neurologic/Psychiatric: positive Oriented x3 Lab Results 06/05/25 06:53 06/05/25 07:09 Other Labs: Lab Results x24hrs 06/05/25 06/05/25 06/04/25 Range/Units 07:09 06:53 Unknown WBC 10.5 14.3 H (4.8-10.8) x10^3/uL RBC 3.87 L 3.84 L (4.20-5.40) 10^6/uL Hgb 11.5 L 11.3 L (12.0-16.0) g/dL Hct 35.0 L 34.8 L (37.0-47.0) % MCV 90.4 90.6 (81.0-99.0) fL MCH 29.7 29.4 (27.0-31.0) pg MCHC 32.9 32.5 (32.0-36.0) g/dL RDW 14.4 14.5 (12.0-15.0) % Plt Count 661 H 605 H (130-450) 10^3/uL MPV 10.3 10.2 (7.9-10.8) fL Neut # (Auto) 7.8 H (1.5-6.6) 10^3/uL Lymph # (Auto) 1.7 (1.5-3.5) 10^3/uL [place] # (Auto) 0.6 (0.0-1.0) 10^3/uL Eos # (Auto) 0.1 (0.0-0.7) 10^3/uL Baso # (Auto) 0.1 (0.0-0.1) 10^3/uL Absolute Nucleated RBC 0.00 x10^3/uL Nucleated RBC % 0.0 /100WBC Sodium 133 L (135-145) mmol/L Potassium 3.7 (3.5-4.5) mmol/L Chloride 101 (101-111) mmol/L Carbon Dioxide 23 (21-32) mmol/L Anion Gap 9.0 (6-13) BUN 22 H (6-20) mg/dL Creatinine 0.7 (0.6-1.3) mg/dL Estimated GFR (MDRD) 84 L (>89) Glucose 125 H (74-104) mg/dL Calcium 8.2 L (8.5-10.3) mg/dL Total Bilirubin 0.4 (0.2-1.0) mg/dL AST 140 H (10-42) IU/L ALT 101 H (10-60) IU/L Alkaline Phosphatase 187 H (42-121) IU/L Total Protein 5.6 L (6.4-8.9) g/dL Albumin 2.9 L (3.2-5.5) g/dL Globulin 2.7 (2.1-4.2) g/dL Albumin/Globulin Ratio 1.1 (1.0-2.2) Diagnostic Imaging Diagnostic Imaging Results: positive Final report reviewed Assessment/Plan Problem List (1) Small bowel obstruction: Impression: Lydia Obrien is a 64 year old Female with a history of cholecystectomy and hysterectomy without oophorectomy presented to the ER on 05/21 with complaints of vomiting and abdominal pain. Inability to tolerate PO for 5 days. No flatus or BM for 5 days. She denies hx of SBO. 05/23, Taken to the OR for dx laparoscopy. Ultimately required laparotomy with small bowel resection for Meckels/small bowel torsion/perforation. NGT out 06/03. MIRNA that was in the pelvis is out. incision is draining appropriately without signs of infection. Tolerated clear liquids on 06/03, but unfortunately failed a soft diet 06/04 (soft diet due to edentulous). PPN was started on the evening of POD #1, given the amount of time she had been without nutrition. Discontinued on 06/03. Off abx 05/29. WBC 14.3(H) yesterday, 10.5 today. No fevers. UA ordered, but not resulted. Restarted IVF. 06/04 Abdominal XR impression: "mild pulmonary edema versus bronchovascular crowding. Left lower lobe patchy opacity may represent atelectasis versus pneumonia." Post-op day 13. She is passing some liquidy stool likely overflow diarrhea from constipation. Elevated liver enzymes: AST 140(H), ALT 101(H), Alk Phos 187(H) Total Bilirubin 0.4 Transaminitis possibly related to cholestasis secondary to care home parenteral nutrition. NG tube replaced 06/05 1015. 800 mL out so far at this time. NG tube to be clamped to challenge bowel. 06/[address] with oral contrast obtained. Radiology impression: "No extraluminal oral contrast. Diffuse small and large bowel dilation, most consistent with ileus." - Obtained Abdominal CT with oral contrast - Diet: NPO - Obtain abdominal XR at 1830 06/05 - Continue IV fluids NaCl 0.9% 125 mL/hr - Continue to monitor IOs, vitals, and labs (BMP and CBC) - Monitor LFTs one more day and see if there is any improvement. If no improvement, consider RUQ US. - Saline enema 133 mL once d/t compacted stool in sigmoid colon - Hold restarting total parenteral nutrition (2) Atrial fibrillation with RVR: Impression: Rate controlled. At the time of admit, likely related to dehydration. She has stabilized and was back on home meds of Amiodarone 200mg daily, metoprolol 100mg daily. Xarelto was not been resumed. Pt NPO - Hold home meds - metoprolol 5 mg IV q6hr PRN (3) Diabetes: Impression: A1c 5.6 Holding home dose Ozempic while in the hospital SSI held as well as POC Glucose for now. recommend outpatient followup. (4) Acute kidney injury: Impression: Resolved. Continue daily chemistries (5) Hyponatremia: Impression: Mild, 133 today. Continue daily chemistries (6) Hypokalemia: Impression: Repleted and resolved. Continue daily chemistries (7) Depression: Impression: Pt NPO Hold home dose Vraylar and Cymbalta (8) Hypothyroid: Impression: Pt NPO Hold PO synthroid.
[2025-06-05] MEDS: SODIUM CHLORIDE 0.9% 1,000 ML IV SCH (12:09)
[2025-06-05] MEDS: DIATRIZOATE MEGLU/DIATRIZO SOD 30 ML BOTTLE PO ONE (14:18)
--- NOTE | 2025-06-05 14:26 | CT Report ---
PROCEDURE: CT Abdomen/Pelvis W INDICATIONS: surgical anastomosis leak CONTRAST: 100ml omni 300 TECHNIQUE: After the administration of intravenous contrast, a CT scan of the abdomen and pelvis was performed. Images were recorded and evaluated at appropriate window settings. Reformats: coronal and sagittal. For radiation dose reduction, the following was used: automated exposure control, adjustment of mA and/or kV according to patient size. COMPARISON: 06/01/2025, 05/21/2025 FINDINGS: Image quality: Diagnostic. Lower chest: Bibasilar atelectasis. Mild cardiomegaly. Mitral valve calcification. Liver: Focal fat adjacent to the falciform ligament. Gallbladder: Surgically absent. Biliary tree: No intrahepatic or extrahepatic dilation, accounting for age. Spleen: No splenomegaly. Pancreas: No pancreatic ductal dilation. Adrenals: No adrenal nodule. Kidneys and ureters: No hydronephrosis. No renal cystic lesion which requires follow up. No solid mass. Junctional cortical defect with associated cortical calcification of the left kidney, consistent with prior vascular injury or infection. Stomach, bowel and peritoneum: Prior enterotomy. There is a side to end anastomosis in the right lower quadrant. No extraluminal oral contrast. Diffuse small and large bowel dilation. Diffuse inflammatory changes within the mesentery, likely reactive. Normal appendix. Trace pneumoperitoneum, within nor mal limits. Lymph nodes: No central or retroperitoneal adenopathy. Vessels: No infrarenal aortic aneurysm. Patent portal vein. PELVIS Reproductive organs: Unremarkable. Bladder: Gas within the urinary bladder. Pelvic lymph nodes: No pelvic adenopathy by size criteria. Bones: Surgical fusion of L4-S1. 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 Other: Laparotomy defect, with superficial drains terminating within the subcutaneous fat; no measurable fluid collection within this region. Trace subcutaneous gas in the left lower quadrant fat, likely a sequela of medication injection. IMPRESSION: Prior enterotomy, with side to end anastomosis in the right lower quadrant. No extraluminal oral contrast. Diffuse small and large bowel dilation, most consistent with ileus. Gas within the urinary bladder, which may indicate cystitis. Correlate with urinalysis. Other chronic findings as above. Reviewed by: Janak Shea MD on 06/05/2025 2:23 PM PDT Approved by: Janak Shea MD on 06/05/2025 2:23 PM PDT Station ID: [id number]
[2025-06-05] MEDS ORDERED: METOPROLOL 5 MG/5 ML VIAL IVP PRN (18:00)
[2025-06-05] MEDS: SALINE ENEMA 133 ML BOTTLE RC ONE (18:21)
[2025-06-05] MEDS: METOCLOPRAMIDE 10 MG/2 ML VIAL IVP SCH (18:38)
--- NOTE | 2025-06-06 08:45 | XRAY Report ---
PROCEDURE: XR Abdomen 1 V INDICATIONS: ileus TECHNIQUE: 1 view of the abdomen were acquired. COMPARISON: CT 06/05/2025 FINDINGS: Surgical changes and devices: Gastric tube tip and sideport project over the stomach. Surgical fusion hardware of the lumbar spine. Bowel: Mild distention of the large bowel. Soft tissues: No masses; visualized solid organ contours appear normal in size. No suspicious abdominal calcifications. Bones: No suspicious bony abnormalities. IMPRESSION: Mild distention of the large bowel, with decreased distention of the small bowel. Findings likely indicate resolving ileus. Reviewed by: Janak Shea MD on 06/06/2025 8:42 AM PDT Approved by: Janak Shea MD on 06/06/2025 8:42 AM PDT Station ID: [id number]
--- NOTE | 2025-06-06 09:04 | PROVIDER PROGRESS NOTE ---
Subjective Prog Note Date Prog Note Date: 06/06/25 Prog Note Time: 09:17 Subjective Pt reports feeling: Improved Subjective: She had a much better night. She no longer has nausea and vomiting. She reports a 8/10 upper abdominal that does not change with position or palpation. She is tolerating the NGT well. She has had two moderate-large BMs in the last 12 hours. She says the one this morning had a thicker consistency that previous BMs. She experiences a lot of relief with each BM. She still feels a bit bloated and constipated, but is starting to feel much better. She had her dressing changed this morning. ROS: Denies nausea, vomiting, fever, and chills Reports 8/10 upper abdominal pain bilaterally Current Medications Current Medications Current Medications: Current Medications Generic Name Dose Route Start Last Admin Trade Name Freq PRN Reason Stop Dose Admin Albuterol/Ipratropium 3 ml 05/30/25 18:44 06/06/25 08:27 Ipratropium/Albuterol 3 Ml Neb INH 3 ml RTQID PRN Administration Shortness of Air/Wheezing Budesonide 0.5 mg 05/30/25 19:00 06/06/25 08:27 Budesonide 0.5 Mg/2 Ml Neb INH 0.5 mg RTBID MARCO Administration Diphenhydramine HCl 25 mg 05/25/25 09:45 06/05/25 02:34 Diphenhydramine Inj 50 Mg/Ml Vial IVP 25 mg Q6H PRN Administration Anaphylaxis Enoxaparin Sodium 40 mg 05/28/25 09:00 06/06/25 08:12 Enoxaparin 40 Mg/0.4 Ml Syringe SUBQ 40 mg DAILY MACRO Administration Hydromorphone HCl 0.5 mg 05/21/25 17:57 06/06/25 08:11 Hydromorphone 0.5 Mg/0.5 Ml Syringe IVP 0.5 mg Q2H PRN Administration Pain 8 to 10 Sodium Chloride 1,000 mls @ 125 mls/hr 06/05/25 07:00 06/06/25 07:56 Normal Saline 0.9% IV Not Given .Q8H MARCO Metoclopramide HCl 5 mg 06/05/25 18:00 06/06/25 06:08 Metoclopramide 10 Mg/2 Ml Vial IVP 5 mg Q6HR MARCO Administration Metoprolol Tartrate 5 mg 06/05/25 18:00 Metoprolol 5 Mg/5 Ml Vial IVP Q6H PRN Tachycardia Ondansetron HCl 4 mg 05/21/25 17:57 06/05/25 02:34 Ondansetron 4 Mg/2 Ml Vial IVP 4 mg Q6HR PRN Administration Nausea / Vomiting Pantoprazole Sodium 20 mg 05/26/25 11:00 06/06/25 06:08 Pantoprazole 40 Mg Vial IVP 20 mg QDAC MARCO Administration Phenol/Menthol 2 sprays 05/21/25 18:57 05/21/25 19:32 Phenol Throat [place] 177 Ml MM 2 sprays Q2HR PRN Administration Throat Pain Prochlorperazine Edisylate 10 mg 05/21/25 17:57 06/04/25 17:57 Prochlorperazine 10 Mg/2 Ml Vial IVP 10 mg Q6HR PRN Administration Nausea / Vomiting Sodium Chloride 10 ml 05/21/25 17:57 06/06/25 06:09 Sodium Chloride Flush 0.9% 10 Ml Syringe IVP 10 ml PRN PRN Administration NEEDED PER PROVIDER ORDERS Sodium Chloride 10 ml 05/21/25 17:57 06/06/25 00:34 Sodium Chloride Flush 0.9% 10 Ml Syringe IVP 10 ml 0100,0900,1700 MARCO Administration Objective Vital Signs/Intake & Output Reviewed Vital Signs: Yes Vital Signs: Vital Signs x48h Temp Pulse Pulse Resp BP Pulse Ox 06/06/25 08:28 81 20 06/06/25 04:59 36.5 C 64 18 121/59 L 96 06/06/25 02:21 36.4 C L 61 18 116/57 L 95 Intake & Output: Intake & Output 06/03/25 06/04/25 06/05/25 06/06/25 23:59 23:59 23:59 23:59 Intake Total 3701 / 3701 1213 / 1213 1285 / 1285 950 / 950 Output Total 1900 / 1900 900 / 900 2500 / 2500 100 / 100 Balance 1801 / 1801 313 / 313 -1215 / -1215 850 / 850 Weight (kg) 106.5 kg 106.5 kg 106.5 kg 106.5 kg Objective General Appearance: positive No acute distress and Alert Eyes Bilateral: positive Conjunctivae nml and No scleral icterus ENT: positive Other (NGT visible and functioning) Neck: positive Nml inspection Respiratory: positive No respiratory distress and Breath sounds nml; negative Wheezes, Rales or Rhonchi Cardiovascular: positive Regular rate & rhythm, No murmur and No gallop; negative Friction rub Peripheral Pulses: 1+: Radial (R), 1+: Radial (L), 1+: Dorsalis pedis (R) and 1+: Dorsalis pedis (L) Abdomen: positive Tenderness (appropriate), Abnml bowel sounds (diminished bowel sounds) and Other (dressing changed 06/06, minimal drainage, no erythema. abdominal binder present); negative No distention (slight), Guarding or Rebound Skin: positive Color nml Extremities: positive Non-tender and No pedal edema Neurologic/Psychiatric: positive Oriented x3 Lab Results 06/06/25 11:45 06/06/25 11:45 Other Labs: Lab Results x24hrs 06/05/25 06/05/25 06/04/25 Range/Units 07:09 06:53 Unknown WBC 10.5 14.3 H (4.8-10.8) x10^3/uL RBC 3.87 L 3.84 L (4.20-5.40) 10^6/uL Hgb 11.5 L 11.3 L (12.0-16.0) g/dL Hct 35.0 L 34.8 L (37.0-47.0) % MCV 90.4 90.6 (81.0-99.0) fL MCH 29.7 29.4 (27.0-31.0) pg MCHC 32.9 32.5 (32.0-36.0) g/dL RDW 14.4 14.5 (12.0-15.0) % Plt Count 661 H 605 H (130-450) 10^3/uL MPV 10.3 10.2 (7.9-10.8) fL Neut # (Auto) 7.8 H (1.5-6.6) 10^3/uL Lymph # (Auto) 1.7 (1.5-3.5) 10^3/uL [place] # (Auto) 0.6 (0.0-1.0) 10^3/uL Eos # (Auto) 0.1 (0.0-0.7) 10^3/uL Baso # (Auto) 0.1 (0.0-0.1) 10^3/uL Absolute Nucleated RBC 0.00 x10^3/uL Nucleated RBC % 0.0 /100WBC Sodium 133 L (135-145) mmol/L Potassium 3.7 (3.5-4.5) mmol/L Chloride 101 (101-111) mmol/L Carbon Dioxide 23 (21-32) mmol/L Anion Gap 9.0 (6-13) BUN 22 H (6-20) mg/dL Creatinine 0.7 (0.6-1.3) mg/dL Estimated GFR (MDRD) 84 L (>89) Glucose 125 H (74-104) mg/dL Calcium 8.2 L (8.5-10.3) mg/dL Total Bilirubin 0.4 (0.2-1.0) mg/dL AST 140 H (10-42) IU/L ALT 101 H (10-60) IU/L Alkaline Phosphatase 187 H (42-121) IU/L Total Protein 5.6 L (6.4-8.9) g/dL Albumin 2.9 L (3.2-5.5) g/dL Globulin 2.7 (2.1-4.2) g/dL Albumin/Globulin Ratio 1.1 (1.0-2.2) Diagnostic Imaging Diagnostic Imaging Results: positive Final report reviewed Assessment/Plan Problem List (1) Small bowel obstruction: Impression: Lydia Obrien is a 64 year old Female with a history of cholecystectomy and hysterectomy without oophorectomy presented to the ER on 05/21 with complaints of vomiting and abdominal pain. Inability to tolerate PO for 5 days. No flatus or BM for 5 days. She denies hx of SBO. 05/23, Taken to the OR for dx laparoscopy. Ultimately required laparotomy with small bowel resection for Meckels/small bowel torsion/perforation. NGT out 06/03. MIRNA that was in the pelvis is out. incision is draining appropriately without signs of infection. Tolerated clear liquids on 06/03, but unfortunately failed a soft diet 06/04 (soft diet due to edentulous). PPN was started on the evening of POD #1, given the amount of time she had been without nutrition. Discontinued on 06/03. Off abx 05/29. WBC 14.3(H) yesterday, 10.5 today. No fevers. UA ordered, but not resulted. Restarted IVF. 06/04 Abdominal XR impression: "mild pulmonary edema versus bronchovascular crowding. Left lower lobe patchy opacity may represent atelectasis versus pneumonia." NG tube replaced 06/05 1015. 800 mL out so far at this time. NG tube to be clamped to challenge bowel. 06/[address] with oral contrast obtained. Radiology impression: "No extraluminal oral contrast. Diffuse small and large bowel dilation, most consistent with ileus." 06/05 1830 Abdominal XR, Radiology impression: "Mild distention of the large bowel, with decreased distention of the small bowel. Findings likely indicate resolving ileus." Post-op day 14. She is passing liquidy stool. She had a saline enema @ 1821 yesterday. She had a large BM @ 2000 yesterday and moderate BM at 0233 today. Both liquidy but improving in consistency. Her dressing was changed. Liver enzymes are still elevated, but improved from yesterday: AST 46(H), ALT 65(H), Alk Phos 152(H) Total Bilirubin 0.3 Transaminitis possibly related to cholestasis secondary to prison parenteral nutrition. Second saline enema ordered, but not given d/t patient refusal. - clamp NGT - Diet: start clear liquid diet. Progress to full regular diet by dinner - Continue IV fluids NaCl 0.9% 125 mL/hr - Continue to monitor IOs, vitals, and labs (BMP and CBC) - Monitor LFTs one more day and see if there is continued improvement. - Hold restarting total parenteral nutrition (2) Atrial fibrillation with RVR: Impression: Rate controlled. At the time of admit, likely related to dehydration. She has stabilized and was back on home meds of Amiodarone 200mg daily, metoprolol 100mg daily. Xarelto was not been resumed. Pt NPO. Metoprolol ordered PRN, but she has not needed a dose. - Hold home meds - Continue metoprolol 5 mg IV q6hr PRN (3) Hypokalemia: Impression: Previously repleted and resolved. 10/31 Potassium is 2.9(L) - Continue daily chemistries - Potassium 40 mEq IV (4) Diabetes: Impression: A1c 5.6 Holding home dose Ozempic while in the hospital SSI held as well as POC Glucose for now. recommend outpatient followup. (5) Acute kidney injury: Impression: Resolved. Continue daily chemistries (6) Hyponatremia: Impression: Mild, 133 today. Continue daily chemistries (7) Depression: Impression: Pt NPO Hold home dose Vraylar and Cymbalta (8) Hypothyroid: Impression: Pt NPO Hold PO synthroid.
[2025-06-06] MEDS: SALINE ENEMA 133 ML BOTTLE RC ONE (09:16)
[2025-06-06 12:14] LABS: HCT - HEMATOCRIT 33.9 % (37.0-47.0); HGB - HEMOGLOBIN 10.4 g/dL (12.0-16.0); MEAN PLATELET VOLUME 10.0 fL (7.9-10.8); NRBC ABSOLUTE COUNT (AUTO) 0.00 x10^3/uL; NUCLEATED RED BLOOD CELLS AUTO 0.0 /100WBC; PLT - PLATELET COUNT 681 10^3/uL (130-450); RED CELL DISTRIBUTION WIDTH 14.9 % (12.0-15.0)
[2025-06-06 13:01] LABS: ALT ALANINE AMINOTRANSFERASE 65.0 IU/L (10-60); AST ASPARTATE AMINOTRANSFERASE 46.0 IU/L (10-42); BUN - BLOOD UREA NITROGEN 14.0 mg/dL (6-20); CARBON DIOXIDE - CO2 21.0 mmol/L (21-32); CREATININE 0.7 mg/dL (0.6-1.3); GFR - MDRD 84.0 (>89)
[2025-06-06] MEDS: POTASSIUM CHLOR 10 MEQ/100 ML 10 MEQ/100 ML BAG IV SCH (14:20)
--- NOTE | 2025-06-06 15:36 | PROVIDER PROGRESS NOTE ---
Subjective General Admit Date: 05/21/25 Procedure Date: 05/23/25 Post Op Days: 14 Procedure Performed: ExLap, small bowel resection Other Other Information/Narrative: CT yesterday without concern for intraabdominal infection, obstruction, or incisional abscess. WBC down today and LFTs also down. Given Fleets enema yesterday afternoon and 3 BM overnight, now feeling much better with appetite this AM. No significant pain this AM. [place] drains removed on rounds, BID dry dressing change to start. Review of Systems Status of ROS: 10 or more systems reviewed and unremarkable except as noted in history and below Exam Exam Vital Signs: Vital Signs x48h Temp Pulse Pulse Resp BP Pulse Ox 06/06/25 13:00 36.3 C L 61 14 121/63 93 06/06/25 08:28 81 20 Constitutional abnormal general appearance (chronically ill), no apparent distress and abnormal body habitus (obese) A&Ox3/GCS15 HENMT normocephalic Neck/C-Spine visual inspection normal Respiratory breath sounds equal bilaterally and normal respiratory effort Cardiovascular normal heart rate noted Gastrointestinal Midline wound with scant ssf from superior and inferior wound where penroses were removed this AM. No erythema, no purulence, nontender. soft/no ttp. Extremities no deformity Neurology no movement abnormality noted and GCS 15 Psychiatry mental status grossly normal and oriented x3 Skin skin color normal Impression/Plan Problem List (1) Small bowel obstruction: Plan: 64 y/o F admitted 05/21 with first small bowel obstruction; failed NGT decompression and gastrograffin trial, thus underwent operative management. POD#13, s/p DxLap --> Ex Lap, lysis of adhesions, 75cm small bowel resection (05/23, Dr. Alcocer). Etiology of SBO Adhesions + Meckel's diverticulum. Intraoperative findings of small bowel twisted around adhesion between meckel's diverticulum and root of mesentery, two small bowel perforations identified upon release of obstruction at locations of twisting. Large volume succus contamination of peritoneal cavity, extensive irrigation done at time of surgery. ID: post op abx complete, leukocytosis resolved today @ 8. Patient denies f/c. No obvious source of infection identified on CT 06/01 or 06/05. Pain: scheduled IV tylenol, prn narcotic (no NSAIDS given ARF early in admission) Card/Pulm: H/o CHF, Afib with RVR, COPD - mgmt per IM, appreciate recs. Echo during this admission (05/22) with normal EF. - required pressors for two days after surgery, but HD stable for last week - CVL in place GI/Fen: Ileus seems at least partially related to colonic stool impaction, which is improving with enemas. Continue enemas today and trial clears. - continue TPN - MIRNA out 06/02 - Midline wound: [place] drains removed 06/06. BID dry gauze dressing change with corner of gauze lightly packed into superior and inferior aspects of otherwise stapled wound. - replete electrolytes per protocol : - ARF, resolved. Do out 06/02. Heme: - Hgb stable, continue dvt ppx Discharge planning: - PT following, patient encouraged to increase activity Ppx: lovenox, PPI Patient admitted to hospitalist service due to comorbidities. Surgery will continue to follow closely. Plan of care discussed with medicine team (Dr. Plunkett), RN, and patient this AM. Parul Alcocer DO, FACS General Surgeon, [facility] (2) Atrial fibrillation with RVR: (3) Hypokalemia: (4) Diabetes: (5) Acute kidney injury: (6) Hyponatremia: (7) Depression: (8) Hypothyroid:
[2025-06-06 19:40] LABS: GLUCOSE, URINE (UA) NEGATIVE (NEGATIVE); KETONES,URINE (UA) NEGATIVE (NEGATIVE); OCCULT BLOOD,URINE TRACE (NEGATIVE)
[2025-06-06 19:41] LABS: SQUAMOUS EPITHELIAL CELL,UR MANY Squamous (<= Few)
[2025-06-07 05:46] LABS: HCT - HEMATOCRIT 30.7 % (37.0-47.0); HGB - HEMOGLOBIN 9.7 g/dL (12.0-16.0); MEAN PLATELET VOLUME 9.7 fL (7.9-10.8); PLT - PLATELET COUNT 615 10^3/uL (130-450); RED CELL DISTRIBUTION WIDTH 15.1 % (12.0-15.0)
[2025-06-07 06:08] LABS: ALT ALANINE AMINOTRANSFERASE 47.0 IU/L (10-60); AST ASPARTATE AMINOTRANSFERASE 26.0 IU/L (10-42); BUN - BLOOD UREA NITROGEN 9.0 mg/dL (6-20); CARBON DIOXIDE - CO2 18.0 mmol/L (21-32); CREATININE 0.7 mg/dL (0.6-1.3); GFR - MDRD 84.0 (>89)
[2025-06-07 06:19] LABS: PLATELET ESTIMATE, MANUAL INCREASED (>450,000) (NORMAL); PLATELET MORPHOLOGY NORMAL APPEARANCE (NORMAL); RBC MORPHOLOGY (MULTIPLE) NORMAL APPEARANCE (NORMAL)
[2025-06-07 06:20] LABS: WBC MORPHOLOGY (MULTIPLE) NORMAL APP (NORMAL)
[2025-06-07] MEDS: POTASSIUM CHLOR 10 MEQ/100 ML 10 MEQ/100 ML BAG IV SCH (09:26)
[2025-06-07] MEDS: POTASSIUM CHLORIDE 20 MEQ/15 ML UDC PO SCH (10:00)
--- NOTE | 2025-06-07 10:24 | PROVIDER PROGRESS NOTE ---
Subjective General Admit Date: 05/21/25 Procedure Date: 05/23/25 Post Op Days: 15 Procedure Performed: ExLap, small bowel resection Other Other Information/Narrative: Doing well today, tolerating full liquids, having bowel function, OOB w/ assistance, pain well controlled. Wound Assessment Wound/Incisions: positive Healing well and No drainage Review of Systems Status of ROS: 10 or more systems reviewed and unremarkable except as noted in history and below Exam Exam Vital Signs: Vital Signs x48h Temp Pulse Pulse Resp BP Pulse Ox 06/07/25 09:00 36.6 C 62 18 131/62 H 92 06/07/25 08:39 78 20 06/07/25 04:01 36.2 C L 63 16 114/67 93 Constitutional normal general appearance, no apparent distress and abnormal body habitus (obese) HENMT normocephalic and head/scalp atraumatic Eyes conjunctivae normal and no scleral icterus Neck/C-Spine visual inspection normal Respiratory normal respiratory effort Cardiovascular normal heart rate noted and regular rhythm noted Gastrointestinal Dressing removed this morning, some serous drainage appreciated on dressing but no new drainage expressed from the wound on palpation, appears to be healing ap propriately. Extremities normal to inspection and no deformity Neurology no movement abnormality noted and GCS 15 Psychiatry mental status grossly normal and oriented x3 Skin skin color normal Impression/Plan Problem List (1) Small bowel obstruction: Plan: 64 y/o F admitted 05/21 with first small bowel obstruction; failed NGT decompression and gastrograffin trial, thus underwent operative management. POD#15, s/p DxLap --> Ex Lap, lysis of adhesions, 75cm small bowel resection (05/23, Dr. Alcocer). Etiology of SBO Adhesions + Meckel's diverticulum. Intraoperative findings of small bowel twisted around adhesion between meckel's diverticulum and root of mesentery, two small bowel perforations identified upon release of obstruction at locations of twisting. Large volume succus contamination of peritoneal cavity, extensive irrigation done at time of surgery. Overall reports feeling better, has been tolerating full liquids with good bowel function. - Advance diet as tolerated, ok for food - Pain control as needed - Encourage OOB/ambulation, PT/OT - Daily dressing changes - Maintain electrolytes K>4, P>3 and Mg>2 - Rest of care per primary - Dispo planning Patient admitted to hospitalist service due to comorbidities and we certainly appreciate working with them. Surgery will continue to follow closely. Plan of care discussed with primary medicine team (Dr. Fishman) this AM. (2) Atrial fibrillation with RVR: (3) Hypokalemia: (4) Diabetes: (5) Acute kidney injury: (6) Hyponatremia: (7) Depression: (8) Hypothyroid:
--- NOTE | 2025-06-07 12:43 | PROVIDER PROGRESS NOTE ---
Subjective Prog Note Date Prog Note Date: 06/07/25 Prog Note Time: 09:17 Subjective Pt reports feeling: Improved Subjective: She continues to improve. She's glad her NGT was removed last night. Mild- moderate abdominal pain. She has had 3 BMs in the last 24 hours with improved consistency. She is starting to feel much better. She had her dressing changed this morning. ROS: Denies nausea, vomiting, fever, and chills Reports mild-moderate abdominal pain Current Medications Current Medications Current Medications: Current Medications Generic Name Dose Route Start Last Admin Trade Name Freq PRN Reason Stop Dose Admin Albuterol/Ipratropium 3 ml 05/30/25 18:44 06/07/25 08:37 Ipratropium/Albuterol 3 Ml Neb INH 3 ml RTQID PRN Administration Shortness of Air/Wheezing Budesonide 0.5 mg 05/30/25 19:00 06/07/25 08:37 Budesonide 0.5 Mg/2 Ml Neb INH 0.5 mg RTBID MARCO Administration Diphenhydramine HCl 25 mg 05/25/25 09:45 06/05/25 02:34 Diphenhydramine Inj 50 Mg/Ml Vial IVP 25 mg Q6H PRN Administration Anaphylaxis Enoxaparin Sodium 40 mg 05/28/25 09:00 06/07/25 09:26 Enoxaparin 40 Mg/0.4 Ml Syringe SUBQ 40 mg DAILY MARCO Administration Hydromorphone HCl 0.5 mg 05/21/25 17:57 06/07/25 05:34 Hydromorphone 0.5 Mg/0.5 Ml Syringe IVP 0.5 mg Q2H PRN Administration Pain 8 to 10 Sodium Chloride 1,000 mls @ 75 mls/hr 06/05/25 07:00 06/07/25 09:22 Normal Saline 0.9% IV 75 mls/hr .[id number] MARCO Infusion Potassium Chloride 10 meq in 100 mls @ 100 mls/hr 06/07/25 09:00 06/07/25 11:57 Potassium Chloride IV 06/07/25 12:59 100 mls/hr Q1H MARCO Administration Metoclopramide HCl 5 mg 06/05/25 18:00 06/07/25 11:58 Metoclopramide 10 Mg/2 Ml Vial IVP 5 mg Q6HR MARCO Administration Metoprolol Tartrate 5 mg 06/05/25 18:00 Metoprolol 5 Mg/5 Ml Vial IVP Q6H PRN Tachycardia Ondansetron HCl 4 mg 05/21/25 17:57 06/05/25 02:34 Ondansetron 4 Mg/2 Ml Vial IVP 4 mg Q6HR PRN Administration Nausea / Vomiting Pantoprazole Sodium 20 mg 05/26/25 11:00 06/07/25 05:33 Pantoprazole 40 Mg Vial IVP 20 mg QDAC MARCO Administration Phenol/Menthol 2 sprays 05/21/25 18:57 05/21/25 19:32 Phenol Throat [place] 177 Ml MM 2 sprays Q2HR PRN Administration Throat Pain Potassium Chloride 20 meq 06/07/25 09:00 06/07/25 10:00 Potassium Chloride 20 Meq/15 Ml Udc PO 20 meq DAILYWM MARCO Administration Prochlorperazine Edisylate 10 mg 05/21/25 17:57 06/04/25 17:57 Prochlorperazine 10 Mg/2 Ml Vial IVP 10 mg Q6HR PRN Administration Nausea / Vomiting Sodium Chloride 10 ml 05/21/25 17:57 06/07/25 00:49 Sodium Chloride Flush 0.9% 10 Ml Syringe IVP 10 ml PRN PRN Administration NEEDED PER PROVIDER ORDERS Sodium Chloride 10 ml 05/21/25 17:57 06/07/25 09:26 Sodium Chloride Flush 0.9% 10 Ml Syringe IVP 10 ml 0100,0900,1700 MARCO Administration Objective Vital Signs/Intake & Output Reviewed Vital Signs: Yes Vital Signs: Vital Signs x48h Temp Pulse Pulse Resp BP Pulse Ox 06/07/25 09:00 36.6 C 62 18 131/62 H 92 06/07/25 08:39 78 20 Intake & Output: Intake & Output 06/04/25 06/05/25 06/06/25 06/07/25 23:59 23:59 23:59 23:59 Intake Total 1213 / 1213 1285 / 1285 3588 / 3588 2404 / 2404 Output Total 900 / 900 2500 / 2500 300 / 300 Balance 313 / 313 -1215 / -1215 3288 / 3288 2404 / 2404 Weight (kg) 106.5 kg 106.5 kg 106.5 kg 102 kg Objective General Appearance: positive No acute distress and Alert Eyes Bilateral: positive Conjunctivae nml and No scleral icterus ENT: positive Other (NGT no longer present) Respiratory: positive No respiratory distress and Breath sounds nml; negative Wheezes, Rales or Rhonchi Cardiovascular: positive Regular rate & rhythm, No murmur and No gallop; negative Friction rub Peripheral Pulses: 1+: Dorsalis pedis (R) and 1+: Dorsalis pedis (L) and 2+: Radial (R) and 2+: Radial (L) Abdomen: positive Tenderness (improving), Abnml bowel sounds (improved bowel sounds) and Other (witnessed dressing changed 06/07; dry incision site, no erythema, bleeding, or pus. abdominal binder present. Drains no longer present.); negative No distention (improving), Guarding or Rebound Skin: positive Color nml Extremities: positive Non-tender and No pedal edema Neurologic/Psychiatric: positive Oriented x3 Lab Results 06/07/25 05:05 06/07/25 05:05 Other Labs: Lab Results x24hrs 06/07/25 06/06/25 06/06/25 Range/Units 05:05 18:40 11:45 WBC 5.5 (4.8-10.8) x10^3/uL RBC 3.30 L (4.20-5.40) 10^6/uL Hgb 9.7 L (12.0-16.0) g/dL Hct 30.7 L (37.0-47.0) % MCV 93.0 (81.0-99.0) fL MCH 29.4 (27.0-31.0) pg MCHC 31.6 L (32.0-36.0) g/dL RDW 15.1 H (12.0-15.0) % Plt Count 615 H (130-450) 10^3/uL MPV 9.7 (7.9-10.8) fL Neut # (Auto) Not Reportable Lymph # (Auto) Not Reportable [place] # (Auto) Not Reportable Eos # (Auto) Not Reportable Baso # (Auto) Not Reportable Absolute Nucleated RBC Not Reportable Band Neuts % (Manual) Not Reportable Abnorm Lymph % (Manual) Not Reportable Nucleated RBC % Not Reportable Neutrophils # (Manual) Not Reportable Lymphocytes # (Manual) Not Reportable Monocytes # (Manual) Not Reportable Eosinophils # (Manual) Not Reportable Basophils # (Manual) Not Reportable Differential Comment MANUAL DIFFERENTIAL WBC Morphology NORMAL WILLIAM (NORMAL) Platelet Estimate INCREASED (>450,000) (NORMAL) Platelet Morphology NORMAL APPEARANCE (NORMAL) RBC Morph Micro Appear NORMAL APPEARANCE (NORMAL) Sodium 134 L 135 (135-145) mmol/L Potassium 2.9 L 2.9 L (3.5-4.5) mmol/L Chloride 109 106 (101-111) mmol/L Carbon Dioxide 18 L 21 (21-32) mmol/L Anion Gap 7.0 8.0 (6-13) BUN 9 14 (6-20) mg/dL Creatinine 0.7 0.7 (0.6-1.3) mg/dL Estimated GFR (MDRD) 84 L 84 L (>89) Glucose 81 128 H (74-104) mg/dL Calcium 7.7 L 8.1 L (8.5-10.3) mg/dL Total Bilirubin 0.3 0.3 (0.2-1.0) mg/dL AST 26 46 H (10-42) IU/L ALT 47 65 H (10-60) IU/L Alkaline Phosphatase 137 H 152 H (42-121) IU/L Total Protein 5.1 L 5.7 L (6.4-8.9) g/dL Albumin 2.5 L 2.7 L (3.2-5.5) g/dL Globulin 2.6 3.0 (2.1-4.2) g/dL Albumin/Globulin Ratio 1.0 0.9 L (1.0-2.2) Urine Color YELLOW Urine Clarity HAZY (CLEAR) Urine pH 6.0 (5.0-7.5) PH Ur Specific [place] 1.010 (1.002-1.030) Urine Protein TRACE (NEGATIVE) mg/dL Urine Glucose (UA) NEGATIVE (NEGATIVE) mg/dL Urine Ketones NEGATIVE (NEGATIVE) mg/dL Urine Occult Blood TRACE (NEGATIVE) Urine Nitrite NEGATIVE (NEGATIVE) Urine Bilirubin NEGATIVE (NEGATIVE) Urine Urobilinogen 0.2 (NORMAL) (NORMAL) E.U./dL Ur Leukocyte Esterase TRACE H (NEGATIVE) Urine RBC 0-5 (0-5) /HPF Urine WBC 4-5 (0-5) /HPF Ur Squamous Epith Cells MANY Squamous H (<= Few) Urine Bacteria Many H (None Seen) /HPF Urine Culture Comments NOT INDICATED Diagnostic Imaging Diagnostic Imaging Results: positive Final report reviewed Assessment/Plan Problem List (1) Small bowel obstruction: Impression: Lydia Obrien is a 64 year old Female with a history of cholecystectomy and hysterectomy without oophorectomy presented to the ER on 05/21 with complaints of vomiting and abdominal pain. Inability to tolerate PO for 5 days. No flatus or BM for 5 days. She denies hx of SBO. 05/23, Taken to the OR for dx laparoscopy. Ultimately required laparotomy with small bowel resection for Meckels/small bowel torsion/perforation. NGT out 06/03. MIRNA that was in the pelvis is out. incision is draining appropriately without signs of infection. Tolerated clear liquids on 06/03, but unfortunately failed a soft diet 06/04 (soft diet due to edentulous). PPN was started on the evening of POD #1, given the amount of time she had been without nutrition. Discontinued on 06/03. Off abx 05/29. WBC 14.3(H) yesterday, 10.5 today. No fevers. UA ordered, but not resulted. Restarted IVF. 06/04 Abdominal XR impression: "mild pulmonary edema versus bronchovascular crowding. Left lower lobe patchy opacity may represent atelectasis versus pneumonia." NG tube replaced 06/05 1015. 800 mL out so far at this time. NG tube to be clamped to challenge bowel. 06/[address] with oral contrast obtained. Radiology impression: "No extraluminal oral contrast. Diffuse small and large bowel dilation, most consistent with ileus." 06/05 1830 Abdominal XR, Radiology impression: "Mild distention of the large bowel, with decreased distention of the small bowel. Findings likely indicate resolving ileus." 06/05 saline enema x 1 completed Post-op day 15. She has had 3 moderate to large BMs in the last 24 hours. She is passing liquidy and soft stools and flatus. She is tolerating a full liquid diet well. Her dressing was changed this AM and drains have been removed. Liver enzymes are improved. NGT removed. We will continue to progress her diet. On tract to be medically cleared by tomorrow. - Diet: Full liquid. Progress to soft mechanical diet as tolerated - Discontinue IV fluids - Continue to monitor IOs, vitals, and labs (BMP and CBC) - Remove lincoln, start void trial (2) Atrial fibrillation with RVR: Impression: Rate controlled. At the time of admit, likely related to dehydration. She has stabilized and was back on home meds of Amiodarone 200mg daily, metoprolol 100mg daily. Xarelto was not been resumed. Pt NPO. Metoprolol ordered PRN, but she has not needed a dose. - Restart PO metoprolol @ 50 mg daily - Hold Xarelto one more day, restart on 06/08 - Discontinue telemonitoring (3) Hypokalemia: Impression: Previously repleted and resolved. 06/06 Potassium is 2.9(L) Given Potassium 40 mEq IV. 06/07 Potassium still 2.9(L) Likely due to GI losses. - Continue daily chemistries - Started second round of Potassium 40 mEq IV - BMP @ 1400 today (4) Diabetes: Impression: A1c 5.6 Holding home dose Ozempic while in the hospital SSI held as well as POC Glucose for now. recommend outpatient followup. (5) Acute kidney injury: Impression: Resolved. - Continue daily chemistries (6) Hyponatremia: Impression: Mild, 134 today. - Continue daily chemistries (7) Depression: Impression: Restart home Vraylar and Cymbalta (8) Hypothyroid: Impression: Restart PO synthroid.
[2025-06-07] MEDS: FLUTICASONE UMECLIDIN VILANTER INH SCH (15:01)
[2025-06-07] MEDS: ACETAMINOPHEN 500 MG TABLET PO SCH (15:06)
[2025-06-07 15:39] LABS: BUN - BLOOD UREA NITROGEN 7.0 mg/dL (6-20); CARBON DIOXIDE - CO2 17.0 mmol/L (21-32); CREATININE 0.8 mg/dL (0.6-1.3); GFR - MDRD 72.0 (>89); PHOSPHORUS 2.6 mg/dL (2.5-5.0)
[2025-06-07] MEDS: MAGNESIUM OXIDE 400 MG TABLET PO SCH (17:18)
[2025-06-07] MEDS: oxyCODONE 5 MG TABLET PO PRN (20:55)
[2025-06-07] MEDS: IPRATROPIUM 0.2 MG/ML NEB INH SCH (20:58)
[2025-06-07] MEDS: BUDESONIDE 0.5 MG/2 ML NEB INH SCH (20:58)
[2025-06-08 06:24] LABS: HCT - HEMATOCRIT 34.4 % (37.0-47.0); HGB - HEMOGLOBIN 10.4 g/dL (12.0-16.0); MEAN PLATELET VOLUME 10.2 fL (7.9-10.8); PLT - PLATELET COUNT 685 10^3/uL (130-450); RED CELL DISTRIBUTION WIDTH 15.4 % (12.0-15.0)
[2025-06-08 06:38] LABS: ABNORMAL LYMPHS % (MANUAL) 0 %
[2025-06-08] MEDS: LEVOTHYROXINE 25 MCG TABLET PO SCH (06:42)
[2025-06-08] MEDS: LEVOTHYROXINE 112 MCG TABLET PO SCH (06:42)
[2025-06-08 06:43] LABS: BAND NEUTROPHILS % (MANUAL) 8 %; BASOPHILS # (MANUAL) 0.1 10^3/uL (0-0.1); BASOPHILS % (MANUAL) 2 %; BUN - BLOOD UREA NITROGEN 6.0 mg/dL (6-20); CARBON DIOXIDE - CO2 18.0 mmol/L (21-32); CREATININE 0.8 mg/dL (0.6-1.3); EOSINOPHILS # (MANUAL) 0.1 10^3/uL (0-0.7); GFR - MDRD 72.0 (>89); LYMPHOCYTES # (MANUAL) 2.2 10^3/uL (1.5-3.5); LYMPHOCYTES % (MANUAL) 33 %; MONOCYTES # (MANUAL) 0.5 10^3/uL (0.0-1.0); NEUTROPHILS # (MANUAL) 3.6 10^3/uL (1.5-6.6); PLATELET ESTIMATE, MANUAL INCREASED (>450,000) (NORMAL); PLATELET MORPHOLOGY NORMAL APPEARANCE (NORMAL); RBC MORPHOLOGY (MULTIPLE) NORMAL APPEARANCE (NORMAL)
--- NOTE | 2025-06-08 08:06 | PROVIDER PROGRESS NOTE ---
Subjective General Admit Date: 05/21/25 Procedure Date: 05/23/25 Post Op Days: 16 Procedure Performed: ExLap, small bowel resection Other Other Information/Narrative: Doing well this morning, states she is continuing to improve, had food yesterday and tolerated it well with no nausea, continues to have bowel function. Wound Assessment Wound/Incisions: positive Healing well and No drainage Review of Systems Status of ROS: 10 or more systems reviewed and unremarkable except as noted in history and below Exam Exam Vital Signs: Vital Signs x48h Temp Pulse Pulse Resp BP Pulse Ox 06/08/25 07:46 80 20 06/08/25 04:20 36.6 C 61 16 142/73 H 98 Constitutional normal general appearance, no apparent distress and abnormal body habitus (obese) HENMT normocephalic and head/scalp atraumatic Eyes conjunctivae normal and no scleral icterus Neck/C-Spine visual inspection normal Respiratory normal respiratory effort Cardiovascular normal heart rate noted and regular rhythm noted Gastrointestinal Dressing removed this morning and replaced, dressing dry with no drainage appreciated on gauze or in the wound, appears to be healing appropriately. Extremities normal to inspection and no deformity Neurology GCS 15 Psychiatry mental status grossly normal and oriented x3 Skin skin color normal Impression/Plan Problem List (1) Small bowel obstruction: Plan: 64 y/o F admitted 05/21 with first small bowel obstruction; failed NGT decompression and gastrograffin trial, thus underwent operative management. POD#16, s/p DxLap --> Ex Lap, lysis of adhesions, 75cm small bowel resection (05/23, Dr. Alcocer). Etiology of SBO Adhesions + Meckel's diverticulum. Intraoperative findings of small bowel twisted around adhesion between meckel's diverticulum and root of mesentery, two small bowel perforations identified upon release of obstruction at locations of twisting. Large volume succus contamination of peritoneal cavity, extensive irrigation done at time of surgery. Overall reports feeling better, has been tolerating full liquids with good bowel function. - Diet as tolerated - Pain control as needed - Encourage OOB/ambulation, PT/OT - Daily dressing changes - Maintain electrolytes K>4, P>3 and Mg>2 - Rest of care per primary - Dispo planning Patient admitted to hospitalist service due to comorbidities and we certainly appreciate working with them. Surgery will continue to follow closely. Plan of care discussed with primary medicine team (Dr. Fishman) this AM. (2) Atrial fibrillation with RVR: (3) Hypokalemia: (4) Diabetes: (5) Acute kidney injury: (6) Hyponatremia: (7) Depression: (8) Hypothyroid:
[2025-06-08] MEDS: MONTELUKAST 10 MG TABLET PO SCH (09:47)
[2025-06-08] MEDS: POTASSIUM CHLORIDE 20 MEQ TABLET PO SCH (09:47)
[2025-06-08] MEDS: SOLIFENACIN SUCCINATE 5 MG TABLET PO SCH (09:47)
[2025-06-08] MEDS: METOPROLOL SUCCINATE 50 MG TABLET PO SCH (09:48)
[2025-06-08] MEDS: FAMOTIDINE 20 MG TABLET PO SCH (09:48)
[2025-06-08] MEDS: EMPAGLIFLOZIN 10 MG TABLET PO SCH (09:48)
[2025-06-08] MEDS: MAGNESIUM OXIDE 400 MG TABLET PO SCH (09:48)
[2025-06-08] MEDS: AMIODARONE 200 MG TABLET PO SCH (09:48)
--- NOTE | 2025-06-08 12:01 | PROVIDER PROGRESS NOTE ---
Subjective Prog Note Date Prog Note Date: 06/08/25 Prog Note Time: 09:17 Subjective Pt reports feeling: Improved Subjective: She continues to feel much better. She is able to tolerate a soft mechanical diet. She ate most of her scrambled eggs this morning. Mild-moderate abdominal pain well managed with oxycodone. She continues to have regular BMs with improving consistency. She had her dressing changed this morning. ROS: Denies nausea, vomiting, fever, and chills Reports mild-moderate abdominal pain --- 1330 Addendum: RN noticed redness and purulence around previous MIRNA site. Current Medications Current Medications Current Medications: Current Medications Generic Name Dose Route Start Last Admin Trade Name Freq PRN Reason Stop Dose Admin Acetaminophen 1,000 mg 06/07/25 15:00 06/08/25 06:05 Acetaminophen 500 Mg Tablet PO 1,000 mg Q8H MARCO Administration Albuterol/Ipratropium 3 ml 05/30/25 18:44 06/07/25 08:37 Ipratropium/Albuterol 3 Ml Neb INH 3 ml RTQID PRN Administration Shortness of Air/Wheezing Amiodarone HCl 200 mg 06/08/25 09:00 06/08/25 09:48 Amiodarone 200 Mg Tablet PO 200 mg DAILY MARCO Administration Budesonide 0.5 mg 06/07/25 19:00 06/07/25 20:58 Budesonide 0.5 Mg/2 Ml Neb INH Not Given RTBID MARCO Diphenhydramine HCl 25 mg 05/25/25 09:45 06/05/25 02:34 Diphenhydramine Inj 50 Mg/Ml Vial IVP 25 mg Q6H PRN Administration Anaphylaxis Duloxetine HCl 60 mg 06/08/25 09:00 06/08/25 09:47 Duloxetine 60 Mg Capsule PO 60 mg DAILY MARCO Administration Empagliflozin 10 mg 06/08/25 09:00 06/08/25 09:48 Empagliflozin 10 Mg Tablet PO 10 mg DAILY MARCO Administration Enoxaparin Sodium 40 mg 05/28/25 09:00 06/08/25 09:47 Enoxaparin 40 Mg/0.4 Ml Syringe SUBQ 40 mg DAILY MARCO Administration Famotidine 40 mg 06/08/25 09:00 06/08/25 09:48 Famotidine 20 Mg Tablet PO 40 mg DAILY MARCO Administration Ipratropium [place] 0.5 mg 06/07/25 19:00 06/08/25 07:45 Ipratropium 0.2 Mg/Ml Neb INH 0.5 mg RTQ6H MARCO Administration Levothyroxine Sodium 112 mcg 06/08/25 07:00 06/08/25 06:42 Levothyroxine 112 Mcg Tablet PO 112 mcg QDAC MARCO Administration Levothyroxine Sodium 25 mcg 06/08/25 07:00 06/08/25 06:42 Levothyroxine 25 Mcg Tablet PO 25 mcg QDAC MARCO Administration Magnesium Oxide 400 mg 06/08/25 09:00 06/08/25 09:48 Magnesium Oxide 400 Mg Tablet PO 400 mg BID MARCO Administration Metoclopramide HCl 5 mg 06/05/25 18:00 06/08/25 06:08 Metoclopramide 10 Mg/2 Ml Vial IVP 5 mg Q6HR MARCO Administration Metoprolol Succinate 50 mg 06/08/25 09:00 06/08/25 09:48 Metoprolol Succinate 50 Mg Tablet PO 50 mg DAILY MARCO Administration Montelukast Sodium 10 mg 06/08/25 09:00 06/08/25 09:47 Montelukast 10 Mg Tablet PO 10 mg DAILY MARCO Administration Ondansetron HCl 4 mg 05/21/25 17:57 06/05/25 02:34 Ondansetron 4 Mg/2 Ml Vial IVP 4 mg Q6HR PRN Administration Nausea / Vomiting Oxycodone HCl 5 mg 06/07/25 14:01 06/08/25 09:48 Oxycodone 5 Mg Tablet PO 5 mg Q4HR PRN Administration Moderate Pain (Level 4-6) Pantoprazole Sodium 20 mg 05/26/25 11:00 06/08/25 06:07 Pantoprazole 40 Mg Vial IVP 20 mg QDAC MARCO Administration Patient Own Med ( 1 each 06/07/25 14:00 06/08/25 09:49 Vraylar 4.5mg) PO Not Given DAILY [facility] Phenol/Menthol 2 sprays 05/21/25 18:57 05/21/25 19:32 Phenol Throat [place] 177 Ml MM 2 sprays Q2HR PRN Administration Throat Pain Potassium Chloride 40 meq 06/08/25 09:00 06/08/25 09:47 Potassium Chloride 20 Meq Tablet PO 06/08/25 13:01 40 meq Q4H MARCO Administration Prochlorperazine Edisylate 10 mg 05/21/25 17:57 06/04/25 17:57 Prochlorperazine 10 Mg/2 Ml Vial IVP 10 mg Q6HR PRN Administration Nausea / Vomiting Sodium Chloride 10 ml 05/21/25 17:57 06/07/25 00:49 Sodium Chloride Flush 0.9% 10 Ml Syringe IVP 10 ml PRN PRN Administration NEEDED PER PROVIDER ORDERS Sodium Chloride 10 ml 05/21/25 17:57 06/08/25 09:49 Sodium Chloride Flush 0.9% 10 Ml Syringe IVP 10 ml 0100,0900,1700 MARCO Administration Solifenacin 5 mg 06/08/25 09:00 06/08/25 09:47 Solifenacin Succinate 5 Mg Tablet PO 5 mg DAILY MARCO Administration Objective Vital Signs/Intake & Output Reviewed Vital Signs: Yes Vital Signs: Vital Signs x48h Temp Pulse Pulse Pulse Resp BP Pulse Ox 06/08/25 08:11 36.3 C L 61 12 149/75 H 95 06/08/25 07:46 80 20 06/08/25 04:20 36.6 C 61 16 142/73 H 98 Intake & Output: Intake & Output 06/05/25 06/06/25 06/07/25 06/08/25 23:59 23:59 23:59 22:59 Intake Total 1285 / 1285 3588 / 3588 4116 / 4116 590 / 590 Output Total 2500 / 2500 300 / 300 300 / 300 425 / 425 Balance -1215 / -1215 3288 / 3288 3816 / 3816 165 / 165 Weight (kg) 106.5 kg 106.5 kg 102 kg 108 kg Objective General Appearance: positive No acute distress and Alert Eyes Bilateral: positive No scleral icterus Respiratory: positive No respiratory distress and Breath sounds nml; negative Wheezes, Rales or Rhonchi Cardiovascular: positive Regular rate & rhythm, No murmur and No gallop; negative Friction rub Peripheral Pulses: 1+: Dorsalis pedis (R) and 1+: Dorsalis pedis (L) and 2+: Radial (R) and 2+: Radial (L) Abdomen: positive Tenderness (improving), Abnml bowel sounds (improved bowel sounds) and Other (witnessed dressing changed 06/08; dressing is clean and dry); negative No distention (improving), Guarding or Rebound Skin: positive Color nml Extremities: positive Non-tender and No pedal edema Neurologic/Psychiatric: positive Oriented x3 Lab Results 06/08/25 05:25 06/08/25 05:25 Other Labs: Lab Results x24hrs 06/08/25 06/07/25 Range/Units 05:25 15:12 WBC 6.6 (4.8-10.8) x10^3/uL RBC 3.67 L (4.20-5.40) 10^6/uL Hgb 10.4 L (12.0-16.0) g/dL Hct 34.4 L (37.0-47.0) % MCV 93.7 (81.0-99.0) fL MCH 28.3 (27.0-31.0) pg MCHC 30.2 L (32.0-36.0) g/dL RDW 15.4 H (12.0-15.0) % Plt Count 685 H (130-450) 10^3/uL MPV 10.2 (7.9-10.8) fL Neut # (Auto) Not Reportable Lymph # (Auto) Not Reportable [place] # (Auto) Not Reportable Eos # (Auto) Not Reportable Baso # (Auto) Not Reportable Absolute Nucleated RBC Not Reportable Total Counted 100 Band Neuts % (Manual) 8 (0 - 10) % Abnorm Lymph % (Manual) 0 % Nucleated RBC % Not Reportable Neutrophils # (Manual) 3.6 (1.5-6.6) 10^3/uL Lymphocytes # (Manual) 2.2 (1.5-3.5) 10^3/uL Monocytes # (Manual) 0.5 (0.0-1.0) 10^3/uL Eosinophils # (Manual) 0.1 (0-0.7) 10^3/uL Basophils # (Manual) 0.1 (0-0.1) 10^3/uL Differential Comment MANUAL DIFFERENTIAL Platelet Estimate INCREASED (>450,000) (NORMAL) Platelet Morphology NORMAL APPEARANCE (NORMAL) RBC Morph Micro Appear NORMAL APPEARANCE (NORMAL) Sodium 132 L 133 L (135-145) mmol/L Potassium 3.0 L 3.6 (3.5-4.5) mmol/L Chloride 107 110 (101-111) mmol/L Carbon Dioxide 18 L 17 L (21-32) mmol/L Anion Gap 7.0 6.0 (6-13) BUN 6 7 (6-20) mg/dL Creatinine 0.8 0.8 (0.6-1.3) mg/dL Estimated GFR (MDRD) 72 L 72 L (>89) Glucose 76 117 H (74-104) mg/dL Calcium 8.4 L 7.9 L (8.5-10.3) mg/dL Phosphorus 2.6 (2.5-5.0) mg/dL Magnesium 1.6 L (1.7-2.3) mg/dL Diagnostic Imaging Diagnostic Imaging Results: positive Final report reviewed Assessment/Plan Problem List (1) Small bowel obstruction: Impression: Lydia Obrien is a 64 year old Female with a history of cholecystectomy and hysterectomy without oophorectomy presented to the ER on 05/21 with complaints of vomiting and abdominal pain. Inability to tolerate PO for 5 days. No flatus or BM for 5 days. She denies hx of SBO. 05/23, Taken to the OR for dx laparoscopy. Ultimately required laparotomy with small bowel resection for Meckels/small bowel torsion/perforation. NGT out 06/03. MIRNA that was in the pelvis is out. incision is draining appropriately without signs of infection. Tolerated clear liquids on 06/03, but unfortunately failed a soft diet 06/04 (soft diet due to edentulous). PPN was started on the evening of POD #1, given the amount of time she had been without nutrition. Discontinued on 06/03. Off abx 05/29. WBC 14.3(H) yesterday, 10.5 today. No fevers. UA ordered, but not resulted. Restarted IVF. 06/04 Abdominal XR impression: "mild pulmonary edema versus bronchovascular crowding. Left lower lobe patchy opacity may represent atelectasis versus pneumonia." NG tube replaced 06/05 1015. 800 mL out so far at this time. NG tube to be clamped to challenge bowel. 06/[address] with oral contrast obtained. Radiology impression: "No extraluminal oral contrast. Diffuse small and large bowel dilation, most consistent with ileus." 06/05 1830 Abdominal XR, Radiology impression: "Mild distention of the large bowel, with decreased distention of the small bowel. Findings likely indicate resolving ileus." 06/05 saline enema x 1 completed 06/06 NGT and drains removed 06/07 Full liquid diet. Liver enzymes improved. Discontinued IV fluids. Removed lincoln. Post-op day 16. She has progressed to a soft mechanical diet. She is voiding urine and passing stools and flatus well. Her dressing was changed this AM. Incision appears dry and healing well per Surgery. On tract to be medically cleared. RN noticed cellulitis and purulence around previous MIRNA site and notified surgery. Surgery irrigated and repacked it. - Diet: Soft mechanical diet - Continue to monitor IOs, vitals, and labs (BMP and CBC) - Cleared to discharge pending placement (2) Atrial fibrillation with RVR: Impression: Rate controlled. At the time of admit, likely related to dehydration. She has stabilized and was back on home meds of Amiodarone 200mg daily, metoprolol 100mg daily. Xarelto was not been resumed. Pt NPO. Metoprolol ordered PRN, but she has not needed a dose. - Restart PO metoprolol @ 50 mg daily - Restart Xarelto today - Discontinue telemonitoring (3) Hypokalemia: Impression: Previously repleted and resolved. 06/06 Potassium is 2.9(L) Given Potassium 40 mEq IV. Likely due to GI losses. 06/07 AM Potassium 2.9(L) Given Potassium 40 mEq IV. PM Potassium 3.6 06/08 AM Potassium 3.0(L). Expected to improve as patient's intake improves. - Continue to monitor OP (4) Diabetes: Impression: A1c 5.6 Holding home dose Ozempic while in the hospital SSI held as well as POC Glucose for now. recommend outpatient followup. (5) Acute kidney injury: Impression: Resolved. - Continue to monitor OP (6) Hyponatremia: Impression: Mild, 132 today. - Continue to monitor OP (7) Depression: Impression: 06/07 Restarted home Vraylar and Cymbalta (8) Hypothyroid: Impression: 06/07 Restarted PO synthroid.
[2025-06-09 05:31] LABS: HCT - HEMATOCRIT 31.9 % (37.0-47.0); HGB - HEMOGLOBIN 10.2 g/dL (12.0-16.0); MEAN PLATELET VOLUME 9.9 fL (7.9-10.8); PLT - PLATELET COUNT 709 10^3/uL (130-450); RED CELL DISTRIBUTION WIDTH 15.5 % (12.0-15.0)
[2025-06-09 05:35] LABS: SLIDE REVIEW? Indicated
[2025-06-09 05:36] LABS: ABNORMAL LYMPHS % (MANUAL) 0 %; BASOPHILS # (MANUAL) 0.0 10^3/uL (0-0.1)
[2025-06-09 05:47] LABS: BUN - BLOOD UREA NITROGEN 8.0 mg/dL (6-20); CARBON DIOXIDE - CO2 19.0 mmol/L (21-32); CREATININE 0.9 mg/dL (0.6-1.3); GFR - MDRD 63.0 (>89)
[2025-06-09 05:57] LABS: BAND NEUTROPHILS % (MANUAL) 3 %; EOSINOPHILS # (MANUAL) 0.1 10^3/uL (0-0.7); LYMPHOCYTES # (MANUAL) 3.7 10^3/uL (1.5-3.5); LYMPHOCYTES % (MANUAL) 52 %; METAMYELOCYTES % (MANUAL) 4 %; MONOCYTES # (MANUAL) 0.1 10^3/uL (0.0-1.0); MYELOCYTES % (MANUAL) 2 %; NEUTROPHILS # (MANUAL) 2.8 10^3/uL (1.5-6.6)
[2025-06-09 05:59] LABS: PLATELET ESTIMATE, MANUAL INCREASED (>450,000) (NORMAL); PLATELET MORPHOLOGY NORMAL APPEARANCE (NORMAL); WBC MORPHOLOGY (MULTIPLE) NORMAL APPEARANCE (NORMAL)
--- NOTE | 2025-06-09 09:33 | PROVIDER PROGRESS NOTE ---
Subjective General Admit Date: 05/21/25 Procedure Date: 05/23/25 Post Op Days: 17 Procedure Performed: ExLap, small bowel resection Other Other Information/Narrative: Appetite is low (900cc po intake charted), but no n/v and continued flatus/BM yesterday. Out of bed yesterday for shower. Wound is healing well with dry gauze wick. Wound Assessment Wound/Incisions: positive Healing well and No drainage Review of Systems Status of ROS: 10 or more systems reviewed and unremarkable except as noted in history and below Exam Exam Vital Signs: Vital Signs x48h Temp Pulse Pulse Resp BP Pulse Ox 06/09/25 08:10 36.7 C 55 L 18 149/68 H 96 06/09/25 07:03 68 22 Constitutional abnormal general appearance (chronically ill), no apparent distress and abnormal body habitus (obese) A&Ox3/GCS15 HENMT normocephalic Neck/C-Spine visual inspection normal Respiratory breath sounds equal bilaterally and normal respiratory effort Cardiovascular normal heart rate noted Gastrointestinal Midline wound stapled with dry gauze wick in superior and inferior aspects, scant drainage and closing well. No erythema, no purulence, nontender. soft/no ttp. Extremities no deformity Neurology no movement abnormality noted and GCS 15 Psychiatry mental status grossly normal and oriented x3 Skin skin color normal Impression/Plan Problem List (1) Small bowel obstruction: Plan: 64 y/o F admitted 05/21 with first small bowel obstruction; failed NGT decompression and gastrograffin trial, thus underwent operative management. POD#17, s/p DxLap --> Ex Lap, lysis of adhesions, 75cm small bowel resection (05/23, Dr. Alcocer). Etiology of SBO Adhesions + Meckel's diverticulum. Intraoperative findings of small bowel twisted around adhesion between meckel's diverticulum and root of mesentery, two small bowel perforations identified upon release of obstruction at locations of twisting. Large volume succus contamination of peritoneal cavity, extensive irrigation done at time of surgery. ID: post op abx complete, leukocytosis resolved. Patient denies f/c. No obvious source of infection identified on CT 06/01 or 06/05. Pain: scheduled IV tylenol, prn narcotic (no NSAIDS given ARF early in admission) Card/Pulm: H/o CHF, Afib with RVR, COPD - mgmt per IM, appreciate recs. Echo during this admission (05/22) with normal EF. - required pressors for two days after surgery, but HD stable for last week - CVL in place GI/Fen: Tolerating diet with consistent bowel function now. Wound healing well. - MIRNA out 06/02 - Midline wound: BID dry gauze dressing change with corner of gauze lightly packed into superior and inferior aspects of otherwise stapled wound. - will remove amrit prior to discharge - replete electrolytes per protocol : - ARF, resolved. Do out 06/02. Heme: - Hgb stable, continue dvt ppx Discharge planning: Stable for rehab, awaiting placement - PT following, patient encouraged to increase activity Ppx: lovenox, PPI Patient admitted to hospitalist service due to comorbidities. Surgery will continue to follow closely. Plan of care discussed with medicine team (Dr. Plunkett), RN, and patient this AM. Parul Alcocer DO, FACS General Surgeon, [facility] (2) Atrial fibrillation with RVR: (3) Hypokalemia: (4) Diabetes: (5) Acute kidney injury: (6) Hyponatremia: (7) Depression: (8) Hypothyroid:
--- NOTE | 2025-06-09 12:20 | PROVIDER PROGRESS NOTE ---
Subjective Prog Note Date Prog Note Date: 06/09/25 Subjective Subjective: She is having some abdominal pain, waiting on pain meds right now. Otherwise without complaints, having bowel movements and passing gas. She is tolerating a diet. until this afternoon at about 1600 when she vomited. Current Medications Current Medications Current Medications: Current Medications Generic Name Dose Route Start Last Admin Trade Name Freq PRN Reason Stop Dose Admin Acetaminophen 1,000 mg 06/07/25 15:00 06/09/25 07:02 Acetaminophen 500 Mg Tablet PO Not Given Q8H MARCO Albuterol/Ipratropium 3 ml 05/30/25 18:44 06/07/25 08:37 Ipratropium/Albuterol 3 Ml Neb INH 3 ml RTQID PRN Administration Shortness of Air/Wheezing Amiodarone HCl 200 mg 06/08/25 09:00 06/09/25 08:03 Amiodarone 200 Mg Tablet PO 200 mg DAILY MARCO Administration Budesonide 0.5 mg 06/07/25 19:00 06/09/25 07:02 Budesonide 0.5 Mg/2 Ml Neb INH 0.5 mg RTBID MARCO Administration Diphenhydramine HCl 25 mg 05/25/25 09:45 06/05/25 02:34 Diphenhydramine Inj 50 Mg/Ml Vial IVP 25 mg Q6H PRN Administration Anaphylaxis Duloxetine HCl 60 mg 06/08/25 09:00 06/09/25 08:04 Duloxetine 60 Mg Capsule PO 60 mg DAILY MARCO Administration Empagliflozin 10 mg 06/08/25 09:00 06/09/25 08:03 Empagliflozin 10 Mg Tablet PO 10 mg DAILY MARCO Administration Enoxaparin Sodium 40 mg 05/28/25 09:00 06/09/25 08:04 Enoxaparin 40 Mg/0.4 Ml Syringe SUBQ 40 mg DAILY MARCO Administration Famotidine 40 mg 06/08/25 09:00 06/09/25 08:04 Famotidine 20 Mg Tablet PO 40 mg DAILY MARCO Administration Ipratropium [place] 0.5 mg 06/07/25 19:00 06/09/25 07:02 Ipratropium 0.2 Mg/Ml Neb INH 0.5 mg RTQ6H MARCO Administration Levothyroxine Sodium 112 mcg 06/08/25 07:00 06/09/25 06:38 Levothyroxine 112 Mcg Tablet PO 112 mcg QDAC MACRO Administration Levothyroxine Sodium 25 mcg 06/08/25 07:00 06/09/25 06:38 Levothyroxine 25 Mcg Tablet PO 25 mcg QDAC MARCO Administration Magnesium Oxide 400 mg 06/08/25 09:00 06/09/25 08:03 Magnesium Oxide 400 Mg Tablet PO 400 mg BID MARCO Administration Metoprolol Succinate 50 mg 06/08/25 09:00 06/09/25 08:04 Metoprolol Succinate 50 Mg Tablet PO 50 mg DAILY MARCO Administration Montelukast Sodium 10 mg 06/08/25 09:00 06/09/25 08:03 Montelukast 10 Mg Tablet PO 10 mg DAILY MARCO Administration Ondansetron HCl 4 mg 05/21/25 17:57 06/05/25 02:34 Ondansetron 4 Mg/2 Ml Vial IVP 4 mg Q6HR PRN Administration Nausea / Vomiting Oxycodone HCl 5 mg 06/07/25 14:01 06/09/25 11:39 Oxycodone 5 Mg Tablet PO 5 mg Q4HR PRN Administration Moderate Pain (Level 4-6) Pantoprazole Sodium 20 mg 05/26/25 11:00 06/09/25 06:38 Pantoprazole 40 Mg Vial IVP 20 mg QDAC MARCO Administration Patient Own Med ( 1 each 06/07/25 14:00 06/09/25 08:07 Vraylar 4.5mg) PO Not Given DAILY MARCO Phenol/Menthol 2 sprays 05/21/25 18:57 05/21/25 19:32 Phenol Throat [place] 177 Ml MM 2 sprays Q2HR PRN Administration Throat Pain Prochlorperazine Edisylate 10 mg 05/21/25 17:57 06/04/25 17:57 Prochlorperazine 10 Mg/2 Ml Vial IVP 10 mg Q6HR PRN Administration Nausea / Vomiting Sodium Chloride 10 ml 05/21/25 17:57 06/09/25 06:39 Sodium Chloride Flush 0.9% 10 Ml Syringe IVP 10 ml PRN PRN Administration NEEDED PER PROVIDER ORDERS Sodium Chloride 10 ml 05/21/25 17:57 06/09/25 08:05 Sodium Chloride Flush 0.9% 10 Ml Syringe IVP 10 ml 0100,0900,1700 MARCO Administration Solifenacin 5 mg 06/08/25 09:00 06/09/25 08:04 Solifenacin Succinate 5 Mg Tablet PO 5 mg DAILY MARCO Administration Objective Vital Signs/Intake & Output Reviewed Vital Signs: Yes Vital Signs: Vital Signs x48h Temp Pulse Pulse Resp BP Pulse Ox 06/09/25 08:10 36.7 C 55 L 18 149/68 H 96 06/09/25 07:03 68 22 Intake & Output: Intake & Output 06/06/25 06/07/25 06/08/25 06/09/25 23:59 23:59 22:59 23:59 Intake Total 3588 / 3588 4116 / 4116 985 / 985 640 / 640 Output Total 300 / 300 300 / 300 425 / 425 400 / 400 Balance 3288 / 3288 3816 / 3816 560 / 560 240 / 240 Weight (kg) 106.5 kg 102 kg 108 kg 102.5 kg Objective General Appearance: positive No acute distress and Alert Eyes Bilateral: positive No scleral icterus Respiratory: positive No respiratory distress and Breath sounds nml; negative Wheezes, Rales or Rhonchi Cardiovascular: positive Regular rate & rhythm Peripheral Pulses: 1+: Dorsalis pedis (R) and 1+: Dorsalis pedis (L) and 2+: Radial (R) and 2+: Radial (L) Abdomen: positive Nml bowel sounds, Tenderness (improving) and Other (dressings at LLQ and midline incision with mininal drainage and no erythema. ); negative No distention (improving), Guarding or Rebound Skin: positive Color nml and Other (abdomen with some serous draiange at the lower aspect of abdomen, upper aspect and LLQ w minimal to no drainage. ) Extremities: positive Non-tender and No pedal edema Neurologic/Psychiatric: positive Oriented x3 Lab Results 06/09/25 04:47 06/09/25 04:47 Other Labs: Lab Results x24hrs 06/09/25 06/09/25 Range/Units 04:47 04:47 WBC 7.2 (4.8-10.8) x10^3/uL RBC 3.53 L (4.20-5.40) 10^6/uL Hgb 10.2 L (12.0-16.0) g/dL Hct 31.9 L (37.0-47.0) % MCV 90.4 (81.0-99.0) fL MCH 28.9 (27.0-31.0) pg MCHC 32.0 (32.0-36.0) g/dL RDW 15.5 H (12.0-15.0) % Plt Count 709 H (130-450) 10^3/uL MPV 9.9 (7.9-10.8) fL Neut # (Auto) Not Reportable Lymph # (Auto) Not Reportable [place] # (Auto) Not Reportable Eos # (Auto) Not Reportable Baso # (Auto) Not Reportable Absolute Nucleated RBC Not Reportable Total Counted 101 Band Neuts % (Manual) 3 (0 - 10) % Abnorm Lymph % (Manual) 0 % Metamyelocytes % 4 H ( - 0) % Myelocytes % 2 H ( - 0) % Nucleated RBC % Not Reportable Neutrophils # (Manual) 2.8 (1.5-6.6) 10^3/uL Lymphocytes # (Manual) 3.7 H (1.5-3.5) 10^3/uL Monocytes # (Manual) 0.1 (0.0-1.0) 10^3/uL Eosinophils # (Manual) 0.1 (0-0.7) 10^3/uL Basophils # (Manual) 0.0 (0-0.1) 10^3/uL Differential Comment MANUAL DIFFERENTIAL Manual Slide Review Indicated WBC Morphology NORMAL APPEARANCE (NORMAL) Platelet Estimate INCREASED (>450,000) (NORMAL) Platelet Morphology NORMAL APPEARANCE (NORMAL) RBC Morph Micro Appear 1+ ANISOCYTOSIS 1+ POLYCHROMASIA (NORMAL) Sodium 132 L (135-145) mmol/L Potassium 3.3 L (3.5-4.5) mmol/L Chloride 108 (101-111) mmol/L Carbon Dioxide 19 L (21-32) mmol/L Anion Gap 5.0 L (6-13) BUN 8 (6-20) mg/dL Creatinine 0.9 (0.6-1.3) mg/dL Estimated GFR (MDRD) 63 L (>89) Glucose 76 (74-104) mg/dL Calcium 8.4 L (8.5-10.3) mg/dL Assessment/Plan Problem List (1) Small bowel obstruction: Impression: Lydia Obrien is a 64 year old Female with a history of cholecystectomy and hysterectomy without oophorectomy presented to the ER on 05/21 with complaints of vomiting and abdominal pain. Inability to tolerate PO for 5 days. No flatus or BM for 5 days. She denies hx of SBO. 05/23, Taken to the OR for dx laparoscopy. Ultimately required laparotomy with small bowel resection for Meckels/small bowel torsion/perforation. NGT out 06/03. MIRNA that was in the pelvis is out. incision is draining appropriately without signs of infection. Tolerated clear liquids on 06/03, but unfortunately failed a soft diet 06/04 (soft diet due to edentulous). PPN was started on the evening of POD #1, given the amount of time she had been without nutrition. Discontinued on 06/03. Off abx 05/29. WBC 14.3(H) yesterday, 10.5 today. No fevers. UA ordered, but not resulted. Restarted IVF. 06/04 Abdominal XR impression: "mild pulmonary edema versus bronchovascular crowding. Left lower lobe patchy opacity may represent atelectasis versus pneumonia." NG tube replaced 06/05 1015. 800 mL out so far at this time. NG tube to be clamped to challenge bowel. 06/[address] with oral contrast obtained. Radiology impression: "No extraluminal oral contrast. Diffuse small and large bowel dilation, most consistent with ileus." 06/05 1830 Abdominal XR, Radiology impression: "Mild distention of the large bowel, with decreased distention of the small bowel. Findings likely indicate resolving ileus." 06/05 saline enema x 1 completed 06/06 NGT and drains removed 06/07 Full liquid diet. Liver enzymes improved. Discontinued IV fluids. Removed [place]. 06/08. She has progressed to a soft mechanical diet. She is voiding urine and passing stools and flatus well. Her dressing was changed . Incision appears dry and healing well per Surgery. On track to be medically cleared. RN noticed cellulitis and purulence around previous MIRNA site and notified surgery. Surgery irrigated and repacked it. - Diet: Soft mechanical diet - Continue to monitor IOs, vitals, and labs (BMP and CBC) - Cleared to discharge pending placement 06/09: Medically clear for DC on 06/08. Wound is healing well. Vomited this afternoon, about 400ml. I have restarted her reglan, which I discontinued yesterday. (2) Atrial fibrillation with RVR: Impression: Rate controlled. At the time of admit, likely related to dehydration. She has stabilized and was back on home meds of Amiodarone 200mg daily, metoprolol 100mg daily. Xarelto was not been resumed. Pt NPO. Metoprolol ordered PRN, but she has not needed a dose. - Restart PO metoprolol @ 50 mg daily - Restart Xarelto today- Eliquis is formulary here. - Discontinue telemonitoring (3) Hypokalemia: Impression: Previously repleted and resolved. 06/06 Potassium is 2.9(L) Given Potassium 40 mEq IV. Likely due to GI losses. 06/07 AM Potassium 2.9(L) Given Potassium 40 mEq IV. PM Potassium 3.6 06/08 AM Potassium 3.0(L). Expected to improve as patient's intake improves. 06/09: K = 3.3. I am giving 40mEq KCl orally today. (4) Diabetes: Impression: A1c 5.6 Holding home dose Ozempic while in the hospital SSI held as well as POC Glucose for now. recommend outpatient followup. (5) Acute kidney injury: Impression: Resolved. (6) Hyponatremia: Impression: Mild, 133 today. (7) Depression: Impression: 06/07 Restarted home Vraylar and Cymbalta. we cannot get the Vraylar here. She has been off of it for some time. Family not able to bring it in. (8) Hypothyroid: Impression: 06/07 Restarted PO synthroid. This patient's diagnosis and treatment plan was discussed this AM with attending physician as a part of multi disciplinary rounding meeting. I have spent 30 minutes in the care of this patient today. This includes time [id number], review and ordering of diagnostic imaging and laboratory studies and consultation with other providers. Monitoring the patient's signs symptoms, evaluation of medication effectiveness and patient's response to treatment.
[2025-06-09] MEDS: POTASSIUM CHLORIDE 20 MEQ TABLET PO ONE (13:30)
[2025-06-09] MEDS: METOCLOPRAMIDE 10 MG/2 ML VIAL IVP SCH (18:44)
[2025-06-09] MEDS: APIXABAN 5 MG TABLET PO SCH (21:48)
[2025-06-10 05:46] LABS: HCT - HEMATOCRIT 33.8 % (37.0-47.0); HGB - HEMOGLOBIN 10.8 g/dL (12.0-16.0); MEAN PLATELET VOLUME 9.8 fL (7.9-10.8); PLT - PLATELET COUNT 712 10^3/uL (130-450); RED CELL DISTRIBUTION WIDTH 15.8 % (12.0-15.0)
[2025-06-10 05:51] LABS: ABNORMAL LYMPHS % (MANUAL) 0 %; BASOPHILS # (MANUAL) 0.0 10^3/uL (0-0.1); EOSINOPHILS # (MANUAL) 0.0 10^3/uL (0-0.7)
[2025-06-10 06:06] LABS: BUN - BLOOD UREA NITROGEN 8.0 mg/dL (6-20); CARBON DIOXIDE - CO2 22.0 mmol/L (21-32); CREATININE 0.9 mg/dL (0.6-1.3); GFR - MDRD 63.0 (>89)
[2025-06-10 06:09] LABS: BAND NEUTROPHILS % (MANUAL) 4 %; LYMPHOCYTES # (MANUAL) 3.3 10^3/uL (1.5-3.5); LYMPHOCYTES % (MANUAL) 44 %; METAMYELOCYTES % (MANUAL) 6 %; MONOCYTES # (MANUAL) 0.4 10^3/uL (0.0-1.0); MYELOCYTES % (MANUAL) 3 %; NEUTROPHILS # (MANUAL) 2.7 10^3/uL (1.5-6.6); NUCLEATED RBC (MANUAL) 3 %; PLATELET ESTIMATE, MANUAL INCREASED (>450,000) (NORMAL); PLATELET MORPHOLOGY NORMAL APPEARANCE (NORMAL); RBC MORPHOLOGY (MULTIPLE) NORMAL APPEARANCE (NORMAL); REACTIVE LYMPHS % (MANUAL) 3 %; WBC MORPHOLOGY (MULTIPLE) NORMAL APPEARANCE (NORMAL)
--- NOTE | 2025-06-10 08:15 | PROVIDER PROGRESS NOTE ---
Subjective General Admit Date: 05/21/25 Procedure Date: 05/23/25 Post Op Days: 18 Procedure Performed: ExLap, small bowel resection Other Other Information/Narrative: Poor appetite - 3x BM yesterday but also emesis x1 - reglan was started. She feels that the emesis was following being out of bed. Denies nausea this AM. Review of Systems Status of ROS: 10 or more systems reviewed and unremarkable except as noted in history and below Exam Exam Vital Signs: Vital Signs x48h Temp Pulse Resp BP Pulse Ox 06/10/25 07:52 36.6 C 53 L 18 153/75 H 94 Constitutional abnormal general appearance (chronically ill), no apparent distress and abnormal body habitus (obese) A&Ox3/GCS15 HENMT normocephalic Neck/C-Spine visual inspection normal Respiratory breath sounds equal bilaterally and normal respiratory effort Cardiovascular normal heart rate noted Gastrointestinal Midline wound: amrit removed this AM. Scant ssf drainage from inferior aspect of wound - healthy granulation tissue and closing nicely. No erythema, no purulence. LLQ port incision with skin opening and scant ssf. Dry gauze dressing to both sites with corner of gauze wicked into opening. soft/no ttp. Extremities no deformity Neurology no movement abnormality noted and GCS 15 Psychiatry mental status grossly normal and oriented x3 Skin skin color normal Impression/Plan Problem List (1) Small bowel obstruction: Plan: 64 y/o F admitted 05/21 with first small bowel obstruction; failed NGT decompression and gastrograffin trial, thus underwent operative management. POD#18, s/p DxLap --> Ex Lap, lysis of adhesions, 75cm small bowel resection (05/23, Dr. Alcocer). Etiology of SBO Adhesions + Meckel's diverticulum. Intraoperative findings of small bowel twisted around adhesion between meckel's diverticulum and root of mesentery, two small bowel perforations identified upon release of obstruction at locations of twisting. Large volume succus contamination of peritoneal cavity, extensive irrigation done at time of surg vijaya. - No infection or postop complication identified on CT 06/01 or 06/05. - has bowel function - Diet as tolerated - agree with reglan - Midline wound: BID dry gauze dressing change with corner of gauze lightly packed into superior and inferior aspects + LLQ port site - continue working with PT and efforts at mobilization while awaiting rehab placement. Ppx: lovenox, PPI Stable for dispo, awaiting placement. Patient admitted to hospitalist service due to comorbidities. Surgery will continue to follow. Plan of care discussed with medicine team (Dr. Gutierrez), RN, and patient this AM. Parul Alcocer DO, [facility] General Surgeon, [facility] (2) Atrial fibrillation with RVR: (3) Hypokalemia: (4) Diabetes: (5) Acute kidney injury: (6) Hyponatremia: (7) Depression: (8) Hypothyroid:
--- NOTE | 2025-06-10 09:23 | PROVIDER PROGRESS NOTE ---
Subjective Prog Note Date Prog Note Date: 06/10/25 Subjective Subjective: She has been tired and sleeping and having multiple mucoid stools. One episode of vomiting yesterday, but none since. Current Medications Current Medications Current Medications: Current Medications Generic Name Dose Route Start Last Admin Trade Name Freq PRN Reason Stop Dose Admin Acetaminophen 1,000 mg 06/07/25 15:00 06/10/25 06:45 Acetaminophen 500 Mg Tablet PO Not Given Q8H MARCO Albuterol/Ipratropium 3 ml 05/30/25 18:44 06/07/25 08:37 Ipratropium/Albuterol 3 Ml Neb INH 3 ml RTQID PRN Administration Shortness of Air/Wheezing Amiodarone HCl 200 mg 06/08/25 09:00 06/10/25 08:22 Amiodarone 200 Mg Tablet PO 200 mg DAILY MARCO Administration Apixaban 5 mg 06/09/25 21:00 06/10/25 08:21 Apixaban 5 Mg Tablet PO 5 mg BID MARCO Administration Budesonide 0.5 mg 06/07/25 19:00 06/09/25 18:24 Budesonide 0.5 Mg/2 Ml Neb INH 0.5 mg RTBID MARCO Administration Diphenhydramine HCl 25 mg 05/25/25 09:45 06/05/25 02:34 Diphenhydramine Inj 50 Mg/Ml Vial IVP 25 mg Q6H PRN Administration Anaphylaxis Duloxetine HCl 60 mg 06/08/25 09:00 06/10/25 08:21 Duloxetine 60 Mg Capsule PO 60 mg DAILY MARCO Administration Empagliflozin 10 mg 06/08/25 09:00 06/10/25 08:21 Empagliflozin 10 Mg Tablet PO 10 mg DAILY MARCO Administration Famotidine 40 mg 06/08/25 09:00 06/10/25 08:21 Famotidine 20 Mg Tablet PO 40 mg DAILY MARCO Administration Ipratropium [place] 0.5 mg 06/07/25 19:00 06/09/25 18:23 Ipratropium 0.2 Mg/Ml Neb INH 0.5 mg RTQ6H MARCO Administration Levothyroxine Sodium 112 mcg 06/08/25 07:00 06/10/25 06:45 Levothyroxine 112 Mcg Tablet PO 112 mcg QDAC MARCO Administration Levothyroxine Sodium 25 mcg 06/08/25 07:00 06/10/25 06:45 Levothyroxine 25 Mcg Tablet PO 25 mcg QDAC MARCO Administration Magnesium Oxide 400 mg 06/08/25 09:00 06/10/25 08:21 Magnesium Oxide 400 Mg Tablet PO 400 mg BID MARCO Administration Metoclopramide HCl 5 mg 06/09/25 18:00 06/10/25 06:44 Metoclopramide 10 Mg/2 Ml Vial IVP 5 mg Q6HR MARCO Administration Metoprolol Succinate 50 mg 06/08/25 09:00 06/10/25 08:21 Metoprolol Succinate 50 Mg Tablet PO 50 mg DAILY MARCO Administration Montelukast Sodium 10 mg 06/08/25 09:00 06/10/25 08:21 Montelukast 10 Mg Tablet PO 10 mg DAILY MARCO Administration Ondansetron HCl 4 mg 05/21/25 17:57 06/09/25 16:03 Ondansetron 4 Mg/2 Ml Vial IVP 4 mg Q6HR PRN Administration Nausea / Vomiting Oxycodone HCl 5 mg 06/07/25 14:01 06/10/25 01:06 Oxycodone 5 Mg Tablet PO 5 mg Q4HR PRN Administration Moderate Pain (Level 4-6) Patient Own Med ( 1 each 06/07/25 14:00 06/09/25 08:07 Vraylar 4.5mg) PO Not Given DAILY MARCO Phenol/Menthol 2 sprays 05/21/25 18:57 05/21/25 19:32 Phenol Throat [place] 177 Ml MM 2 sprays Q2HR PRN Administration Throat Pain Prochlorperazine Edisylate 10 mg 05/21/25 17:57 06/04/25 17:57 Prochlorperazine 10 Mg/2 Ml Vial IVP 10 mg Q6HR PRN Administration Nausea / Vomiting Sodium Chloride 10 ml 05/21/25 17:57 06/10/25 06:45 Sodium Chloride Flush 0.9% 10 Ml Syringe IVP 10 ml PRN PRN Administration NEEDED PER PROVIDER ORDERS Sodium Chloride 10 ml 05/21/25 17:57 06/10/25 08:24 Sodium Chloride Flush 0.9% 10 Ml Syringe IVP 10 ml 0100,0900,1700 MARCO Administration Solifenacin 5 mg 06/08/25 09:00 06/10/25 08:21 Solifenacin Succinate 5 Mg Tablet PO 5 mg DAILY MARCO Administration Objective Vital Signs/Intake & Output Reviewed Vital Signs: Yes Vital Signs: Vital Signs x48h Temp Pulse Resp BP Pulse Ox 06/10/25 07:52 36.6 C 53 L 18 153/75 H 94 Intake & Output: Intake & Output 06/07/25 06/08/25 06/09/25 06/10/25 23:59 22:59 23:59 23:59 Intake Total 4116 / 4116 985 / 985 1360 / 1360 640 / 640 Output Total 300 / 300 425 / 425 800 / 800 Balance 3816 / 3816 560 / 560 560 / 560 640 / 640 Weight (kg) 102 kg 108 kg 102.5 kg 103.5 kg Objective General Appearance: positive No acute distress and Alert Eyes Bilateral: positive No scleral icterus Respiratory: positive No respiratory distress and Breath sounds nml; negative Wheezes, Rales or Rhonchi Cardiovascular: positive Regular rate & rhythm Abdomen: positive Nml bowel sounds, Tenderness (improving) and Other (dressings at LLQ and midline incision with mininal drainage and no erythema. ); negative No distention (improving), Guarding or Rebound Skin: positive Color nml and Other (abdomen with some serous draiange at the lower aspect of abdomen, upper aspect and LLQ w minimal to no drainage. ) Extremities: positive Non-tender and No pedal edema Neurologic/Psychiatric: positive Oriented x3 Lab Results 06/10/25 05:15 06/10/25 05:15 Other Labs: Lab Results x24hrs 06/10/25 Range/Units 05:15 WBC 7.0 (4.8-10.8) x10^3/uL RBC 3.74 L (4.20-5.40) 10^6/uL Hgb 10.8 L (12.0-16.0) g/dL Hct 33.8 L (37.0-47.0) % MCV 90.4 (81.0-99.0) fL MCH 28.9 (27.0-31.0) pg MCHC 32.0 (32.0-36.0) g/dL RDW 15.8 H (12.0-15.0) % Plt Count 712 H (130-450) 10^3/uL MPV 9.8 (7.9-10.8) fL Neut # (Auto) Not Reportable Lymph # (Auto) Not Reportable [place] # (Auto) Not Reportable Eos # (Auto) Not Reportable Baso # (Auto) Not Reportable Absolute Nucleated RBC Not Reportable Total Counted 100 Band Neuts % (Manual) 4 (0 - 10) % Reactive Lymphs % (Man) 3 % Abnorm Lymph % (Manual) 0 % Metamyelocytes % 6 H ( - 0) % Myelocytes % 3 H ( - 0) % Nucleated RBC % Not Reportable Neutrophils # (Manual) 2.7 (1.5-6.6) 10^3/uL Lymphocytes # (Manual) 3.3 (1.5-3.5) 10^3/uL Monocytes # (Manual) 0.4 (0.0-1.0) 10^3/uL Eosinophils # (Manual) 0.0 (0-0.7) 10^3/uL Basophils # (Manual) 0.0 (0-0.1) 10^3/uL Nucleated RBCs 3 % Differential Comment MANUAL DIFFERENTIAL WBC Morphology NORMAL APPEARANCE (NORMAL) Platelet Estimate INCREASED (>450,000) (NORMAL) Platelet Morphology NORMAL APPEARANCE (NORMAL) RBC Morph Micro Appear NORMAL APPEARANCE (NORMAL) Sodium 133 L (135-145) mmol/L Potassium 3.6 (3.5-4.5) mmol/L Chloride 106 (101-111) mmol/L Carbon Dioxide 22 (21-32) mmol/L Anion Gap 5.0 L (6-13) BUN 8 (6-20) mg/dL Creatinine 0.9 (0.6-1.3) mg/dL Estimated GFR (MDRD) 63 L (>89) Glucose 74 (74-104) mg/dL Calcium 8.4 L (8.5-10.3) mg/dL Assessment/Plan Problem List (1) Small bowel obstruction: Impression: Lydia Obrien is a 64 year old Female with a history of cholecystectomy and hysterectomy without oophorectomy presented to the ER on 05/21 with complaints of vomiting and abdominal pain. Inability to tolerate PO for 5 days. No flatus or BM for 5 days. She denies hx of SBO. 05/23, Taken to the OR for dx laparoscopy. Ultimately required laparotomy with small bowel resection for Meckels/small bowel torsion/perforation. NGT out 06/03. MIRNA that was in the pelvis is out. incision is draining appropriately without signs of infection. Tolerated clear liquids on 06/03, but unfortunately failed a soft diet 06/04 (soft diet due to edentulous). PPN was started on the evening of POD #1, given the amount of time she had been without nutrition. Discontinued on 06/03. Off abx 05/29. WBC 14.3(H) yesterday, 10.5 today. No fevers. UA ordered, but not resulted. Restarted IVF. 06/04 Abdominal XR impression: "mild pulmonary edema versus bronchovascular crowding. Left lower lobe patchy opacity may represent atelectasis versus pneumonia." NG tube replaced 06/05 1015. 800 mL out so far at this time. NG tube to be clamped to challenge bowel. 06/[address] with oral contrast obtained. Radiology impression: "No extraluminal oral contrast. Diffuse small and large bowel dilation, most consistent with ileus." 06/05 1830 Abdominal XR, Radiology impression: "Mild distention of the large bowel, with decreased distention of the small bowel. Findings likely indicate resolving ileus." 06/05 saline enema x 1 completed 06/06 NGT and drains removed 06/07 Full liquid diet. Liver enzymes improved. Discontinued IV fluids. Removed [place]. 06/08. She has progressed to a soft mechanical diet. She is voiding urine and passing stools and flatus well. Her dressing was changed . Incision appears dry and healing well per Surgery. On track to be medically cleared. RN noticed cellulitis and purulence around previous IMRNA site and notified surgery. Surgery irrigated and repacked it. - Diet: Soft mechanical diet - Continue to monitor IOs, vitals, and labs (BMP and CBC) - Cleared to discharge pending placement 06/09: Medically clear for DC on 06/08. Wound is healing well. Vomited this afternoon, about 400ml. I have restarted her reglan, which I discontinued yesterday. 06/10: Medically clear for DC on 06/08. She feels very fatigued and is having multiple stools, but ready to advance diet from full liquid at breakfast in the AM. New dx: C diff colitis. Dr Alcocer removed abdominal amrit today and did dressing change. discussed with Dr Alcocer today. (2) C. difficile colitis: Impression: While there is no medical reason she needs to stay in the hospital for this, it is unlikely that a facility will take her. She has been started on fidaxomycin, and she will be off precautions as soon as she has formed stools once again. (3) Atrial fibrillation with RVR: Impression: Rate controlled. At the time of admit, likely related to dehydration. She has stabilized and was back on home meds of Amiodarone 200mg daily, metoprolol 100mg daily. Xarelto was not been resumed. Pt NPO. Metoprolol ordered PRN, but she has not needed a dose. - Restart PO metoprolol @ 50 mg daily - Restart Xarelto- Eliquis is formulary here. - Discontinue tele (4) Hypokalemia: Impression: Previously repleted and resolved. 06/06 Potassium is 2.9(L) Given Potassium 40 mEq IV. Likely due to GI losses. 06/07 AM Potassium 2.9(L) Given Potassium 40 mEq IV. PM Potassium 3.6 06/08 AM Potassium 3.0(L). Expected to improve as patient's intake improves. 06/09: K = 3.3. I am giving 40mEq KCl orally today 06/10: 3.6. With loose stools likely to fall again. I will start the patient on 20mEq daily for the time being. . (5) Diabetes: Impression: A1c 5.6 Holding home dose Ozempic while in the hospital SSI held as well as POC Glucose for now. recommend outpatient followup. (6) Acute kidney injury: Impression: Resolved. (7) Hyponatremia: Impression: Mild, 133 today. (8) Depression: Impression: 06/07 Restarted home Vraylar and Cymbalta. we cannot get the Vraylar here. She has been off of it for some time. Family not able to bring it in. (9) Hypothyroid: Impression: 06/07 Restarted PO synthroid. This patient's diagnosis and treatment plan was discussed this AM with attending physician as a part of multi disciplinary rounding meeting. I have spent 38 minutes in the care of this patient today. This includes time [id number], review and ordering of diagnostic imaging and laboratory studies and consultation with other providers. Monitoring the patient's signs symptoms, evaluation of medication effectiveness and patient's response to treatment.
[2025-06-10] MEDS: IPRATROPIUM 0.2 MG/ML NEB INH SCH (14:30)
[2025-06-10] MEDS: FIDAXOMICIN 200 MG TABLET PO SCH (21:59)
[2025-06-10] MEDS: VANCOMYCIN 125 MG CAPSULE PO SCH (22:02)
[2025-06-11 06:00] LABS: HCT - HEMATOCRIT 35.1 % (37.0-47.0); HGB - HEMOGLOBIN 11.1 g/dL (12.0-16.0); MEAN PLATELET VOLUME 9.6 fL (7.9-10.8); PLT - PLATELET COUNT 699 10^3/uL (130-450); RED CELL DISTRIBUTION WIDTH 16.1 % (12.0-15.0)
[2025-06-11 06:04] LABS: ABNORMAL LYMPHS % (MANUAL) 0 %
[2025-06-11 06:32] LABS: BUN - BLOOD UREA NITROGEN 8.0 mg/dL (6-20); CARBON DIOXIDE - CO2 22.0 mmol/L (21-32); CREATININE 0.8 mg/dL (0.6-1.3); GFR - MDRD 72.0 (>89)
[2025-06-11 06:35] LABS: BAND NEUTROPHILS % (MANUAL) 1 %; BASOPHILS # (MANUAL) 0.1 10^3/uL (0-0.1); BASOPHILS % (MANUAL) 1 %; EOSINOPHILS # (MANUAL) 0.4 10^3/uL (0-0.7); LYMPHOCYTES # (MANUAL) 2.9 10^3/uL (1.5-3.5); LYMPHOCYTES % (MANUAL) 40 %; METAMYELOCYTES % (MANUAL) 3 %; MONOCYTES # (MANUAL) 0.5 10^3/uL (0.0-1.0); NEUTROPHILS # (MANUAL) 3.1 10^3/uL (1.5-6.6)
[2025-06-11 06:37] LABS: PLATELET ESTIMATE, MANUAL INCREASED (>450,000) (NORMAL); PLATELET MORPHOLOGY NORMAL APPEARANCE (NORMAL); WBC MORPHOLOGY (MULTIPLE) NORMAL APPEARANCE (NORMAL)
[2025-06-11] MEDS: POTASSIUM CHLORIDE 20 MEQ TABLET PO SCH (09:34)
[2025-06-11] MEDS: VANCOMYCIN 125 MG CAPSULE PO SCH (11:36)
--- NOTE | 2025-06-11 13:06 | PROVIDER PROGRESS NOTE ---
Subjective Prog Note Date Prog Note Date: 06/11/25 Subjective Pt reports feeling: No change Current Medications Current Medications Current Medications: Current Medications Generic Name Dose Route Start Last Admin Trade Name Fritz PRN Reason Stop Dose Admin Acetaminophen 1,000 mg 06/07/25 15:00 06/11/25 06:16 Acetaminophen 500 Mg Tablet PO Not Given Q8H MARCO Albuterol/Ipratropium 3 ml 05/30/25 18:44 06/07/25 08:37 Ipratropium/Albuterol 3 Ml Neb INH 3 ml RTQID PRN Administration Shortness of Air/Wheezing Amiodarone HCl 200 mg 06/08/25 09:00 06/11/25 09:34 Amiodarone 200 Mg Tablet PO 200 mg DAILY MARCO Administration Apixaban 5 mg 06/09/25 21:00 06/11/25 09:34 Apixaban 5 Mg Tablet PO 5 mg BID MARCO Administration Budesonide 0.5 mg 06/07/25 19:00 06/11/25 09:44 Budesonide 0.5 Mg/2 Ml Neb INH Not Given RTBID MARCO Diphenhydramine HCl 25 mg 05/25/25 09:45 06/05/25 02:34 Diphenhydramine Inj 50 Mg/Ml Vial IVP 25 mg Q6H PRN Administration Anaphylaxis Duloxetine HCl 60 mg 06/08/25 09:00 06/11/25 09:33 Duloxetine 60 Mg Capsule PO 60 mg DAILY MARCO Administration Empagliflozin 10 mg 06/08/25 09:00 06/11/25 09:34 Empagliflozin 10 Mg Tablet PO 10 mg DAILY MARCO Administration Famotidine 40 mg 06/08/25 09:00 06/11/25 09:34 Famotidine 20 Mg Tablet PO 40 mg DAILY MARCO Administration Ipratropium [place] 0.5 mg 06/10/25 13:00 06/11/25 09:45 Ipratropium 0.2 Mg/Ml Neb INH Not Given RTTID MARCO Levothyroxine Sodium 112 mcg 06/08/25 07:00 06/11/25 06:15 Levothyroxine 112 Mcg Tablet PO 112 mcg QDAC MARCO Administration Levothyroxine Sodium 25 mcg 06/08/25 07:00 06/11/25 06:15 Levothyroxine 25 Mcg Tablet PO 25 mcg QDAC MARCO Administration Magnesium Oxide 400 mg 06/08/25 09:00 06/11/25 09:35 Magnesium Oxide 400 Mg Tablet PO 400 mg BID MARCO Administration Metoclopramide HCl 5 mg 06/09/25 18:00 06/11/25 11:36 Metoclopramide 10 Mg/2 Ml Vial IVP 5 mg Q6HR MARCO Administration Metoprolol Succinate 50 mg 06/08/25 09:00 06/11/25 09:34 Metoprolol Succinate 50 Mg Tablet PO 50 mg DAILY MARCO Administration Montelukast Sodium 10 mg 06/08/25 09:00 06/11/25 09:35 Montelukast 10 Mg Tablet PO 10 mg DAILY MARCO Administration Ondansetron HCl 4 mg 05/21/25 17:57 06/09/25 16:03 Ondansetron 4 Mg/2 Ml Vial IVP 4 mg Q6HR PRN Administration Nausea / Vomiting Oxycodone HCl 5 mg 06/07/25 14:01 06/11/25 12:50 Oxycodone 5 Mg Tablet PO 5 mg Q4HR PRN Administration Moderate Pain (Level 4-6) Patient Own Med ( 1 each 06/07/25 14:00 06/11/25 09:45 Vraylar 4.5mg) PO Not Given DAILY MARCO Phenol/Menthol 2 sprays 05/21/25 18:57 05/21/25 19:32 Phenol Throat [place] 177 Ml MM 2 sprays Q2HR PRN Administration Throat Pain Potassium Chloride 20 meq 06/11/25 08:00 06/11/25 09:34 Potassium Chloride 20 Meq Tablet PO 20 meq DAILYWM MARCO Administration Prochlorperazine Edisylate 10 mg 05/21/25 17:57 06/04/25 17:57 Prochlorperazine 10 Mg/2 Ml Vial IVP 10 mg Q6HR PRN Administration Nausea / Vomiting Sodium Chloride 10 ml 05/21/25 17:57 06/10/25 06:45 Sodium Chloride Flush 0.9% 10 Ml Syringe IVP 10 ml PRN PRN Administration NEEDED PER PROVIDER ORDERS Sodium Chloride 10 ml 05/21/25 17:57 06/11/25 09:35 Sodium Chloride Flush 0.9% 10 Ml Syringe IVP 10 ml 0100,0900,1700 MARCO Administration Solifenacin 5 mg 06/08/25 09:00 06/11/25 09:34 Solifenacin Succinate 5 Mg Tablet PO 5 mg DAILY MARCO Administration Vancomycin HCl 125 mg 06/11/25 11:00 06/11/25 11:36 Vancomycin 125 Mg Capsule PO 125 mg QID MARCO Administration Objective Vital Signs/Intake & Output Reviewed Vital Signs: Yes Vital Signs: Vital Signs x48h Temp Pulse Resp BP Pulse Ox 06/11/25 08:25 97.3 F L 56 L 13 98/66 91 L Intake & Output: Intake & Output 06/08/25 06/09/25 06/10/25 06/11/25 22:59 23:59 23:59 23:59 Intake Total 985 / 985 1360 / 1360 1430 / 1430 240 / 240 Output Total 425 / 425 800 / 800 100 / 100 Balance 560 / 560 560 / 560 1330 / 1330 240 / 240 Weight (kg) 108 kg 102.5 kg 103.5 kg 103.5 kg Objective General Appearance: positive No acute distress and Alert Eyes Bilateral: positive No scleral icterus Respiratory: positive No respiratory distress and Breath sounds nml; negative Wheezes, Rales or Rhonchi Cardiovascular: positive Regular rate & rhythm Abdomen: positive Nml bowel sounds, Tenderness (improving) and Other (dressings at LLQ and midline incision with mininal drainage and no erythema. ); negative No distention (improving), Guarding or Rebound Skin: positive Color nml and Other (abdomen with some serous draiange at the lower aspect of abdomen, upper aspect and LLQ w minimal to no drainage. ) Extremities: positive Non-tender and No pedal edema Neurologic/Psychiatric: positive Oriented x3 Lab Results 06/11/25 05:23 06/11/25 05:23 Other Labs: Lab Results x24hrs 06/11/25 06/11/25 06/10/25 Range/Units 05:23 05:23 12:25 WBC 7.3 (4.8-10.8) x10^3/uL RBC 3.89 L (4.20-5.40) 10^6/uL Hgb 11.1 L (12.0-16.0) g/dL Hct 35.1 L (37.0-47.0) % MCV 90.2 (81.0-99.0) fL MCH 28.5 (27.0-31.0) pg MCHC 31.6 L (32.0-36.0) g/dL RDW 16.1 H (12.0-15.0) % Plt Count 699 H (130-450) 10^3/uL MPV 9.6 (7.9-10.8) fL Neut # (Auto) Not Reportable Lymph # (Auto) Not Reportable [place] # (Auto) Not Reportable Eos # (Auto) Not Reportable Baso # (Auto) Not Reportable Absolute Nucleated RBC Not Reportable Total Counted 100 Band Neuts % (Manual) 1 (0 - 10) % Abnorm Lymph % (Manual) 0 % Metamyelocytes % 3 H ( - 0) % Nucleated RBC % Not Reportable Neutrophils # (Manual) 3.1 (1.5-6.6) 10^3/uL Lymphocytes # (Manual) 2.9 (1.5-3.5) 10^3/uL Monocytes # (Manual) 0.5 (0.0-1.0) 10^3/uL Eosinophils # (Manual) 0.4 (0-0.7) 10^3/uL Basophils # (Manual) 0.1 (0-0.1) 10^3/uL Differential Comment MANUAL DIFFERENTIAL WBC Morphology NORMAL APPEARANCE (NORMAL) Platelet Estimate INCREASED (>450,000) (NORMAL) Platelet Morphology NORMAL APPEARANCE (NORMAL) RBC Morph Micro Appear 1+ ANISOCYTOSIS 1+ POLYCHROMASIA (NORMAL) Sodium 134 L (135-145) mmol/L Potassium 3.2 L (3.5-4.5) mmol/L Chloride 105 (101-111) mmol/L Carbon Dioxide 22 (21-32) mmol/L Anion Gap 7.0 (6-13) BUN 8 (6-20) mg/dL Creatinine 0.8 (0.6-1.3) mg/dL Estimated GFR (MDRD) 72 L (>89) Glucose 81 (74-104) mg/dL Calcium 8.3 L (8.5-10.3) mg/dL Stl C. diff Tox B Gene POSITIVE A* (NEGATIVE) Assessment/Plan Problem List (1) Small bowel obstruction: Impression: Lydia Obrien is a 64 year old Female with a history of cholecystectomy and hysterectomy without oophorectomy presented to the ER on 05/21 with complaints of vomiting and abdominal pain. Inability to tolerate PO for 5 days. No flatus or BM for 5 days. She denies hx of SBO. 05/23, Taken to the OR for dx laparoscopy. Ultimately required laparotomy with small bowel resection for Meckels/small bowel torsion/perforation. NGT out 06/03. MIRNA that was in the pelvis is out. incision is draining appropriately without signs of infection. Tolerated clear liquids on 06/03, but unfortunately failed a soft diet 06/04 (soft diet due to edentulous). PPN was started on the evening of POD #1, given the amount of time she had been without nutrition. Discontinued on 06/03. Off abx 05/29. WBC 14.3(H) yesterday, 10.5 today. No fevers. UA ordered, but not resulted. Restarted IVF. 06/04 Abdominal XR impression: "mild pulmonary edema versus bronchovascular crowding. Left lower lobe patchy opacity may represent atelectasis versus pneumonia." NG tube replaced 06/05 1015. 800 mL out so far at this time. NG tube to be clamped to challenge bowel. 06/[address] with oral contrast obtained. Radiology impression: "No extraluminal oral contrast. Diffuse small and large bowel dilation, most consistent with ileus." 06/05 183 Abdominal XR, Radiology impression: "Mild distention of the large bowel, with decreased distention of the small bowel. Findings likely indicate resolving ileus." 06/05 saline enema x 1 completed 06/06 NGT and drains removed 06/07 Full liquid diet. Liver enzymes improved. Discontinued IV fluids. Removed [place]. 06/08. She has progressed to a soft mechanical diet. She is voiding urine and passing stools and flatus well. Her dressing was changed . Incision appears dry and healing well per Surgery. On track to be medically cleared. RN noticed cellulitis and purulence around previous MIRNA site and notified surgery. Surgery irrigated and repacked it. - Diet: Soft mechanical diet - Continue to monitor IOs, vitals, and labs (BMP and CBC) - Cleared to discharge pending placement 06/09: Medically clear for DC on 06/08. Wound is healing well. Vomited this afternoon, about 400ml. I have restarted her reglan, which I discontinued yesterday. 06/10: Medically clear for DC on 11/2. She feels very fatigued and is having multiple stools, but ready to advance diet from full liquid at breakfast in the AM. New dx: C diff colitis. Dr Alcocer removed abdominal amrit today and did dressing change. discussed with Dr Alcocer today. 06/11: Remains medically clear. Manage C. difficile as below. Awaiting insurance authorization/SNF placement (2) C. difficile colitis: Impression: While there is no medical reason she needs to stay in the hospital for this, it is unlikely that a facility will take her. She has been started on fidaxomycin, and she will be off precautions as soon as she has formed stools once again. 06/11: This hospital does not have fidaxomicin on hand, I have switched her over to vancomycin as the [employer] says that vancomycin remains an acceptable alternative depending on resource availability. Will work with pharmacy on getting fidaxomicin on standby if this does not work (3) Atrial fibrillation with RVR: Impression: Rate controlled. At the time of admit, likely related to dehydration. She has stabilized and was back on home meds of Amiodarone 200mg daily, metoprolol 100mg daily. Xarelto was not been resumed. Pt NPO. Metoprolol ordered PRN, but she has not needed a dose. - Restart PO metoprolol @ 50 mg daily - Restart Xarelto- Eliquis is formulary here. - Discontinue tele (4) Hypokalemia: Impression: Previously repleted and resolved. 06/06 Potassium is 2.9(L) Given Potassium 40 mEq IV. Likely due to GI losses. 06/07 AM Potassium 2.9(L) Given Potassium 40 mEq IV. PM Potassium 3.6 06/08 AM Potassium 3.0(L). Expected to improve as patient's intake improves. 06/09: K = 3.3. I am giving 40mEq KCl orally today 06/10: 3.6. With loose stools likely to fall again. I will start the patient on 20mEq daily for the time being. 06/11: K3.2. 40 p.o.. Add on magnesium (5) Diabetes: Impression: A1c 5.6 Holding home dose Ozempic while in the hospital SSI held as well as POC Glucose for now. recommend outpatient followup. (6) Acute kidney injury: Impression: Resolved. (7) Hyponatremia: Impression: Mild, 133 today. (8) Depression: Impression: 06/07 Restarted home Vraylar and Cymbalta. we cannot get the Vraylar here. She has been off of it for some time. Family not able to bring it in. (9) Hypothyroid: Impression: 06/07 Restarted PO synthroid.
[2025-06-11] MEDS: POTASSIUM CHLORIDE 20 MEQ TABLET PO ONE (13:51)
[2025-06-11] MEDS: MAG HYDROX/AL HYDROX/SIMETH 30 ML UDC PO PRN (17:20)
[2025-06-12 05:29] LABS: HCT - HEMATOCRIT 35.4 % (37.0-47.0); HGB - HEMOGLOBIN 11.3 g/dL (12.0-16.0); MEAN PLATELET VOLUME 9.9 fL (7.9-10.8); PLT - PLATELET COUNT 678 10^3/uL (130-450); RED CELL DISTRIBUTION WIDTH 16.4 % (12.0-15.0)
[2025-06-12 05:33] LABS: ABNORMAL LYMPHS % (MANUAL) 0 %; BASOPHILS # (MANUAL) 0.0 10^3/uL (0-0.1)
[2025-06-12 05:50] LABS: BUN - BLOOD UREA NITROGEN 7.0 mg/dL (6-20); CARBON DIOXIDE - CO2 23.0 mmol/L (21-32); CREATININE 0.8 mg/dL (0.6-1.3); GFR - MDRD 72.0 (>89)
[2025-06-12 06:04] LABS: BAND NEUTROPHILS % (MANUAL) 3 %; EOSINOPHILS # (MANUAL) 0.2 10^3/uL (0-0.7); LYMPHOCYTES # (MANUAL) 2.4 10^3/uL (1.5-3.5); LYMPHOCYTES % (MANUAL) 29 %; METAMYELOCYTES % (MANUAL) 4 %; MONOCYTES # (MANUAL) 0.5 10^3/uL (0.0-1.0); MYELOCYTES % (MANUAL) 1 %; NEUTROPHILS # (MANUAL) 4.5 10^3/uL (1.5-6.6); PLASMA CELLS % (MANUAL) 1 %; REACTIVE LYMPHS % (MANUAL) 1 %
[2025-06-12 06:07] LABS: PLATELET ESTIMATE, MANUAL INCREASED (>450,000) (NORMAL); PLATELET MORPHOLOGY NORMAL APPEARANCE (NORMAL); WBC MORPHOLOGY (MULTIPLE) NORMAL APPEARANCE (NORMAL)
--- NOTE | 2025-06-12 14:14 | PROVIDER PROGRESS NOTE ---
Subjective General Admit Date: 05/21/25 Procedure Date: 05/23/25 Post Op Days: 20 Procedure Performed: ExLap, small bowel resection Other Other Information/Narrative: Was ready for discharge but now with C diff colitis. Otherwise feeling well, tolerating a diet, pain controlled, OOB ambulating, making good urine and having bowel function. Wound Assessment Wound/Incisions: positive Healing well and No drainage Review of Systems Status of ROS: 10 or more systems reviewed and unremarkable except as noted in history and below Exam Exam Vital Signs: Vital Signs x48h Temp Pulse Pulse Resp BP Pulse Ox 06/12/25 13:06 68 20 06/12/25 08:52 36.3 C L 53 L 20 131/64 H 95 06/12/25 07:15 70 18 Constitutional normal general appearance, no apparent distress and abnormal body habitus (obese) HENMT normocephalic and head/scalp atraumatic Eyes conjunctivae normal and no scleral icterus Neck/C-Spine visual inspection normal Respiratory normal respiratory effort Cardiovascular normal heart rate noted and regular rhythm noted Gastrointestinal Midline dressing removed and replaced, dressing mostly dry with small amount of serous drainage from inferior pole, appears to be healing appropriately. LLQ MIRNA site appearing improved after requiring drainage of small infected hematoma. Extremities normal to inspection Neurology GCS 15 Psychiatry thought process normal, cooperative and affect normal Skin skin color normal Impression/Plan Problem List (1) Small bowel obstruction: Plan: 64 y/o F admitted 05/21 with first small bowel obstruction; failed NGT decompression and gastrograffin trial, thus underwent operative management. POD#20, s/p DxLap --> Ex Lap, lysis of adhesions, 75cm small bowel resection (05/23, Dr. Alcocer). Etiology of SBO Adhesions + Meckel's diverticulum. Intraoperative findings of small bowel twisted around adhesion between meckel's diverticulum and root of mesentery, two small bowel perforations identified upon release of obstruction at locations of twisting. Large volume succus contamination of peritoneal cavity, extensive irrigation done at time of surgery. Overall reports feeling better, tolerating a diet, pain controlled, having bowel function, remains inpatient due to C diff colitis. - Diet as tolerated - Pain control as needed - Encourage OOB/ambulation, PT/OT - Daily dressing changes - Maintain electrolytes K>4, P>3 and Mg>2 - C. diff management per primary - Rest of care per primary - Dispo planning Patient admitted to hospitalist service due to comorbidities and we certainly appreciate working with them. (2) C. difficile colitis: (3) Atrial fibrillation with RVR: (4) Hypokalemia: (5) Diabetes: (6) Acute kidney injury: (7) Hyponatremia: (8) Depression: (9) Hypothyroid:
--- NOTE | 2025-06-12 16:25 | PROVIDER PROGRESS NOTE ---
Subjective Prog Note Date Prog Note Date: 06/12/25 Subjective Pt reports feeling: No change Current Medications Current Medications Current Medications: Current Medications Generic Name Dose Route Start Last Admin Trade Name Fritz PRN Reason Stop Dose Admin Acetaminophen 1,000 mg 06/07/25 15:00 06/12/25 06:26 Acetaminophen 500 Mg Tablet PO Not Given Q8H MARCO Al Hydroxide/Mg Hydroxide 30 ml 06/11/25 17:11 06/11/25 17:20 Mag Hydrox/Al Hydrox/Simeth 30 Ml Udc PO 30 ml Q4HR PRN Administration INDIGESTION Albuterol/Ipratropium 3 ml 05/30/25 18:44 06/07/25 08:37 Ipratropium/Albuterol 3 Ml Neb INH 3 ml RTQID PRN Administration Shortness of Air/Wheezing Amiodarone HCl 200 mg 06/08/25 09:00 06/12/25 08:37 Amiodarone 200 Mg Tablet PO 200 mg DAILY MARCO Administration Apixaban 5 mg 06/09/25 21:00 06/12/25 08:36 Apixaban 5 Mg Tablet PO 5 mg BID MARCO Administration Budesonide 0.5 mg 06/07/25 19:00 06/12/25 07:13 Budesonide 0.5 Mg/2 Ml Neb INH 0.5 mg RTBID MARCO Administration Diphenhydramine HCl 25 mg 05/25/25 09:45 06/05/25 02:34 Diphenhydramine Inj 50 Mg/Ml Vial IVP 25 mg Q6H PRN Administration Anaphylaxis Duloxetine HCl 60 mg 06/08/25 09:00 06/12/25 08:36 Duloxetine 60 Mg Capsule PO 60 mg DAILY MARCO Administration Empagliflozin 10 mg 06/08/25 09:00 06/12/25 08:36 Empagliflozin 10 Mg Tablet PO 10 mg DAILY MARCO Administration Famotidine 40 mg 06/08/25 09:00 06/12/25 08:37 Famotidine 20 Mg Tablet PO 40 mg DAILY MARCO Administration Ipratropium [place] 0.5 mg 06/10/25 13:00 06/12/25 13:05 Ipratropium 0.2 Mg/Ml Neb INH 0.5 mg RTTID MARCO Administration Levothyroxine Sodium 112 mcg 06/08/25 07:00 06/12/25 06:16 Levothyroxine 112 Mcg Tablet PO 112 mcg QDAC MARCO Administration Levothyroxine Sodium 25 mcg 06/08/25 07:00 06/12/25 06:16 Levothyroxine 25 Mcg Tablet PO 25 mcg QDAC MARCO Administration Magnesium Oxide 400 mg 06/08/25 09:00 06/12/25 08:36 Magnesium Oxide 400 Mg Tablet PO 400 mg BID MARCO Administration Metoclopramide HCl 5 mg 06/09/25 18:00 06/12/25 11:24 Metoclopramide 10 Mg/2 Ml Vial IVP 5 mg Q6HR MARCO Administration Metoprolol Succinate 50 mg 06/08/25 09:00 06/12/25 08:38 Metoprolol Succinate 50 Mg Tablet PO 50 mg DAILY MARCO Administration Montelukast Sodium 10 mg 06/08/25 09:00 06/12/25 08:36 Montelukast 10 Mg Tablet PO 10 mg DAILY MARCO Administration Ondansetron HCl 4 mg 05/21/25 17:57 06/09/25 16:03 Ondansetron 4 Mg/2 Ml Vial IVP 4 mg Q6HR PRN Administration Nausea / Vomiting Oxycodone HCl 5 mg 06/07/25 14:01 06/12/25 11:23 Oxycodone 5 Mg Tablet PO 5 mg Q4HR PRN Administration Moderate Pain (Level 4-6) Patient Own Med ( 1 each 06/07/25 14:00 06/12/25 08:37 Vraylar 4.5mg) PO Not Given DAILY [facility] Phenol/Menthol 2 sprays 05/21/25 18:57 05/21/25 19:32 Phenol Throat [place] 177 Ml MM 2 sprays Q2HR PRN Administration Throat Pain Potassium Chloride 20 meq 06/11/25 08:00 06/12/25 08:36 Potassium Chloride 20 Meq Tablet PO 20 meq DAILYWM MARCO Administration Prochlorperazine Edisylate 10 mg 05/21/25 17:57 06/04/25 17:57 Prochlorperazine 10 Mg/2 Ml Vial IVP 10 mg Q6HR PRN Administration Nausea / Vomiting Psyllium Hydrophilic Mucilloid 1 packet 06/13/25 09:00 Psyllium Packet PO DAILY MARCO Saccharomyces Boulardii 500 mg 06/12/25 17:00 Saccharomyces Boulardii 250 Mg Capsule PO BIDWM [facility] Sodium Chloride 10 ml 05/21/25 17:57 06/10/25 06:45 Sodium Chloride Flush 0.9% 10 Ml Syringe IVP 10 ml PRN PRN Administration NEEDED PER PROVIDER ORDERS Sodium Chloride 10 ml 05/21/25 17:57 06/12/25 08:37 Sodium Chloride Flush 0.9% 10 Ml Syringe IVP 10 ml 0100,0900,1700 MARCO Administration Solifenacin 5 mg 06/08/25 09:00 06/12/25 08:37 Solifenacin Succinate 5 Mg Tablet PO 5 mg DAILY MARCO Administration Vancomycin HCl 125 mg 06/11/25 11:00 06/12/25 12:55 Vancomycin 125 Mg Capsule PO 125 mg QID MARCO Administration Objective Vital Signs/Intake & Output Reviewed Vital Signs: Yes Vital Signs: Vital Signs x48h Temp Pulse Pulse Resp BP Pulse Ox 06/12/25 13:06 68 20 06/12/25 08:52 97.3 F L 53 L 20 131/64 H 95 Intake & Output: Intake & Output 06/09/25 06/10/25 06/11/25 06/12/25 23:59 23:59 23:59 23:59 Intake Total 1360 / 1360 1430 / 1430 1020 / 1020 1190 / 1190 Output Total 800 / 800 100 / 100 Balance 560 / 560 1330 / 1330 1020 / 1020 1190 / 1190 Weight (kg) 102.5 kg 103.5 kg 103.5 kg 104 kg Objective General Appearance: positive No acute distress and Alert Eyes Bilateral: positive No scleral icterus Respiratory: positive No respiratory distress and Breath sounds nml; negative Wheezes, Rales or Rhonchi Cardiovascular: positive Regular rate & rhythm Abdomen: positive Nml bowel sounds, Tenderness (improving) and Other (dressings at LLQ and midline incision with mininal drainage and no erythema. ); negative No distention (improving), Guarding or Rebound Skin: positive Color nml and Other (abdomen with some serous draiange at the lower aspect of abdomen, upper aspect and LLQ w minimal to no drainage. ) Extremities: positive Non-tender and No pedal edema Neurologic/Psychiatric: positive Oriented x3 Lab Results 06/12/25 04:15 06/12/25 04:15 Other Labs: Lab Results x24hrs 06/12/25 06/12/25 Range/Units 04:15 04:15 WBC 8.0 (4.8-10.8) x10^3/uL RBC 3.90 L (4.20-5.40) 10^6/uL Hgb 11.3 L (12.0-16.0) g/dL Hct 35.4 L (37.0-47.0) % MCV 90.8 (81.0-99.0) fL MCH 29.0 (27.0-31.0) pg MCHC 31.9 L (32.0-36.0) g/dL RDW 16.4 H (12.0-15.0) % Plt Count 678 H (130-450) 10^3/uL MPV 9.9 (7.9-10.8) fL Neut # (Auto) Not Reportable Lymph # (Auto) Not Reportable [place] # (Auto) Not Reportable Eos # (Auto) Not Reportable Baso # (Auto) Not Reportable Absolute Nucleated RBC Not Reportable Total Counted 100 Band Neuts % (Manual) 3 (0 - 10) % Reactive Lymphs % (Man) 1 % Abnorm Lymph % (Manual) 0 % Metamyelocytes % 4 H ( - 0) % Myelocytes % 1 H ( - 0) % Plasma Cell % (Manual) 1 % Nucleated RBC % Not Reportable Neutrophils # (Manual) 4.5 (1.5-6.6) 10^3/uL Lymphocytes # (Manual) 2.4 (1.5-3.5) 10^3/uL Monocytes # (Manual) 0.5 (0.0-1.0) 10^3/uL Eosinophils # (Manual) 0.2 (0-0.7) 10^3/uL Basophils # (Manual) 0.0 (0-0.1) 10^3/uL Differential Comment MANUAL DIFFERENTIAL WBC Morphology NORMAL APPEARANCE (NORMAL) Platelet Estimate INCREASED (>450,000) (NORMAL) Platelet Morphology NORMAL APPEARANCE (NORMAL) RBC Morph Micro Appear 1+ HYPOCHROMASIA 1+ ANISOCYTOSIS (NORMAL) Sodium 136 (135-145) mmol/L Potassium 3.3 L (3.5-4.5) mmol/L Chloride 105 (101-111) mmol/L Carbon Dioxide 23 (21-32) mmol/L Anion Gap 8.0 (6-13) BUN 7 (6-20) mg/dL Creatinine 0.8 (0.6-1.3) mg/dL Estimated GFR (MDRD) 72 L (>89) Glucose 103 (74-104) mg/dL Calcium 8.5 (8.5-10.3) mg/dL Assessment/Plan Problem List (1) Small bowel obstruction: Impression: Lydia Obrien is a 64 year old Female with a history of cholecystectomy and hysterectomy without oophorectomy presented to the ER on 05/21 with complaints of vomiting and abdominal pain. Inability to tolerate PO for 5 days. No flatus or BM for 5 days. She denies hx of SBO. 05/23, Taken to the OR for dx laparoscopy. Ultimately required laparotomy with small bowel resection for Meckels/small bowel torsion/perforation. NGT out 06/03. MIRNA that was in the pelvis is out. incision is draining appropriately without signs of infection. Tolerated clear liquids on 06/03, but unfortunately failed a soft diet 06/04 (soft diet due to edentulous). PPN was started on the evening of POD #1, given the amount of time she had been without nutrition. Discontinued on 06/03. Off abx 05/29. WBC 14.3(H) yesterday, 10.5 today. No fevers. UA ordered, but not resulted. Restarted IVF. 06/04 Abdominal XR impression: "mild pulmonary edema versus bronchovascular crowding. Left lower lobe patchy opacity may represent atelectasis versus pneumonia." NG tube replaced 06/05 1015. 800 mL out so far at this time. NG tube to be clamped to challenge bowel. 06/[address] with oral contrast obtained. Radiology impression: "No extraluminal oral contrast. Diffuse small and large bowel dilation, most consistent with ileus." 06/05 183 Abdominal XR, Radiology impression: "Mild distention of the large bowel, with decreased distention of the small bowel. Findings likely indicate resolving ileus." 06/05 saline enema x 1 completed 06/06 NGT and drains removed 06/07 Full liquid diet. Liver enzymes improved. Discontinued IV fluids. Removed [place]. 06/08. She has progressed to a soft mechanical diet. She is voiding urine and passing stools and flatus well. Her dressing was changed . Incision appears dry and healing well per Surgery. On track to be medically cleared. RN noticed cellulitis and purulence around previous MIRNA site and notified surgery. Surgery irrigated and repacked it. - Diet: Soft mechanical diet - Continue to monitor IOs, vitals, and labs (BMP and CBC) - Cleared to discharge pending placement 06/09: Medically clear for DC on 06/08. Wound is healing well. Vomited this afternoon, about 400ml. I have restarted her reglan, which I discontinued yesterday. 06/10: Medically clear for DC on 06/08. She feels very fatigued and is having multiple stools, but ready to advance diet from full liquid at breakfast in the AM. New dx: C diff colitis. Dr Alcocer removed abdominal amrit today and did dressing change. discussed with Dr Alcocer today. 06/11: Remains medically clear. Manage C. difficile as below. Awaiting insurance authorization/SNF placement 06/12: Remains medically clear. Anticipate SNF placement tomorrow (2) C. difficile colitis: Impression: While there is no medical reason she needs to stay in the hospital for this, it is unlikely that a facility will take her. She has been started on fidaxomycin, and she will be off precautions as soon as she has formed stools once again. 06/11: This hospital does not have fidaxomicin on hand, I have switched her over to vancomycin as the IDSA says that vancomycin remains an acceptable alternative depending on resource availability. Will work with pharmacy on getting fidaxomicin on standby if this does not work 06/12: Today he is day 2 of oral vancomycin. Still no improvement in symptoms, but it can take up to 72 hours in some cases to see improvement. If she has no improvement in symptoms in a few days, could consider fidaxomicin. I have added Metamucil to add bulk to her stool and have also added probiotics (3) Atrial fibrillation with RVR: Impression: Rate controlled. At the time of admit, likely related to dehydration. She has stabilized and was back on home meds of Amiodarone 200mg daily, metoprolol 100mg daily. Xarelto was not been resumed. Pt NPO. Metoprolol ordered PRN, but she has not needed a dose. - Restart PO metoprolol @ 50 mg daily - Restart Xarelto- Eliquis is formulary here. - Discontinue tele (4) Hypokalemia: Impression: Previously repleted and resolved. 06/06 Potassium is 2.9(L) Given Potassium 40 mEq IV. Likely due to GI losses. 06/07 AM Potassium 2.9(L) Given Potassium 40 mEq IV. PM Potassium 3.6 06/08 AM Potassium 3.0(L). Expected to improve as patient's intake improves. 06/09: K = 3.3. I am giving 40mEq KCl orally today 06/10: 3.6. With loose stools likely to fall again. I will start the patient on 20mEq daily for the time being. 06/11: K3.2. 40 p.o.. Add on magnesium 06/12: K3.3. 40 p.o. (5) Diabetes: Impression: A1c 5.6 Holding home dose Ozempic while in the hospital SSI held as well as POC Glucose for now. recommend outpatient followup. (6) Acute kidney injury: Impression: Resolved. (7) Hyponatremia: Impression: Mild, 133 today. (8) Depression: Impression: 06/07 Restarted home Vraylar and Cymbalta. we cannot get the Vraylar here. She has been off of it for some time. Family not able to bring it in. (9) Hypothyroid: Impression: 06/07 Restarted PO synthroid.
[2025-06-12] MEDS: SACCHAROMYCES BOULARDII 250 MG CAPSULE PO SCH (16:27)
--- NOTE | 2025-06-12 16:28 | Discharge Summary ---
Discharge Summary Admit Date: 05/21/25 Discharge Date: 06/12/25 Discharging Provider: Omar Reina Primary Care Provider: Min Davis Code Status: Attempt Resuscitation DIAGNOSES Discharge Diagnoses with Status of Each Condition: Small bowel obstructionpostop, resolved C. difficile colitis On oral vancomycin Atrial fibrillation with RVRrate controlled Hypokalemiascheduled repletion Diabeteschronic Acute kidney injuryresolved HPI History of Present Illness: 64-year-old female who presents to the emergency department with nausea and vomiting inability to tolerate any p.o. since 05/16/2025. She was seen in the ED on May 16 diagnosed with a gastroenteritis and sent home. She has not had a bowel movement nor passed flatus since 05/16. She has been having mild abdominal pain and abdominal distention. She says she just generally fears feels terrible. Is difficult for her to get out of bed such as she has been keeping a bucket by her bed vomiting. She has not been running any fevers she has not had any extremity swelling she is not having any difficulty passing her urine she states that she still is urinating several times a day. HOSPITAL COURSE Hospital Course: Patient was admitted into the hospital and underwent laparoscopy on 05/23. This turned into a small bowel resection for Meckel's/small bowel torsion/perforation. She had a long recovery process, with return of bowel function on 06/03, but then had poor motility requiring reinsertion of NG tube, and the NG tube was in again until 06/06. She was cleared for discharge on 06/08, but had avoidable days due to issues with placement. She developed C. difficile colitis, and was started on oral vancomycin for this. She is discharging to SNF with a course of oral vancomycin and has been instructed to follow-up with PCP and with surgery. I would recommend that she stop her semaglutide and never restart it ALLERGIES Allergies Allergy/AdvReac Type Severity Reaction Status Date / Time Penicillins Allergy Mild Anaphylaxis Verified 05/19/25 00:00 Btyaltv-PRR-GmS Reductase Allergy Mild Anaphylaxis Verified 05/19/25 00:00 Inhibitor codeine Allergy Unknown rash Verified 05/21/25 13:46 MEDICATIONS Ambulatory Orders Medication Instructions Recorded Confirmed amiodarone 200 mg tablet 200 mg PO DAILY 05/22/25 cariprazine 4.5 mg capsule 4.5 mg PO DAILY 05/22/25 (Vraylar) docusate sodium 100 mg capsule 100 mg PO DAILY PRN con stipation 05/22/25 05/22/25 (Col-Rite) duloxetine 60 mg capsule,delayed 60 mg PO DAILY 05/22/25 release (Cymbalta) empagliflozin 10 mg tablet 10 mg PO DAILY 05/22/25 (Jardiance) famotidine 40 mg tablet (Pepcid) 40 mg PO DAILY 05/22/25 fluticasone fur. 200 mcg-umeclid 1 inh inhalation KERA Y 05/22/25 05/22/25 62.5 mcg-vilant 25 mcg inhalat.powder (Trelegy Ellipta) levothyroxine 137 mcg tablet 137 mcg PO DAILY 05/22/25 05/22/25 (Euthyrox) montelukast 10 mg tablet 10 mg PO DAILY 05/22/2505/07 (Singulair) rivaroxaban 20 mg tablet (Xarelto) 20 mg PO DAILY 05/0705/22/25 spironolactone 25 mg tablet 25 mg PO DAILY 05/22/25 (Aldactone) tolterodine 4 mg capsule,extended 4 mg PO DAILY 05/22/25 release 24 hr (Detrol LA) Saccharomyces boulardii 250 mg 500 mg (2 x 250 mg) PO BIDWM 30 06/12/25 capsule days #120 caps acetaminophen 500 mg capsule 1,000 mg (2 x 500 mg) PO Q8H PRN 06/12/25 fever or pain #30 caps metoprolol succinate 100 mg 50 mg (1/2 x 100 mg) PO DA BIANCA 30 06/12/25 05/22/25 tablet,extended release 24 hr days #0 tabs potassium chloride 20 mEq 20 meq PO DAILYWM 7 days #7 tabs 06/12/25 tablet,extended release(part/cryst) (Klor-Con M) vancomycin 125 mg capsule 125 mg PO QID 8 days #32 cap s 06/12/25 PHYSICAL EXAM AT DISCHARGE Vital Signs: Vital Signs x48h Temp Pulse Pulse Resp BP BP Pulse Ox 06/13/25 10:20 97.9 F 55 L 20 126/66 94 06/13/25 08:33 74 20 06/13/25 07:31 97.2 F L 54 L 18 133/61 H 92 Physical Exam Other/Comments: General Appearance: positive No acute distress and Alert Eyes Bilateral: positive No scleral icterus Respiratory: positive No respiratory distress and Breath sounds nml; negative Wheezes, Rales or Rhonchi Cardiovascular: positive Regular rate & rhythm Abdomen: positive Nml bowel sounds, Tenderness (improving) and Other (dressings at LLQ and midline incision with mininal drainage and no erythema. ); negative No distention (improving), Guarding or Rebound Skin: positive Color nml and Other (abdomen with some serous draiange at the lower aspect of abdomen, upper aspect and LLQ w minimal to no drainage. ) Extremities: positive Non-tender and No pedal edema Neurologic/Psychiatric: positive Oriented x3 LABS 06/12/25 04:15 06/12/25 04:15 FOLLOW UP Follow Up: With PCP, general surgery TIME SPENT Time Spent in Discharge (Minutes): 38 Discharge Plan Discharge Patient Disposition: 03 [facility] DC/Xfer Condition: Serious Prescriptions: New potassium chloride [Klor-Con M20] 20 mEq Tablet,Er Particles/Crystals 20 meq PO DAILYWM 7 Days Qty: 7 0RF Saccharomyces boulardii 250 mg Capsule 500 mg PO BIDWM 30 Days Qty: 120 0RF vancomycin 125 mg Capsule 125 mg PO QID 8 Days Qty: 32 0RF acetaminophen 500 mg capsule 1,000 mg PO Q8H PRN (Reason: fever or pain) Qty: 30 0RF Continued Trelegy Ellipta 200-62.5-25 mcg blister with device 1 inh inhalation DAILY amiodarone 200 mg tablet 200 mg PO DAILY Vraylar 4.5 mg capsule 4.5 mg PO DAILY spironolactone [Aldactone] 25 mg tablet 25 mg PO DAILY duloxetine [Cymbalta] 60 mg capsule,delayed release(DR/EC) 60 mg PO DAILY montelukast [Singulair] 10 mg tablet 10 mg PO DAILY docusate sodium [Col-Rite] 100 mg capsule 100 mg PO DAILY PRN (Reason: constipation) tolterodine [Detrol LA] 4 mg capsule,extended release 24hr 4 mg PO DAILY levothyroxine [Euthyrox] 137 mcg tablet 137 mcg PO DAILY Jardiance 10 mg tablet 10 mg PO DAILY famotidine [Pepcid] 40 mg tablet 40 mg PO DAILY Xarelto 20 mg tablet 20 mg PO DAILY Rx Instructions: must administer with evening meal Changed metoprolol succinate 100 mg tablet extended release 24 hr 50 mg PO DAILY 30 Days Qty: 0 0RF Discontinued Ozempic 1 mg/dose (4 mg/3 mL) pen injector 1 mg subcut QWEEK Patient Comments: PATIEINT TAKES ON SUNDAYS Activity Restrictions: No Restrictions Diet: Regular Health Concerns: Hospital Course and Diagnosis: Patient underwent small bowel resection for Meckels diverticulum with postoperative obstruction. Developed Clostridioides difficile infection (CDI), currently managed with oral vancomycin 125 mg four times daily per guideline recommendations for non-severe CDI. She is being discharged to a half-way facility (SNF). Atrial Fibrillation: History of atrial fibrillation with recent episode of rapid ventricular response, now resolved. Maintained on amiodarone, metoprolol, and rivaroxaban (Xarelto), which is FDA-approved for stroke prevention in nonvalvular atrial fibrillation. Continue monitoring for arrhythmia recurrence and bleeding risk. Electrolyte Management: Hypokalemia was identified and treated with oral potassium supplementation. Oral route is preferred for potassium repletion in patients with a functioning GI tract and [id number]-sh-bkftnpic hypokalemia. Continue monitoring serum potassium and renal function. Gastrointestinal Management: Patient is on probiotics and fiber supplements for diarrhea. Fiber supplementation may help with bowel regularity; monitor for side effects such as bloating and flatulence. Nutrition and Postoperative Care: After small bowel resection, patients are at risk for malabsorption and nutritional deficiencies. Dietitian involvement is recommended for ongoing assessment and management of nutritional needs. Gradual advancement of diet from clear liquids to soft foods is standard, with avoidance of high-residue foods initially. Infection Control: CDI requires strict contact precautions and environmental cleaning in SNF settings to prevent transmission. Summary of Discharge Instructions: * Continue oral vancomycin for CDI as prescribed. * Maintain current atrial fibrillation regimen; monitor for bleeding and arrhythmia. * Continue potassium supplementation; monitor electrolytes. * Use fiber supplements as tolerated; probiotics are not routinely recommended for CDI. * Advance diet as tolerated; involve dietitian for nutritional support. * Adhere to infection control protocols for CDI. Follow-up: Monitor for CDI recurrence, arrhythmia, bleeding, and nutritional status. Ensure communication of these recommendations to SNF staff. Follow up with PCP as well as general surgery Print Language: [place] Citizen Patient Instructions: Surg Dc Stand Alone Forms: SNF Discharge, PCP List Report called to and time (if no answer, doc. time of each call attempted): Luh latham 09[address] [facility] RN Vitals documented within 30 minutes of discharge?: Yes
[2025-06-12] MEDS: POTASSIUM CHLORIDE 20 MEQ TABLET PO ONE (16:44)
[2025-06-13] MEDS: PSYLLIUM PACKET PO SCH (08:04)
[2025-06-13 10:20] VITALS: BP 126/66; TEMP 97.9; O2SAT 94
== END 2025-06-13 10:21 | DRG 329 ==
LOC: ED 13:05 → MS3 16:05 → ICU 05-23 22:48 → MS2 05-27 20:50
PROVIDERS: ADMIT Physician Assistant Medical; ATTEND Physician Assistant Medical